=== PATIENT | male | born 1945 | race African-American/Black ===

== ENCOUNTER 2019-01-03 11:07 | Inpatient (IN) | payer OTHER, MEDICARE ==
[~2019-01-03] VITALS: Ht 182.2 cm; Wt 91.8 kg
[2019-01-03] MEDS ORDERED: IPRATROPIUM BROM 0.5 MG/2.5ML INH SOL NEB ONE (11:15)
[2019-01-03] MEDS ORDERED: ALBUTEROL SULF 2.5 MG/0.5ML(0.5%) NEB SOLN NEB ONE (11:15)
[2019-01-03] MEDS ORDERED: SODIUM CHLORIDE 0.9% 1,000 ML IV ONE (11:19)
[2019-01-03 11:40] LABS: Hematocrit 35.7 % (41.0-53.0); Hemoglobin 12.3 g/dL (13.5-17.5); Mean Corpuscular Hemoglobin 29.3 pg (28.0-32.0); Mean Corpuscular Hgb Conc. 34.3 g/dL (32.0-36.0); Mean Corpuscular Volume 85.3 fL (80.0-100.0); Platelet Count (auto) 245 10^3/uL (140-450); Red Blood Cells 4.19 10^6/uL (4.5-5.90); Red Cell Distribution Width 16.7 % (11.8-14.3); White Blood Cell 28.9 10^3/uL (4.4-10.8)
[2019-01-03 11:50] LABS: Basophils % (manual) 0 (0.0-2.0); Blast Cells 0; Eosinophils % (manual) 0 (0-7); Metamyelocytes % 0; Myelocytes % 0; Promyelocytes % 0; Reactive Lymphocytes 0
[2019-01-03 12:02] LABS: INR 1.08 (0.9-1.15)
[2019-01-03 12:06] LABS: Alanine Aminotransferase 15 U/L (16-61); Albumin 2.7 g/dL (3.4-5.0); Anion Gap 11 (5-15); Blood Urea Nitrogen 28 mg/dL (7-18); Calcium 8.7 mg/dL (8.5-10.1); Carbon Dioxide 21 mmol/L (21-32); Chloride 107 mmol/L (98-107); Glucose 121 mg/dL (74-106); Potassium 3.9 mmol/L (3.5-5.1); Sodium 139 mmol/L (136-145)
[2019-01-03 12:11] LABS: Alkaline Phosphatase 127 U/L (45-117); Aspartate Aminotransferase 19 U/L (15-37); BUN/Creatinine Ratio 17.8; Bilirubin, Total 2.6 mg/dL (0.2-1.0); GFR African American 56 mL/min; GFR Non-African American 46 mL/min; Total Protein 7.2 g/dL (6.4-8.2)
[2019-01-03] MEDS ORDERED: AZITHROMYCIN 500MG/ 250ML 250 ML IV ONE (12:30)
[2019-01-03] MEDS ORDERED: cefTRIAXone 1GM/50ML D5W 50 ML IV ONE (12:30)
[2019-01-03 13:10] LABS: Band Neutrophils % (manual) 18; Lymphocytes % (manual) 3 (10.0-50.0); Monocytes % (manual) 5 (0-12)
[2019-01-03] MEDS ORDERED: IOHEXOL 350 MG/ML 100ML IJ ONE (13:16)
[2019-01-03] MEDS ORDERED: NITROGLYCERIN 0.4 MG SL TAB SL PRN (14:15)
[2019-01-03] MEDS ORDERED: VANCOMYCIN PER PHARMACY 0 MG IV SCH (14:15)
[2019-01-03] MEDS ORDERED: ACETAMINOPHEN 500 MG TAB PO PRN (14:15)
[2019-01-03] MEDS ORDERED: HYDROcodone-ACET 5/325MG TAB PO PRN (14:15)
[2019-01-03] MEDS ORDERED: methylPREDNISolone SOD SUCC 125 MG/2 ML VL IV ONE (14:15)
[2019-01-03] MEDS ORDERED: MORPHINE SULF INJ 2 MG/ML SYRINGE 1ML IV PRN ×2 (14:15)
[2019-01-03 14:47] LABS: Lactic Acid w/Reflex 2.5 mmol/L (0.4-2.0)
[2019-01-03] MEDS: SODIUM CHLORIDE 0.9% 1,000 ML IV SCH (15:27)
[2019-01-03 16:35] VITALS: BP_SYST 122; BP_DIAS 71; BP_DIAS 77
--- NOTE | 2019-01-03 16:35 | NUR ---
RECEIVED PT FROM ED VIA [facility] FOR ACUTE RESPIRATORY FAILURE PT IMMEDIATELY PLACED ON BIPAP 15/7 AT 35% BY RT, SPO2 AT 97% PT HAVING MOIST COUGH AND GETS VERY WHEEZY AND S.O.B WITH ACTIVITY. EDUCATED ON POC, PT VERBALIZED UNDERSTANDING OF POC.
--- NOTE | 2019-01-03 17:17 | NUR ---
Respiratory note: UNABLE TO OBTAIN PT ABG AT THIS TIME. FLASH PT REFUSED SECOND ATTEMPT. STATING HE WANTED TO REST AND WILL COMPLY AT A LATER TIME. WILL INFORM NOC RT AND RN OF REFUSAL.
[2019-01-03] MEDS: ALBUTEROL SULF 2.5 MG/0.5ML(0.5%) NEB SOLN NEB SCH ×2 (18:10→22:18)
[2019-01-03] MEDS: ACETYLCYSTEINE 20%(200MG/ML) SOL 4ML NEB SCH ×2 (18:10→22:18)
[2019-01-03] MEDS: IPRATROPIUM BROM 0.5 MG/2.5ML INH SOL NEB SCH ×2 (18:10→22:18)
[2019-01-03] MEDS: BUDESONIDE (INHALATION) 0.5 MG/2 ML NEB NEB SCH (18:11)
[2019-01-03 18:13] VITALS: BP 123/66
[2019-01-03 18:20] LABS: Urine Bacteria NONE SEEN /hpf (None Seen); Urine Blood Negative /uL (Negative); Urine Hyaline Cast FEW /lpf (0 - 2); Urine WBC 1 /hpf (0 - 3)
[2019-01-03] MEDS ORDERED: VANCOMYCIN 1,500 MG in D5W 5% 250 ML IV ONE (18:30)
--- NOTE | 2019-01-03 19:00 | NUR ---
REPORT GIVEN TO TRAY SERVER RN PT REMAINS STABLE, RT STILL UNABLE TO BET PT'S ABG, MADY TURNER AWARE, HE CAME TO ROUND ON PT PRIOR TO GOING HOME, HE STATES PT LOOKS MUCH BETTER THAN WHEN HE WAS IN ED. HIS WORK OF BREATHING IS MUCH BETTER.
--- NOTE | 2019-01-03 19:30 | NUR ---
Opening Shift Note Assumed care of patient, awake and alert, watching TV. Breathing on BiPAP, mild SOB and tachypneic, upper lungs sounded wheezing, lower lungs diminished. Denied pain. IV 18G at left wrist, saline lock, flushed well. 20G at right hand infusing Vancomycin, CDI site. Pt had incontinent, will cleaned and changed all linens. Bed in low position, call light within reach, fall and safety precaution in place, all alarms are audible. Instructed on POC and to call for assist PRN, will continue to monitor for changes Q1hr and PRN.
--- NOTE | 2019-01-03 19:45 | NUR ---
Incontinence/ Patient bathe/linen change Patient given partial bath and perirectal and perineum care with basin bath. Skin integrity assessed for any changes, skin intact, no rash noted. Complete linens changed. Pt able to help turn with fairly tolerated due to tachypneic. Patient repositioned for comfort. Continue care.
[2019-01-03 20:00] VITALS: BP 131/64
--- NOTE | 2019-01-03 20:30 | NUR ---
Condition update Pt sitting on the bed, eating dinner by self. RR35/min, O2 NC3LPM, O2sat 95%. Occasional coughing, no sputum. Continue care.
--- NOTE | 2019-01-03 20:50 | NUR ---
Condition update Pt finished dinner, 20% main dish, peaches. Sitting on bed, resting after dinner. Pt refused mouth care for now. SCD put on both lower legs. Paged RT for resume BiPAP. Continue care.
[2019-01-03] MEDS ORDERED: IBUP200T76 PO (21:01)
[2019-01-03] MEDS ORDERED: PRE5T GT (21:01)
[2019-01-03] MEDS ORDERED: ATOR20TA PO (21:01)
[2019-01-03] MEDS ORDERED: CHOL20007 OR (21:01)
[2019-01-03] MEDS ORDERED: AMLO5TAB15 PO (21:01)
[2019-01-03] MEDS ORDERED: ZOLP12.564 PO (21:01)
[2019-01-03] MEDS ORDERED: TAMS0.4C36 PO (21:01)
[2019-01-03 21:05] VITALS: BP 131/63
[2019-01-03] MEDS ORDERED: TOPIRAMATE 100 MG TAB ONE (21:52)
[2019-01-03] MEDS: FAMOTIDINE (10MG/ML) 2ML VL IV SCH (21:54)
[2019-01-03 22:00] VITALS: BP 127/62
--- NOTE | 2019-01-03 22:03 | NUR ---
Home medication request Pt asked for his night time home medicine. Pt stated that he is on Labetalol 12.5mg PO twice a day, Tamsulosin 0.4mg PO q pm, and Zolpidem 12.5mg po q pm. V/S 127/62, HR76, RR29, POX97%. Paged Hospitalist for medication order. 22.13pm Dr. Calzada called back, ordered Tamsulosin 0.4mg PO q pm and Zolpidem 10mg po prn hs, will administer medication as order.
[2019-01-03] MEDS ORDERED: ZOLPIDEM TARTRATE 5 MG TAB PO PRN (22:15)
[2019-01-03 22:19] VITALS: BP 127/62
[2019-01-03] MEDS ORDERED: POM PO ×2 (23:50)
[2019-01-04] VITALS (13 sets, daily range): BP systolic 120–145; BP diastolic 60–84
--- NOTE | 2019-01-04 00:14 | NUR ---
Condition update Pt sleeping well, v/s and condition stable. Breathing on BiPAP, tachypneic but even and nonlabored. POX 98% on 05/10, 35% BiPAP, will hold night med for now due to sleeping. Continue care.
[2019-01-04] MEDS: TAMSULOSIN HYDROCHLORIDE 0.4 MG CAP PO SCH ×2 (01:55→18:01)
--- NOTE | 2019-01-04 02:00 | NUR ---
Condition update/ wheezing Pt woke up by self, pulled POX probe, fidgeting. SOB with WOB, tachypneic RR 30's /min, MV 30's LPM, O2sat mid 90's with audible wheezing while switched to O2NC 3LPM (talking and sipping water). Re-assessed LOC, Pt oriented to self, , day. Discussed with Pt about night time medicine that Pt requested but was withheld due to sleeping. Pt stated that he wanted Flomax but said no to Ambien, will administer Flomax. Assisted with urinal, Pt urinated dark hoang urine 350ml, hands and perineum care done. RT at bedside to assess SOB and administer med neb treatment. Re-positioned Pt and will continue to monitor.
[2019-01-04] MEDS: IPRATROPIUM BROM 0.5 MG/2.5ML INH SOL NEB SCH ×6 (02:19→22:54)
[2019-01-04] MEDS: ALBUTEROL SULF 2.5 MG/0.5ML(0.5%) NEB SOLN NEB SCH ×6 (02:19→22:54)
[2019-01-04] MEDS: SODIUM CHLORIDE 0.9% 1,000 ML IV SCH (02:48)
--- NOTE | 2019-01-04 05:05 | NUR ---
Condition update/ supplement Pt woke up, switched on and watched a television. Pt asked for orange juice. Provided a cup of orange juice. Changed O2 to O2NC 3LPM while drinking, RR low 30's, O2sat mid 90's, no s/s of distress. Continue care.
[2019-01-04 05:29] LABS: Hematocrit 32.9 % (41.0-53.0); Hemoglobin 11.1 g/dL (13.5-17.5); Mean Corpuscular Hemoglobin 29.1 pg (28.0-32.0); Mean Corpuscular Hgb Conc. 33.7 g/dL (32.0-36.0); Mean Corpuscular Volume 86.4 fL (80.0-100.0); Platelet Count (auto) 227 10^3/uL (140-450); Red Blood Cells 3.81 10^6/uL (4.5-5.90); Red Cell Distribution Width 17.1 % (11.8-14.3); White Blood Cell 26.3 10^3/uL (4.4-10.8)
[2019-01-04 05:32] LABS: Basophils % (manual) 0 (0.0-2.0); Blast Cells 0; Eosinophils % (manual) 0 (0-7); Metamyelocytes % 0; Myelocytes % 0; Promyelocytes % 0; Reactive Lymphocytes 0
[2019-01-04 05:48] LABS: Calcium 8.8 mg/dL (8.5-10.1); Potassium 3.4 mmol/L (3.5-5.1)
[2019-01-04 05:50] LABS: BUN/Creatinine Ratio 10.6
[2019-01-04] MEDS: ACETYLCYSTEINE 20%(200MG/ML) SOL 4ML NEB SCH ×5 (06:34→22:55)
--- NOTE | 2019-01-04 07:30 | NUR ---
RECEIVED PATIENT SITTING UP IN THE BED, A/O TIMES 4, O2 BY BIPAP 15/7 FI02 30%, STATES HE CAN USE THE URINAL, SALINE LOCK TO THE LFA 18G FLUSHED AND PATENT, ANTIBIOTICS INFUSING INTO THE RT HAND 20G BY THE IV PUMP, DENIES PAIN,
[2019-01-04 07:33] LABS: Band Neutrophils % (manual) 13; Lymphocytes % (manual) 2 (10.0-50.0); Monocytes % (manual) 4 (0-12)
--- NOTE | 2019-01-04 07:59 | NUR ---
PT TAKEN OFF BIPAP AND PLACED ON 2LNC, SPO2 >90%. NO RESPIRATORY DISTRESS NOTED.
--- NOTE | 2019-01-04 08:30 | NUR ---
STATES HE DOESN'T WANT THE FOOD BUT WILL TRY AND EAT SOMETHING
[2019-01-04] MEDS: cefTRIAXone 1GM/50ML D5W 50 ML IV SCH (08:57)
--- NOTE | 2019-01-04 09:30 | NUR ---
SITTING UP IN THE BED TALKING ON HIS PHONE
[2019-01-04] MEDS ORDERED: AZITHROMYCIN 500MG/ 250ML 250 ML IV SCH (10:00)
--- NOTE | 2019-01-04 10:00 | NUR ---
PATIENT STATES HE CAN TURN HIMSELF , WON'T LET US TURN HIM
--- NOTE | 2019-01-04 10:00 | NUR ---
EXPLAIN MEDICATIONS TO THE PATIENT REGARDING THE DOSAGE, USAGE, AND SIDE EFFECTS, VERBALIZED THAT HE UNDERSTOOD AND MEDS GIVEN TOLERATED
[2019-01-04] MEDS: FAMOTIDINE (10MG/ML) 2ML VL IV SCH ×2 (10:06→22:00)
--- NOTE | 2019-01-04 10:30 | NUR ---
SPUTUM COLLECTED AND SENT
[2019-01-04] MEDS: BUDESONIDE (INHALATION) 0.5 MG/2 ML NEB NEB SCH ×2 (10:45→19:29)
--- NOTE | 2019-01-04 10:48 | NUR ---
PLACED PT ON BIPAP ON ORDERED SETTINGS 15/7, BUR 12 PER PT REQUEST. NO RESPIRATORY DISTRESS NOTED. RN JOSE AWARE OF BIPAP PLACEMENT WELL.
--- NOTE | 2019-01-04 11:10 | NUR ---
DR DEL CID IN TO SEE THE PATIENT AND WROTE NEW ORDERS
[2019-01-04] MEDS ORDERED: IBUPROFEN 400 MG TAB PO PRN (11:15)
--- NOTE | 2019-01-04 12:00 | NUR ---
FRIEND IN TO VISIT WITH THE PATIENT
--- NOTE | 2019-01-04 12:05 | NUR ---
PT OFF BIPAP FOR LUNCH. NO RESPIRATORY DISTRESS.
[2019-01-04] MEDS: methylPREDNISolone SOD SUCC 40 MG/ML VL IV SCH ×2 (12:20→18:01)
--- NOTE | 2019-01-04 12:20 | NUR ---
SITTING UP IN BE EATING HIS LUNCH , STATES HE IS ONLY GOING TO EAT A LITTLE BECAUSE HE IS GOING HOME, PATIENT APPEARS TO BE FORGETFUL
[2019-01-04] MEDS: VANCOMYCIN 1,500 MG in D5W 5% 250 ML IV SCH (12:22)
[2019-01-04] MEDS ORDERED: POTASSIUM CHL 10 Meq TABLET PO ONE (12:45)
[2019-01-04] MEDS ORDERED: MAGNESIUM SULFATE 1GM/100ML 100 ML IV ONE (12:45)
--- NOTE | 2019-01-04 13:00 | NUR ---
DR CALDERÓN IN TO SEE THE PATIENT
--- NOTE | 2019-01-04 13:30 | NUR ---
FRIEND LEFT AND WENT HOME
--- NOTE | 2019-01-04 14:25 | NUR ---
BREATHING TREATMENT BEING GIVEN, PATIENT GOING FROM O2 AT 2L BY N/C, TO WEARING THE BIPAP EVEN THOUGH HE IS NOT SOB
--- NOTE | 2019-01-04 14:45 | NUR ---
REMOVED SALINE LOCK FROM THE LEFT WRIST AND RT HAND BOTH INTACT BUT INFILTRATED, PLACED 22G TO THE RFA 1/1 ATTEMPTS USING STERILE TECHNIQUE
--- NOTE | 2019-01-04 15:31 | NUR ---
SITTING UP IN THE BED ON HIS PHONE. O2 AT 2L BY N/C, SAT 95%, 20G REMOVED FROM THE RT HAND DUE TO SWELLING, USES THE URINAL, NO COMPLAINTS OF PAIN
--- NOTE | 2019-01-04 15:53 | NUR ---
Assessment Pt is a 73 yr old alert and oriented male. Pt's emergency contact is his friend, Codey, at [phone]. Prior to admit, pt lives alone, is ambulatory, and functions independently with ADLs, cooking and cleaning and states that he functions independently without any DME. Pt admitted with shortness of breath and had a bi-pap tx shortly before SW assessment. Pt is an active smoker and stated that he has no interest in tx. Pt states that he is still employed and able to meet his needs. Pt stated that he does not need any help in the home and that he will feel safe to d/c home upon medical clearance. Pt stated no current needs or concerns at this time. Addendum: 01/04/19 at 1600 by MARCK HERNANDEZ SS Amended: Links added.
--- NOTE | 2019-01-04 16:05 | NUR ---
REFUSED TO HAVE THE TOMMY DOPPLER OF HIS LEGS DONE
--- NOTE | 2019-01-04 17:29 | NUR ---
SITTING UP IN BED EATING AN APPLE
--- NOTE | 2019-01-04 18:26 | NUR ---
SITTING UP IN EBD, LOOKING AT HIS TABLET, NOT READY TO EAT HIS DINNER, WHICH IS AT THE BEDSIDE, O2 AT 3L BY THE N/C, USES THE URINAL, RFA 22G WITH NS AT 10ML/HR TKO, SCD'S TO TOMMY LEGS, ASKING IF HE HAS A SLEEPING PILL FOR TONIGHT AND STATED YES HE HAS AMBIEN, DENIES PAIN AND SOB WILL CONTINUE TO MONITOR AND GIVE REPORT TO THE NEXT SHIFT
--- NOTE | 2019-01-04 19:05 | NUR ---
Respiratory note: PT REQUESTING TO GO ON BIPAP AFTER BREATHING TX. PT DENIES SOB, STATES HE JUST WANTS TO WEAR BIPAP FOR A LITTLE WHILE. BIPAP ALARMIN AFTER 5-10 MIN. ENTERED ROOM, PT OFF BIPAP, ON RA AND EATING VEGETABLES. PT STATES HE IS JUST TAKING A BREAK TO EAT BUT WANTS TO GO BACK ON AFTER 15 MINE. WILL RETURN.
--- NOTE | 2019-01-04 19:30 | NUR ---
Respiratory note: PT PLACED BACK ON BIPAP, DENIES ANY OTHER NEEDS.
--- NOTE | 2019-01-04 20:55 | NUR ---
Respiratory note: ENTERED ROOM TO CHECK PT ON BIPAP. PT OFF BIPAP, ON R/A, SATS 93%. PT STATES HE IS DONE WITH BIPAP FOR NOW. NO DISTRESS NOTED, BIPAP PLACED ON STANDBY. O2 RUNNING AT 2LPM AT THE BEDSIDE. WILL RETURN AT NEXT SCHEDULED TX TIME.
[2019-01-04] MEDS ORDERED: ATORVASTATIN 20 MG TAB PO SCH (22:00)
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
[2019-01-05] VITALS: BP 128/64
--- NOTE | 2019-01-05 00:30 | NUR ---
PT IS AWAKE, ATTEMPTS TO GET OOB POOLING ON LINES AND MONITOR CABLES TO FIND A PAIR OF BLACK PANTS IN THE TRASH CAN. ASSISTED BACK TO BED AND OFFERED THE BAG OF BELONGINGS WHERE HE FINDS WHATEVER HE NEEDS. EXPLAINED TO PT SAFETY CONCERNS AND THE USE OF CALL LIGHT.
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
[2019-01-05] MEDS ORDERED: LORazepam 2MG/ML-1ML VIAL IV ONE (01:30)
[2019-01-05] MEDS ORDERED: HALOPERIDOL LACTATE 5 MG/ML INJ VIAL IM ONE (01:30)
[2019-01-05] MEDS ORDERED: diphenhdrAMINE HCL 50 MG/1 ML VL IV ONE (01:30)
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
--- NOTE | 2019-01-05 03:10 | NUR ---
SPENT TIME WITH PT REMINDING HIM OF THE IMPORTANCE OF REMAINING SAFE . PROMISES TO STAY IN BED IN EXCHANGE FOR COFFEE. ENJOYING HIS COFFEE, MUCH CALMER NOW, BUT NOT FULLY COHERENT. VISUALLY MONITORED CLOSELY, LIGHTS IN THE ROOM ON.
[2019-01-05 04:00] VITALS: BP 147/75
[2019-01-05] MEDS: methylPREDNISolone SOD SUCC 40 MG/ML VL IV SCH ×4 (05:48→17:29)
[2019-01-05] MEDS: VANCOMYCIN 1,500 MG in D5W 5% 250 ML IV SCH (05:48)
[2019-01-05] MEDS: IPRATROPIUM BROM 0.5 MG/2.5ML INH SOL NEB SCH ×4 (06:19→18:19)
[2019-01-05] MEDS: ALBUTEROL SULF 2.5 MG/0.5ML(0.5%) NEB SOLN NEB SCH ×4 (06:19→18:19)
[2019-01-05] MEDS: ACETYLCYSTEINE 20%(200MG/ML) SOL 4ML NEB SCH ×4 (06:19→18:20)
[2019-01-05 08:00] VITALS: BP 125/63
--- NOTE | 2019-01-05 08:00 | NUR ---
Opening Shift Note Assumed care of patient, awake and alert. Patient A&Ox4. Patient on the monitor. Patient on 5L NC saturation at 95%. IV right forearm 22g TKO patent, clean, dry, and intact. No S/S of distress/SOB or pain. Instructed on POC and to call for assist. Bed locked and in the lowest position, side rails up x2, call light with in reach. Will continue to monitor.
--- NOTE | 2019-01-05 08:30 | NUR ---
Patient sitting up in bed eating breakfast independently. Will continue to monitor.
--- NOTE | 2019-01-05 09:30 | NUR ---
Dr. Curry at bedside.
[2019-01-05] MEDS: BUDESONIDE (INHALATION) 0.5 MG/2 ML NEB NEB SCH (09:45)
[2019-01-05] MEDS ORDERED: CHOLECALCIFEROL (VITD3) 1,000 UNIT TAB PO SCH (10:00)
[2019-01-05] MEDS ORDERED: amLODIPine BESYLATE 5 MG TAB PO SCH (10:00)
--- NOTE | 2019-01-05 10:00 | NUR ---
Medication dosages, usages, and side effects explained to patient. Patient verbalized understanding. Will continue to monitor.
[2019-01-05] MEDS: cefTRIAXone 1GM/50ML D5W 50 ML IV SCH (10:42)
[2019-01-05] MEDS: FAMOTIDINE (10MG/ML) 2ML VL IV SCH (10:42)
[2019-01-05 11:35] LABS: Hematocrit 37.7 % (41.0-53.0); Hemoglobin 12.8 g/dL (13.5-17.5); Mean Corpuscular Hemoglobin 29.1 pg (28.0-32.0); Mean Corpuscular Volume 85.4 fL (80.0-100.0); Platelet Count (auto) 311 10^3/uL (140-450); Red Blood Cells 4.41 10^6/uL (4.5-5.90)
[2019-01-05 11:40] LABS: Band Neutrophils % (manual) 0; Basophils % (manual) 0 (0.0-2.0); Blast Cells 0; Eosinophils % (manual) 0 (0-7); Metamyelocytes % 0; Myelocytes % 0; Promyelocytes % 0; Reactive Lymphocytes 0
[2019-01-05 12:00] VITALS: BP 143/81
--- NOTE | 2019-01-05 12:30 | NUR ---
Patient sitting up in bed eating lunch independently. Will continue to monitor.
[2019-01-05 12:59] LABS: Lymphocytes % (manual) 8 (10.0-50.0); Monocytes % (manual) 6 (0-12)
[2019-01-05 14:08] LABS: Albumin 2.4 g/dL (3.4-5.0); Calcium 9.3 mg/dL (8.5-10.1); Potassium 3.7 mmol/L (3.5-5.1)
[2019-01-05 14:11] LABS: BUN/Creatinine Ratio 21.2; Bilirubin, Total 0.6 mg/dL (0.2-1.0); Total Protein 7.8 g/dL (6.4-8.2)
--- NOTE | 2019-01-05 15:00 | NUR ---
Dr. Barbosa at bedside. No new orders at this time.
--- NOTE | 2019-01-05 15:35 | NUR ---
Report given to Lea. Patient going to room 291B on tele box 61.
--- NOTE | 2019-01-05 16:07 | NUR ---
Pt Arrived on Unit Pt arrived via wheelchair accompanied by his friend. Pt is a/ox4 placed on 3L NC. No s/s of distress or SOB noted. Safety measures maintained with call light within reach, bed in lowest position and side rails up. Will continue to monitor for changes q1hr and prn.
--- NOTE | 2019-01-05 16:10 | NUR ---
Patient in room 291B. All belongings taken with the patient. Patient transported by wheel chair by myself and King CUELLAR. Patient now in room and resting. KAREN heredia.
[2019-01-05 16:22] VITALS: BP 139/75
--- NOTE | 2019-01-05 16:30 | NUR ---
Patient states his PMD is Dr. Bobby Winter at [facility].
[2019-01-05] MEDS: TAMSULOSIN HYDROCHLORIDE 0.4 MG CAP PO SCH (17:29)
--- NOTE | 2019-01-05 17:35 | NUR ---
Pt Concerned for Elevated BP Pt's stated that his BP is too high and that he "does not like it being that high". His BP is 142/74 initially; he requested that it be taken manually; to which is was 139/75. Pt states that his BP is too high and wishes to be on his medication Carvedilol 12.5mg. Discussed with pt that we are monitoring his blood pressure and that he has been taking amlodipine for his BP while in the hospital. Pt is still uneasy about his blood pressure and requests that this medication be added. Will endorse to NOC shift to monitor pt's BP.
--- NOTE | 2019-01-05 18:50 | NUR ---
Pt Stated He Wishes to Leave AMA Pt stated "I am don here". Pt stated he no longer wants to be here any more. Discussed the benefits of staying in the hospital given his Pneumonia diagnosis as well as respiratory failure; pt still wishes to leave AMA. All risks explained to pt including and disability; pt still wishes to leave AMA. Informed Piter SHAHID of pt's wishes; he is aware. Paper provided to pt and was signed in front of pt's friend and sitter VAISHNAVI
--- NOTE | 2019-01-05 19:28 | NUR ---
IV D/C'ed IV from pt's R wrist removed fully intact and site is asymptomatic. Pressure applied to site for 3 minutes with gauze and the wrapped in coban. Pt instructed to keep dressing on for 30 minutes; pt verbalized understanding.
--- NOTE | 2019-01-05 19:29 | NUR ---
Tele Box Removed and Sent back to ICU
--- NOTE | 2019-01-05 19:29 | NUR ---
Pt D/C'ed Off Unit Pt left unit AMA with all belongings. Pt was left via wheel chair accompanied by his friend and his belongings.
== END 2019-01-05 19:20 | disposition home or self-care (01) | DRG 871 ==
LOC: EDBD 11:07 → ER 11:07 → DOU IN ICU 11:08 → TELE-WESTW 01-05 15:42
PROVIDERS: ADMIT Nurse Practitioner Acute Care; ATTEND Internal Medicine
PROC: 5A09357 Assistance with Respiratory Ventilation, Less than 24 Consecutive Hours, Continuous Positive Airway Pressure (ICD-10-PCS; principal; 2019-01-03)
PROC: 5A09357 Assistance with Respiratory Ventilation, Less than 24 Consecutive Hours, Continuous Positive Airway Pressure (ICD-10-PCS; 2019-01-04)
PROC: 5A09357 Assistance with Respiratory Ventilation, Less than 24 Consecutive Hours, Continuous Positive Airway Pressure (ICD-10-PCS; 2019-01-05)
DX: A41.9 Sepsis, unspecified organism (principal); J18.9 Pneumonia, unspecified organism; J96.01 Acute respiratory failure with hypoxia; N17.0 Acute kidney failure with tubular necrosis; G92 Toxic encephalopathy; J18.1 Lobar pneumonia, unspecified organism; E44.0 Moderate protein-calorie malnutrition; J44.1 Chronic obstructive pulmonary disease with (acute) exacerbation; J98.11 Atelectasis; J44.0 Chronic obstructive pulmonary disease with (acute) lower respiratory infection; J45.901 Unspecified asthma with (acute) exacerbation; N18.3 Chronic kidney disease, stage 3 (moderate); K42.9 Umbilical hernia without obstruction or gangrene; E88.09 Other disorders of plasma-protein metabolism, not elsewhere classified; E87.6 Hypokalemia; D63.8 Anemia in other chronic diseases classified elsewhere; E66.9 Obesity, unspecified; F17.210 Nicotine dependence, cigarettes, uncomplicated; I12.9 Hypertensive chronic kidney disease with stage 1 through stage 4 chronic kidney disease, or unspecified chronic kidney disease; M06.9 Rheumatoid arthritis, unspecified; E55.9 Vitamin D deficiency, unspecified; M19.90 Unspecified osteoarthritis, unspecified site; Z85.3 Personal history of malignant neoplasm of breast; Z68.27 Body mass index [BMI] 27.0-27.9, adult; Z88.1 Allergy status to other antibiotic agents; Z71.6 Tobacco abuse counseling
CPT/HCPCS: 36415; 36600; 71045; 71275; 80048; 80053; 80202; 81001; 82306; 82805; 83605; 83735; 83880; 84443; 84484; 85007; 85027; 85379; 85610; 85730; 87040; 87070; 87205; 87804; 93005; 94640; 94644; 94660; 94668; 94761; 96361; 96365; 96367; 96375; 99291; G0378; J0696; J3490; J7060

== ENCOUNTER 2021-08-14 12:24 | Inpatient (IN) | payer OTHER, MEDICARE ==
[~2021-08-14] VITALS: Ht 177.8 cm; Wt 74.2 kg
[~2021-08-14 12:24] MED LIST: AMLO-489 PO; ATOR20TA PO; CHOL20007 OR; IBUP200T76 PO; POM PO; PRE5T GT; TAMS0.4C36 PO; ZOLP12.569 PO
[2021-08-14] MEDS ORDERED: SODIUM CHLORIDE 0.9% 500 ML IV ONE (13:00)
[2021-08-14 14:37] LABS: Hemoglobin 9.4 g/dL (13.5-17.5)
[2021-08-14 14:39] LABS: Basophils # (auto) 0.1 10 ^3/uL (0-0.2); Basophils % (auto) 0.9 % (0.0-2.0); Eosinophils # (auto) 0.1 10 ^3/uL (0-0.8); Eosinophils % (auto) 0.6 % (0.0-7.0); Hematocrit 27.1 % (41.0-53.0); Lymphocytes # (auto) 2.7 10 ^3/uL (0.4-5.4); Lymphocytes % (auto) 22.6 % (10.0-50.0); Mean Corpuscular Hemoglobin 31.6 pg (28.0-32.0); Mean Corpuscular Hgb Conc. 34.7 g/dL (32.0-36.0); Mean Corpuscular Volume 91.1 fL (80.0-100.0); Monocytes % (auto) 8.5 % (0.0-12.0); Neutrophils % (auto) 67.4 % (37.0-80.0); Nucleated Red Blood Cells % 0.1 %; Red Blood Cells 2.97 10^6/uL (4.5-5.90); White Blood Cell 11.9 10^3/uL (4.4-10.8)
[2021-08-14 14:47] LABS: INR 1.05 (0.9-1.15); Partial Thromboplastin Time 25.4 sec (23.6-33.0)
[2021-08-14] MEDS ORDERED: PANTOPRAZOLE 40 MG/10 ML VIAL INJ IV ONE (15:00)
[2021-08-14 15:14] LABS: Albumin 2.9 g/dL (3.4-5.0); Calcium 9.3 mg/dL (8.5-10.1)
[2021-08-14 15:20] LABS: Bilirubin, Total 0.5 mg/dL (0.2-1.0); Total Protein 6.9 g/dL (6.4-8.2)
[2021-08-14] MEDS ORDERED: LACTATED RINGER'S 1,000 ML IV ONE (16:00)
[2021-08-14] MEDS ORDERED: MORPHINE SULFATE INJ 2 MG/ml SYRG IV PRN ×2 (16:00→22:30)
[2021-08-14] MEDS ORDERED: NITROGLYCERIN 0.4 MG SL TAB SL PRN (16:00)
[2021-08-14 16:09] LABS: BUN/Creatinine Ratio 11.8
[2021-08-14] MEDS ORDERED: ALPRAZolam 0.5 MG TAB PO PRN (16:30)
[2021-08-14] MEDS ORDERED: ZOLPIDEM TARTRATE 5 MG TAB PO ONE ×2 (16:30)
[2021-08-14] MEDS ORDERED: metroNIDAZOLE 500MG/100ML 100 ML IV ONE (17:00)
[2021-08-14 18:59] LABS: Urine Bacteria NONE SEEN /hpf (None Seen); Urine Blood Negative /uL (Negative); Urine Hyaline Cast MOD /lpf (0 - 2); Urine Specific Gravity 1.017 (1.001-1.035); Urine WBC <1 /hpf (0 - 3)
[2021-08-14] MEDS: PANTOPRAZOLE 40 MG/10 ML VIAL INJ IV SCH (22:19)
[2021-08-14] MEDS ORDERED: hydrALAZINE HCL 20 MG/ML VL IV PRN (22:30)
[2021-08-14] MEDS ORDERED: DOCUSATE SOD 100 MG CAP PO PRN (22:30)
[2021-08-14] MEDS ORDERED: ONDANSETRON HCL 4 MG/2 ML VIAL IV PRN (22:30)
[2021-08-14] MEDS ORDERED: HYDROcodone-ACET 5/325MG TAB PO PRN (22:30)
[2021-08-14] MEDS ORDERED: LORazepam 0.5 MG TAB PO PRN (22:30)
[2021-08-14] MEDS ORDERED: ACETAMINOPHEN 325 MG TAB PO PRN (22:30)
[2021-08-14] MEDS ORDERED: IOHEXOL 350 MG/ML 100ML IJ ONE (22:53)
[2021-08-14] MEDS: SODIUM CHLORIDE 0.9% 1,000 ML IV SCH (23:24)
[2021-08-15 01:24] LABS: Magnesium 1.7 mg/dL (1.6-2.6); Phosphorus 2.3 mg/dL (2.5-4.90)
[2021-08-15 02:58] LABS: INR 1.06 (0.9-1.15); Partial Thromboplastin Time 23.8 sec (23.6-33.0)
[2021-08-15 05:12] LABS: Basophils # (auto) 0.2 10 ^3/uL (0-0.2); Eosinophils # (auto) 0.1 10 ^3/uL (0-0.8); Eosinophils % (auto) 1.2 % (0.0-7.0); Hematocrit 24.1 % (41.0-53.0); Hemoglobin 8.7 g/dL (13.5-17.5); Lymphocytes # (auto) 2.9 10 ^3/uL (0.4-5.4); Lymphocytes % (auto) 23.7 % (10.0-50.0); Mean Corpuscular Hemoglobin 32.3 pg (28.0-32.0); Mean Corpuscular Hgb Conc. 35.9 g/dL (32.0-36.0); Monocytes # (auto) 0.9 10 ^3/uL (0-1.3); Monocytes % (auto) 7.5 % (0.0-12.0); Neutrophils # (auto) 8.1 10 ^3/uL (1.6-8.6); Neutrophils % (auto) 65.6 % (37.0-80.0); Nucleated Red Blood Cells % 0.1 %; Red Blood Cells 2.68 10^6/uL (4.5-5.90); Red Cell Distribution Width 17.1 % (11.8-14.3); White Blood Cell 12.3 10^3/uL (4.4-10.8)
[2021-08-15 05:19] LABS: Potassium 3.3 mmol/L (3.5-5.1)
[2021-08-15 05:21] LABS: % Iron Saturation 18.2 % (20-55)
[2021-08-15 05:28] LABS: INR 1.06 (0.9-1.15)
[2021-08-15 05:30] LABS: Albumin 2.5 g/dL (3.4-5.0); Bilirubin, Total 0.4 mg/dL (0.2-1.0); CRP High Sensitivity 1.47 mg/dL (< 0.3); Calcium 8.3 mg/dL (8.5-10.1); Magnesium 1.9 mg/dL (1.6-2.6); Phosphorus 2.3 mg/dL (2.5-4.90); Total Protein 5.9 g/dL (6.4-8.2); Uric Acid 5.2 mg/dL (3.5-7.2)
[2021-08-15] MEDS ORDERED: CLINDAMYCIN 600MG IV 50 ML IV SCH (06:00)
[2021-08-15 06:36] LABS: Folate (Folic Acid) 7.38 ng/mL (5.38-24)
[2021-08-15] MEDS ORDERED: NEUTRA-PHOS TABLET PO ONE (07:30)
[2021-08-15] MEDS ORDERED: POTASSIUM CHL 20 Meq TABLET PO ONE (07:30)
[2021-08-15] MEDS ORDERED: MAGNESIUM OXIDE 400 MG TAB PO ONE (07:30)
[2021-08-15] MEDS ORDERED: IPRATROPIUM BROM 0.5 MG/2.5ML INH SOL NEB PRN (09:45)
[2021-08-15] MEDS ORDERED: IPRATROPIUM BROM 0.5 MG/2.5ML INH SOL NEB SCH (10:00)
[2021-08-15] MEDS ORDERED: ENOXAPARIN SOD 40 MG/0.4 ML SYRINGE SC SCH (10:00)
[2021-08-15 10:35] VITALS: BP 120/50
[2021-08-15] MEDS: PANTOPRAZOLE 40 MG/10 ML VIAL INJ IV SCH ×2 (11:42→22:00)
[2021-08-15] MEDS: NEUTRA-PHOS TABLET PO SCH ×3 (11:42→17:52)
[2021-08-15] MEDS: cefTRIAXone 1GM/50ML D5W 50 ML IV SCH (11:42)
[2021-08-15] MEDS: MAGNESIUM OXIDE 400 MG TAB PO SCH ×2 (11:43→22:01)
[2021-08-15] MEDS: POTASSIUM CHL 20 Meq TABLET PO SCH ×2 (11:43→22:00)
[2021-08-15] MEDS: prednisoLONE 15 MG/5 ML ORAL UD PO SCH (13:30)
[2021-08-15] MEDS ORDERED: TAMSULOSIN HYDROCHLORIDE 0.4 MG CAP PO SCH (18:00)
[2021-08-15] MEDS: SODIUM CHLORIDE 0.9% 1,000 ML IV SCH (20:00)
[2021-08-15] MEDS ORDERED: TEMAZEPAM 15 MG CAP PO ONE (21:00)
[2021-08-15 22:00] VITALS: BP 143/69
[2021-08-15] MEDS ORDERED: ATORVASTATIN 20 MG TAB PO SCH (22:00)
[2021-08-16 05:00] VITALS: BP 143/56
[2021-08-16 07:07] LABS: Basophils # (auto) 0.1 10 ^3/uL (0-0.2); Eosinophils # (auto) 0.2 10 ^3/uL (0-0.8); Eosinophils % (auto) 1.4 % (0.0-7.0); Hematocrit 26.1 % (41.0-53.0); Hemoglobin 9.1 g/dL (13.5-17.5); Lymphocytes # (auto) 3.7 10 ^3/uL (0.4-5.4); Lymphocytes % (auto) 31.1 % (10.0-50.0); Mean Corpuscular Hemoglobin 31.7 pg (28.0-32.0); Mean Corpuscular Hgb Conc. 34.9 g/dL (32.0-36.0); Monocytes # (auto) 0.9 10 ^3/uL (0-1.3); Neutrophils # (auto) 6.9 10 ^3/uL (1.6-8.6); Neutrophils % (auto) 58.5 % (37.0-80.0); Nucleated Red Blood Cells % 0.2 %; Red Blood Cells 2.87 10^6/uL (4.5-5.90); Red Cell Distribution Width 17.7 % (11.8-14.3); White Blood Cell 11.8 10^3/uL (4.4-10.8)
[2021-08-16] MEDS: SODIUM CHLORIDE 0.9% 1,000 ML IV SCH (07:50)
[2021-08-16] MEDS: NEUTRA-PHOS TABLET PO SCH ×2 (08:00→12:50)
[2021-08-16 09:08] VITALS: BP 154/68
[2021-08-16 12:11] LABS: Anion Gap 4 (5-15); Carbon Dioxide 25 mmol/L (21-32); Chloride 114 mmol/L (98-107); Glucose 86 mg/dL (74-106); Potassium 3.8 mmol/L (3.5-5.1); Sodium 143 mmol/L (136-145)
[2021-08-16 12:12] LABS: Alanine Aminotransferase 13 U/L (16-61); Alkaline Phosphatase < 10 U/L (45-117); Aspartate Aminotransferase 12 U/L (15-37); BUN/Creatinine Ratio 10.8; Bilirubin, Total 0.4 mg/dL (0.2-1.0); Blood Urea Nitrogen 10 mg/dL (7-18); Calcium 8.3 mg/dL (8.5-10.1); GFR African American 101 mL/min; GFR Non-African American 84 mL/min; Phosphorus 2.2 mg/dL (2.5-4.90)
[2021-08-16 12:13] LABS: Albumin 2.4 g/dL (3.4-5.0); Magnesium 2.1 mg/dL (1.6-2.6); Total Protein 5.9 g/dL (6.4-8.2)
[2021-08-16] MEDS: PANTOPRAZOLE 40 MG/10 ML VIAL INJ IV SCH (12:47)
[2021-08-16] MEDS: cefTRIAXone 1GM/50ML D5W 50 ML IV SCH (12:48)
[2021-08-16] MEDS: prednisoLONE 15 MG/5 ML ORAL UD PO SCH (12:48)
[2021-08-16] MEDS: MAGNESIUM OXIDE 400 MG TAB PO SCH (12:49)
[2021-08-16] MEDS: POTASSIUM CHL 20 Meq TABLET PO SCH (12:49)
[2021-08-16 13:00] VITALS: BP 119/59
[2021-08-16] MEDS ORDERED: SUCR1SUS5 PO (14:26)
[2021-08-16] MEDS ORDERED: PANT40TA2 PO (14:26)
[2021-08-16 15:03] VITALS: BP 119/59
== END 2021-08-16 15:56 | disposition home or self-care (01) | DRG 377 ==
LOC: ER 12:24 → TELE 15:51 → TELE-WESTW 08-15 15:22
PROVIDERS: ADMIT Hospitalist; ATTEND Internal Medicine
DX: K92.2 Gastrointestinal hemorrhage, unspecified (principal); E43 Unspecified severe protein-calorie malnutrition; M35.1 Other overlap syndromes; M06.9 Rheumatoid arthritis, unspecified; D64.9 Anemia, unspecified; E83.42 Hypomagnesemia; E87.6 Hypokalemia; F10.10 Alcohol abuse, uncomplicated; Z53.29 Procedure and treatment not carried out because of patient's decision for other reasons; Z20.822 Contact with and (suspected) exposure to COVID-19; F17.210 Nicotine dependence, cigarettes, uncomplicated; I11.0 Hypertensive heart disease with heart failure; I25.10 Atherosclerotic heart disease of native coronary artery without angina pectoris; E78.5 Hyperlipidemia, unspecified; N40.0 Benign prostatic hyperplasia without lower urinary tract symptoms; N32.0 Bladder-neck obstruction; I50.9 Heart failure, unspecified; J44.9 Chronic obstructive pulmonary disease, unspecified; K80.50 Calculus of bile duct without cholangitis or cholecystitis without obstruction; M19.90 Unspecified osteoarthritis, unspecified site; Z88.1 Allergy status to other antibiotic agents; Z88.8 Allergy status to other drugs, medicaments and biological substances; Z79.899 Other long term (current) drug therapy; Z80.3 Family history of malignant neoplasm of breast; Z90.49 Acquired absence of other specified parts of digestive tract
CPT/HCPCS: 36415; 71045; 71275; 74176; 76705; 80053; 80061; 81001; 82550; 82607; 82728; 82746; 83036; 83540; 83550; 83615; 83690; 83735; 83880; 84100; 84154; 84443; 84484; 84550; 85025; 85379; 85610; 85652; 85730; 86141; 86850; 86900; 86901; 87040; 87086; 93005; 93970; C9113; G0378; J0696; J3490; J7510

== ENCOUNTER 2024-02-02 15:26 | Inpatient (IN) | payer MEDICARE ==
[~2024-02-02] VITALS: Ht 182.9 cm; Wt 74.5 kg
[~2024-02-02 15:26] MED LIST changes: -AMLO-489 PO; +AMLO1TAB22 PO; -IBUP200T76 PO; +PANT40TA2 PO; +SUCR1SUS5 PO; -TAMS0.4C36 PO; +TAMS0.4C39 PO
[2024-02-02 15:35] VITALS: PULSE 58; RESP 16; O2SAT 97
--- NOTE | 2024-02-02 15:36 | ED.PDOC ---
History of Present Illness HPI Comments 78Y M with PMHx HTN and cholecystectomy presents to ED via EMS for chief complaint fall injury. Pt states he fell while getting into car and is now experiencing rt hip pain at a level of 10/10. Pt believes he is unable to bear weight on extremity. Per EMS, no crepitus present and no LOC. Chief Complaint: Lower Extremity Time Seen by MD: 15:26 Primary Care Provider: Unknown Reviewed Notes: Medications, Allergies Allergies: Coded Allergies: AMALIA Inhibitors (Verified Allergy, Unknown, 01/05/19) Azithromycin (Verified Allergy, Unknown, 01/05/19) Home Meds Active Scripts Sucralfate (Carafate) 1 Gm/10 Ml Sallie, 1 GM PO QID for 30 Days, #120 ML Prov:LISSY TORRES MD 08/16/21 Pantoprazole Sodium Sesquihydr (Protonix) 40 Mg Tab, 40 MG PO DAILY for 30 Days, #30 TAB 1 Refill Prov:LISSY TORRES MD 08/16/21 Reported Medications Patients Own Medication (PATIENTS OWN MEDICATION) ., 12.5 MG PO BID PTS OWN MED-OBTAIN FROM PT AND SEND TO RX DRUG: FREQ: RX# EXP: DATE DISP: TECH: [facility]: 01/03/19 Patients Own Medication (PATIENTS OWN MEDICATION) ., 500 MG PO ONCE PTS OWN MED-OBTAIN FROM PT AND SEND TO RX DRUG: FREQ: RX# EXP: DATE DISP: TECH: [facility]: 01/03/19 Prednisone (PREDNISONE) 5 Mg Tb, 5 MG GT DAILY for ARTHRITIS, TAB 01/03/19 Cholecalciferol (VITAMIN D3) 2,000 Unit Tab, 2000 UNIT OR DAILY, TAB 01/03/19 Amlodipine Besylate (Amlodipine Besylate) 5 Mg Tab, 10 MG PO DAILY for 30 Days, MG 01/03/19 Atorvastatin Calcium (Lipitor) 20 Mg Tab, 1 TAB PO HS, #90 TAB 1 Refill 01/03/19 Tamsulosin Hcl (Tamsulosin Hcl) 0.4 Mg Cap, 0.4 MG PO QPM for BPH for 30 Days, MG 01/03/19 Zolpidem Tartrate (ZOLPIDEM TARTRATE ER) 12.5 Mg Tab, 1 TAB PO QPM for SLEEP, #30 TAB 1 Refill 01/03/19 Information Source: Patient Mode of Arrival: EMS Severity: Mild Timing: Hours Duration: Since onset Prehospital treatment: None Past Medical History PAST MEDICAL HISTORY: Arthritis, COPD, HTN Surgical History: Cholecystectomy Family History Family History: Reviewed,noncontributory to illness, Family hx of Cancer Social History Smoker: Cigarettes Alcohol: Occasionally Drugs: Denies Drug Use Lives In: Home Constitutional: denies: chills, diaphoresis, fatigue, fever, malaise, sweats, weakness, others EENTM: denies: blurred vision, double vision, ear bleeding, ear discharge, ear drainage, ear pain, ear ringing, eye pain, eye redness, hearing loss, mouth pain, mouth swelling, nasal discharge, nose bleeding, nose congestion, nose pain, photophobia, tearing, throat pain, throat swelling, voice changes, others Respiratory: denies: cough, hemoptysis, orthopnea, SOB at rest, shortness of breath, SOB with excertion, stridor, wheezing, others Cardiovascular: denies: chest pain, dizzy spells, diaphoresis, Dyspnea on exertion, edema, irregular heart beat, left arm pain, lightheadedness, palpitations, PND, syncope, others Gastrointestinal: denies: abdomen distended, abdominal pain, blood streaked bowels, constipated, diarrhea, dysphagia, difficulty swallowing, hematemesis, melena, nausea, poor appetite, poor fluid intake, rectal bleeding, rectal pain, vomiting, others Genitourinary: denies: burning, dysuria, flank pain, frequency, hematuria, incontinence, penile discharge, penile sore, pain, testicle pain, testicle swelling, urgency, others Neurological: denies: dizziness, fainting, headache, left sided numbness, left sided weakness, numbness, paresthesia, pre-existing deficit, right sided numbness, right sided weakness, seizure, speech problems, tingling, tremors, weakness, others Musculoskeletal: reports: joint pain (rt hip); denies: back pain, gout, joint swelling, muscle pain, muscle stiffness, neck pain, others Integumetry: denies: bruises, change in color, change in hair/nails, dryness, laceration, lesions, lumps, rash, wounds, others Allergic/Immunocompromised: denies: Difficulty Healing, Frequent Infections, Hives, Itching, others Hematologic/Lymphatic: denies: anemia, blood clots, easy bleeding, easy bruising, swollen glands, others Endocrine: denies: excessive hunger, excessive sweating, excessive thirst, excessive urination, flushing, intolerance to cold, intolerance to heat, unexplained weight gain, unexplained weight loss, others Psychiatric: denies: anxiety, bipolar disorder, depression, hopeless, panic disorder, schizophrenia, sleepless, suicidal, others All Other Systems: Reviewed and Negative Physical Exam General Appearance: Moderate Distress, Normal HEENT: Normal ENT Inspection, Pharynx Normal, TMs Normal Neck: Full Range of Motion, Non-Tender, Normal, Normal Inspection Respiratory: Chest Non-Tender, Lungs Clear, No Accessory Muscle Use, No Respiratory Distress, Normal Breath Sounds Cardiovascular: No Edema, No JVD, No Murmur, No Gallop, Normal Peripheral Pulses, Regular Rate/Rhythm Breast Exam: Deferred Gastrointestinal: No Organomegaly, Non Tender, No Pulsatile Mass, Normal Bowel Sounds, Soft Genitalia: Deferred Pelvic: Deferred Rectal: Deferred Extremities: Decreased range of motion (Right lower extremity), No calf tenderness, Normal capillary refill, Normal range of motion, Non-tender, No pedal edema Musculoskeletal : Apperance: Normal Neurologic: Alert, media production support manager II-XII nml as Tested, No Motor Deficits, Normal Affect, Normal Mood, No Sensory Deficits Cerebellar Function: NOT DONE Reflexes: NOT DONE Skin: Dry, Normal Color, Warm Peripheral Pulses: 3+ Radial (R), 3+ Radial (L) Lymphatic: No Adenopathy Was a procedure done? Was a procedure done?: No Differential Dx Considerations may include: Fracture Electrolyte imbalance X-Ray, Labs, Meds, VS Vital Signs Date Time Temp Pulse Resp B/P (MAP) Pulse Ox O2 Delivery O2 Flow Rate FiO2 02/02/24 16:33 59 12 110/49 02/02/24 15:40 58 16 110/96 (101) 97 02/02/24 15:35 58 16 97 Room Air* 0 21 02/02/24 15:26 97.8 60 18 109/53 (71) 100 Lab Test 02/02/24 15:30 Range/Units White Blood Count 14.8 H 4.4-10.8 10^3/uL Red Blood Count 3.99 L 4.5-5.90 10^6/uL Hemoglobin 11.2 L 13.5-17.5 g/dL Hematocrit 34.1 L 41.0-53.0 % Mean Corpuscular Volume 85.5 80.0-100.0 fL Mean Corpuscular Hemoglobin 28.2 28.0-32.0 pg Mean Corpuscular Hemoglobin Concent 33.0 32.0-36.0 g/dL Red Cell Distribution Width 16.4 H 11.8-14.3 % Platelet Count 342 140-450 10^3/uL Mean Platelet Volume 8.9 6.9-10.8 fL Neutrophils (%) (Auto) 72.8 37.0-80.0 % Lymphocytes (%) (Auto) 14.0 10.0-50.0 % Monocytes (%) (Auto) 8.2 0.0-12.0 % Eosinophils (%) (Auto) 4.2 0.0-7.0 % Basophils (%) (Auto) 0.8 0.0-2.0 % Neutrophils # (Auto) 10.8 H 1.6-8.6 10 ^3/uL Lymphocytes # (Auto) 2.1 0.4-5.4 10 ^3/uL Monocytes # (Auto) 1.2 0-1.3 10 ^3/uL Eosinophils # (Auto) 0.6 0-0.8 10 ^3/uL Basophils # (Auto) 0.1 0-0.2 10 ^3/uL Nucleated Red Blood Cells 0.0 % Sodium Level 140 136-145 mmol/L Potassium Level 5.6 *H 3.5-5.1 mmol/L Chloride Level 111 H 98-107 mmol/L Carbon Dioxide Level 22 20-31 mmol/L Anion Gap 7 5-15 Blood Urea Nitrogen 20 9-23 mg/dL Creatinine 1.67 H 0.700-1.30 mg/dL Glomerular Filtration Rate Calc 41 >90 mL/min BUN/Creatinine Ratio 12.0 10.0-20.0 Serum Glucose 80 74-106 mg/dL Calcium Level 9.4 8.7-10.4 mg/dL Troponin I High Sensitivity 6 </=54 ng/L Current Medications Medications (Trade) Dose Ordered Sig/Jordon Route Start Time Stop Time Status Last Admin Morphine Sulfate 2 mg ONCE ONCE IV 02/02/24 16:30 02/02/24 16:31 DC 02/02/24 16:33 Ondansetron HCl (Zofran) 4 mg ONCE ONCE IV 02/02/24 16:30 02/02/24 16:31 DC 02/02/24 16:32 [place] [id number] Ph: [phone] DIAGNOSTIC IMAGING Diagnostic Imaging Report : [id number] Signed PATIENT: TEE COOPER JR ACCT: [id number] UNIT: [id number] : 1945 LOC: ER ROOM / BED: / AGE / SEX: 78 / M ADM STATUS: REG ER SERVICE 154 ORDERING PHYSICIAN: ALEX DORANTES MD PROCEDURE(s): CXRP - CHEST PORTABLE REASON: sob ORDER NUMBER(s): [id number], ACCESSION NUMBER(s): [id number] EXAM: XR Chest, 1 View CLINICAL INDICATION: sob TECHNIQUE: Frontal view of the chest. COMPARISON: CHEST XRAY 1 VIEW on DOS: 08/14/21, CXR1 on DOS: 08/14/21 FINDINGS: LUNGS AND PLEURAL SPACES: Unremarkable. No consolidation. No pneumothorax. HEART: Unremarkable. No cardiomegaly. MEDIASTINUM: Unremarkable. Normal mediastinal contour. BONES/JOINTS: Unremarkable. No acute fracture. OTHER FINDINGS: . . . IMPRESSION: No acute cardiopulmonary process. HS:Y ATED BY: EMIR DOLL MD DICTATED DATE/TIME: 02/02/241617 SIGNED BY: EMIR DOLL MD SIGNED DATE/TIME: 02/02/241617 CC: [place] [id number] Ph: [phone] DIAGNOSTIC IMAGING Diagnostic Imaging Report : [id number] Signed PATIENT: TEE COOPER JR ACCT: [id number] UNIT: [id number] : 1945 LOC: ER ROOM / BED: / AGE / SEX: 78 / M ADM STATUS: REG ER SERVICE 154 ORDERING PHYSICIAN: ALEX DORANTES MD PROCEDURE(s): PL2CT - PELVIS WO CONTRAST REASON: fall ORDER NUMBER(s): [id number], ACCESSION NUMBER(s): [id number] History: fall Comparison Study: None available at time of dictation. Technique: Multidetector spiral CT of the pelvis was performed from iliac crests to pubic symphysis. 100 cc of intravenous contrast was administered during this examination. Portal venous imaging was obtained. Axial, coronal and sagittal multiplanar reformats were performed by the technologist on a separate workstation. Radiation Dose : CT Dose: CTDI volume is 15.64 mGy. Dose-length product is 486.58 mGy*cm Findings: Visualized bowel: Small bowel and colon are normal in caliber and distribution. The appendix is not visualized; however, no secondary findings of acute appendicitis identified. Ascites: Absent Lymphadenopathy: No pelvic or mesenteric lymphadenopathy. Pelvis Wall and Mesentery: Multiple midline fat containing ventral hernias are noted. Moderate right inguinal hernia containing a loop of noninflamed bowel. Vasculature: The visualized abdominal aorta is normal in size and caliber. Abdominal and pelvic vessels demonstrate normal enhancement. Pelvic Organs: Unremarkable Musculoskeletal: Displaced acute traumatic fracture of the right femoral neck. Bladder: Unremarkable IMPRESSION: 1. Displaced acute traumatic fracture of the right femoral neck. END IMPRESSION: ATED BY: EVELYN VASQUEZ MD DICTATED DATE/TIME: 02/02/241616 SIGNED BY: EVELYN VASQUEZ MD SIGNED DATE/TIME: 02/02/241616 CC: Patient alert. Status post fall. Vitals stable. Answering questions. Unable to move his right lower extremity. Can not bear weight. Possible fracture. Reviewed his history. Continue cardiac monitoring. Chest x-ray reviewed does show pneumonitis. CT scan of the pelvis does show fracture. Was given steroid. Was given Levaquin. Orthopedic consultation. Explained to the patient. Time of 1ST Reevaluation: 15:56 Reevaluation 1ST: Unchanged Patient Education/Counseling: Diagnosis, Treatment Family Education/Counseling: No Family Present Departure 1 Departure Time of Disposition: 15:56 Impression: Primary Impression: Hip fracture Qualified Codes: S72.001A - Fracture of unspecified part of neck of right femur, initial encounter for closed fracture Additional Impressions: Femur fracture Qualified Codes: S72.91XA - Unspecified fracture of right femur, initial encounter for closed fracture Hyperkalemia Pneumonitis Disposition: 09 ADMITTED INPATIENT Admit to: Med Surg Condition: Guarded Critical Care Note Critical Care Time?: Yes (45 min-critical care time only) Stability Stability form required: No Heart Score Heart Score: Heart Score Response (Comments) Value History Slightly Suspicious 0 EKG Normal 0 Age >65 2 Risk Factors 1 or 2 risk factors 1 Troponin Normal limit 0 Total 3 I personally scribed for ALEX DORANTES MD ([email or web address]) on 02/02/24 at 15:36. Electronically submitted by Anni Ellis ([email or web address]). I personally scribed for ALEX DORANTES MD ([email or web address]) on 02/02/24 at 16:24. Electronically submitted by Anni Ellis ([email or web address]). ALEX DORANTES MD Feb 02, 2024 15:36
[2024-02-02 16:14] LABS: Basophils # (auto) 0.1 10 ^3/uL (0-0.2); Basophils % (auto) 0.8 % (0.0-2.0); Eosinophils # (auto) 0.6 10 ^3/uL (0-0.8); Eosinophils % (auto) 4.2 % (0.0-7.0); Hematocrit 34.1 % (41.0-53.0); Hemoglobin 11.2 g/dL (13.5-17.5); Lymphocytes # (auto) 2.1 10 ^3/uL (0.4-5.4); Mean Corpuscular Hemoglobin 28.2 pg (28.0-32.0); Mean Corpuscular Volume 85.5 fL (80.0-100.0); Monocytes # (auto) 1.2 10 ^3/uL (0-1.3); Monocytes % (auto) 8.2 % (0.0-12.0); Neutrophils # (auto) 10.8 10 ^3/uL (1.6-8.6); Neutrophils % (auto) 72.8 % (37.0-80.0); Platelet Count (auto) 342 10^3/uL (140-450); Red Blood Cells 3.99 10^6/uL (4.5-5.90); Red Cell Distribution Width 16.4 % (11.8-14.3); White Blood Cell 14.8 10^3/uL (4.4-10.8)
--- NOTE | 2024-02-02 16:19 | DVH ---
History: fall Comparison Study: None available at time of dictation. Technique: Multidetector spiral CT of the pelvis was performed from iliac crests to pubic symphysis. 100 cc of intravenous contrast was administered during this examination. Portal venous imaging was obtained. Axial, coronal and sagittal multiplanar reformats were performed by the technologist on a separate workstation. Radiation Dose : CT Dose: CTDI volume is 15.64 mGy. Dose-length product is 486.58 mGy*cm Findings: Visualized bowel: Small bowel and colon are normal in caliber and distribution. The appendix is not visualized; however, no secondary findings of acute appendicitis identified. Ascites: Absent Lymphadenopathy: No pelvic or mesenteric lymphadenopathy. Pelvis Wall and Mesentery: Multiple midline fat containing ventral hernias are noted. Moderate right inguinal hernia containing a loop of noninflamed bowel. Vasculature: The visualized abdominal aorta is normal in size and caliber. Abdominal and pelvic vess els demonstrate normal enhancement. Pelvic Organs: Unremarkable Musculoskeletal: Displaced acute traumatic fracture of the right femoral neck. Bladder: Unremarkable IMPRESSION: 1. Displaced acute traumatic fracture of the right femoral neck. END IMPRESSION:
--- NOTE | 2024-02-02 16:21 | DVH ---
EXAM: XR Chest, 1 View CLINICAL INDICATION: sob TECHNIQUE: Frontal view of the chest. COMPARISON: CHEST XRAY 1 VIEW on DOS: 08/14/21, CXR1 on DOS: 08/14/21 FINDINGS: LUNGS AND PLEURAL SPACES: Unremarkable. No consolidation. No pneumothorax. HEART: Unremarkable. No cardiomegaly. MEDIASTINUM: Unremarkable. Normal mediastinal contour. BONES/JOINTS: Unremarkable. No acute fracture. OTHER FINDINGS: . . . IMPRESSION: No acute cardiopulmonary process. HS:Y
[2024-02-02 16:25] LABS: Chloride 111 mmol/L (98-107); Sodium 140 mmol/L (136-145)
[2024-02-02 16:26] LABS: Anion Gap 7 (5-15); Calcium 9.4 mg/dL (8.7-10.4); Carbon Dioxide 22 mmol/L (20-31)
[2024-02-02 16:31] LABS: Blood Urea Nitrogen 20 mg/dL (9-23); Glucose 80 mg/dL (74-106)
[2024-02-02] MEDS: ONDANSETRON HCL 4 MG/2 ML VIAL IV ONE (16:32)
[2024-02-02] MEDS: MORPHINE SULFATE INJ 2 MG/ml SYRG IV ONE (16:33)
[2024-02-02 16:36] LABS: Potassium 5.6 mmol/L (3.5-5.1)
[2024-02-02] MEDS: CALCIUM GLUC 1,000mg/50ml-NS 50 ML IV ONE (16:52)
[2024-02-02] MEDS: ALBUTEROL SULF 2.5 MG/0.5ML(0.5%) NEB SOLN NEB ONE (17:01)
[2024-02-02] MEDS: DEXTROSE (50%) 50ML SYRG IV ONE ×2 (17:01→21:03)
[2024-02-02] MEDS: InsuLIN REG 1unit/0.01ml Soln (100units/ml) IV ONE (17:02)
[2024-02-02] MEDS: SODIUM BICARB 8.4% 50Meq/50ml SYR INJ IV ONE (17:02)
[2024-02-02] MEDS: SODIUM ZIRCONIUM CYCL 10 GM PAK PO ONE (17:12)
[2024-02-02] MEDS: FUROSEMIDE 20 MG/2 ML VIAL IV ONE (17:12)
[2024-02-02] MEDS: levoFLOXacin 500MG 100 ML IV ONE (17:16)
[2024-02-02] MEDS: methylPREDNISolone SOD SUCC 125 MG/2 ML VL IV ONE (17:18)
[2024-02-02] MEDS: HYDROmorphone HCL 2 MG/ML VL/or syr IV ONE (18:15)
[2024-02-02 19:25] VITALS: PULSE 58; RESP 17; O2SAT 97
--- NOTE | 2024-02-02 19:55 | DVH ---
CLINICAL INDICATION: hip fracture TECHNIQUE: 1 radiographic views of the right hip were obtained. Comparison: None FINDINGS/IMPRESSION: Questionable mildly displaced right femoral neck fracture The visualized joint space is well maintained. The alignment is anatomical. There is no radiopaque foreign body.
[2024-02-02 20:00] LABS: Chloride 113 mmol/L (98-107); Potassium 3.8 mmol/L (3.5-5.1); Sodium 143 mmol/L (136-145)
[2024-02-02 20:01] LABS: Anion Gap 5 (5-15); Calcium 9.4 mg/dL (8.7-10.4); Carbon Dioxide 25 mmol/L (20-31)
[2024-02-02 20:04] LABS: INR 1.09 (0.9-1.15); Prothrombin Time 11.5 sec (9.3-11.8)
[2024-02-02 20:06] LABS: BUN/Creatinine Ratio 13.6 (10.0-20.0); Blood Urea Nitrogen 22 mg/dL (9-23)
[2024-02-02 20:52] LABS: Glucose 32 mg/dL (74-106)
[2024-02-02] MEDS ORDERED: ENOXAPARIN SOD 40 MG/0.4 ML SYRINGE SC SCH (22:00)
[2024-02-02] MEDS ORDERED: NITROGLYCERIN 0.4 MG SL TAB SL PRN (22:00)
[2024-02-02] MEDS ORDERED: MORPHINE SULFATE INJ 2 MG/ml SYRG IV PRN (22:00)
[2024-02-02] MEDS ORDERED: ACETAMINOPHEN 325 MG TAB PO PRN (22:00)
[2024-02-02] MEDS: SODIUM CHLOR 0.9% PF (SALINE LOCK) 10ML VIAL/SYR IV SCH (22:06)
[2024-02-02] MEDS: ENOXAPARIN SOD 40 MG/0.4 ML SYRINGE SC SCH (22:43)
[2024-02-02] MEDS: MORPHINE SULFATE INJ 2 MG/ml SYRG IV PRN (22:55)
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
[2024-02-02 23:40] LABS: Basophils # (auto) 0.2 10 ^3/uL (0-0.2); Basophils % (auto) 1.2 % (0.0-2.0); Eosinophils # (auto) 0.4 10 ^3/uL (0-0.8); Eosinophils % (auto) 3.1 % (0.0-7.0); Hematocrit 33.7 % (41.0-53.0); Hemoglobin 11.2 g/dL (13.5-17.5); Lymphocytes # (auto) 1.5 10 ^3/uL (0.4-5.4); Lymphocytes % (auto) 11.3 % (10.0-50.0); Mean Corpuscular Hemoglobin 28.3 pg (28.0-32.0); Mean Corpuscular Hgb Conc. 33.1 g/dL (32.0-36.0); Mean Corpuscular Volume 85.6 fL (80.0-100.0); Monocytes # (auto) 1.3 10 ^3/uL (0-1.3); Monocytes % (auto) 9.4 % (0.0-12.0); Neutrophils # (auto) 10.1 10 ^3/uL (1.6-8.6); Nucleated Red Blood Cells % 0.1 %; Platelet Count (auto) 337 10^3/uL (140-450); Red Blood Cells 3.94 10^6/uL (4.5-5.90); White Blood Cell 13.5 10^3/uL (4.4-10.8)
[2024-02-02 23:54] LABS: INR 1.11 (0.9-1.15); Partial Thromboplastin Time 31.6 SEC (24.5-34.5); Prothrombin Time 11.7 sec (9.3-11.8)
[2024-02-02 23:55] LABS: Albumin 3.5 g/dL (3.2-4.8); Alkaline Phosphatase 87 U/L (46-116); Anion Gap 9 (5-15); Aspartate Aminotransferase 29 U/L (13-40); BUN/Creatinine Ratio 13.1 (10.0-20.0); Bilirubin, Total 0.5 mg/dL (0.2-1.0); Blood Urea Nitrogen 23 mg/dL (9-23); Calcium 9.7 mg/dL (8.7-10.4); Carbon Dioxide 22 mmol/L (20-31); Chloride 110 mmol/L (98-107); Glucose 101 mg/dL (74-106); Potassium 4.4 mmol/L (3.5-5.1); Sodium 141 mmol/L (136-145)
[2024-02-03 00:21] LABS: Alanine Aminotransferase 17 U/L (7-40)
[2024-02-03 03:04] LABS: Urine Bacteria None Seen /hpf (None Seen)
[2024-02-03 03:15] LABS: Urine Blood Negative /uL (Negative); Urine Clarity Clear (Clear); Urine Color Light-Yellow (Yellow); Urine Hyaline Cast FEW /lpf (0 - 2); Urine Protein, UAD Negative (Negative); Urine Specific Gravity 1.011 (1.001-1.035); Urine Urobilinogen Normal (Negative); Urine WBC 1 /hpf (0 - 3); Urine pH 5.5 (5.0-9.0)
[2024-02-03 03:25] LABS: Amphetamine Screen, Urine Neg (NEGATIVE); Barbiturate Scree,Urine Neg (NEGATIVE); Benzodiazephine Screen, Urine Neg (NEGATIVE); Cannabinoid Screen, Urine Neg (NEGATIVE); Cocaine Screen, Urine Neg (NEGATIVE); Opiate Scree,Urine Neg (NEGATIVE); Phencyclidine Screen, Urine Neg (NEGATIVE)
[2024-02-03 04:08] LABS: Basophils # (auto) 0.1 10 ^3/uL (0-0.2); Basophils % (auto) 0.7 % (0.0-2.0); Eosinophils # (auto) 0.5 10 ^3/uL (0-0.8); Eosinophils % (auto) 4.3 % (0.0-7.0); Hematocrit 33.2 % (41.0-53.0); Hemoglobin 11.3 g/dL (13.5-17.5); Lymphocytes # (auto) 1.6 10 ^3/uL (0.4-5.4); Lymphocytes % (auto) 13.5 % (10.0-50.0); Mean Corpuscular Hemoglobin 28.9 pg (28.0-32.0); Mean Corpuscular Hgb Conc. 33.9 g/dL (32.0-36.0); Mean Corpuscular Volume 85.2 fL (80.0-100.0); Monocytes # (auto) 1.4 10 ^3/uL (0-1.3); Monocytes % (auto) 11.4 % (0.0-12.0); Neutrophils # (auto) 8.4 10 ^3/uL (1.6-8.6); Neutrophils % (auto) 70.1 % (37.0-80.0); Platelet Count (auto) 311 10^3/uL (140-450); Red Blood Cells 3.89 10^6/uL (4.5-5.90); White Blood Cell 11.9 10^3/uL (4.4-10.8)
[2024-02-03 04:25] LABS: Alanine Aminotransferase 17 U/L (7-40); Albumin 3.3 g/dL (3.2-4.8); Alkaline Phosphatase 85 U/L (46-116); Anion Gap 7 (5-15); Aspartate Aminotransferase 32 U/L (13-40); Bilirubin, Total 0.5 mg/dL (0.2-1.0); Blood Urea Nitrogen 25 mg/dL (9-23); Calcium 9.4 mg/dL (8.7-10.4); Carbon Dioxide 24 mmol/L (20-31); Chloride 110 mmol/L (98-107); Glucose 92 mg/dL (74-106); Potassium 4.7 mmol/L (3.5-5.1); Sodium 141 mmol/L (136-145)
[2024-02-03 08:00] VITALS: PULSE 65; RESP 24; O2SAT 97
[2024-02-03] MEDS: ERGOCALCIFEROL 50,000 UNIT(1.25MG) CAP PO SCH (08:45)
[2024-02-03 09:26] LABS: Free T3 2.12 pg/mL (2.3-4.2); Free T4 (Free Thyroxine) 1.16 ng/dL (0.89-1.76)
--- NOTE | 2024-02-03 09:57 | DVHHP2 ---
History Allergies: Coded Allergies: AMALIA Inhibitors (Verified Allergy, Unknown, 01/05/19) Azithromycin (Verified Allergy, Unknown, 01/05/19) Chief Complaint: ROGHJT groin pain Present Illness(Onset/Duration Right groin pain, mechanical fall, no history of hitting head or LOC minimal ambulator prior to fall, a few min of household ambulation with FWW per day non contributory Past Surgical History non contributory Medications see internal med H/P BP meds, RA meds Physical Exam Skin intact EENT NCAT Chest and Lungs diffuse decreased breath sounds Heart RRR neg mrg Abdomen NBS NDNT Extremities diffuse atrophy of bilateral LE contractures of B hand MCPs consistent with RA Pain in right groin with PROM right LE Vital Signs Vital Signs Date Time Temp Pulse Resp B/P (MAP) Pulse Ox O2 Delivery O2 Flow Rate FiO2 02/03/24 08:01 64 18 108/54 (72) 96 02/03/24 08:00 Room Air* 0 21 02/02/24 19:25 97.9 97.9 Impressions/Description 78M, minimal ambuilator, RA, mechanical fall 02/02/24 with RIGHT femoral neck fracture, displaced Plan 1) pre op internal med, cardiology clearance 2) NPO after midnight 3) consent for surgery tomorrow, RIGHT hip hemiarthroplasty JOSHUA ETIENNE MD Feb 03, 2024 09:57
[2024-02-03] MEDS: ONDANSETRON HCL 4 MG/2 ML VIAL IV PRN (10:50)
[2024-02-03] MEDS: HYDROmorphone HCL 2 MG/ML VL/or syr IV PRN (10:55)
[2024-02-03] MEDS: DOCUSATE CALCIUM 240 MG CAP PO ONE (11:09)
--- NOTE | 2024-02-03 11:10 | DVH ---
CLINICAL INDICATION: mechanical fall TECHNIQUE: XY R ANKLE 2 VIEW XRAY Comparison: None FINDINGS: There is a bony bridge between the distal tibia and fibular metaphysis. No acute fracture line. Vascular calcification in the soft tissues IMPRESSION: 1. No acute bony pathology
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
--- NOTE | 2024-02-03 14:24 | ECG ---
[facility] Test Date: 2024-02-03 Test Time: 12:52:27 Pat Name: TEE COOPER Department: ER Room: [facility] Gender: M Billing Adjudicator: YOLIS : 1945 Requested By: LAINA CABRAL Order Number: [id number] Reading MD: Dean Garcia Measurements Intervals [place] Rate: 70 P: -41 OR: 206 QRS: -14 QRSD: 160 T: 41 QT: 392 QTc: 423 Interpretive Statements Sinus rhythm Consider left atrial enlargement Nonspecific intraventricular conduction delay Inferior infarct, old Electronically Signed On 02-12-2024 12:56:13 PST by Dean Garcia Please click the below link to view image of tracing.
--- NOTE | 2024-02-03 14:24 | ECG ---
[facility] Test Date: 2024-02-03 Test Time: 12:48:06 Pat Name: TEE COOPER Department: ER Room: [facility] Gender: M Refrigeration Person: YOLIS : 1945 Requested By: ALEX DORANTES Order Number: [id number] Reading MD: Dean Garcia Measurements Intervals [place] Rate: 70 P: -35 PA: 242 QRS: -20 QRSD: 97 T: 48 QT: 423 QTc: 457 Interpretive Statements Sinus rhythm Prolonged PA interval Borderline left axis deviation Abnormal R-wave progression, early transition Borderline T wave abnormalities Artifact in lead(s) I,aVR,aVL,aVF,V1,V2,V4,V5,V6 and baseline wander in lead(s) V5 Electronically Signed On 02-12-2024 12:56:05 PST by Dean Garcia Please click the below link to view image of tracing.
--- NOTE | 2024-02-03 15:10 | DVHSR ---
APPROVED REPORT EXAM: Two-dimensional and M-mode echocardiogram with Doppler and color Doppler. Blood Pressure: 109/54 mmHg INDICATION CAD RISK FACTORS Height: 71, Weight: 175 DIMENSIONS LVDd4.1 (3.8-5.7cm)LA (2D) (1.9-4.0cm)Aortic Root4.0 (2.0-3.7cm) LVDs2.9 (2.5-4.0cm)LA (MM) (1.9-4.0cm)Aortic Cusp Exc2.0 (1.5-2.0cm) EF (%) 55.0 (55-70%)Rt. Atrium (1.9-4.0cm)Asc. Aorta cm Mitral Valve MitralMitral Stenosis E wave0.55m/sMV Mean GR.mmHg A wave0.63m/sMV Peak GR.mmHg E/A ratio0.92D MVAcm2 DECEL [id number] 1/2 Timems Aortic Valve Aortic ValveAortic Stenosis V10.84m/Lelia Mean GR.2mmHg V21.16m/Lelia Peak GR.5mmHg LVOT Diameter2.5 (1.8-2.4cm)Doppler AVA3.55cm2 Pulmonic Valve V20.75m/s Other Information Technically limited study due to body habitus and patient was laying flat on his back. Conclusion Normal left ventricular size and dimension. Normal left ventricular systolic function estimated ejec tion fraction 55%. There is a grade 1 diastolic dysfunction. Normal right ventricular size and dimension. Normal right ventricular systolic function. Normal biatrial size and dimension. Normal aortic valve structure and function. Normal mitral valve structure and function. Normal tricuspid valve structure and function. The pulmonary valve is grossly normal. No pericardial effusion.
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
[2024-02-03 17:36] VITALS: BP 114/55; PULSE 71; RESP 20; TEMP 97.7; O2SAT 95
[2024-02-03 17:42] VITALS: BP 114/55; PULSE 74; PULSE 75; RESP 20; TEMP 97.3; O2SAT 95
[2024-02-03 18:19] VITALS: BP 114/55; PULSE 74; PULSE 75; RESP 20; TEMP 97.3; O2SAT 95
[2024-02-03 20:00] VITALS: PULSE 80; RESP 17; O2SAT 91
[2024-02-03 20:52] VITALS: BP 112/42; PULSE 80; RESP 17; TEMP 98.1; O2SAT 91
[2024-02-03] MEDS ORDERED: ENOXAPARIN SOD 40 MG/0.4 ML SYRINGE SC SCH (22:00)
[2024-02-03] MEDS: LACTATED RINGER'S 1,000 ML IV SCH (23:06)
[2024-02-03] MEDS: LIDOCAINE 5% TOPICAL PATCH TOP ONE (23:22)
[2024-02-04] VITALS (8 sets, daily range): BP systolic 110–137; BP diastolic 50–82; PULSE 20–83; RESP 16–20; TEMP 98–98.4; O2SAT 93–98
[2024-02-04] MEDS ORDERED: PROPOFOL 10 MG/ML 20 ML IV ONE ×2 (06:52→08:26)
[2024-02-04] MEDS ORDERED: LIDOCAINE 1% INJ PF 5ML AMP ONE (06:52)
[2024-02-04] MEDS ORDERED: DexAMETHasone SOD PHOS 10MG/1ML VIAL INJ ONE (06:52)
[2024-02-04] MEDS ORDERED: KETOROLAC TROMETH 30 MG/ML 1ML VIAL ONE (06:52)
[2024-02-04] MEDS ORDERED: GLYCOPYRROLATE 0.2 MG/ML 1ML VIAL ONE (06:52)
[2024-02-04] MEDS ORDERED: KETAMINE 50mg/ML 1ml syringe ONE (06:52)
[2024-02-04] MEDS ORDERED: ONDANSETRON HCL 4 MG/2 ML VIAL ONE (06:52)
[2024-02-04 07:05] LABS: Basophils # (auto) 0.1 10 ^3/uL (0-0.2); Basophils % (auto) 0.4 % (0.0-2.0); Eosinophils # (auto) 0.3 10 ^3/uL (0-0.8); Eosinophils % (auto) 2.1 % (0.0-7.0); Hematocrit 36.2 % (41.0-53.0); Lymphocytes # (auto) 1.6 10 ^3/uL (0.4-5.4); Lymphocytes % (auto) 12.1 % (10.0-50.0); Mean Corpuscular Hemoglobin 28.2 pg (28.0-32.0); Mean Corpuscular Hgb Conc. 33.1 g/dL (32.0-36.0); Mean Corpuscular Volume 85.1 fL (80.0-100.0); Monocytes # (auto) 1.5 10 ^3/uL (0-1.3); Monocytes % (auto) 11.2 % (0.0-12.0); Neutrophils # (auto) 9.8 10 ^3/uL (1.6-8.6); Neutrophils % (auto) 74.2 % (37.0-80.0); Nucleated Red Blood Cells % 0.1 %; Platelet Count (auto) 322 10^3/uL (140-450); Red Blood Cells 4.26 10^6/uL (4.5-5.90); White Blood Cell 13.3 10^3/uL (4.4-10.8)
[2024-02-04] MEDS: ceFAZolin 2 GM/D5W100ml 100 ML IV ONE (07:10)
[2024-02-04] MEDS: ACETAMINOPHEN IV 1000 MG/100ML (10MG/ML) IV ONE (07:10)
[2024-02-04] MEDS: GABAPENTIN 300 MG CAP PO ONE (07:10)
[2024-02-04] MEDS: CELECOXIB 100 MG CAP ONE (07:10)
[2024-02-04 07:21] LABS: INR 1.14 (0.9-1.15)
[2024-02-04 07:30] LABS: Alanine Aminotransferase 23 U/L (7-40); Alkaline Phosphatase 88 U/L (46-116); Anion Gap 13 (5-15); BUN/Creatinine Ratio 15.3 (10.0-20.0); Blood Urea Nitrogen 29 mg/dL (9-23); Calcium 9.2 mg/dL (8.7-10.4); Carbon Dioxide 19 mmol/L (20-31); Chloride 110 mmol/L (98-107); Potassium 4.4 mmol/L (3.5-5.1); Sodium 142 mmol/L (136-145)
[2024-02-04 07:31] LABS: Albumin 3.2 g/dL (3.2-4.8); Aspartate Aminotransferase 70 U/L (13-40); Bilirubin, Total 0.8 mg/dL (0.2-1.0)
[2024-02-04 07:41] LABS: Glucose 82 mg/dL (74-106)
[2024-02-04] MEDS ORDERED: PHENYLEPHRINE HCL 10 MG/ML VL ONE (07:42)
[2024-02-04] MEDS ORDERED: SODIUM CHLORIDE LOCK 10 ML ONE (07:42)
[2024-02-04] MEDS ORDERED: ePHEDrine SULFATE 50 MG/ML AMP ONE (07:56)
[2024-02-04] MEDS: VANCOMYCIN HCL 1000 MG VL IR ONE (08:38)
--- NOTE | 2024-02-04 08:59 | DVHOP2 ---
Operative Report - 2 Report Details Date: 02/04/24 Preop Diagnosis: Right femoral neck fracture, displaced Postop Diagnosis: same Surgeon: Joshua Etienne MD Hourly Associate: none Anesthesiologist: Dr Andrade Anesthesia: Regional Drains: none Implant: cemented lavell hip Consent: The patient was informed of the risks and benefits of the procedure. These include but are not limited to complications of anesthesia, postoperative infection, incomplete relief of symptoms, recurrence of symptoms, damage to blood vessels, nerves and tendons, deep venous thrombosis, pulmonary embolism and possible need for repeat surgery in the future. Complications: none Estimated Blood Loss: 100cc Fluids: 1 L crystalloid Findings: displaced femoral neck fracture with no arthritis of acetabulum Indications for Surgery: displaced femoral neck fracture with requisite bedrest without replacement and co-morbidities associated with bedrest Name of Procedure Performed Right hip hemiarthroplasty Procedure Details Procedure Details: Patient brought into the operating room given Ancef 1 g TXA 1 g IV piggyback preoperatively received a spinal anesthetic by anesthesiologist Dr. Andrade without complication placed on to pegboard table left lateral decubitus axillary roll had an anatomic position padding beneath and between both legs well padded pegs anterior and posterior seatbelt across the waist sterile prep and drape hip right hip and lower extremity time-out performed comprehension right side correct side hemiarthroplasty correct procedure after review of the operative again said history and physical my initials on right buttock all present opera ting room agreeing right side correct side hemiarthroplasty correct procedure standard Terry lying in back incision made centered over tip of greater trochanter sharp dissection through skin down the deep fascia deep fascia divided blunt retraction of gluteus manasa posteriorly tips of fascia mikal anteriorly internal rotation of the leg exposing external rotators using lap sponge to push sciatic nerve and fat pad posteriorly Bovie cautery used to divide external rotators and capsule off of the proximal femur tagging of capsule to allow exposure of hip joint Lilly elevator placed with an hip joint flexion adduction internal rotation to reduce to dislocate hip with the fractured head fractured head and neck removed sized to be size 52 irrigation to remove any bone debris and then 52 she seemed to be appropriate size then canal prepared by lateralizing reaming after box osteotome then broaching up to size 12 then 3rd generation or then trialing with a standard neck showing no vertical positioning excellent extension normal stability with flexion adduction internal rotation up to 90 true component then cemented into place with 3rd generation cement techniques distal cement restrictor pulsatile lavage and irrigation and VAC and suction of canal vacuum mixing of cement and pressurization of cement the standard neck and 52 had applied hemiarch bipolar irrigation of acetabulum again them remove any debris reduction of hip and excellent stability seen again with extension external rotation no vertical pistoning flexion 90 adduction and internal rotation to 90 with known with no instability posterior capsule then repaired with simple interrupted 0 Vicryl suture vancomycin powder placed into into deep capsule layer then deep fascia closed with some interrupted 0 Vicryl s ubcutaneous 2-0 Vicryl skin isaiah fluffs ABD paper tape no drains specimens or complications. Specimen: none Condition Stable Disposition Still a Patient JOSHUA ETIENNE MD Feb 04, 2024 08:59
[2024-02-04] MEDS: ceFAZolin 1GM/50ML 50 ML IV SCH (09:00)
[2024-02-04] MEDS ORDERED: NALOXONE HCL 0.4 MG/ML VIAL IV PRN (09:15)
[2024-02-04] MEDS ORDERED: HYDROmorphone HCL 2 MG/ML VL/or syr IV PRN (09:15)
[2024-02-04] MEDS ORDERED: ePHEDrine SULFATE 50 MG/ML AMP IV PRN (09:15)
[2024-02-04] MEDS ORDERED: oxyCODONE HCL 5MG TAB PO PRN (09:15)
[2024-02-04] MEDS ORDERED: hydrALAZINE HCL 20 MG/ML VL IV PRN (09:15)
[2024-02-04] MEDS ORDERED: fentaNYL CITRATE 100 MCG/2 ML VL IV PRN (09:15)
[2024-02-04] MEDS ORDERED: ONDANSETRON HCL 4 MG/2 ML VIAL IV PRN (09:15)
[2024-02-04] MEDS ORDERED: FLUMAZENIL 0.1 MG/ML INJ 10ML MDV IV PRN (09:15)
--- NOTE | 2024-02-04 09:51 | DVH ---
CLINICAL INDICATION: post op , right lavell hip arthroplasty TECHNIQUE: XY PELVIS AP Comparison: None FINDINGS/IMPRESSION: There is no evidence of acute fracture or dislocation. Right total hip arthroplasty. Reyez catheter overyling the bladder. The alignment is anatomical. There is no radiopaque foreign body.
[2024-02-04] MEDS: LACTATED RINGER'S 1,000 ML IV SCH (10:48)
[2024-02-04] MEDS: CLINDAMYCIN 600MG IV 50 ML IV SCH (10:49)
[2024-02-04] MEDS: DOCUSATE CALCIUM 240 MG CAP PO SCH (10:49)
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
[2024-02-04] MEDS: LIDOCAINE 5% TOPICAL PATCH TOP SCH (22:00)
[2024-02-05] VITALS (8 sets, daily range): BP systolic 128–131; BP diastolic 57–67; PULSE 71–81; RESP 17–20; TEMP 97.9–100; O2SAT 92–100
[2024-02-05] MEDS: VANCOMYCIN HCL 1000 MG VL ONE (03:54)
[2024-02-05] MEDS: TRANEXAMIC ACID 20 ML ONE (03:54)
[2024-02-05] MEDS: ROPIVACAINE 0.5% (5MG/ML) 20ML AMPULE IJ ONE (03:54)
[2024-02-05] MEDS: DexAMETHasone SOD PHOS 4 MG/1ML SDV INJ ONE (03:55)
[2024-02-05] MEDS: EPINEPHrine HCL 1 MG/1 ML AMP ONE (03:55)
[2024-02-05] MEDS: BUPIVACAINE 0.25% INJ 50ML VIAL ONE (03:55)
[2024-02-05] MEDS: BUPIVACAINE HCL 50 ML ONE (03:56)
[2024-02-05] MEDS: ACETAMINOPHEN IV 100 ML IV ONE (04:24)
[2024-02-05] MEDS: GABAPENTIN 300 MG CAP ONE (04:24)
[2024-02-05] MEDS: CELECOXIB 100 MG CAP PO ONE (04:25)
--- NOTE | 2024-02-05 08:29 | DVHPN2 ---
Date of Progress Note Date of Progress Note Date of Progress Note: 02/05/24 Date of Admission Date of Admission Date of Admission: Date of Admission: Feb 02, 2024 at 21:54 Overnight Events Overnight events Overnight Events rosemarie pain on POs Family History Family History Family History: Hypertension G8 MOTHER Malignant neoplasm of breast G8 MOTHER (UNKNOWN) Allergies: Coded Allergies: AMALIA Inhibitors (Verified Allergy, Unknown, 01/05/19) Azithromycin (Verified Allergy, Unknown, 01/05/19) Home Meds Active Scripts Sucralfate (Carafate) 1 Gm/10 Ml Sallie, 1 GM PO QID for 30 Days, #120 ML Prov:LISSY TORRES MD 08/16/21 Pantoprazole Sodium Sesquihydr (Protonix) 40 Mg Tab, 40 MG PO DAILY for 30 Days, #30 TAB 1 Refill Prov:LISSY TORRES MD 08/16/21 Reported Medications Patients Own Medication (PATIENTS OWN MEDICATION) ., 12.5 MG PO BID PTS OWN MED-OBTAIN FROM PT AND SEND TO RX DRUG: FREQ: RX# EXP: DATE DISP: TECH: [facility]: 01/03/19 Patients Own Medication (PATIENTS OWN MEDICATION) ., 500 MG PO ONCE PTS OWN MED-OBTAIN FROM PT AND SEND TO RX DRUG: FREQ: RX# EXP: DATE DISP: TECH: [facility]: 01/03/19 Prednisone (PREDNISONE) 5 Mg Tb, 5 MG GT DAILY for ARTHRITIS, TAB 01/03/19 Cholecalciferol (VITAMIN D3) 2,000 Unit Tab, 2000 UNIT OR DAILY, TAB 01/03/19 Amlodipine Besylate (Amlodipine Besylate) 5 Mg Tab, 10 MG PO DAILY for 30 Days, MG 01/03/19 Atorvastatin Calcium (Lipitor) 20 Mg Tab, 1 TAB PO HS, #90 TAB 1 Refill 01/03/19 Tamsulosin Hcl (Tamsulosin Hcl) 0.4 Mg Cap, 0.4 MG PO QPM for BPH for 30 Days, MG 01/03/19 Zolpidem Tartrate (ZOLPIDEM TARTRATE ER) 12.5 Mg Tab, 1 TAB PO QPM for SLEEP, #30 TAB 1 Refill 01/03/19 Current Medications Current Medications Medications (Trade) Dose Ordered Sig/Jordon Route PRN Reason Start Time Stop Time Status Last Admin Docusate Calcium (Surfak Capsule) 240 mg DAILY PO 02/04/24 10:00 02/04/24 10:49 Lidocaine (Lidoderm 5% Topical Patch) 1 patch DAILY@2200 TOP 02/04/24 22:00 Lactated Ringer's 1,000 ml @ 100 mls/hr Q10H IV 02/04/24 09:00 02/04/24 10:48 Cefazolin Sodium 50 ml @ 50 mls/hr Q6H IV 02/04/24 09:00 02/04/24 21:59 DC 02/04/24 22:55 Clindamycin Phosphate 50 ml @ 50 mls/hr Q6HR IV 02/04/24 12:00 02/05/24 00:59 DC 02/05/24 04:24 Ondansetron HCl (Zofran) 4 mg ONCE PRN IV NAUSEA / VOMITING 02/04/24 09:15 02/04/24 09:16 DC Naloxone HCl (Narcan) 0.4 mg Q10M PRN IV NARCOTIC REVERSAL 02/04/24 09:15 02/04/24 09:36 DC Flumazenil (Romazicon Injection) 0.2 mg ONCE PRN IV BENZODIAZEPINE REVERSAL 02/04/24 09:15 02/04/24 09:16 DC Hydralazine HCl (Apresoline Injection) 5 mg Q10M PRN IV SBP>160 02/04/24 09:15 02/04/24 10:06 DC Ephedrine Sulfate (ePHEDrine SULFATE) 10 mg Q10M PRN IV SBP LESS THAN 90 02/04/24 09:15 02/04/24 09:56 DC Fentanyl Citrate 25 mcg Q1HP PRN IV BREAKTHROUGH PAIN (7-10) 02/04/24 09:15 02/04/24 09:16 DC Hydromorphone HCl (Dilaudid Injection) 0.5 mg Q10M PRN IV SEVERE PAIN (7-10 PAIN SCALE) 02/04/24 09:15 02/04/24 09:56 DC Oxycodone HCl 10 mg ONCE PRN PO MODERATE PAIN (4-6 PAIN SCALE) 02/04/24 09:15 02/04/24 12:26 DC Physical Examination General Examination: Last Vital sign Vital Signs Date Time Temp Pulse Resp B/P (MAP) Pulse Ox O2 Delivery O2 Flow Rate FiO2 02/05/24 05:00 98.2 77 18 130/66 (87) 100 98.2 02/04/24 20:10 Nasal Cannula* 2 28 General: General: No apparent distress, appears comfortable. Cooperative. HEENT: alert oriented x4 Extremities: Right LE, no LLD, NVI, incision not draining Skin: intact Neurological Examination: Neurological Examination: Mental Status: Cranial Nerves: Motor Examination: Reflexes: Sensory: Coordination: Gait: NVI Right LE Labs: Labs: Laboratory Tests Test 02/02/24 15:30 02/02/24 16:56 02/02/24 19:29 02/02/24 21:37 Range/Units White Blood Count 14.8 H 4.4-10.8 10^3/uL Red Blood Count 3.99 L 4.5-5.90 10^6/uL Hemoglobin 11.2 L 13.5-17.5 g/dL Hematocrit 34.1 L 41.0-53.0 % Mean Corpuscular Volume 85.5 80.0-100.0 fL Mean Corpuscular Hemoglobin 28.2 28.0-32.0 pg Mean Corpuscular Hemoglobin Concent 33.0 32.0-36.0 g/dL Red Cell Distribution Width 16.4 H 11.8-14.3 % Platelet Count 342 140-450 10^3/uL Mean Platelet Volume 8.9 6.9-10.8 fL Neutrophils (%) (Auto) 72.8 37.0-80.0 % Lymphocytes (%) (Auto) 14.0 10.0-50.0 % Monocytes (%) (Auto) 8.2 0.0-12.0 % Eosinophils (%) (Auto) 4.2 0.0-7.0 % Basophils (%) (Auto) 0.8 0.0-2.0 % Neutrophils # (Auto) 10.8 H 1.6-8.6 10 ^3/uL Lymphocytes # (Auto) 2.1 0.4-5.4 10 ^3/uL Monocytes # (Auto) 1.2 0-1.3 10 ^3/uL Eosinophils # (Auto) 0.6 0-0.8 10 ^3/uL Basophils # (Auto) 0.1 0-0.2 10 ^3/uL Nucleated Red Blood Cells 0.0 % Sodium Level 140 143 136-145 mmol/L Potassium Level 5.6 *H 3.8 3.5-5.1 mmol/L Chloride Level 111 H 113 H 98-107 mmol/L Carbon Dioxide Level 22 25 20-31 mmol/L Anion Gap 7 5 5-15 Blood Urea Nitrogen 20 22 9-23 mg/dL Creatinine 1.67 H 1.62 H 0.700-1.30 mg/dL Glomerular Filtration Rate Calc 41 43 >90 mL/min BUN/Creatinine Ratio 12.0 13.6 10.0-20.0 Serum Glucose 80 32 *L 74-106 mg/dL Calcium Level 9.4 9.4 8.7-10.4 mg/dL Troponin I High Sensitivity 6 </=54 ng/L POC Glucose 81 111 H 70-106 mg/dl Prothrombin Time 11.5 9.3-11.8 sec Prothrombin Time INR 1.09 0.9-1.15 Test 02/02/24 22:23 02/02/24 23:23 02/03/24 03:00 02/03/24 03:45 Range/Units POC Glucose 101 70-106 mg/dl White Blood Count 13.5 H 11.9 H 4.4-10.8 10^3/uL Red Blood Count 3.94 L 3.89 L 4.5-5.90 10^6/uL Hemoglobin 11.2 L 11.3 L 13.5-17.5 g/dL Hematocrit 33.7 L 33.2 L 41.0-53.0 % Mean Corpuscular Volume 85.6 85.2 80.0-100.0 fL Mean Corpuscular Hemoglobin 28.3 28.9 28.0-32.0 pg Mean Corpuscular Hemoglobin Concent 33.1 33.9 32.0-36.0 g/dL Red Cell Distribution Width 16.0 H 16.0 H 11.8-14.3 % Platelet Count 337 311 140-450 10^3/uL Mean Platelet Volume 8.6 8.6 6.9-10.8 fL Neutrophils (%) (Auto) 75.0 70.1 37.0-80.0 % Lymphocytes (%) (Auto) 11.3 13.5 10.0-50.0 % Monocytes (%) (Auto) 9.4 11.4 0.0-12.0 % Eosinophils (%) (Auto) 3.1 4.3 0.0-7.0 % Basophils (%) (Auto) 1.2 0.7 0.0-2.0 % Neutrophils # (Auto) 10.1 H 8.4 1.6-8.6 10 ^3/uL Lymphocytes # (Auto) 1.5 1.6 0.4-5.4 10 ^3/uL Monocytes # (Auto) 1.3 1.4 H 0-1.3 10 ^3/uL Eosinophils # (Auto) 0.4 0.5 0-0.8 10 ^3/uL Basophils # (Auto) 0.2 0.1 0-0.2 10 ^3/uL Nucleated Red Blood Cells 0.1 0.0 % Prothrombin Time 11.7 9.3-11.8 sec Prothrombin Time INR 1.11 0.9-1.15 Activated Partial Thromboplast Time 31.6 24.5-34.5 SEC Sodium Level 141 141 136-145 mmol/L Potassium Level 4.4 4.7 3.5-5.1 mmol/L Chloride Level 110 H 110 H 98-107 mmol/L Carbon Dioxide Level 22 24 20-31 mmol/L Anion Gap 9 7 5-15 Blood Urea Nitrogen 23 25 H 9-23 mg/dL Creatinine 1.76 H 1.92 H 0.700-1.30 mg/dL Glomerular Filtration Rate Calc 39 35 >90 mL/min BUN/Creatinine Ratio 13.1 13.0 10.0-20.0 Serum Glucose 101 92 74-106 mg/dL Hemoglobin A1c 5.4 <5.7 % A1C Lactic Acid Level 1.2 0.4-2.0 mmol/L Calcium Level 9.7 9.4 8.7-10.4 mg/dL Total Bilirubin 0.5 0.5 0.2-1.0 mg/dL Aspartate Amino Transferase (AST) 29 32 13-40 U/L Alanine Aminotransferase (ALT) 17 17 7-40 U/L Alkaline Phosphatase 87 85 46-116 U/L B-Type Natriuretic Peptide 38.64 0-100 pg/mL Total Protein 6.0 6.0 5.7-8.2 g/dL Albumin 3.5 3.3 3.2-4.8 g/dL Vitamin B12 Level 287 211-911 pg/mL Vitamin D 25-Hydroxy 23.5 L 30.0-100 ng/mL Thyroid Stimulating Hormone (TSH) 5.11 H 0.55-4.78 uIU/mL Plasma/Serum Blood Alcohol < 3.0 <10 mg/dL Urine Color Light-yellow Yellow Urine Clarity Clear Clear Urine pH 5.5 5.0-9.0 Urine Specific [place] 1.011 1.001-1.035 Urine Protein Negative Negative Urine Ketones Negative Negative Urine Blood Negative Negative /uL Urine Nitrite Negative Negative Urine Bilirubin Negative Negative Urine Urobilinogen Normal Negative mg/dL Urine Leukocyte Esterase Negative Negative /uL Urine RBC 1 0 - 3 /hpf Urine WBC 1 0 - 3 /hpf Urine Squamous Epithelial Cells None seen <5 /hpf Urine Bacteria None seen None Seen /hpf Urine Hyaline Casts Few 0 - 2 /lpf Urine Glucose Normal Normal mg/dL Urine Opiates Screen Neg NEGATIVE Urine Fentanyl Screen Pos NEGATIVE Urine Barbiturates Screen Neg NEGATIVE Urine Phencyclidine Screen Neg NEGATIVE Urine Amphetamines Screen Neg NEGATIVE Urine Benzodiazepines Screen Neg NEGATIVE Urine Cocaine Screen Neg NEGATIVE Urine Cannabinoids Screen Neg NEGATIVE Free Thyroxine (T4) Calculated 1.16 0.89-1.76 ng/dL Free Triiodothyronine (T3) pg/mL 2.12 L 2.3-4.2 pg/mL Test 02/03/24 11:13 02/04/24 06:45 Range/Units POC Glucose 68 L 70-106 mg/dl White Blood Count 13.3 H 4.4-10.8 10^3/uL Red Blood Count 4.26 L 4.5-5.90 10^6/uL Hemoglobin 12.0 L 13.5-17.5 g/dL Hematocrit 36.2 L 41.0-53.0 % Mean Corpuscular Volume 85.1 80.0-100.0 fL Mean Corpuscular Hemoglobin 28.2 28.0-32.0 pg Mean Corpuscular Hemoglobin Concent 33.1 32.0-36.0 g/dL Red Cell Distribution Width 16.0 H 11.8-14.3 % Platelet Count 322 140-450 10^3/uL Mean Platelet Volume 8.6 6.9-10.8 fL Neutrophils (%) (Auto) 74.2 37.0-80.0 % Lymphocytes (%) (Auto) 12.1 10.0-50.0 % Monocytes (%) (Auto) 11.2 0.0-12.0 % Eosinophils (%) (Auto) 2.1 0.0-7.0 % Basophils (%) (Auto) 0.4 0.0-2.0 % Neutrophils # (Auto) 9.8 H 1.6-8.6 10 ^3/uL Lymphocytes # (Auto) 1.6 0.4-5.4 10 ^3/uL Monocytes # (Auto) 1.5 H 0-1.3 10 ^3/uL Eosinophils # (Auto) 0.3 0-0.8 10 ^3/uL Basophils # (Auto) 0.1 0-0.2 10 ^3/uL Nucleated Red Blood Cells 0.1 % Prothrombin Time 12.0 H 9.3-11.8 sec Prothrombin Time INR 1.14 0.9-1.15 Sodium Level 142 136-145 mmol/L Potassium Level 4.4 3.5-5.1 mmol/L Chloride Level 110 H 98-107 mmol/L Carbon Dioxide Level 19 L 20-31 mmol/L Anion Gap 13 5-15 Blood Urea Nitrogen 29 H 9-23 mg/dL Creatinine 1.89 H 0.700-1.30 mg/dL Glomerular Filtration Rate Calc 35 >90 mL/min BUN/Creatinine Ratio 15.3 10.0-20.0 Serum Glucose 82 74-106 mg/dL Calcium Level 9.2 8.7-10.4 mg/dL Total Bilirubin 0.8 0.2-1.0 mg/dL Aspartate Amino Transferase (AST) 70 H 13-40 U/L Alanine Aminotransferase (ALT) 23 7-40 U/L Alkaline Phosphatase 88 46-116 U/L Total Protein 6.0 5.7-8.2 g/dL Albumin 3.2 3.2-4.8 g/dL Imaging Imagin02/03/24 AP Pelvis, right lavell hip , well aligned, no fracture or loosening Assessment/Plan Assessment/Plan Assessment and Plan:Rafa Jacobsen is a 78 year old male POD 1 s/p Right hip hemiarthroplasty for femoral neck fracture 1) attempt to wean from esqueda with I/O cath 2) PT, WBAT with full assist 3) HCT today 4) keep dressing clean/dry Plan discussed with: Patient JOSHUA ETIENNE MD Feb 05, 2024 08:29
[2024-02-05] MEDS: HYDROmorphone HCL 2 MG/ML VL/or syr IV ONE (09:40)
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
[2024-02-06] VITALS (8 sets, daily range): BP systolic 114–136; BP diastolic 59–66; PULSE 69–77; RESP 14–20; TEMP 98.2–98.8; O2SAT 91–100
[2024-02-06] MEDS: IPRATROPIUM BROM 0.5 MG/2.5ML INH SOL NEB PRN (07:52)
[2024-02-06] MEDS: ALBUTEROL SULF 2.5 MG/0.5ML(0.5%) NEB SOLN NEB PRN (07:52)
[2024-02-06 12:59] LABS: Basophils # (auto) 0.1 10 ^3/uL (0-0.2); Basophils % (auto) 0.9 % (0.0-2.0); Eosinophils # (auto) 0.2 10 ^3/uL (0-0.8); Eosinophils % (auto) 1.3 % (0.0-7.0); Hematocrit 33.9 % (41.0-53.0); Hemoglobin 11.6 g/dL (13.5-17.5); Lymphocytes # (auto) 2.8 10 ^3/uL (0.4-5.4); Lymphocytes % (auto) 19.2 % (10.0-50.0); Mean Corpuscular Hemoglobin 28.9 pg (28.0-32.0); Mean Corpuscular Hgb Conc. 34.3 g/dL (32.0-36.0); Mean Corpuscular Volume 84.2 fL (80.0-100.0); Monocytes # (auto) 1.8 10 ^3/uL (0-1.3); Monocytes % (auto) 12.4 % (0.0-12.0); Neutrophils # (auto) 9.6 10 ^3/uL (1.6-8.6); Neutrophils % (auto) 66.2 % (37.0-80.0); Nucleated Red Blood Cells % 0.2 %; Platelet Count (auto) 319 10^3/uL (140-450); Red Blood Cells 4.02 10^6/uL (4.5-5.90); White Blood Cell 14.5 10^3/uL (4.4-10.8)
[2024-02-06] MEDS: HYDROcodone-ACET 5/325MG TAB PO PRN (13:09)
[2024-02-06 13:11] LABS: Chloride 112 mmol/L (98-107); Potassium 3.9 mmol/L (3.5-5.1); Sodium 144 mmol/L (136-145)
[2024-02-06 13:12] LABS: Anion Gap 8 (5-15); Carbon Dioxide 24 mmol/L (20-31)
[2024-02-06 13:13] LABS: Calcium 9.2 mg/dL (8.7-10.4)
[2024-02-06 13:17] LABS: BUN/Creatinine Ratio 16.5 (10.0-20.0); Blood Urea Nitrogen 15 mg/dL (9-23); Glucose 102 mg/dL (74-106)
--- NOTE | 2024-02-06 14:06 | DVHPN2 ---
Date of Progress Note Date of Progress Note Date of Progress Note: 02/06/24 Date of Admission Date of Admission Date of Admission: Date of Admission: Feb 02, 2024 at 21:54 Overnight Events Overnight events Overnight Events rosemarie pain on PO meds, esqueda in place Family History Family History Family History: Hypertension G8 MOTHER Malignant neoplasm of breast G8 MOTHER (UNKNOWN) Allergies: Coded Allergies: AMALIA Inhibitors (Verified Allergy, Unknown, 01/05/19) Azithromycin (Verified Allergy, Unknown, 01/05/19) Home Meds Active Scripts Sucralfate (Carafate) 1 Gm/10 Ml Sallie, 1 GM PO QID for 30 Days, #120 ML Prov:LISSY TORRES MD 08/16/21 Pantoprazole Sodium Sesquihydr (Protonix) 40 Mg Tab, 40 MG PO DAILY for 30 Days, #30 TAB 1 Refill Prov:LISSY TORRES MD 08/16/21 Reported Medications Patients Own Medication (PATIENTS OWN MEDICATION) ., 12.5 MG PO BID PTS OWN MED-OBTAIN FROM PT AND SEND TO RX DRUG: FREQ: RX# EXP: DATE DISP: TECH: RP: 01/03/19 Patients Own Medication (PATIENTS OWN MEDICATION) ., 500 MG PO ONCE PTS OWN MED-OBTAIN FROM PT AND SEND TO RX DRUG: FREQ: RX# EXP: DATE DISP: TECH: [facility]: 01/03/19 Prednisone (PREDNISONE) 5 Mg Tb, 5 MG GT DAILY for ARTHRITIS, TAB 01/03/19 Cholecalciferol (VITAMIN D3) 2,000 Unit Tab, 2000 UNIT OR DAILY, TAB 01/03/19 Amlodipine Besylate (Amlodipine Besylate) 5 Mg Tab, 10 MG PO DAILY for 30 Days, MG 01/03/19 Atorvastatin Calcium (Lipitor) 20 Mg Tab, 1 TAB PO HS, #90 TAB 1 Refill 01/03/19 Tamsulosin Hcl (Tamsulosin Hcl) 0.4 Mg Cap, 0.4 MG PO QPM for BPH for 30 Days, MG 01/03/19 Zolpidem Tartrate (ZOLPIDEM TARTRATE ER) 12.5 Mg Tab, 1 TAB PO QPM for SLEEP, #30 TAB 1 Refill 01/03/19 Current Medications Current Medications Medications (Trade) Dose Ordered Sig/Jordon Route PRN Reason Start Time Stop Time Status Last Admin Albuterol (Ventolin Medneb) 2.5 mg Q6HPRN PRN NEB SHORTNESS OF BREATH 02/05/24 19:15 02/06/24 07:52 Ipratropium [place] (Atrovent Medneb) 0.5 mg Q6HPRN PRN NEB SHORTNESS OF BREATH 02/05/24 19:15 02/06/24 07:52 Acetaminophen/ Hydrocodone Bitart ([place] 5/325MG Tab) 1 tab Q6HPRN PRN PO MODERATE PAIN (4-6 PAIN SCALE) 02/06/24 10:00 02/06/24 13:09 Physical Examination General Examination: Last Vital sign Vital Signs Date Time Temp Pulse Resp B/P (MAP) Pulse Ox O2 Delivery O2 Flow Rate FiO2 02/06/24 12:00 98.6 74 14 131/59 (83) 93 98.6 02/06/24 07:52 Nasal Cannula* 2 28 General: General: No apparent distress, appears comfortable. Cooperative. Extremities: Right hip, incision clean, non-draining Skin: intact Neurological Examination: Neurological Examination: Mental Status: Cranial Nerves: Motor Examination: Reflexes: Sensory: Coordination: Gait: NVI Labs: Labs: Laboratory Tests Test 02/02/24 15:30 02/02/24 16:56 02/02/24 19:29 02/02/24 21:37 Range/Units White Blood Count 14.8 H 4.4-10.8 10^3/uL Red Blood Count 3.99 L 4.5-5.90 10^6/uL Hemoglobin 11.2 L 13.5-17.5 g/dL Hematocrit 34.1 L 41.0-53.0 % Mean Corpuscular Volume 85.5 80.0-100.0 fL Mean Corpuscular Hemoglobin 28.2 28.0-32.0 pg Mean Corpuscular Hemoglobin Concent 33.0 32.0-36.0 g/dL Red Cell Distribution Width 16.4 H 11.8-14.3 % Platelet Count 342 140-450 10^3/uL Mean Platelet Volume 8.9 6.9-10.8 fL Neutrophils (%) (Auto) 72.8 37.0-80.0 % Lymphocytes (%) (Auto) 14.0 10.0-50.0 % Monocytes (%) (Auto) 8.2 0.0-12.0 % Eosinophils (%) (Auto) 4.2 0.0-7.0 % Basophils (%) (Auto) 0.8 0.0-2.0 % Neutrophils # (Auto) 10.8 H 1.6-8.6 10 ^3/uL Lymphocytes # (Auto) 2.1 0.4-5.4 10 ^3/uL Monocytes # (Auto) 1.2 0-1.3 10 ^3/uL Eosinophils # (Auto) 0.6 0-0.8 10 ^3/uL Basophils # (Auto) 0.1 0-0.2 10 ^3/uL Nucleated Red Blood Cells 0.0 % Sodium Level 140 143 136-145 mmol/L Potassium Level 5.6 *H 3.8 3.5-5.1 mmol/L Chloride Level 111 H 113 H 98-107 mmol/L Carbon Dioxide Level 22 25 20-31 mmol/L Anion Gap 7 5 5-15 Blood Urea Nitrogen 20 22 9-23 mg/dL Creatinine 1.67 H 1.62 H 0.700-1.30 mg/dL Glomerular Filtration Rate Calc 41 43 >90 mL/min BUN/Creatinine Ratio 12.0 13.6 10.0-20.0 Serum Glucose 80 32 *L 74-106 mg/dL Calcium Level 9.4 9.4 8.7-10.4 mg/dL Troponin I High Sensitivity 6 </=54 ng/L POC Glucose 81 111 H 70-106 mg/dl Prothrombin Time 11.5 9.3-11.8 sec Prothrombin Time INR 1.09 0.9-1.15 Test 02/02/24 22:23 02/02/24 23:23 02/03/24 03:00 02/03/24 03:45 Range/Units POC Glucose 101 70-106 mg/dl White Blood Count 13.5 H 11.9 H 4.4-10.8 10^3/uL Red Blood Count 3.94 L 3.89 L 4.5-5.90 10^6/uL Hemoglobin 11.2 L 11.3 L 13.5-17.5 g/dL Hematocrit 33.7 L 33.2 L 41.0-53.0 % Mean Corpuscular Volume 85.6 85.2 80.0-100.0 fL Mean Corpuscular Hemoglobin 28.3 28.9 28.0-32.0 pg Mean Corpuscular Hemoglobin Concent 33.1 33.9 32.0-36.0 g/dL Red Cell Distribution Width 16.0 H 16.0 H 11.8-14.3 % Platelet Count 337 311 140-450 10^3/uL Mean Platelet Volume 8.6 8.6 6.9-10.8 fL Neutrophils (%) (Auto) 75.0 70.1 37.0-80.0 % Lymphocytes (%) (Auto) 11.3 13.5 10.0-50.0 % Monocytes (%) (Auto) 9.4 11.4 0.0-12.0 % Eosinophils (%) (Auto) 3.1 4.3 0.0-7.0 % Basophils (%) (Auto) 1.2 0.7 0.0-2.0 % Neutrophils # (Auto) 10.1 H 8.4 1.6-8.6 10 ^3/uL Lymphocytes # (Auto) 1.5 1.6 0.4-5.4 10 ^3/uL Monocytes # (Auto) 1.3 1.4 H 0-1.3 10 ^3/uL Eosinophils # (Auto) 0.4 0.5 0-0.8 10 ^3/uL Basophils # (Auto) 0.2 0.1 0-0.2 10 ^3/uL Nucleated Red Blood Cells 0.1 0.0 % Prothrombin Time 11.7 9.3-11.8 sec Prothrombin Time INR 1.11 0.9-1.15 Activated Partial Thromboplast Time 31.6 24.5-34.5 SEC Sodium Level 141 141 136-145 mmol/L Potassium Level 4.4 4.7 3.5-5.1 mmol/L Chloride Level 110 H 110 H 98-107 mmol/L Carbon Dioxide Level 22 24 20-31 mmol/L Anion Gap 9 7 5-15 Blood Urea Nitrogen 23 25 H 9-23 mg/dL Creatinine 1.76 H 1.92 H 0.700-1.30 mg/dL Glomerular Filtration Rate Calc 39 35 >90 mL/min BUN/Creatinine Ratio 13.1 13.0 10.0-20.0 Serum Glucose 101 92 74-106 mg/dL Hemoglobin A1c 5.4 <5.7 % A1C Lactic Acid Level 1.2 0.4-2.0 mmol/L Calcium Level 9.7 9.4 8.7-10.4 mg/dL Total Bilirubin 0.5 0.5 0.2-1.0 mg/dL Aspartate Amino Transferase (AST) 29 32 13-40 U/L Alanine Aminotransferase (ALT) 17 17 7-40 U/L Alkaline Phosphatase 87 85 46-116 U/L B-Type Natriuretic Peptide 38.64 0-100 pg/mL Total Protein 6.0 6.0 5.7-8.2 g/dL Albumin 3.5 3.3 3.2-4.8 g/dL Vitamin B12 Level 287 211-911 pg/mL Vitamin D 25-Hydroxy 23.5 L 30.0-100 ng/mL Thyroid Stimulating Hormone (TSH) 5.11 H 0.55-4.78 uIU/mL Plasma/Serum Blood Alcohol < 3.0 <10 mg/dL Urine Color Light-yellow Yellow Urine Clarity Clear Clear Urine pH 5.5 5.0-9.0 Urine Specific Cylinder 1.011 1.001-1.035 Urine Protein Negative Negative Urine Ketones Negative Negative Urine Blood Negative Negative /uL Urine Nitrite Negative Negative Urine Bilirubin Negative Negative Urine Urobilinogen Normal Negative mg/dL Urine Leukocyte Esterase Negative Negative /uL Urine RBC 1 0 - 3 /hpf Urine WBC 1 0 - 3 /hpf Urine Squamous Epithelial Cells None seen <5 /hpf Urine Bacteria None seen None Seen /hpf Urine Hyaline Casts Few 0 - 2 /lpf Urine Glucose Normal Normal mg/dL Urine Opiates Screen Neg NEGATIVE Urine Fentanyl Screen Pos NEGATIVE Urine Barbiturates Screen Neg NEGATIVE Urine Phencyclidine Screen Neg NEGATIVE Urine Amphetamines Screen Neg NEGATIVE Urine Benzodiazepines Screen Neg NEGATIVE Urine Cocaine Screen Neg NEGATIVE Urine Cannabinoids Screen Neg NEGATIVE Free Thyroxine (T4) Calculated 1.16 0.89-1.76 ng/dL Free Triiodothyronine (T3) pg/mL 2.12 L 2.3-4.2 pg/mL Test 02/03/24 11:13 02/04/24 06:45 02/06/24 12:48 Range/Units POC Glucose 68 L 70-106 mg/dl White Blood Count 13.3 H 14.5 H 4.4-10.8 10^3/uL Red Blood Count 4.26 L 4.02 L 4.5-5.90 10^6/uL Hemoglobin 12.0 L 11.6 L 13.5-17.5 g/dL Hematocrit 36.2 L 33.9 L 41.0-53.0 % Mean Corpuscular Volume 85.1 84.2 80.0-100.0 fL Mean Corpuscular Hemoglobin 28.2 28.9 28.0-32.0 pg Mean Corpuscular Hemoglobin Concent 33.1 34.3 32.0-36.0 g/dL Red Cell Distribution Width 16.0 H 16.0 H 11.8-14.3 % Platelet Count 322 319 140-450 10^3/uL Mean Platelet Volume 8.6 8.5 6.9-10.8 fL Neutrophils (%) (Auto) 74.2 66.2 37.0-80.0 % Lymphocytes (%) (Auto) 12.1 19.2 10.0-50.0 % Monocytes (%) (Auto) 11.2 12.4 H 0.0-12.0 % Eosinophils (%) (Auto) 2.1 1.3 0.0-7.0 % Basophils (%) (Auto) 0.4 0.9 0.0-2.0 % Neutrophils # (Auto) 9.8 H 9.6 H 1.6-8.6 10 ^3/uL Lymphocytes # (Auto) 1.6 2.8 0.4-5.4 10 ^3/uL Monocytes # (Auto) 1.5 H 1.8 H 0-1.3 10 ^3/uL Eosinophils # (Auto) 0.3 0.2 0-0.8 10 ^3/uL Basophils # (Auto) 0.1 0.1 0-0.2 10 ^3/uL Nucleated Red Blood Cells 0.1 0.2 % Prothrombin Time 12.0 H 9.3-11.8 sec Prothrombin Time INR 1.14 0.9-1.15 Sodium Level 142 144 136-145 mmol/L Potassium Level 4.4 3.9 3.5-5.1 mmol/L Chloride Level 110 H 112 H 98-107 mmol/L Carbon Dioxide Level 19 L 24 20-31 mmol/L Anion Gap 13 8 5-15 Blood Urea Nitrogen 29 H 15 9-23 mg/dL Creatinine 1.89 H 0.91 0.700-1.30 mg/dL Glomerular Filtration Rate Calc 35 85 >90 mL/min BUN/Creatinine Ratio 15.3 16.5 10.0-20.0 Serum Glucose 82 102 74-106 mg/dL Calcium Level 9.2 9.2 8.7-10.4 mg/dL Total Bilirubin 0.8 0.2-1.0 mg/dL Aspartate Amino Transferase (AST) 70 H 13-40 U/L Alanine Aminotransferase (ALT) 23 7-40 U/L Alkaline Phosphatase 88 46-116 U/L Total Protein 6.0 5.7-8.2 g/dL Albumin 3.2 3.2-4.8 g/dL Assessment/Plan Assessment/Plan Assessment and Plan:Rafa Jacobsen is a 78 year old male , POD 2 s/p right hip hemiarthroplasty for femoral neck fracture 1) recommend weaning from esqueda 2) celar for dc from ortho view after wean from esqueda 3) follow up ortho clinic 2 wks with XR right hip 2 V Plan discussed with: Patient JOSHUA ETIENNE MD Feb 06, 2024 14:06
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
[2024-02-07] VITALS (8 sets, daily range): BP systolic 116–142; BP diastolic 62–71; PULSE 74–86; RESP 18–19; TEMP 98–98.9; O2SAT 93–98
[2024-02-07 07:29] LABS: Basophils # (auto) 0.1 10 ^3/uL (0-0.2); Basophils % (auto) 0.5 % (0.0-2.0); Eosinophils # (auto) 0.7 10 ^3/uL (0-0.8); Eosinophils % (auto) 4.8 % (0.0-7.0); Hematocrit 33.7 % (41.0-53.0); Hemoglobin 11.2 g/dL (13.5-17.5); Lymphocytes # (auto) 2.7 10 ^3/uL (0.4-5.4); Lymphocytes % (auto) 18.4 % (10.0-50.0); Mean Corpuscular Hemoglobin 28.6 pg (28.0-32.0); Mean Corpuscular Hgb Conc. 33.4 g/dL (32.0-36.0); Mean Corpuscular Volume 85.6 fL (80.0-100.0); Monocytes # (auto) 1.8 10 ^3/uL (0-1.3); Neutrophils # (auto) 9.5 10 ^3/uL (1.6-8.6); Neutrophils % (auto) 64.3 % (37.0-80.0); Nucleated Red Blood Cells % 0.1 %; Platelet Count (auto) 338 10^3/uL (140-450); Red Blood Cells 3.93 10^6/uL (4.5-5.90); Red Cell Distribution Width 15.8 % (11.8-14.3); White Blood Cell 14.8 10^3/uL (4.4-10.8)
[2024-02-07 07:38] LABS: Anion Gap 9 (5-15); Carbon Dioxide 23 mmol/L (20-31); Chloride 111 mmol/L (98-107); Potassium 4.1 mmol/L (3.5-5.1); Sodium 143 mmol/L (136-145)
[2024-02-07 07:40] LABS: Calcium 9.2 mg/dL (8.7-10.4)
[2024-02-07 07:44] LABS: BUN/Creatinine Ratio 16.9 (10.0-20.0); Blood Urea Nitrogen 15 mg/dL (9-23); Glucose 95 mg/dL (74-106)
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
[2024-02-07] MEDS: ENOXAPARIN SOD 40 MG/0.4 ML SYRINGE SC SCH (22:00)
[2024-02-08] VITALS (9 sets, daily range): BP systolic 115–140; BP diastolic 61–74; PULSE 77–86; RESP 18–20; TEMP 97.8–99.6; O2SAT 93–98
[2024-02-08 05:11] LABS: Basophils # (auto) 0.1 10 ^3/uL (0-0.2); Basophils % (auto) 0.7 % (0.0-2.0); Eosinophils # (auto) 0.7 10 ^3/uL (0-0.8); Eosinophils % (auto) 4.9 % (0.0-7.0); Hematocrit 33.8 % (41.0-53.0); Hemoglobin 11.5 g/dL (13.5-17.5); Lymphocytes # (auto) 2.5 10 ^3/uL (0.4-5.4); Lymphocytes % (auto) 17.7 % (10.0-50.0); Mean Corpuscular Hemoglobin 28.5 pg (28.0-32.0); Mean Corpuscular Hgb Conc. 33.9 g/dL (32.0-36.0); Mean Corpuscular Volume 84.1 fL (80.0-100.0); Monocytes # (auto) 1.3 10 ^3/uL (0-1.3); Monocytes % (auto) 9.1 % (0.0-12.0); Neutrophils # (auto) 9.4 10 ^3/uL (1.6-8.6); Neutrophils % (auto) 67.6 % (37.0-80.0); Nucleated Red Blood Cells % 0.1 %; Platelet Count (auto) 371 10^3/uL (140-450); Red Blood Cells 4.02 10^6/uL (4.5-5.90); Red Cell Distribution Width 15.9 % (11.8-14.3); White Blood Cell 13.9 10^3/uL (4.4-10.8)
[2024-02-08 05:13] LABS: Chloride 108 mmol/L (98-107); Potassium 4.2 mmol/L (3.5-5.1); Sodium 141 mmol/L (136-145)
[2024-02-08 05:14] LABS: Anion Gap 8 (5-15); Calcium 9.1 mg/dL (8.7-10.4); Carbon Dioxide 25 mmol/L (20-31)
[2024-02-08 05:19] LABS: BUN/Creatinine Ratio 22.2 (10.0-20.0); Blood Urea Nitrogen 24 mg/dL (9-23); Glucose 101 mg/dL (74-106)
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
[2024-02-08] MEDS: DOXYCYCLINE 100 MG TAB/CAP PO SCH (17:38)
== END 2024-02-08 20:25 | DRG 521 ==
LOC: EDBD 15:26 → ER 15:26 → OVERFLOW 21:54 → WEST WING 02-03 16:48
PROVIDERS: ADMIT Internal Medicine; ATTEND Internal Medicine
PROC: 0SRR0J9 Replacement of Right Hip Joint, Femoral Surface with Synthetic Substitute, Cemented, Open Approach (ICD-10-PCS; principal; 2024-02-04 07:28)
DX: S72.001A Fracture of unspecified part of neck of right femur, initial encounter for closed fracture (principal); N17.0 Acute kidney failure with tubular necrosis; M06.9 Rheumatoid arthritis, unspecified; E78.5 Hyperlipidemia, unspecified; E87.5 Hyperkalemia; J44.9 Chronic obstructive pulmonary disease, unspecified; J98.4 Other disorders of lung; I10 Essential (primary) hypertension; F17.210 Nicotine dependence, cigarettes, uncomplicated; Z88.1 Allergy status to other antibiotic agents; Z90.49 Acquired absence of other specified parts of digestive tract; Z82.3 Family history of stroke; Z80.3 Family history of malignant neoplasm of breast; Z82.49 Family history of ischemic heart disease and other diseases of the circulatory system; W18.39XA Other fall on same level, initial encounter; Y93.89 Activity, other specified; Y92.89 Other specified places as the place of occurrence of the external cause; Y99.8 Other external cause status
CPT/HCPCS: 36415; 71045; 72170; 72192; 73501; 73600; 80048; 80053; 80307; 80320; 81001; 82306; 82607; 82962; 83036; 83605; 83880; 84439; 84443; 84481; 84484; 85025; 85610; 85730; 86850; 86900; 86901; 93005; 93306; 94640; 97110; 97116; 97163; 97530; 99291; A4565; G0378; J0131; J0171; J1100; J1815; J1885; J1956; J2405; J2704; J3490

== ENCOUNTER 2024-02-29 21:14 | Inpatient (IN) | payer MEDICARE ==
[~2024-02-29] VITALS: Ht 177.8 cm; Wt 75.4 kg
[2024-02-29 21:58] LABS: Basophils # (auto) 0.2 10 ^3/uL (0-0.2); Eosinophils # (auto) 0.7 10 ^3/uL (0-0.8); Hemoglobin 10.5 g/dL (13.5-17.5)
[2024-02-29 22:00] LABS: Basophils % (auto) 0.7 % (0.0-2.0); Eosinophils % (auto) 3.4 % (0.0-7.0); Hematocrit 32.3 % (41.0-53.0); Lymphocytes # (auto) 2.5 10 ^3/uL (0.4-5.4); Mean Corpuscular Hemoglobin 27.2 pg (28.0-32.0); Mean Corpuscular Hgb Conc. 32.5 g/dL (32.0-36.0); Mean Corpuscular Volume 83.6 fL (80.0-100.0); Monocytes % (auto) 9.9 % (0.0-12.0); Neutrophils # (auto) 15.1 10 ^3/uL (1.6-8.6); Platelet Count (auto) 552 10^3/uL (140-450); Red Blood Cells 3.86 10^6/uL (4.5-5.90); Red Cell Distribution Width 15.6 % (11.8-14.3); White Blood Cell 20.5 10^3/uL (4.4-10.8)
[2024-02-29 22:24] LABS: Alanine Aminotransferase 34 U/L (7-40); Anion Gap 13 (5-15); BUN/Creatinine Ratio 23.6 (10.0-20.0); Calcium 9.5 mg/dL (8.7-10.4); Carbon Dioxide 20 mmol/L (20-31); Glucose 88 mg/dL (74-106); Magnesium 2.2 mg/dL (1.6-2.6); Potassium 4.8 mmol/L (3.5-5.1); Sodium 144 mmol/L (136-145)
[2024-02-29 22:25] LABS: Bilirubin, Total 0.6 mg/dL (0.2-1.0); Phosphorus 4.4 mg/dL (2.4-5.1); Total Protein 6.2 g/dL (5.7-8.2)
[2024-02-29 22:26] LABS: Alkaline Phosphatase 125 U/L (46-116); Aspartate Aminotransferase 111 U/L (13-40); Blood Urea Nitrogen 43 mg/dL (9-23); Chloride 111 mmol/L (98-107)
--- NOTE | 2024-02-29 23:36 | DVH ---
XY CHEST PORTABLE, HISTORY: sob COMPARISON: XY CHEST PORTABLE on DOS: 02/02/24, CHEST XRAY 1 VIEW on DOS: 08/14/21, CXR1 on DOS: XY CHEST PORTABLE on DOS: 02/02/24, CHEST XRAY 1 VIEW on DOS: 08/14/21, CXR1 on DOS: 08/14/21 TECHNICAL DATA: 1 view of the chest was obtained. FINDINGS: Lines and tubes: None Cardiomediastinal silhouette: normal Pulmonary vasculature: normal Lung expansion: low Lung airspace: normal Lung interstitium: normal Pleura: normal Pneumothorax: no Bones: Unremarkable Other: no IMPRESSION: No acute intrathoracic abnormality. Hypoexpanded lungs with bronchovascular crowding.
[2024-03-01] VITALS (13 sets, daily range): BP systolic 100–119; BP diastolic 52–75; PULSE 80–109; RESP 18–42; O2SAT 92–100
--- NOTE | 2024-03-01 00:14 | ED.PDOC ---
History of Present Illness HPI Comments 78M from [place] [facility] acute care presents via ems for 2 days of worsening altered mental status and difficulty breathing. Patient is unable to provide any history. Chief Complaint: Shortness of Breath Time Seen by MD: 21:15 Primary Care Provider: UNKNOWN Reviewed Notes: Nurses Notes, Pet Sitting Notes Allergies: Coded Allergies: AMALIA Inhibitors (Verified Allergy, Unknown, 01/05/19) Azithromycin (Verified Allergy, Unknown, 01/05/19) Home Meds Active Scripts Sucralfate (Carafate) 1 Gm/10 Ml Sallie, 1 GM PO QID for 30 Days, #120 ML Prov:LISSY TORRES MD 08/16/21 Pantoprazole Sodium Sesquihydr (Protonix) 40 Mg Tab, 40 MG PO DAILY for 30 Days, #30 TAB 1 Refill Prov:LISSY TORRES MD 08/16/21 Reported Medications Patients Own Medication (PATIENTS OWN MEDICATION) ., 12.5 MG PO BID PTS OWN MED-OBTAIN FROM PT AND SEND TO RX DRUG: FREQ: RX# EXP: DATE DISP: TECH: RP: 01/03/19 Patients Own Medication (PATIENTS OWN MEDICATION) ., 500 MG PO ONCE PTS OWN MED-OBTAIN FROM PT AND SEND TO RX DRUG: FREQ: RX# EXP: DATE DISP: TECH: RP: 01/03/19 Prednisone (PREDNISONE) 5 Mg Tb, 5 MG GT DAILY for ARTHRITIS, TAB 01/03/19 Cholecalciferol (VITAMIN D3) 2,000 Unit Tab, 2000 UNIT OR DAILY, TAB 01/03/19 Amlodipine Besylate (Amlodipine Besylate) 5 Mg Tab, 10 MG PO DAILY for 30 Days, MG 01/03/19 Atorvastatin Calcium (Lipitor) 20 Mg Tab, 1 TAB PO HS, #90 TAB 1 Refill 01/03/19 Tamsulosin Hcl (Tamsulosin Hcl) 0.4 Mg Cap, 0.4 MG PO QPM for BPH for 30 Days, MG 01/03/19 Zolpidem Tartrate (ZOLPIDEM TARTRATE ER) 12.5 Mg Tab, 1 TAB PO QPM for SLEEP, #30 TAB 1 Refill 01/03/19 Information Source: Emergency Med Personnel Mode of Arrival: EMS Past Medical History PAST MEDICAL HISTORY: Arthritis, COPD, HTN Surgical History: Cholecystectomy Family History Family History: Reviewed,noncontributory to illness, Family hx of Cancer Social History Smoker: Cigarettes Alcohol: Occasionally Drugs: Denies Drug Use Lives In: Home All Other Systems: Deferred Physical Exam General Appearance: Moderate Distress HEENT: Normal ENT Inspection, Pharynx Normal Neck: Full Range of Motion, Non-Tender, Normal, Normal Inspection Respiratory: Other (tachypnea, crackles) Cardiovascular: Tachycardia Breast Exam: Deferred Gastrointestinal: Non Tender Genitalia: Deferred Pelvic: Deferred Rectal: Deferred Extremities: Normal inspection, Non-tender, No pedal edema Neurologic: Disoriented Cerebellar Function: Unable to Test Reflexes: NOT DONE Skin: Dry, Normal Color, Warm Lymphatic: No Adenopathy Was a procedure done? Was a procedure done?: No Differential Dx Considerations may include: sepsis, uti, pneumonia, viral illness, electrolyte abnormality X-Ray, Labs, Meds, VS Vital Signs Date Time Temp Pulse Resp B/P (MAP) Pulse Ox O2 Delivery O2 Flow Rate FiO2 02/29/24 21:20 101.0 51 17 134/86 (102) 92 02/29/24 21:20 92 Nasal Cannula* 6 44 02/29/24 21:14 89 Lab Test 02/29/24 22:58 02/29/24 21:48 Range/Units Troponin I High Sensitivity 18 17 </=54 ng/L White Blood Count 20.5 H 4.4-10.8 10^3/uL Red Blood Count 3.86 L 4.5-5.90 10^6/uL Hemoglobin 10.5 L 13.5-17.5 g/dL Hematocrit 32.3 L 41.0-53.0 % Mean Corpuscular Volume 83.6 80.0-100.0 fL Mean Corpuscular Hemoglobin 27.2 L 28.0-32.0 pg Mean Corpuscular Hemoglobin Concent 32.5 32.0-36.0 g/dL Red Cell Distribution Width 15.6 H 11.8-14.3 % Platelet Count 552 H 140-450 10^3/uL Mean Platelet Volume 9.0 6.9-10.8 fL Neutrophils (%) (Auto) 74.0 37.0-80.0 % Lymphocytes (%) (Auto) 12.0 10.0-50.0 % Monocytes (%) (Auto) 9.9 0.0-12.0 % Eosinophils (%) (Auto) 3.4 0.0-7.0 % Basophils (%) (Auto) 0.7 0.0-2.0 % Neutrophils # (Auto) 15.1 H 1.6-8.6 10 ^3/uL Lymphocytes # (Auto) 2.5 0.4-5.4 10 ^3/uL Monocytes # (Auto) 2.0 H 0-1.3 10 ^3/uL Eosinophils # (Auto) 0.7 0-0.8 10 ^3/uL Basophils # (Auto) 0.2 0-0.2 10 ^3/uL Nucleated Red Blood Cells 0.0 % Sodium Level 144 136-145 mmol/L Potassium Level 4.8 3.5-5.1 mmol/L Chloride Level 111 H 98-107 mmol/L Carbon Dioxide Level 20 20-31 mmol/L Anion Gap 13 5-15 Blood Urea Nitrogen 43 H 9-23 mg/dL Creatinine 1.82 H 0.700-1.30 mg/dL Glomerular Filtration Rate Calc 37 >90 mL/min BUN/Creatinine Ratio 23.6 H 10.0-20.0 Serum Glucose 88 74-106 mg/dL Calcium Level 9.5 8.7-10.4 mg/dL Phosphorus Level 4.4 2.4-5.1 mg/dL Magnesium Level 2.2 1.6-2.6 mg/dL Total Bilirubin 0.6 0.2-1.0 mg/dL Aspartate Amino Transferase (AST) 111 H 13-40 U/L Alanine Aminotransferase (ALT) 34 7-40 U/L Alkaline Phosphatase 125 H 46-116 U/L B-Type Natriuretic Peptide 28.05 0-100 pg/mL Total Protein 6.2 5.7-8.2 g/dL Albumin 3.0 L 3.2-4.8 g/dL Time of 1ST Reevaluation: 00:20 Reevaluation 1ST: Improved Patient Education/Counseling: Diagnosis, Treatment Family Education/Counseling: No Family Present Departure 1 Departure Time of Disposition: 00:21 (Patient likely septic. Hubbard elevated white count, febrile, elevated heart rate. We will empirically cover patient with antibiotics,, Tylenol. For further workup.) Impression: Primary Impression: Sepsis Qualified Codes: A41.9 - Sepsis, unspecified organism; R65.21 - Severe sepsis with septic shock; G93.41 - Metabolic encephalopathy Additional Impression: Generalized weakness Disposition: 09 ADMITTED INPATIENT Admit to: Med Surg Condition: Guarded Critical Care Note Critical Care Time?: Yes Critical care comment: Sepsis Authorized and Performed by: Rocio Orantes MD Total critical care time: Approximately 44 minutes Due to a high probability of clinically significant, life threatening deterioration, the patient required my highest level of preparedness to intervene emergently and I personally spent this critical care time directly and personally managing the patient. This critical care time included obtaining a history; examining the patient; pulse oximetry; ordering and review of studies; arranging urgent treatment with development of a management plan; evaluation of patient's response to treatment; frequent reassessment; and, discussions with other providers. This critical care time was performed to assess and manage the high probability of imminent, life-threatening deterioration that could result in multi-organ failure. It was exclusive of separately billable procedures and treating other patients and teaching time. Please see my other sections and the rest of the note for further information on patient assessment and treatment. Stability Stability form required: No ROCIO ORANTES MD Mar 01, 2024 00:14
[2024-03-01] MEDS: ACETAMINOPHEN IV 1000 MG/100ML (10MG/ML) IV STA (00:26)
[2024-03-01] MEDS: SODIUM CHLORIDE 0.9% 1,000 ML IV ONE (00:26)
[2024-03-01] MEDS: VANCOMYCIN 1GM/250ML KIT 200 ML IV ONE (00:27)
[2024-03-01] MEDS: CEFEPIME 2GM/50ML NS 50 ML IV ONE (00:51)
[2024-03-01] MEDS ORDERED: NITROGLYCERIN 0.4 MG SL TAB SL PRN ×2 (01:45→02:00)
[2024-03-01] MEDS ORDERED: MORPHINE SULFATE INJ 2 MG/ml SYRG IV PRN ×2 (01:45→02:00)
[2024-03-01] MEDS ORDERED: LACTATED RINGER'S 1,000 ML IV ONE (02:00)
[2024-03-01] MEDS ORDERED: VANCOMYCIN PER PHARMACY 0 MG IV SCH ×3 (02:00→05:30)
[2024-03-01] MEDS: NOREPINEPHRINE 8 MG/250ML KIT 250 ML IV SCH ×2 (02:30→02:36)
--- NOTE | 2024-03-01 02:43 | DVH ---
Examination: HWOCT CLINICAL INDICATION: altered mental status COMPARISON: None. CONTRAST USED: None. TECHNIQUE: The examination was performed obtaining 5 mm slices without contrast. CT scan was done ac cording to ALARA (As Low as Reasonably Achievable). Multiplanar reconstructions were obtained. FINDINGS:SUPRATENTORIAL BRAIN: Cerebral Hemispheres: There is no midline shift or mass effect, intra or extra-axial fluid collections or hemorrhage. Prominent sulcal - gyral pattern and cisternal spaces in both cerebral hemispheres suggestive of cere bral atrophy, likely age-related. Periventricular White Matter/Basal Ganglia: Diffuse hypodensities noted in periventricular deep white matter of bilateral cerebral hemispheres, s uggestive of chronic periventricular ischemic changes. No abnormal areas of altered attenuation within the basal ganglia. POSTERIOR FOSSA: The brainstem is unremarkable. Prominent cerebellar folia, suggestive of cerebellar atrophy, likely age-related. VENTRICULAR SYSTEM: The ventricular system is normal in size. There is no evidence of hydrocephalus or transependymal flow of cerebrospinal fluid. SKULL BASE AND PARASELLAR REGION: The skull base is normal with no parasellar masses or abnormalities identified. CALVARIUM AND SCALP REGION: No abnormality is seen. PARANASAL SINUSES: No significant inflammatory changes are identified in the visualized paranasal sinuses. IMPRESSION: 1. No evidence of acute large vessel territorial ischemic infarction or intraparenchymal hematoma in current study. 2. Chronic periventricular ischemic changes. 3. 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 4. Chronic and / or ancillary findings as described above. 5. Advised further evaluation with MRI brain without contrast if clinically indicated. Electronically Signed 03/01/2024 02:43 Caroline Rojo
--- NOTE | 2024-03-01 02:52 | DVHHPRES ---
History of Present Illness Resident Creating Document: DOC CONDE RESIDENT History of Present Illness Tee Cooper Jr, an 78-year-old black male with a past medical history of continued smoking with a 60 pack-year history, COPD, hypertension, dyslipidemia, rheumatoid arthritis (previously treated with methotrexate, now on ibuprofen), cholecystectomy and recent displaced acute traumatic fracture of the right femoral neck treated in recent hospitalization came from [facility] With 2 days of respiratory symptoms cough, that progressed to altered mental status , also has bilateral lower heel pressure ulcer. Limited history at this time, but patient denies any active pain but continues to have rapid breathing. Patient is admitted in hospital initially in telemetry floor but patient's blood pressure dropped needing Levophed support demanding ICU level of care overnight. Cardiovascular: HTN, hyperipidemia Pulmonary: COPD Heme/Onc: Anemia NOS Rheumatologic: Rheumatoid arthritis Past Surgical History: Cholecystectomy, Total hip replacement Family History: CAD, CVA, Hyperlipidemia, Hypertension Family History Family history reveals his father had a CVA Smoke: <1 pack per day (5 cigerettes per day with 60 pack year smoking history. 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 But this time came from [facility]) Domestic Violence: Neg Review of Systems Review of Systems Limited Constitutional: Yes: Weakness, Malaise Eyes: No: Pain, Vision change, Conjunctivae inflammation, Eyelid inflammation, Other, Redness ENT: No: Ear pain, Ear discharge, Nose pain, Nose discharge, Nose congestion, Mouth pain, Mouth swelling, Throat pain, Throat swelling, Other Respiratory: Cough, Shortness of breath, Sputum Cardiovascular: No: Chest Pain, Palpitations, Orthopnea, Paroxysmal Noc. Dyspnea, Edema, Lt Headedness, Other Gastrointestinal: No: Nausea, Vomiting, Abdominal Pain, Diarrhea, Constipation, Melena, Hematochezia, Other Genitourinary: No Dysuria, No Frequency, No Incontinence, No Hematuria, No Retention, No Other Musculoskeletal: No: other, neck pain, shoulder pain, arm pain, back pain, hand pain, leg pain, foot pain Skin: Lesions Neurological: Weakness, Incoordination, Confusion Allergies: Coded Allergies: AMALIA Inhibitors (Verified Allergy, Unknown, 01/05/19) Azithromycin (Verified Allergy, Unknown, 01/05/19) Medications Current Medications Medications Dose Ordered Sig/Jordon Route Start Time Stop Time Status Last Admin Dose Admin Morphine Sulfate 2 mg Q30M PRN IV 03/01/24 02:00 Nitroglycerin 0.4 mg Q5MINP PRN SL 03/01/24 02:00 Vancomycin HCl 0 ml @ 0 mls/hr UD IV 03/01/24 02:00 UNV Piperacillin Sod/ Tazobactam Sod 100 ml @ 100 mls/hr Q8HR IV 03/01/24 14:00 Exam Vital Signs Vital Signs Date Time Temp Pulse Resp B/P (MAP) Pulse Ox O2 Delivery O2 Flow Rate FiO2 03/01/24 00:20 101.0 80 32 141/101 (114) 99 101.0 03/01/24 00:20 Nasal Cannula* 6 44 Exam Bilateral heel of the foot has pressure ulcers General Appearance: Alert, mild distress HEENT: Atraumatic, PERRLA, EOMI, Mucous membr. moist/pink Respiratory: Other (Bilateral basal rales) Cardiovascular: Regular rate, Normal S1, Normal S2, No murmurs, Gallops, Other (Noted sinus tachycardia) Abdominal: Normal bowel sounds, Soft, No tenderness, No hepatospenomegaly, No masses Extremities: No edema Neuro: Other (Patient is confused can not follow commands at this point deferred neurological S.) Psych/Mental Status: Other (Yet to be determined.) Labs/Xrays Labs Test 03/01/24 00:59 02/29/24 21:48 Range/Units Lactic Acid Level 1.9 0.4-2.0 mmol/L Troponin I High Sensitivity 16 </=54 ng/L White Blood Count 20.5 H 4.4-10.8 10^3/uL Red Blood Count 3.86 L 4.5-5.90 10^6/uL Hemoglobin 10.5 L 13.5-17.5 g/dL Hematocrit 32.3 L 41.0-53.0 % Mean Corpuscular Volume 83.6 80.0-100.0 fL Mean Corpuscular Hemoglobin 27.2 L 28.0-32.0 pg Mean Corpuscular Hemoglobin Concent 32.5 32.0-36.0 g/dL Red Cell Distribution Width 15.6 H 11.8-14.3 % Platelet Count 552 H 140-450 10^3/uL Mean Platelet Volume 9.0 6.9-10.8 fL Neutrophils (%) (Auto) 74.0 37.0-80.0 % Lymphocytes (%) (Auto) 12.0 10.0-50.0 % Monocytes (%) (Auto) 9.9 0.0-12.0 % Eosinophils (%) (Auto) 3.4 0.0-7.0 % Basophils (%) (Auto) 0.7 0.0-2.0 % Neutrophils # (Auto) 15.1 H 1.6-8.6 10 ^3/uL Lymphocytes # (Auto) 2.5 0.4-5.4 10 ^3/uL Monocytes # (Auto) 2.0 H 0-1.3 10 ^3/uL Eosinophils # (Auto) 0.7 0-0.8 10 ^3/uL Basophils # (Auto) 0.2 0-0.2 10 ^3/uL Nucleated Red Blood Cells 0.0 % Sodium Level 144 136-145 mmol/L Potassium Level 4.8 3.5-5.1 mmol/L Chloride Level 111 H 98-107 mmol/L Carbon Dioxide Level 20 20-31 mmol/L Anion Gap 13 5-15 Blood Urea Nitrogen 43 H 9-23 mg/dL Creatinine 1.82 H 0.700-1.30 mg/dL Glomerular Filtration Rate Calc 37 >90 mL/min BUN/Creatinine Ratio 23.6 H 10.0-20.0 Serum Glucose 88 74-106 mg/dL Calcium Level 9.5 8.7-10.4 mg/dL Phosphorus Level 4.4 2.4-5.1 mg/dL Magnesium Level 2.2 1.6-2.6 mg/dL Total Bilirubin 0.6 0.2-1.0 mg/dL Aspartate Amino Transferase (AST) 111 H 13-40 U/L Alanine Aminotransferase (ALT) 34 7-40 U/L Alkaline Phosphatase 125 H 46-116 U/L B-Type Natriuretic Peptide 28.05 0-100 pg/mL Total Protein 6.2 5.7-8.2 g/dL Albumin 3.0 L 3.2-4.8 g/dL [address] [address] Ph: [phone] DIAGNOSTIC IMAGING Diagnostic Imaging Report : [id number] Signed PATIENT: TEE COOPER JR ACCT: [id number] UNIT: [id number] : 1945 LOC: ER ROOM / BED: / AGE / SEX: 78 / M ADM STATUS: REG ER SERVICE 9 ORDERING PHYSICIAN: DOC CONDE RESIDENT PROCEDURE(s): HWOCT - HEAD WITHOUT CONTRAST REASON: altered mental status ORDER NUMBER(s): [id number], ACCESSION NUMBER(s): [id number] Examination: HWOCT CLINICAL INDICATION: altered mental status COMPARISON: None. CONTRAST USED: None. TECHNIQUE: The examination was performed obtaining 5 mm slices without contrast. CT scan was done according to ALARA (As Low as Reasonably Achievable). Multiplanar reconstructions were obtained. FINDINGS:SUPRATENTORIAL BRAIN: Cerebral Hemispheres: There is no midline shift or mass effect, intra or extra-axial fluid collections or hemorrhage. Prominent sulcal - gyral pattern and cisternal spaces in both cerebral hemispheres suggestive of cerebral atrophy, likely age-related. Periventricular White Matter/Basal Ganglia: Diffuse hypodensities noted in periventricular deep white matter of bilateral cerebral hemispheres, suggestive of chronic periventricular ischemic changes. No abnormal areas of altered attenuation within the basal ganglia. POSTERIOR FOSSA: The brainstem is unremarkable. Prominent cerebellar folia, suggestive of cerebellar atrophy, likely age- related. VENTRICULAR SYSTEM: The ventricular system is normal in size. There is no evidence of hydrocephalus or transependymal flow of cerebrospinal fluid. SKULL BASE AND PARASELLAR REGION: The skull base is normal with no parasellar masses or abnormalities identified. CALVARIUM AND SCALP REGION: No abnormality is seen. PARANASAL SINUSES: No significant inflammatory changes are identified in the visualized paranasal sinuses. IMPRESSION: 1. No evidence of acute large vessel territorial ischemic infarction or intraparenchymal hematoma in current study. 2. Chronic periventricular ischemic changes. 3. 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 4. Chronic and / or ancillary findings as described above. 5. Advised further evaluation with MRI brain without contrast if clinically indicated. Electronically Signed 03/01/2024 02:43 Caroline Rojo ATED BY: MARITA PRICE MD DICTATED DATE/TIME: 03/01/24242 SIGNED BY: MARITA PRICE MD SIGNED DATE/TIME: 03/01/24242 CC: [place] [address] Ph: [phone] DIAGNOSTIC IMAGING Diagnostic Imaging Report : [id number] Signed PATIENT: TEE COOPER JR ACCT: [id number] UNIT: [id number] : 1945 LOC: ER ROOM / BED: / AGE / SEX: 78 / M ADM STATUS: REG ER SERVICE 19 ORDERING PHYSICIAN: ROCIO ORANTES MD PROCEDURE(s): CXRP - CHEST PORTABLE REASON: sob ORDER NUMBER(s): [id number], ACCESSION NUMBER(s): [id number] XY CHEST PORTABLE, HISTORY: sob COMPARISON: XY CHEST PORTABLE on DOS: 02/02/24, CHEST XRAY 1 VIEW on DOS: 08/14/21, CXR1 on DOS: 08/14/21 XY CHEST PORTABLE on DOS: 02/02/24, CHEST XRAY 1 VIEW on DOS: 08/14/21, CXR1 on DOS: 08/14/21 TECHNICAL DATA: 1 view of the chest was obtained. FINDINGS: Lines and tubes: None Cardiomediastinal silhouette: normal Pulmonary vasculature: normal Lung expansion: low Lung airspace: normal Lung interstitium: normal Pleura: normal Pneumothorax: no Bones: Unremarkable Other: no IMPRESSION: No acute intrathoracic abnormality. Hypoexpanded lungs with bronchovascular crowding. ATED BY: YEMI HUBBARD MD DICTATED DATE/TIME: 02/29/242333 SIGNED BY: YEMI HUBBARD MD SIGNED DATE/TIME: 02/29/242333 CC: Assessment/Plan Assessment/Plan Assessment: 78-year-old gentleman with recent hospitalization of right hip fracture status post orthopedic surgery came from SNF with respiratory symptoms for past 2 days, sepsis with unknown origin, along with altered mental status needing further evaluation and treatment at ICU level. Plan: # sepsis secondary due to unknown source under evaluation: Patient has SIRS response with elevated WBC recent hospitalization and further source of infection is under investigation: Blood culture, sputum culture, urine culture, and further workup in progress. Appropriate hydration and broad coverage with IV vancomycin and Zosyn to continue. # possible acquired thromboembolic event: Recent hip surgery, immobilization. Elevated D-dimer, tachycardia tachypnea highly concerning, given patient's poor renal function V/Q scan ordered. Blood gas unremarkable, if respiratory fatigue develops needs artificial positive pressure breathing/intubation. check DVT bilateral U/S. Continue Therapeutic dose Lovenox and keep an eye on CBC and platelets. # Bilateral heel ulcer: dry base, avoid compression with air bed mattress, Podiatry and Wound Care to continue. Poor nutrition diet consulted, when possible increase multivitamin, multimodal and high-protein with adequate nutrition. # GERA due to VMN: Likely multifactorial, including acute infection. Avoid nephrotoxic medications, hydration, I&O close check, on Reyez's. # altered mental status likely due to metabolic/toxic encephalopathy: CT head negative, fall precautions, delirium precautions, correct electrolytes. Likely related to infection, continue treatment for possible infection. Checking UDS, TSH, B12, to rule out other causes. # likely underlying COPD: Given the extensive history of asked him smoking possible underlying COPD, as needed albuterol. # possible respiratory infection: CXR unremarkable, blood glass unremarkable, patient is tachypneic, recent history of possible bronchitis, recent history of hospitalization and living in a facility. Possible aspiration pneumonia. Continue empiric bacterial coverage. Checking sputum culture, blood culture, COVID, influenza and RSV. Treatment specific as discovered. # active smoker: 60 pack-year smoking history with continued history of smoking, nicotine patch. When patient is more alert oriented, 11 minutes bedside smoking cessation counseling to be done. # Recent mechanical fall needing the recent past hospitalization. # Displaced acute traumatic fracture right femoral neck: s/p Completed Right hi p hemiarthroplasty by orthopedics. # Hypertension: on home Amlodipine, and carvedilol BP on the lower side needing IV Levophed hold antihypertensive # Dyslipidemia: continue home atorvastatin. # History of rheumatoid arthritis: (previously treated with methotrexate, now on ibuprofen), examination reveals no acute arthropathy. monitor and pain management as needed. # recent bronchitis: Suspected during past hospitalization. cxr unremarkable, leukocytosis, fluctuating total WBC count with predominant neutrophilia, could be vitals was bacterial, MRSA check continue status post doxycycline 100mg x BID 7 days completed course. # Normocytic, normochromic anemia: Again noted during lab work in this hospitalization, baseline around 11 grams/dL, no active bleeding noted. Continue daily CBC check transfusion threshold 7. # Generalized deconditioning: patient was discharged to fdc facility, further details to obtain from the facility during the daytime. Physical therapy consulted. # possible signs of dementia: CT head shows gross atrophy, as per patient's friend recent loss of personal ADLs concerning. Needs further follow up. PUD prophylaxis: protonix 40mg daily DVT prophylaxis: Levonox therapeutic dose to continue. Barriers to discharge: Medical diagnosis and managements in progress. Patient lives with self at [place], [place]. Presently from care fecility needing rehab/ supportive device/person for ADL. PT and SW consulted. Case discussed with Dr. Kevin. Code Status: Full Code (Presumable, as he was same in past hospitalization, further discussion needed with friend/POA). Discussion needed total 21 minutes bedside. Plan discussed with: Patient, Other (Primary team, RN) My Orders Orders - DOC CONDE RESIDENT Procedure Category Date Status Time Admit ADMIT 03/01/24 Transmitted 01:34 Oxygen By Nasal RT 03/01/24 Transmitted Cannula 01:34 Stat Ekg For Chest [facility] 03/01/24 In Process Pain 01:34 Notify Md Of Changes [facility] 03/01/24 In Process From Base 01:34 Reading Interventionist For [facility] 03/01/24 In Process 24 Hours 01:34 Emergency Dysrhythmia [facility] 03/01/24 In Process Protocol 01:34 Rhythm Strips Once [facility] 03/01/24 In Process Every Shift 01:34 Morphine Sulfate PHA 03/01/24 In Process Injection 02:00 Nitroglycerin PHA 03/01/24 In Process Sublingual (Ntrostat 02:[address] 03/01/24 Resulted 01:50 Urine Bacterial ABDULAZIZ 03/01/24 Logged Culture 01:50 Drug Screen LAB 03/01/24 Logged 01:50 Blood Alcohol LAB 03/01/24 Logged 01:50 Thyroid Stimulating LAB 03/01/24 Logged Hormone 01:50 Vancomycin Per PHA 03/01/24 Pending Pharmacy 02:00 Piperacillin-Tazo PHA 03/01/24 In Process 4.5gm (Zosyn 4.5gm/100 03:00 Piperacillin-Tazob PHA 03/01/24 In Process 3.375gm (Zosyn 3.375g 14:00 Vancomycin 500mg/100ml PHA 03/01/24 In Process 02:30 Norepinephrine 8 PHA 03/01/24 In Process Mg/250ml Kit 02:30 D-Dimer LAB 03/01/24 Logged 02:20 Bilat Lower Dvt US 03/01/24 Logged 02:20 Transfer Orders XFER 03/01/24 Transmitted 02:20 * Wound Consult CONS 03/01/24 Transmitted Drug Screen LAB 03/01/24 Logged 02:25 Blood Alcohol LAB 03/01/24 Logged 02:25 Ammonia LAB 03/01/24 Logged 02:25 Covid19 Antigen Vi LAB 03/01/24 Logged Rapid Influenza A&B LAB 03/01/24 Logged 02:31 Respiratory Syncytial LAB 03/01/24 Logged Virus Ag 02:31 Respiratory Culture ABDULAZIZ 03/01/24 Logged W/ Gs 02:33 Npo (Nothing By DIET 03/01/24 Transmitted Mouth) Diet Breakfast Strict Aspiration KARYNA 03/01/24 In Process Precautions 02:34 Abg W/ Co-Ox RT 03/01/24 Logged 02:35 Lactated Ringer's PHA 03/01/24 Logged 03:00 Communication Order ORDERS 03/01/24 Verified 02:50 Date of Service: Mar 01, 2024 Billing Provider: JEN KEVIN MD Common Visit Codes: [id number] INP/OBS CARE (HIGH) Secondary Visit Codes: 64196-[id number] CARE PLAN 30 MINUTES DOC CONDE RESIDENT Mar 01, 2024 02:52 JEN KEVIN MD Mar 01, 2024 12:10
[2024-03-01 03:12] LABS: Base Excess -6.6 mmol/L (-2.0-3.0)
[2024-03-01] MEDS: PIPERACILLIN-TAZO 4.5GM 100 ML IV ONE (03:16)
[2024-03-01] MEDS: LACTATED RINGER'S 1,000 ML IV ONE (03:29)
[2024-03-01 03:55] LABS: Amphetamine Screen, Urine Neg (NEGATIVE); Barbiturate Scree,Urine Neg (NEGATIVE); Benzodiazephine Screen, Urine Neg (NEGATIVE); Cannabinoid Screen, Urine Neg (NEGATIVE); Cocaine Screen, Urine Neg (NEGATIVE); Opiate Scree,Urine Neg (NEGATIVE); Phencyclidine Screen, Urine Neg (NEGATIVE)
[2024-03-01 04:10] LABS: Urine Bacteria FEW /hpf (None Seen); Urine Blood 1+ /uL (Negative); Urine Clarity Clear (Clear); Urine Color Yellow (Yellow); Urine Hyaline Cast MOD /lpf (0 - 2); Urine Protein, UAD TRACE (Negative); Urine Specific Gravity 1.021 (1.001-1.035); Urine Sperm PRESENT /hpf (None Seen); Urine Squamous Epithelial Cell None Seen /hpf (<5); Urine Urobilinogen Normal (Negative); Urine WBC 4 /hpf (0 - 3)
[2024-03-01] MEDS: VANCOMYCIN 500mg/100mL PREMIX or KIT IV ONE ×2 (04:51→08:49)
[2024-03-01] MEDS: VANCOMYCIN 1GM/250ML KIT 250 ML IV ONE (05:16)
[2024-03-01] MEDS: ENOXAPARIN SOD 80 MG/0.8ML SYRINGE SC SCH (06:34)
[2024-03-01] MEDS: PANTOPRAZOLE 40 MG/10 ML VIAL INJ IV SCH (06:34)
[2024-03-01] MEDS ORDERED: NOREPINEPHRINE 8 MG/250ML KIT 250 ML IV SCH (06:45)
--- NOTE | 2024-03-01 07:04 | ECG ---
[facility] Test Date: 2024-02-29 Test Time: 21:05:53 Pat Name: TEE COOPER Department: ER Room: [address] [place] [address] Gender: M [employer]il [employer] Technician: : 1945 Requested By: ROCIO ORANTES Order Number: [id number] Reading MD: Dean Garcia Measurements Intervals [place] Rate: 89 P: 46 NC: 211 QRS: 52 QRSD: 98 T: 57 QT: 394 QTc: 480 Interpretive Statements Sinus rhythm Ventricular bigeminy Borderline prolonged QT interval Artifact in lead(s) I,II,III,aVR,aVL,aVF,V4 Electronically Signed On 03-05-2024 12:34:10 PST by Dean Garcia Please click the below link to view image of tracing.
[2024-03-01] MEDS: IPRATROPIUM BROM 0.5 MG/2.5ML INH SOL NEB SCH (09:53)
[2024-03-01] MEDS: ALBUTEROL SULF 2.5 MG/0.5ML(0.5%) NEB SOLN NEB SCH (09:53)
[2024-03-01] MEDS: ALBUTEROL SULF 2.5 MG/0.5ML(0.5%) NEB SOLN NEB ONE (09:56)
[2024-03-01] MEDS: IPRATROPIUM BROM 0.5 MG/2.5ML INH SOL NEB ONE (09:56)
[2024-03-01] MEDS ORDERED: ENOXAPARIN SOD 100 MG/1 ML SYRINGE SC SCH (10:00)
[2024-03-01 10:25] LABS: Basophils # (auto) 0.1 10 ^3/uL (0-0.2); Basophils % (auto) 0.4 % (0.0-2.0); Eosinophils # (auto) 0.4 10 ^3/uL (0-0.8); Eosinophils % (auto) 2.6 % (0.0-7.0); Hematocrit 28.5 % (41.0-53.0); Hemoglobin 9.2 g/dL (13.5-17.5); Lymphocytes # (auto) 2.5 10 ^3/uL (0.4-5.4); Lymphocytes % (auto) 14.1 % (10.0-50.0); Mean Corpuscular Hemoglobin 27.7 pg (28.0-32.0); Mean Corpuscular Hgb Conc. 32.4 g/dL (32.0-36.0); Mean Corpuscular Volume 85.4 fL (80.0-100.0); Monocytes # (auto) 1.6 10 ^3/uL (0-1.3); Monocytes % (auto) 8.9 % (0.0-12.0); Platelet Count (auto) 500 10^3/uL (140-450); Red Blood Cells 3.34 10^6/uL (4.5-5.90); Red Cell Distribution Width 15.7 % (11.8-14.3); White Blood Cell 17.5 10^3/uL (4.4-10.8)
--- NOTE | 2024-03-01 10:33 | DVH ---
Bilateral lower extremity venous duplex Clinical History: possible dvt Comparison: BI LOWER DVT on DOS: 08/15/21, BLDVT on DOS: 08/15/21 Technique: Duplex Doppler evaluation of the deep venous systems of both lower extremities from the common femora l veins to the popliteal veins including color Doppler and spectral/pulsed waveform analysis was perf ormed. Findings: RIGHT SIDE: The common femoral vein demonstrates appropriate compressibility and waveform variability. There is compressibility/patency of the great saphenous vein at the proximal thigh. The femoral vein demonstrates appropriate compressibility and waveform variability. The deep femoral vein demonstrates appropriate compressibility and waveform variability. The popliteal vein demonstrates appropriate compressibility and waveform variability. There is normal compressibility at the tibioperoneal trunk. LEFT SIDE: The common femoral vein demonstrates appropriate compressibility and waveform variability. There is compressibility/patency of the great saphenous vein at the proximal thigh. The femoral vein demonstrates appropriate compressibility and waveform variability. The deep femoral vein demonstrates appropriate compressibility and waveform variability. The popliteal vein demonstrates appropriate compressibility and waveform variability. Rouleaux flow i s present. There is normal compressibility at the tibioperoneal trunk. Impression: 1. No right or left femoropopliteal venous thrombosis. HS:Y
[2024-03-01] MEDS: FUROSEMIDE 40 MG/4 ML VIAL IV ONE (10:43)
[2024-03-01] MEDS: AMPICILLIN & SULBACTAM SODIUM 3 GM in SODIUM CHL 0.9% 100 ML IV SCH (11:24)
[2024-03-01] MEDS: SODIUM CHLORIDE 0.9% 1,000 ML IV SCH (12:24)
--- NOTE | 2024-03-01 12:27 | DVHPN2 ---
Subjective Patient was altered mental status Reviewed: Care Plan, H&P, Labs, Medications, Previous Orders Changes from previous H/P or p: No Changes General: Per HPI Eyes: No Pain, No Vision change, No Conjunctivae inflammation, No Eyelid inflammation, No Other, No Redness ENT: No Ear pain, No Ear discharge, No Nose pain, No Nose discharge, No Nose congestion, No Mouth pain, No Mouth swelling, No Throat pain, No Throat swelling, No Other Cardiovascular: No Chest Pain, No Palpitations, No Orthopnea, No Paroxysmal Noc. Dyspnea, No Edema, No Lt Headedness, No Other Respiratory: Cough, Shortness of breath, Sputum Gastrointestinal: No Nausea, No Vomiting, No Abdominal Pain, No Diarrhea, No Constipation, No Melena, No Hematochezia, No Other Genitourinary: No Dysuria, No Frequency, No Incontinence, No Hematuria, No Retention, No Other Musculoskeletal: No other, No neck pain, No shoulder pain, No arm pain, No back pain, No hand pain, No leg pain, No foot pain Skin: Lesions Objective Vitals Vital Signs Date Time Temp Pulse Resp B/P (MAP) Pulse Ox O2 Delivery O2 Flow Rate FiO2 03/01/24 12:00 107 32 101/56 (71) 96 03/01/24 10:43 2.0 28 03/01/24 09:53 Nasal Cannula* 03/01/24 01:30 98.4 98.4 Intake/Output Intake and Output 03/01/24 07:00 Intake Total 1222.5 ml Balance 1222.5 ml Intake IV Total 1222.5 ml General Appearance: Alert, moderate distress, Other (Disoriented) HEENT: Atraumatic, PERRLA Lungs: Clear to auscultation, Normal air movement Cardiovascular: Normal S1, Normal S2 Abdomen: Normal bowel sounds Musculoskeletal: Normal sensory function, Normal motor function Extremities: No clubbing, No cyanosis, Normal pulses, Other (Tissue injury to heal) Neuro: Cranial nerves 3-12 NL Psych/Mental Status: Mental status NL, Mood NL Medications Current Medications Medications Dose Ordered Sig/Jordon Route Start Time Stop Time Status Last Admin Dose Admin Morphine Sulfate 2 mg Q30M PRN IV 03/01/24 02:00 Nitroglycerin 0.4 mg Q5MINP PRN SL 03/01/24 02:00 Pantoprazole Sodium 40 mg DAILY IV 03/01/24 06:00 03/01/24 06:34 40 MG Vancomycin HCl 0 ml @ 0 mls/hr UD IV 03/01/24 05:30 Enoxaparin Sodium 70 mg Q24H SC 03/01/24 06:15 03/01/24 06:34 70 MG Norepinephrine Bitartrate 250 ml @ 3.75 mls/hr Q24H IV 03/01/24 06:45 03/01/24 02:30 3.75 MLS/HR Albuterol 2.5 mg Q4HR NEB 03/01/24 10:00 03/01/24 09:53 2.5 MG Ipratropium [place] 0.5 mg Q4HR NEB 03/01/24 10:00 03/01/24 09:53 0.5 MG Vancomycin HCl 0 ml @ 0 mls/hr UD IV 03/01/24 02:15 UNV Ampicillin Sodium/ Sulbactam Sodium 3 gm/Sodium Chloride 100 ml @ 100 mls/hr Q6H IV 03/01/24 10:15 03/01/24 11:24 100 MLS/HR Sodium Chloride 1,000 ml @ 75 mls/hr [id number] IV 03/01/24 10:15 Hydrocortisone Sodium Succinate 50 mg Q12HR IV 03/01/24 22:00 Laboratory Results Laboratory Tests 03/01/24 03:30 Chemistry Test 02/29/24 21:48 03/01/24 11:23 Albumin 3.0 g/dL (3.2-4.8) L Pending Calcium Level 9.5 mg/dL (8.7-10.4) Pending Magnesium Level 2.2 mg/dL (1.6-2.6) Phosphorus Level 4.4 mg/dL (2.4-5.1) Total Protein 6.2 g/dL (5.7-8.2) Pending Coagulation Test 03/01/24 03:30 D-Dimer, Quantitative 5.17 mg/L FEU (0.0-0.49) H Cardiac Markers Test 02/29/24 21:48 B-Type Natriuretic Peptide 28.05 pg/mL (0-100) LFT Test 02/29/24 21:48 03/01/24 11:23 Alanine Aminotransferase (ALT) 34 U/L (7-40) Pending Alkaline Phosphatase 125 U/L (46-116) H Pending Aspartate Amino Transferase (AST) 111 U/L (13-40) H Pending Total Bilirubin 0.6 mg/dL (0.2-1.0) Pending HgA1c, TSH Test 03/01/24 03:30 Thyroid Stimulating Hormone (TSH) 3.64 uIU/mL (0.55-4.78) Urinalysis Test 03/01/24 03:00 Urine Color Yellow (Yellow) Urine Clarity Clear (Clear) Urine pH 5.0 (5.0-9.0) Urine Specific [place] 1.021 (1.001-1.035) Urine Protein Trace (Negative) H Urine Ketones Negative (Negative) Urine Blood 1+ /uL (Negative) H Urine Nitrite Negative (Negative) Urine Bilirubin Negative (Negative) Urine Urobilinogen Normal mg/dL (Negative) Urine Leukocyte Esterase Negative /uL (Negative) Urine RBC 15 /hpf (0 - 3) Urine WBC 4 /hpf (0 - 3) Urine Squamous Epithelial Cells None seen /hpf (<5) Urine Bacteria Few /hpf (None Seen) H Urine Hyaline Casts Mod /lpf (0 - 2) Urine Sperm Present /hpf (None Seen) Urine Glucose Normal mg/dL (Normal) Blood Gas Results Test 03/01/24 03:08 Arterial Blood pH 7.412 (7.350-7.450) FiO2 % 21.0 Labs and/or images reviewed: Labs reviewed by me, Image(s) reviewed by me Assessment/Plan Assessment/Plan Patient: -metabolic encephalopathy secondary to sepsis -sepsis with shock -acute hypoxic respiratory failure, rule out community-acquired pneumonia, Gram-positive/Gram-negative etiology -deep tissue injury to sacrum and bilateral heels -history of COPD -primary hypertension -dyslipidemia -recent history of right hip fracture with right hip arthroplasty -acute kidney injury, vasomotor nephropathy Plan: -continue antibiotic therapy with Unasyn and vancomycin -maki cultures -wound care consultation March -bronchodilators -norepinephrine drip to keep map greater than 65 mmHg -gentle IV hydration -Nephrology consultation -PUD, DVT prophylaxis -repeat labs in a.m. -patient having central line placed by ER resident. Repeat postprocedure chest x-ray Total time spent with patient discussing and formulating plan of care: 35 minutes. This medical document was created using an electronic medical record system with [employer] dictation system. Although this document has been carefully reviewed, there may still be some phonetic and typographical errors. These areas are purely typographical due to imperfections of the software programs, and do not reflect any compromise in the patient's medical care. Plan discussed with: Patient, Other (RN) My Orders Orders - WAYNE TURNER NP Procedure Category Date Status Time Ampicillin & PHA 03/01/24 In Process Sulbactam Sodium 10:15 Sodium Chloride 0.9% PHA 03/01/24 In Process 10:15 Comprehensive LAB 03/01/24 Logged Metabolic Panel 10:08 Basic Metabolic Panel LAB 03/02/24 Verified 04:00 Hydrocortisone PHA 03/01/24 In Process Succinate Inj 22:00 Date of Service: Mar 01, 2024 Billing Provider: WAYNE TURNER NP Common Visit Codes: [id number] CARE 30-74 MIN WAYNE TURNER NP Mar 01, 2024 12:27
--- NOTE | 2024-03-01 12:44 | DVHNC2 ---
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) Indication: Hypotension Room prepared for procedure: Yes Janitorial Tech performed hand hygien: Yes Maximal sterile barrier precau: Mask/Eye shield, Sterile gown, Cap, Sterlie gloves, Large sterlie drape Skin Preparation: Chlorhexidine gluconate Skin preparation completely dr: Yes Insertion site: Left, Internal jugular Central line catheter type: [id number]-[id number]-[id number] dialysis Number of lumens: 3 Post Assessment: Chest X-Ray, Proper placement Date of Service: Mar 01, 2024 Billing Provider: MACKENZIE GARCIA MD Common Visit Codes: PROCEDURE ONLY Procedure Codes: [id number] NON-TUNNEL CV CATH SARAH FERGUSON RESIDENT Mar 01, 2024 12:44
--- NOTE | 2024-03-01 12:49 | DVH ---
AP portable chest HISTORY: central line insertion Comparison: 02/29/2024 Comparison: XY CHEST PORTABLE on DOS: 02/29/24, XY CHEST PORTABLE on DOS: 02/02/24, CHEST XRAY 1 VIEW on DOS: 08/14/21 FINDINGS: Central line tip in the low superior vena cava. Atelectasis right lung base. IMPRESSION: 1. Compared to previous exam left IJ catheter is been placed with its tip in the low superior vena ca va
[2024-03-01 13:35] LABS: Potassium 4.2 mmol/L (3.5-5.1)
[2024-03-01 13:37] LABS: Anion Gap 12 (5-15); Carbon Dioxide 20 mmol/L (20-31)
[2024-03-01 13:38] LABS: Calcium 9.3 mg/dL (8.7-10.4)
[2024-03-01 13:42] LABS: BUN/Creatinine Ratio 22.6 (10.0-20.0); Chloride 114 mmol/L (98-107); Sodium 146 mmol/L (136-145)
[2024-03-01 13:43] LABS: Blood Urea Nitrogen 48 mg/dL (9-23); Glucose 114 mg/dL (74-106)
[2024-03-01 13:44] LABS: Alanine Aminotransferase 28 U/L (7-40)
[2024-03-01 13:45] LABS: Bilirubin, Total 0.7 mg/dL (0.2-1.0); Total Protein 6.6 g/dL (5.7-8.2)
[2024-03-01 13:48] LABS: Alkaline Phosphatase 119 U/L (46-116); Aspartate Aminotransferase 106 U/L (13-40)
[2024-03-01] MEDS ORDERED: PIPERACILLIN-TAZOB 3.375GM 100 ML IV SCH (14:00)
[2024-03-01] MEDS: NOREPINEPHRINE BITARTRATE 16 MG in SODIUM CHL 0.9% 234 ML IV SCH (14:53)
[2024-03-01] MEDS: SODIUM BICARB 50mEq/50ml Vial 50 ML in SOD CHL 0.45% 1,000 ML IV ONE (15:13)
[2024-03-01 15:48] LABS: Erythrocyte Sedimentation Rate 96 mm/hr (0-20)
[2024-03-01 16:18] LABS: Base Excess -8.1 mmol/L (-2.0-3.0)
[2024-03-01 18:35] LABS: Erythrocyte Sedimentation Rate 110 mm/hr (0-20)
[2024-03-01] MEDS: HYDROCORTISONE SOD SUCC 100 MG/2ML INJ VIAL IV SCH (21:19)
[2024-03-01 21:55] LABS: Base Excess -6.5 mmol/L (-2.0-3.0)
[2024-03-01] MEDS: LORazepam 2MG/ML-1ML VIAL ONE (22:14)
[2024-03-01] MEDS: LORazepam 2MG/ML-1ML VIAL IV ONE (22:14)
[2024-03-01] MEDS: ACETYLCYSTEINE 10 %(100MG/ML) SOL 4ML NEB SCH (22:20)
[2024-03-02] VITALS (34 sets, daily range): BP systolic 98–152; BP diastolic 52–91; PULSE 87–101; RESP 15–28; TEMP 98.8–99; O2SAT 97–100
[2024-03-02] MEDS: ETOMIDATE (2MG/ML) 20ML VIAL IV ONE ×2 (01:20→01:30)
[2024-03-02] MEDS: SUCCINYLCHOLINE CHLORIDE 20 MG/ML 10ML VIAL IV ONE ×2 (01:20→01:30)
[2024-03-02] MEDS: MIDAZOLAM DRIP 50 mg/50mL 50 ML IV SCH (01:30)
[2024-03-02 03:15] LABS: Base Excess -8.1 mmol/L (-2.0-3.0)
--- NOTE | 2024-03-02 03:58 | DVH ---
Examination: CXR1 CLINICAL INDICATION: intubation COMPARISON: None. Technique: Frontal radiograph of the chest was obtained. Findings: Tip of the endotracheal tube is located 7 cm away from the trino. Left central venous catheter is noted in place. Tip of the nasogastric tube is noted in the stomach. Lungs are clear and well expanded with no pulmonary infiltrate or pleural effusion. There is no pneu mothorax. The cardiomediastinal silhouette is within normal limits. No acute osseous abnormality is seen. Impression: 1. Tip of the endotracheal tube is located 7 cm away from the trino. 2. Left central venous catheter is noted in place. 3. Tip of the nasogastric tube is noted in the stomach. Electronically Signed 03/02/2024 03:58 Caroline Rojo
--- NOTE | 2024-03-02 04:40 | DVHNC2 ---
Intubation Indication: Respiratory Insufficiency, Altered Mental Status, Airway Protection Prep: Preoxygenation Pretreated with: Sedation Medicated with: Succinylcholine Intubation Approach: Orotracheal Intubation size: cm (8.0) Informed consent obtained: No Risks/benefits/alt described: No UTO Consent EMERGENT INTUBATION Date of Service: Mar 02, 2024 Billing Provider: LISSY PETTIT Common Visit Codes: PROCEDURE ONLY Procedure Codes: [id number] LISSY PETTIT Mar 02, 2024 04:40
[2024-03-02 05:44] LABS: Basophils # (auto) 0.1 10 ^3/uL (0-0.2); Basophils % (auto) 0.3 % (0.0-2.0); Eosinophils # (auto) 0 10 ^3/uL (0-0.8); Platelet Count (auto) 545 10^3/uL (140-450)
[2024-03-02 05:47] LABS: Hematocrit 27.1 % (41.0-53.0); Hemoglobin 8.9 g/dL (13.5-17.5); Lymphocytes # (auto) 1.5 10 ^3/uL (0.4-5.4); Lymphocytes % (auto) 6.1 % (10.0-50.0); Mean Corpuscular Hemoglobin 27.5 pg (28.0-32.0); Mean Corpuscular Hgb Conc. 33.1 g/dL (32.0-36.0); Monocytes # (auto) 0.8 10 ^3/uL (0-1.3); Monocytes % (auto) 3.3 % (0.0-12.0); Neutrophils # (auto) 21.8 10 ^3/uL (1.6-8.6); Neutrophils % (auto) 90.3 % (37.0-80.0); Red Blood Cells 3.26 10^6/uL (4.5-5.90); Red Cell Distribution Width 15.9 % (11.8-14.3); White Blood Cell 24.2 10^3/uL (4.4-10.8)
[2024-03-02 05:59] LABS: Potassium 3.9 mmol/L (3.5-5.1)
[2024-03-02 06:00] LABS: Anion Gap 16 (5-15); Calcium 8.8 mg/dL (8.7-10.4)
[2024-03-02 06:05] LABS: BUN/Creatinine Ratio 25.8 (10.0-20.0)
[2024-03-02 06:17] LABS: Blood Urea Nitrogen 46 mg/dL (9-23); Carbon Dioxide 19 mmol/L (20-31); Chloride 115 mmol/L (98-107); Glucose 147 mg/dL (74-106); Sodium 150 mmol/L (136-145)
[2024-03-02 09:13] LABS: Base Excess -8.4 mmol/L (-2.0-3.0)
[2024-03-02] MEDS: SODIUM BICARB 50mEq/50ml Vial 50 ML in D5W 5% 1,000 ML IV SCH (10:08)
--- NOTE | 2024-03-02 11:08 | DVH ---
RENAL ULTRASOUND CLINICAL HISTORY: amanda TECHNIQUE: Multiple ultrasound images of the kidneys and bladder were obtained. COMPARISON: None FINDINGS: The right kidney measures 10.3 cm in length. The left kidney measures 10.8 cm. There are multiple sim ple appearing bilateral renal cysts, the largest in the left upper pole measuring 6.3 cm. There is a 7 mm calculus in the right midpole and a 4 mm calculus in the left midpole. There is no sonographic e vidence of hydronephrosis. The prostate gland is enlarged with calculated volume of 130 cc. There are calcifications seen within the prostate gland. There is a Reyez catheter in the bladder which is collapsed. IMPRESSION: 1. Bilateral nonobstructive subcentimeter renal calculi, the largest measuring 7 mm in the midpole of the right kidney. 2. Marked prostatomegaly. 3. Bilateral simple appearing renal cysts measuring up to 6.3 cm. HS:Y
[2024-03-02] MEDS: VANCOMYCIN 1GM/250ML KIT 250 ML IV ONE (11:26)
[2024-03-02 12:03] LABS: Protein, Urine 80.8 mg/dL (1-14)
[2024-03-02 12:06] LABS: Creatinine, Urine 109.75 mg/dL (30.0-125.0); Urine Protein/Creatinine Ratio 0.74
--- NOTE | 2024-03-02 16:59 | DVHCONRES ---
Date Seen: Mar 02, 2024 Resident Creating Document: CHANTELLE BILLY RESIDENT Referring Physician Senait SHAHID Reason for Consultation GERA History of Present Illness Patient is 78-year-old male with past medical history of hypertension, hyperlipidemia, Chronic obstructive pulmonary disease, anemia, rheumatoid arthritis presented to hospital which a complaint of cough, altered mental status and bilateral heel pressure ulcers. Patient was admitted to ICU for low blood pressure requiring vasopressors. Overnight patient was intubated for rapid breathing. All medical information obtained from EMR and nursing stopped. Nephrology consultation was done for acute kidney injury. On further evaluation at the time, patient is intubated on mechanical ventilation. Laboratory findings showed elevated creatinine at 1.78, GFR 38, BUN creatinine ratio 25.8, elevated sodium level 150. 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 Past Medical History As per HPI Past Surgical History As per HPI Family History: Hypertension G8 MOTHER Malignant neoplasm of breast G8 MOTHER (UNKNOWN) Allergies: Coded Allergies: AMALIA Inhibitors (Verified Allergy, Unknown, 01/05/19) Azithromycin (Verified Allergy, Unknown, 01/05/19) Home Meds Active Scripts Sucralfate (Carafate) 1 Gm/10 Ml Sallie, 1 GM PO QID for 30 Days, #120 ML Prov:LISSY TORRES MD 08/16/21 Pantoprazole Sodium Sesquihydr (Protonix) 40 Mg Tab, 40 MG PO DAILY for 30 Days, #30 TAB 1 Refill Prov:LISSY TORRES MD 08/16/21 Reported Medications Patients Own Medication (PATIENTS OWN MEDICATION) ., 12.5 MG PO BID PTS OWN MED-OBTAIN FROM PT AND SEND TO RX DRUG: FREQ: RX# EXP: DATE DISP: TECH: [facility]: 01/03/19 Patients Own Medication (PATIENTS OWN MEDICATION) ., 500 MG PO ONCE PTS OWN MED-OBTAIN FROM PT AND SEND TO RX DRUG: FREQ: RX# EXP: DATE DISP: TECH: [facility]: 01/03/19 Prednisone (PREDNISONE) 5 Mg Tb, 5 MG GT DAILY for ARTHRITIS, TAB 01/03/19 Cholecalciferol (VITAMIN D3) 2,000 Unit Tab, 2000 UNIT OR DAILY, TAB 01/03/19 Amlodipine Besylate (Amlodipine Besylate) 5 Mg Tab, 10 MG PO DAILY for 30 Days, MG 10/13/19 Atorvastatin Calcium (Lipitor) 20 Mg Tab, 1 TAB PO HS, #90 TAB 1 Refill 01/03/19 Tamsulosin Hcl (Tamsulosin Hcl) 0.4 Mg Cap, 0.4 MG PO QPM for BPH for 30 Days, MG 01/03/19 Zolpidem Tartrate (ZOLPIDEM TARTRATE ER) 12.5 Mg Tab, 1 TAB PO QPM for SLEEP, #30 TAB 1 Refill 01/03/19 Current Medications Current Medications Medications (Trade) Dose Ordered Sig/Jordon Route PRN Reason Start Time Stop Time Status Last Admin Hydrocortisone Sodium Succinate (Solu-CORTEF INJECTION) 50 mg Q12HR IV 03/01/24 22:00 03/02/24 08:24 Acetylcysteine (Mucomyst Inahalation 10%) 100 mg Q8HR NEB 03/01/24 22:00 03/02/24 22:01 03/02/24 15:25 Midazolam HCl 50 ml @ 1 mls/hr Q24H IV 03/02/24 01:30 03/02/24 15:12 Sodium Bicarbonate 50 ml/ Dextrose 1,050 ml @ 100 mls/hr [id number] IV 03/02/24 09:00 03/02/24 10:08 Enteral Nutritional Formula (Jevity 1.2 [place]/ Fiber) 1,000 ml 30ML/HR GT 03/02/24 15:45 UNV Purified Water 200 ml Q6HR GT 03/02/24 18:00 UNV Sodium Chloride 1,000 ml @ 100 mls/hr Q10H IV 03/02/24 16:00 UNV Review of Systems ROS can not be obtained given patient is intubated and on sedation. Vital Signs Vital Signs Date Time Temp Pulse Resp B/P (MAP) Pulse Ox O2 Delivery O2 Flow Rate FiO2 03/02/24 16:43 98 23 111/64 (80) 100 30 03/02/24 14:15 98.4 98.4 03/02/24 07:29 Mechanical Ventilator+ 03/01/24 14:13 3 Physical Exam General Appearance: Sedated and on mechanical ventilation. Head Exam: Normal inspection Neck Exam: Normal inspection. Non-tender. Normal alignment Pulmonary/Respiratory: Chest non-tender. Clear bilateral breath sounds Cardiovascular/Chest: Regular rate and rhythm. No murmurs. No JVD. Peripheral Pulses: 2+ Radial (R). 2+ Radial (L). 2+ Pedal (R). 2+ Pedal (L) Abdominal Exam: Normal bowel sounds. Soft. Nontender. No hepatospenomegaly. No masses Ankle Exam: Negative ankle edema Lower extremities: Negative lower extremity edema Neuro/Mental Status: Sedated and on mechanical ventilation. Labs/Diagnostic Data Labs Test 03/02/24 11:20 03/02/24 08:14 03/02/24 05:14 03/02/24 03:07 Range/Units Urine Creatinine 109.75 30.0-125.0 mg/dL Urine Protein/Creatinine Ratio 0.74 Urine Sodium 10 L 40-220 mmol/L Urine Total Protein 80.8 H 1-14 mg/dL Blood Gas Specimen Type Arterial Blood Gas Sample Site Right radial Blood Gas Patient Temperature 37.0 Arterial Blood Date Drawn [id number] Arterial Blood pH 7.382 7.350-7.450 Arterial Blood Partial Pressure CO2 26.5 L 35.0-48.0 mmHg Arterial Blood Partial Pressure O2 104.7 83.0-108.0 mmHg Arterial Blood HCO3 15.4 L 21.0-28.0 mmol/L Arterial Blood Oxygen Saturation 97.2 94.0-98.0 % Arterial Blood Base Excess -8.4 L -2.0-3.0 mmol/L Arterial Blood Oxyhemoglobin 96.4 94.0-98.0 % Arterial Blood Carboxyhemoglobin 0.3 L 0.5-1.5 % Arterial Blood Methemoglobin 0.5 0.0-1.5 % Yao Test Modified Blood Gas Total Hemoglobin 9.90 L 13.5-17.5 g/dL Blood Gas Set Respiration Rate 14.0 Blood Gas Modality Vent - ac FiO2 % 30.0 Blood Gas Tidal Volume 550.0 Blood Gas PEEP or CPAP 5.0 White Blood Count 24.2 #H 4.4-10.8 10^3/uL Red Blood Count 3.26 L 4.5-5.90 10^6/uL Hemoglobin 8.9 L 13.5-17.5 g/dL Hematocrit 27.1 L 41.0-53.0 % Mean Corpuscular Volume 83.0 80.0-100.0 fL Mean Corpuscular Hemoglobin 27.5 L 28.0-32.0 pg Mean Corpuscular Hemoglobin Concent 33.1 32.0-36.0 g/dL Red Cell Distribution Width 15.9 H 11.8-14.3 % Platelet Count 545 H 140-450 10^3/uL Mean Platelet Volume 9.3 6.9-10.8 fL Neutrophils (%) (Auto) 90.3 H 37.0-80.0 % Lymphocytes (%) (Auto) 6.1 L 10.0-50.0 % Monocytes (%) (Auto) 3.3 0.0-12.0 % Eosinophils (%) (Auto) 0.0 0.0-7.0 % Basophils (%) (Auto) 0.3 0.0-2.0 % Neutrophils # (Auto) 21.8 H 1.6-8.6 10 ^3/uL Lymphocytes # (Auto) 1.5 0.4-5.4 10 ^3/uL Monocytes # (Auto) 0.8 0-1.3 10 ^3/uL Eosinophils # (Auto) 0 0-0.8 10 ^3/uL Basophils # (Auto) 0.1 0-0.2 10 ^3/uL Nucleated Red Blood Cells 0.0 % Sodium Level 150 H 136-145 mmol/L Potassium Level 3.9 3.5-5.1 mmol/L Chloride Level 115 H 98-107 mmol/L Carbon Dioxide Level 19 L 20-31 mmol/L Anion Gap 16 H 5-15 Blood Urea Nitrogen 46 H 9-23 mg/dL Creatinine 1.78 H 0.700-1.30 mg/dL Glomerular Filtration Rate Calc 38 >90 mL/min BUN/Creatinine Ratio 25.8 H 10.0-20.0 Serum Glucose 147 H 74-106 mg/dL Calcium Level 8.8 8.7-10.4 mg/dL Random Vancomycin Level 11.3 H 5-10 ug/mL Blood Gas Spontaneous Rate 30 Blood Gas Spontaneous Tidal Volume 572 Bl Gas Inspiratory/Expiratory Ratio 1:1.8 Specimen Drawn By Aruna john rt Test 03/01/24 21:49 03/01/24 21:48 03/01/24 16:10 03/01/24 13:15 Range/Units Blood Gas EPAP 5 Blood Gas IPAP 12 POC Glucose 109 H 70-106 mg/dl Erythrocyte Sedimentation Rate 110 H 0-20 mm/hr Total Bilirubin 0.7 0.2-1.0 mg/dL Aspartate Amino Transferase (AST) 106 H 13-40 U/L Alanine Aminotransferase (ALT) 28 7-40 U/L Alkaline Phosphatase 119 H 46-116 U/L Total Protein 6.6 5.7-8.2 g/dL Albumin 3.0 L 3.2-4.8 g/dL Test 03/01/24 13:14 03/01/24 03:30 03/01/24 03:00 03/01/24 00:59 Range/Units C-Reactive Protein High Sensitivity > 20.00 H <1.0 mg/dL D-Dimer, Quantitative 5.17 H 0.0-0.49 mg/L FEU Ammonia 29 11-32 umol/L Vitamin B12 Level 396 211-911 pg/mL Thyroid Stimulating Hormone (TSH) 3.64 0.55-4.78 uIU/mL Plasma/Serum Blood Alcohol < 3.0 <10 mg/dL Urine Color Yellow Yellow Urine Clarity Clear Clear Urine pH 5.0 5.0-9.0 Urine Specific [place] 1.021 1.001-1.035 Urine Protein Trace H Negative Urine Ketones Negative Negative Urine Blood 1+ H Negative /uL Urine Nitrite Negative Negative Urine Bilirubin Negative Negative Urine Urobilinogen Normal Negative mg/dL Urine Leukocyte Esterase Negative Negative /uL Urine RBC 15 0 - 3 /hpf Urine WBC 4 0 - 3 /hpf Urine Squamous Epithelial Cells None seen <5 /hpf Urine Bacteria Few H None Seen /hpf Urine Hyaline Casts Mod 0 - 2 /lpf Urine Sperm Present None Seen /hpf Urine Glucose Normal Normal mg/dL Urine Opiates Screen Neg NEGATIVE Urine Fentanyl Screen Neg NEGATIVE Urine Barbiturates Screen Neg NEGATIVE Urine Phencyclidine Screen Neg NEGATIVE Urine Amphetamines Screen Neg NEGATIVE Urine Benzodiazepines Screen Neg NEGATIVE Urine Cocaine Screen Neg NEGATIVE Urine Cannabinoids Screen Neg NEGATIVE Lactic Acid Level 1.9 0.4-2.0 mmol/L Troponin I High Sensitivity 16 </=54 ng/L Test 02/29/24 21:48 Range/Units Phosphorus Level 4.4 2.4-5.1 mg/dL Magnesium Level 2.2 1.6-2.6 mg/dL B-Type Natriuretic Peptide 28.05 0-100 pg/mL Microbiology Date/Time Source Procedure Growth Status 03/01/24 05:55 Stool Clostridium difficile Toxin Assay - Final Complete 03/01/24 03:00 Voided Urine Urine Culture - Preliminary Resulted 03/01/24 00:59 Blood Blood Culture - Preliminary NO GROWTH AFTER 24 HOURS OF INCUBATION. Resulted Assessment GERA likely hemodynamically mediated in setting of septic shock Septic shock likely related early signs of pneumonia, Metabolic encephalopathy Bilateral nonobstructive renal calculi Bilateral simple renal cyst Prostatomegaly Chronic obstructive pulmonary disease Bilateral heel ulcer Dyslipidemia Primary hypertension Plan/recommendation -continue half NS at 100 mL/hour for hypernatremia and septic shock -continue monitor I&O, kidney function, serum electrolytes, ABG. -kidney ultrasound showed bilateral nonobstructing renal calculi and bilateral simple cyst -antibiotic as per primary care team -repeat BNP in a.m.. -we will closely follow-up. Addendum Patient seen and examined, plan discussed with resident. Agree with above, we will follow closely Plan discussed with: Other (RN) CHANTELLE BILLY RESIDENT Mar 02, 2024 16:59 VAUGHN MESSINA MD Mar 02, 2024 21:50
[2024-03-02] MEDS: FREE WATER GT SCH (18:37)
--- NOTE | 2024-03-02 19:18 | DVHINCON2 ---
Date of service: Mar 02, 2024 Referring Physician Ned Sapp NP Reason for Consultation Acute hypoxic respiratory failure requiring mechanical ventilator, respiratory distress and pulmonary edema. History of Present Illness An 78-year-old man with a past medical history of COPD, hypertension, dyslipidemia, rheumatoid arthritis (previously treated with methotrexate, now on ibuprofen), anemia, current smoker, recent hospitalization for displaced acute traumatic fracture of the right femoral neck who presented to ED on 03/01/24 from [facility] with 2 days of respiratory symptoms w/ cough that progressed to altered mental status, also w/ bilateral lower heel pressure ulcers. Patient denied any active pain but continued to have rapid breathing. Patient was admitted initially to telemetry floor but his blood pressure dropped, needing Levophed support and demanding ICU level of care overnight. Pulmonary consultation is requested for evaluation and management of acute hypoxic respiratory failure requiring mechanical ventilator, respiratory distress and pulmonary edema. Review of Systems: 14-point review of systems negative unless otherwise noted above. Past Medical History: COPD, hypertension, dyslipidemia, rheumatoid arthritis (previously treated with methotrexate, now on ibuprofen), and anemia. Past Surgical History: Cholecystectomy, right total hip replacement. Medications: Reviewed. Allergies: AMALIA Inhibitors Azithromycin Family History: CAD, CVA, Hyperlipidemia, Hypertension, breast cancer. Social History: Smoker. <1 pack per day (5 cigarettes per day with 60 pack year smoking history.) Occasional alcohol use ( half a glass of wine daily) No illicit drug use. Family History: Hypertension G8 MOTHER Malignant neoplasm of breast G8 MOTHER (UNKNOWN) Allergies: Coded Allergies: AMALIA Inhibitors (Verified Allergy, Unknown, 01/05/19) Azithromycin (Verified Allergy, Unknown, 01/05/19) Home Meds Active Scripts Sucralfate (Carafate) 1 Gm/10 Ml Sallie, 1 GM PO QID for 30 Days, #120 ML Prov:LISSY TORRES MD 08/16/21 Pantoprazole Sodium Sesquihydr (Protonix) 40 Mg Tab, 40 MG PO DAILY for 30 Days, #30 TAB 1 Refill Prov:LISSY TORRES MD 08/16/21 Reported Medications Patients Own Medication (PATIENTS OWN MEDICATION) ., 12.5 MG PO BID PTS OWN MED-OBTAIN FROM PT AND SEND TO RX DRUG: FREQ: RX# EXP: DATE DISP: TECH: [facility]: 01/03/19 Patients Own Medication (PATIENTS OWN MEDICATION) ., 500 MG PO ONCE PTS OWN MED-OBTAIN FROM PT AND SEND TO RX DRUG: FREQ: RX# EXP: DATE DISP: TECH: [facility]: 01/03/19 Prednisone (PREDNISONE) 5 Mg Tb, 5 MG GT DAILY for ARTHRITIS, TAB 01/03/19 Cholecalciferol (VITAMIN D3) 2,000 Unit Tab, 2000 UNIT OR DAILY, TAB 01/03/19 Amlodipine Besylate (Amlodipine Besylate) 5 Mg Tab, 10 MG PO DAILY for 30 Days, MG 01/03/19 Atorvastatin Calcium (Lipitor) 20 Mg Tab, 1 TAB PO HS, #90 TAB 1 Refill 01/03/19 Tamsulosin Hcl (Tamsulosin Hcl) 0.4 Mg Cap, 0.4 MG PO QPM for BPH for 30 Days, MG 01/03/19 Zolpidem Tartrate (ZOLPIDEM TARTRATE ER) 12.5 Mg Tab, 1 TAB PO QPM for SLEEP, #30 TAB 1 Refill 01/03/19 Current Medications Current Medications Medications (Trade) Dose Ordered Sig/Jordon Route PRN Reason Start Time Stop Time Status Last Admin Hydrocortisone Sodium Succinate (Solu-CORTEF INJECTION) 50 mg Q12HR IV 03/01/24 22:00 03/02/24 08:24 Acetylcysteine (Mucomyst Inahalation 10%) 100 mg Q8HR NEB 03/01/24 22:00 03/02/24 22:01 03/02/24 15:25 Midazolam HCl 50 ml @ 1 mls/hr Q24H IV 03/02/24 01:30 03/02/24 15:12 Sodium Bicarbonate 50 ml/ Dextrose 1,050 ml @ 100 mls/hr [id number] IV 03/02/24 09:00 03/02/24 10:08 Enteral Nutritional Formula (Jevity 1.2 [place]/ Fiber) 1,000 ml 30ML/HR GT 03/02/24 15:45 Purified Water 200 ml Q6HR GT 03/02/24 18:00 03/02/24 18:37 Sodium Chloride 1,000 ml @ 100 mls/hr Q10H IV 03/02/24 16:00 Vital Signs Vital Signs Date Time Temp Pulse Resp B/P (MAP) Pulse Ox O2 Delivery O2 Flow Rate FiO2 03/02/24 19:00 98.8 94 29 114/63 (80) 100 98.8 03/02/24 16:43 30 03/02/24 07:29 Mechanical Ventilator+ 03/01/24 14:13 3 Physical Exam Gen.: Patient lying in bed in medical ICU. Sedated, intubated on mechanical ventilator. Head: Normocephalic, atraumatic. Eyes: PERRLA. Ears: Normal external anatomy. Throat: Endotracheal tube and orogastric tube in place. Neck: Supple, trachea midline. Chest: Transmitted breath sounds bilaterally. Decreased air entry bilaterally. No wheezing. Bibasilar crackles. Cardiovascular: Positive S1, positive S2. Regular rate and rhythm. Abdomen: Positive bowel sounds in all 4 quadrants. Soft, nontender, nondistended. : Reyez in place. Normal external genitalia. Rectal: Deferred. Skin: Warm, dry. Intact. Extremities: 2+ radial pulses bilaterally. No lower extremity edema. Neuro: Sedated. Labs/Diagnostic Data Labs Test 03/02/24 17:26 03/02/24 11:20 03/02/24 08:14 03/02/24 05:14 Range/Units POC Glucose 252 H 70-106 mg/dl Urine Creatinine 109.75 30.0-125.0 mg/dL Urine Protein/Creatinine Ratio 0.74 Urine Sodium 10 L 40-220 mmol/L Urine Total Protein 80.8 H 1-14 mg/dL Blood Gas Specimen Type Arterial Blood Gas Sample Site Right radial Blood Gas Patient Temperature 37.0 Arterial Blood Date Drawn [id number] Arterial Blood pH 7.382 7.350-7.450 Arterial Blood Partial Pressure CO2 26.5 L 35.0-48.0 mmHg Arterial Blood Partial Pressure O2 104.7 83.0-108.0 mmHg Arterial Blood HCO3 15.4 L 21.0-28.0 mmol/L Arterial Blood Oxygen Saturation 97.2 94.0-98.0 % Arterial Blood Base Excess -8.4 L -2.0-3.0 mmol/L Arterial Blood Oxyhemoglobin 96.4 94.0-98.0 % Arterial Blood Carboxyhemoglobin 0.3 L 0.5-1.5 % Arterial Blood Methemoglobin 0.5 0.0-1.5 % Yao Test Modified Blood Gas Total Hemoglobin 9.90 L 13.5-17.5 g/dL Blood Gas Set Respiration Rate 14.0 Blood Gas Modality Vent - ac FiO2 % 30.0 Blood Gas Tidal Volume 550.0 Blood Gas PEEP or CPAP 5.0 White Blood Count 24.2 #H 4.4-10.8 10^3/uL Red Blood Count 3.26 L 4.5-5.90 10^6/uL Hemoglobin 8.9 L 13.5-17.5 g/dL Hematocrit 27.1 L 41.0-53.0 % Mean Corpuscular Volume 83.0 80.0-100.0 fL Mean Corpuscular Hemoglobin 27.5 L 28.0-32.0 pg Mean Corpuscular Hemoglobin Concent 33.1 32.0-36.0 g/dL Red Cell Distribution Width 15.9 H 11.8-14.3 % Platelet Count 545 H 140-450 10^3/uL Mean Platelet Volume 9.3 6.9-10.8 fL Neutrophils (%) (Auto) 90.3 H 37.0-80.0 % Lymphocytes (%) (Auto) 6.1 L 10.0-50.0 % Monocytes (%) (Auto) 3.3 0.0-12.0 % Eosinophils (%) (Auto) 0.0 0.0-7.0 % Basophils (%) (Auto) 0.3 0.0-2.0 % Neutrophils # (Auto) 21.8 H 1.6-8.6 10 ^3/uL Lymphocytes # (Auto) 1.5 0.4-5.4 10 ^3/uL Monocytes # (Auto) 0.8 0-1.3 10 ^3/uL Eosinophils # (Auto) 0 0-0.8 10 ^3/uL Basophils # (Auto) 0.1 0-0.2 10 ^3/uL Nucleated Red Blood Cells 0.0 % Sodium Level 150 H 136-145 mmol/L Potassium Level 3.9 3.5-5.1 mmol/L Chloride Level 115 H 98-107 mmol/L Carbon Dioxide Level 19 L 20-31 mmol/L Anion Gap 16 H 5-15 Blood Urea Nitrogen 46 H 9-23 mg/dL Creatinine 1.78 H 0.700-1.30 mg/dL Glomerular Filtration Rate Calc 38 >90 mL/min BUN/Creatinine Ratio 25.8 H 10.0-20.0 Serum Glucose 147 H 74-106 mg/dL Calcium Level 8.8 8.7-10.4 mg/dL Random Vancomycin Level 11.3 H 5-10 ug/mL Test 03/02/24 03:07 03/01/24 21:49 03/01/24 16:10 03/01/24 13:15 Range/Units Blood Gas Spontaneous Rate 30 Blood Gas Spontaneous Tidal Volume 572 Bl Gas Inspiratory/Expiratory Ratio 1:1.8 Specimen Drawn By Aruna john rt Blood Gas EPAP 5 Blood Gas IPAP 12 Erythrocyte Sedimentation Rate 110 H 0-20 mm/hr Total Bilirubin 0.7 0.2-1.0 mg/dL Aspartate Amino Transferase (AST) 106 H 13-40 U/L Alanine Aminotransferase (ALT) 28 7-40 U/L Alkaline Phosphatase 119 H 46-116 U/L Total Protein 6.6 5.7-8.2 g/dL Albumin 3.0 L 3.2-4.8 g/dL Test 03/01/24 13:14 03/01/24 03:30 03/01/24 03:00 03/01/24 00:59 Range/Units C-Reactive Protein High Sensitivity > 20.00 H <1.0 mg/dL D-Dimer, Quantitative 5.17 H 0.0-0.49 mg/L FEU Ammonia 29 11-32 umol/L Vitamin B12 Level 396 211-911 pg/mL Thyroid Stimulating Hormone (TSH) 3.64 0.55-4.78 uIU/mL Plasma/Serum Blood Alcohol < 3.0 <10 mg/dL Urine Color Yellow Yellow Urine Clarity Clear Clear Urine pH 5.0 5.0-9.0 Urine Specific [place] 1.021 1.001-1.035 Urine Protein Trace H Negative Urine Ketones Negative Negative Urine Blood 1+ H Negative /uL Urine Nitrite Negative Negative Urine Bilirubin Negative Negative Urine Urobilinogen Normal Negative mg/dL Urine Leukocyte Esterase Negative Negative /uL Urine RBC 15 0 - 3 /hpf Urine WBC 4 0 - 3 /hpf Urine Squamous Epithelial Cells None seen <5 /hpf Urine Bacteria Few H None Seen /hpf Urine Hyaline Casts Mod 0 - 2 /lpf Urine Sperm Present None Seen /hpf Urine Glucose Normal Normal mg/dL Urine Opiates Screen Neg NEGATIVE Urine Fentanyl Screen Neg NEGATIVE Urine Barbiturates Screen Neg NEGATIVE Urine Phencyclidine Screen Neg NEGATIVE Urine Amphetamines Screen Neg NEGATIVE Urine Benzodiazepines Screen Neg NEGATIVE Urine Cocaine Screen Neg NEGATIVE Urine Cannabinoids Screen Neg NEGATIVE Lactic Acid Level 1.9 0.4-2.0 mmol/L Troponin I High Sensitivity 16 </=54 ng/L Test 02/29/24 21:48 Range/Units Phosphorus Level 4.4 2.4-5.1 mg/dL Magnesium Level 2.2 1.6-2.6 mg/dL B-Type Natriuretic Peptide 28.05 0-100 pg/mL Microbiology Date/Time Source Procedure Growth Status 03/01/24 05:55 Stool Clostridium difficile Toxin Assay - Final Complete 03/01/24 03:00 Voided Urine Urine Culture - Preliminary Resulted 03/01/24 00:59 Blood Blood Culture - Preliminary NO GROWTH AFTER 24 HOURS OF INCUBATION. Resulted Assessment Impression: Acute hypoxic respiratory failure On mechanical ventilator Respiratory distress. CHF exacerbation/Pulmonary edema Nicotine dependence Acute metabolic encephalopathy Septic shock Deep tissue injury to sacrum and bilateral heels COPD, stable Recent history of right hip fracture with right hip arthroplasty Acute kidney injury, vasomotor nephropathy Plan: s/p intubation on mechanical ventilator. CXR image and report reviewed. Devices in place. Lungs are clear and well expanded with no pulmonary infiltrate or pleural effusion. No pneumothorax. ABG reviewed, compensated. On AC mode; RR 14, VT 550, PEEP 5, FiO2 30% Titrate FIO2 to keep O2 saturation above 90%. VAP bundle. Daily ABG and CXR while intubated Sedate for ventilator synchrony - on Versed Continue bronchodilators/Mucomyst. Continue antibiotics. F/u cultures. IV fluids at 100 ml/hr. On pressors for hemodynamic support Levophed 10 mcg/min Titrate to keep mean arterial pressure greater than 65 mmHg. Monitor renal function Monitor electrolytes. Supplement as necessary. Monitor ins and outs. Maintain euvolemia. GI prophylaxis - Protonix. DVT prophylaxis. Prognosis: Poor given patient's multiple co-morbidities. Condition: Critical Rest of plan per hospitalist and other consultants. A total of 36 minutes of critical care time was spent reviewing the patient record, examining the patient, making a diagnostic and therapeutic plan, discussing this plan with the medical personnel, following up on diagnostic studies and following the patient for clinical stability excluding any and all procedures. At least 50% of this time was spent in direct, [id number] contact. Thank you Ned Sapp NP, for allowing me to participate in this patient's care. Further recommendations will depend on the patient's clinical course. Please do not hesitate to contact me if you have any questions or concerns. This medical document was created using an electronic medical record system with [employer] dictation system. Although these documentations are being carefully reviewed, there may still be some phonetic and typographical changes. The errors are purely typographical, due to imperfection on the software program, and do not reflect any compromise in the patient's medical care. Plan discussed with: Other (KAREN De León MD) YARI BILL MD Mar 02, 2024 19:18
[2024-03-02] MEDS: SOD CHL 0.45% 1,000 ML IV SCH (21:00)
[2024-03-03] VITALS (74 sets, daily range): BP systolic 106–129; BP diastolic 59–74; PULSE 74–102; RESP 12–24; TEMP 96.8–98.8; O2SAT 98–100
[2024-03-03] MEDS: fentaNYL Drip 2500mCg/250mlNS 250 ML IV SCH (01:17)
[2024-03-03 05:12] LABS: Hemoglobin 8.3 g/dL (13.5-17.5)
[2024-03-03 05:13] LABS: Hematocrit 25.6 % (41.0-53.0); Mean Corpuscular Hemoglobin 26.8 pg (28.0-32.0); Mean Corpuscular Hgb Conc. 32.6 g/dL (32.0-36.0); Mean Corpuscular Volume 82.4 fL (80.0-100.0); Platelet Count (auto) 498 10^3/uL (140-450); Red Blood Cells 3.11 10^6/uL (4.5-5.90)
[2024-03-03 05:26] LABS: BUN/Creatinine Ratio 38.8 (10.0-20.0)
[2024-03-03 05:33] LABS: Anion Gap 11 (5-15); Blood Urea Nitrogen 50 mg/dL (9-23); Calcium 8.7 mg/dL (8.7-10.4); Carbon Dioxide 24 mmol/L (20-31); Chloride 113 mmol/L (98-107); Glucose 176 mg/dL (74-106); Potassium 3.3 mmol/L (3.5-5.1); Sodium 148 mmol/L (136-145)
[2024-03-03 05:39] LABS: Basophils % (manual) 0 (0.0-2.0); Blast Cells 0; Eosinophils % (manual) 0 (0-7); Metamyelocytes % 0; Myelocytes % 0; Promyelocytes % 0; Reactive Lymphocytes 0
--- NOTE | 2024-03-03 05:57 | DVH ---
CHEST RADIOGRAPH Indication: pna Technique: Single frontal view of the chest was obtained COMPARISON: XY CHEST XRAY 1 VIEW on DOS: 03/02/24, XY CHEST PORTABLE on DOS: 03/01/24, XY CHEST PORTAB LE on DOS: 02/29/24 FINDINGS: Lines and Tubes: Endotracheal tube and left central venous catheter and enteric catheter in satisfact ory position. Lungs: Clear Pleura: No effusion. No pneumothorax. Cardiomediastinal contours: Unremarkable Bones: Unremarkable IMPRESSION: Lines and tubes in satisfactory position. No significant interval change.
[2024-03-03 07:27] LABS: Band Neutrophils % (manual) 5; Lymphocytes % (manual) 2 (10.0-50.0); Monocytes % (manual) 7 (0-12); Platelet Estimate Adequate
[2024-03-03] MEDS: MEROPENEM 1GM IVPB 50 ML IV ONE (08:44)
[2024-03-03 10:09] LABS: Magnesium 2.2 mg/dL (1.6-2.6)
[2024-03-03 10:11] LABS: Phosphorus 3.1 mg/dL (2.4-5.1)
--- NOTE | 2024-03-03 10:37 | DVHPN2 ---
Subjective Patient was altered mental status Reviewed: Care Plan, H&P, Labs, Medications, Previous Orders Changes from previous H/P or p: No Changes General: Per HPI Eyes: No Pain, No Vision change, No Conjunctivae inflammation, No Eyelid inflammation, No Other, No Redness ENT: No Ear pain, No Ear discharge, No Nose pain, No Nose discharge, No Nose congestion, No Mouth pain, No Mouth swelling, No Throat pain, No Throat swelling, No Other Cardiovascular: No Chest Pain, No Palpitations, No Orthopnea, No Paroxysmal Noc. Dyspnea, No Edema, No Lt Headedness, No Other Respiratory: Cough, Shortness of breath, Sputum Gastrointestinal: No Nausea, No Vomiting, No Abdominal Pain, No Diarrhea, No Constipation, No Melena, No Hematochezia, No Other Genitourinary: No Dysuria, No Frequency, No Incontinence, No Hematuria, No Retention, No Other Musculoskeletal: No other, No neck pain, No shoulder pain, No arm pain, No back pain, No hand pain, No leg pain, No foot pain Skin: Lesions Objective Vitals Vital Signs Date Time Temp Pulse Resp B/P (MAP) Pulse Ox O2 Delivery O2 Flow Rate FiO2 03/03/24 09:50 96 17 113/63 (80) 100 30 03/03/24 08:30 97.9 97.9 03/03/24 07:45 Mechanical Ventilator+ 03/01/24 14:13 3 Intake/Output Intake and Output 03/03/24 07:00 Intake Total 3828.000 ml Output Total 1525 ml Balance 2303.000 ml Intake Oral 400 ml IV Total 3046.000 ml Tube Feeding 382 ml Output Urine Total 1525 ml # Bowel Movements 3 General Appearance: Alert, moderate distress, Other (Disoriented) HEENT: Atraumatic, PERRLA Lungs: Clear to auscultation, Normal air movement Cardiovascular: Normal S1, Normal S2 Abdomen: Normal bowel sounds Musculoskeletal: Normal sensory function, Normal motor function Extremities: No clubbing, No cyanosis, Normal pulses, Other (Tissue injury to heal) Neuro: Cranial nerves 3-12 NL Psych/Mental Status: Mental status NL, Mood NL Medications Current Medications Medications Dose Ordered Sig/Jordon Route Start Time Stop Time Status Last Admin Dose Admin Morphine Sulfate 2 mg Q30M PRN IV 03/01/24 02:00 Nitroglycerin 0.4 mg Q5MINP PRN SL 03/01/24 02:00 Pantoprazole Sodium 40 mg DAILY IV 03/01/24 06:00 03/03/24 10:14 40 MG Vancomycin HCl 0 ml @ 0 mls/hr UD IV 03/01/24 05:30 Albuterol 2.5 mg Q4HR NEB 03/01/24 10:00 03/03/24 09:50 2.5 MG Ipratropium [place] 0.5 mg Q4HR NEB 03/01/24 10:00 03/03/24 09:50 0.5 MG Vancomycin HCl 0 ml @ 0 mls/hr UD IV 03/01/24 02:15 UNV Hydrocortisone Sodium Succinate 50 mg Q12HR IV 03/01/24 22:00 03/03/24 10:22 50 MG Norepinephrine Bitartrate 16 mg/ Sodium Chloride 250 ml @ 1.875 mls/ hr Q24H IV 03/01/24 13:30 03/02/24 09:31 9.375 MLS/HR Midazolam HCl 50 ml @ 1 mls/hr Q24H IV 03/02/24 01:30 03/03/24 09:33 8 MLS/HR Enteral Nutritional Formula 1,000 ml 30ML/HR GT 03/02/24 15:45 Purified Water 200 ml Q6HR GT 03/02/24 18:00 03/03/24 06:00 200 ML Sodium Chloride 1,000 ml @ 100 mls/hr Q10H IV 03/02/24 16:00 03/02/24 21:00 100 MLS/HR Fentanyl Citrate 250 ml @ 2.5 mls/hr Q24H IV 03/03/24 01:15 03/03/24 01:17 2.5 MLS/HR Meropenem 50 ml @ 17 mls/hr Q8HR IV 03/03/24 14:00 Potassium Chloride 100 ml @ 50 mls/hr Q2H IV 03/03/24 09:45 03/03/24 13:44 UNV Laboratory Results Laboratory Tests 03/03/24 04:22 Chemistry Test 03/03/24 04:22 Calcium Level 8.7 mg/dL (8.7-10.4) Magnesium Level 2.2 mg/dL (1.6-2.6) Phosphorus Level 3.1 mg/dL (2.4-5.1) Urinalysis Test 03/01/24 03:00 03/02/24 11:20 Urine Color Yellow (Yellow) Urine Clarity Clear (Clear) Urine pH 5.0 (5.0-9.0) Urine Specific [place] 1.021 (1.001-1.035) Urine Protein Trace (Negative) H Urine Ketones Negative (Negative) Urine Blood 1+ /uL (Negative) H Urine Nitrite Negative (Negative) Urine Bilirubin Negative (Negative) Urine Urobilinogen Normal mg/dL (Negative) Urine Leukocyte Esterase Negative /uL (Negative) Urine RBC 15 /hpf (0 - 3) Urine WBC 4 /hpf (0 - 3) Urine Squamous Epithelial Cells None seen /hpf (<5) Urine Bacteria Few /hpf (None Seen) H Urine Hyaline Casts Mod /lpf (0 - 2) Urine Sperm Present /hpf (None Seen) Urine Glucose Normal mg/dL (Normal) Urine Creatinine 109.75 mg/dL (30.0-125.0) Urine Protein/Creatinine Ratio 0.74 Urine Sodium 10 mmol/L (40-220) L Urine Total Protein 80.8 mg/dL (1-14) H Blood Gas Results Test 03/03/24 06:46 Arterial Blood pH 7.386 (7.350-7.450) FiO2 % 30.0 Microbiology Microbiology Date/Time Source Procedure Growth Status 03/01/24 05:55 Stool Clostridium difficile Toxin Assay - Final Complete 03/01/24 03:00 Voided Urine Urine Culture - Preliminary Resulted 03/01/24 00:59 Blood Blood Culture - Preliminary NO GROWTH AFTER 48 HOURS OF INCUBATION. Resulted Labs and/or images reviewed: Labs reviewed by me, Image(s) reviewed by me Assessment/Plan Assessment/Plan Patient: -metabolic encephalopathy secondary to sepsis -sepsis with shock -acute hypoxic respiratory failure, rule out community-acquired pneumonia, Gram-positive/Gram-negative etiology -deep tissue injury to sacrum and bilateral heels -history of COPD -primary hypertension -dyslipidemia -recent history of right hip fracture with right hip arthroplasty -acute kidney injury, vasomotor nephropathy Plan: Events: Patient with persistent leukocytosis. Continues to be in shock with norepinephrine drip at 8 micrograms/minute. Discussion made with Dr. Weir regarding plan of care. At this time all cultures are negative. ESR remains to be elevated. Unable to do MRI after discussion with the tech given no validity of test. We will order CT scan of chest abdomen and pelvis with IV contrast to identify source of infection. -change antibiotic therapy for broader coverage: Meropenem, vancomycin -maki cultures -wound care consultation March -bronchodilators -norepinephrine drip to keep map greater than 65 mmHg -gentle IV hydration -Nephrology consultation -PUD, DVT prophylaxis -repeat labs in a.m. -long discussion made with the patient's [id number]: Reji Alegre, regarding plan of care. All questions answered. Critical care time spent with patient discussing and formulating plan of care: 40 minutes. This does not include time spent performing procedures. Total time spent with patient and family regarding advance care plannin minutes. This medical document was created using an electronic medical record system with [employer] dictation system. Although this document has been carefully reviewed, there may still be some phonetic and typographical errors. These areas are purely typographical due to imperfections of the software programs, and do not reflect any compromise in the patient's medical care. Plan discussed with: Patient, Other (RN, [id number]) My Orders Orders - WAYNE TURNER NP Procedure Category Date Status Time Consult For Nutrition NOURISH 03/02/24 Transmitted 14:57 Nutritional PHA 03/02/24 In Process Supplements (Jevity 15:45 Free Water PHA 03/02/24 In Process 18:00 Meropenem 1gm Ivpb PHA 03/03/24 In Process (Merrem 1gm/ Ns) 14:00 Meropenem 1gm Ivpb PHA 03/03/24 In Process (Merrem 1gm/ Ns) 08:15 Mri R Hip Wo Contrast MRI 03/03/24 Logged 09:52 Ct Chest/Ab/Pl W Con- CT 03/03/24 Transmitted Iv Only 10:27 Date of Service: Mar 03, 2024 Billing Provider: WAYNE TURNER NP Common Visit Codes: [id number] CARE 30-74 MIN, [id number] CARE-EACH +30MIN WAYNE TURNER NP Mar 03, 2024 10:37
[2024-03-03] MEDS: POTASSIUM CHL 20MEQ/100ML 100 ML IV SCH (10:41)
[2024-03-03] MEDS: IOHEXOL 300 MG/ML 100ML BOTTLE IJ ONE (12:03)
--- NOTE | 2024-03-03 12:49 | DVHPN2 ---
Progress Note Date Seen: Mar 03, 2024 Resident Creating Document: CHANTELLE BILLY RESIDENT Medical Necessity Reason Pt with a Central, PICC or Fol: Yes The following are medically ne: Esqueda Catheter Reason for esqueda catheter: Strict I&O Subjective Review of Systems Patient is 78-year-old male with past medical history of hypertension, hyperlipidemia, Chronic obstructive pulmonary disease, anemia, rheumatoid arthritis presented to hospital which a complaint of cough, altered mental status and bilateral heel pressure ulcers. Patient was admitted to ICU for low blood pressure requiring vasopressors. Overnight patient was intubated for rapid breathing. All medical information obtained from EMR and nursing stopped. Nephrology consultation was done for acute kidney injury. On further evaluation at the time, patient is intubated on mechanical ventilation. Laboratory findings showed elevated creatinine at 1.78, GFR 38, BUN creatinine ratio 25.8, elevated sodium level 150. 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 Patient seen and examined at bedside. Intubated, requiring vasopressors, intubated on mechanical ventilator. No other new overnight events. Objective vital signs Vital Sign Date Time Temp Pulse Resp B/P (MAP) Pulse Ox O2 Delivery O2 Flow Rate FiO2 03/03/24 11:57 84 17 112/69 (83) 100 30 03/03/24 08:30 97.9 97.9 03/03/24 07:45 Mechanical Ventilator+ 03/01/24 14:13 3 Total Intake and Output 03/02/24 03/02/24 03/03/24 15:00 23:00 07:00 Intake Total 904.375 ml 1091.000 ml 1832.625 ml Output Total 450 ml 400 ml 675 ml Balance 454.375 ml 691.000 ml 1157.625 ml medications Current Medications Medications Dose Ordered Sig/Jordon Route Start Time Stop Time Status Last Admin Dose Admin Morphine Sulfate 2 mg Q30M PRN IV 03/01/24 02:00 Nitroglycerin 0.4 mg Q5MINP PRN SL 03/01/24 02:00 Pantoprazole Sodium 40 mg DAILY IV 03/01/24 06:00 03/03/24 10:14 40 MG Vancomycin HCl 0 ml @ 0 mls/hr UD IV 03/01/24 05:30 Albuterol 2.5 mg Q4HR NEB 03/01/24 10:00 03/03/24 09:50 2.5 MG Ipratropium [place] 0.5 mg Q4HR NEB 03/01/24 10:00 03/03/24 09:50 0.5 MG Vancomycin HCl 0 ml @ 0 mls/hr UD IV 03/01/24 02:15 UNV Hydrocortisone Sodium Succinate 50 mg Q12HR IV 03/01/24 22:00 03/03/24 10:22 50 MG Norepinephrine Bitartrate 16 mg/ Sodium Chloride 250 ml @ 1.875 mls/ hr Q24H IV 03/01/24 13:30 03/02/24 09:31 9.375 MLS/HR Midazolam HCl 50 ml @ 1 mls/hr Q24H IV 03/02/24 01:30 03/03/24 09:33 8 MLS/HR Enteral Nutritional Formula 1,000 ml 30ML/HR GT 03/02/24 15:45 Purified Water 200 ml Q6HR GT 03/02/24 18:00 03/03/24 06:00 200 ML Sodium Chloride 1,000 ml @ 100 mls/hr Q10H IV 03/02/24 16:00 03/03/24 10:54 100 MLS/HR Fentanyl Citrate 250 ml @ 2.5 mls/hr Q24H IV 03/03/24 01:15 03/03/24 01:17 2.5 MLS/HR Meropenem 50 ml @ 17 mls/hr Q8HR IV 03/03/24 14:00 Potassium Chloride 100 ml @ 50 mls/hr Q2H IV 03/03/24 09:45 03/03/24 13:44 03/03/24 10:41 50 MLS/HR Examination General Appearance: Sedated and on mechanical ventilation. Head Exam: Normal inspection Neck Exam: Normal inspection. Non-tender. Normal alignment Pulmonary/Respiratory: Chest non-tender. Clear bilateral breath sounds Cardiovascular/Chest: Regular rate and rhythm. No murmurs. No JVD. Peripheral Pulses: 2+ Radial (R). 2+ Radial (L). 2+ Pedal (R). 2+ Pedal (L) Abdominal Exam: Normal bowel sounds. Soft. Nontender. No hepatospenomegaly. No masses Ankle Exam: Negative ankle edema Lower extremities: Negative lower extremity edema Neuro/Mental Status: Sedated and on mechanical ventilation. laboratory and microbiology Laboratory Tests 03/03/24 04:22 Test 03/03/24 04:22 Range/Units Serum Glucose 176 H 74-106 mg/dL Microbiology Date/Time Source Procedure Growth Status 03/03/24 07:11 Sputum Gram Stain - Final Resulted 03/03/24 07:11 Sputum Respiratory Culture - Preliminary Resulted 03/01/24 05:55 Stool Clostridium difficile Toxin Assay - Final Complete 03/01/24 03:00 Voided Urine Urine Culture - Final Complete 03/01/24 00:59 Blood Blood Culture - Preliminary NO GROWTH AFTER 48 HOURS OF INCUBATION. Resulted Problem List/Assessment/Plan Problem List/Assessment/Plan GERA likely hemodynamically mediated in setting of septic shock Septic shock likely related early signs of pneumonia, Metabolic encephalopathy Bilateral nonobstructive renal calculi Bilateral simple renal cyst Prostatomegaly Chronic obstructive pulmonary disease Bilateral heel ulcer Dyslipidemia Primary hypertension Proteinuria Plan/recommendation -Continue half NS at 100 mL/hour for hypernatremia and septic shock -Urine electrolytes: Urine protein/creatinine ratio: 0.74, urine total protein 18.8 mg/dL, urine sodium 10. FENA:0.1 % likely prerenal -Continue monitor I&O, kidney function, serum electrolytes, ABG. -Kidney ultrasound showed bilateral nonobstructing renal calculi and bilateral simple cyst -Antibiotic as per primary care team -Repeat BNP in a.m.. -We will closely follow-up. Addendum Patient seen and examined, plan discussed with resident. Agree with above, we will follow closely Plan discussed with: Other (RN) My Orders My Orders Orders - CHANTELLE BILLY RESIDENT Procedure Category Date Status Time Sod Chl 0.45% (Sodium PHA 03/02/24 In Process Chloride 0.45% Via 16:00 Communication Order ORDERS 03/02/24 Transmitted 15:50 Dietary Evaluation Review Comments: No supplement for wounds d/t GERA and kidney function, Encourage and Monitor PO intake, and lab values, FU in 3-5 days Expected Outcomes/Goals: Improved lab values CHANTELLE BILLY Mar 03, 2024 12:49 VAUGHN MESSINA MD Mar 03, 2024 16:42
[2024-03-03] MEDS: MEROPENEM 1GM IVPB 50 ML IV SCH (14:06)
[2024-03-03] MEDS: VANCOMYCIN 1.5GM/300ML 300 ML IV ONE (15:29)
[2024-03-03 21:58] LABS: Potassium 3.7 mmol/L (3.5-5.1)
[2024-03-03 22:05] LABS: Magnesium 2.1 mg/dL (1.6-2.6)
--- NOTE | 2024-03-03 23:14 | DVHPN2 ---
Progress Note - Dictate Date Seen: Mar 03, 2024 Medical Necessity Reason Pt with a Central, PICC or Fol: Yes The following are medically ne: Esqueda Catheter Reason for esqueda catheter: Strict I&O Subjective Patient seen and examined at bedside. Sedated, intubated on mechanical ventilator. Overnight events reviewed. vital signs Vital Sign Date Time Temp Pulse Resp B/P (MAP) Pulse Ox O2 Delivery O2 Flow Rate FiO2 03/03/24 21:44 79 14 123/68 (86) 100 30 03/03/24 18:30 97.7 207.9 03/03/24 18:00 Mechanical Ventilator+ 03/01/24 14:13 3 Total Intake and Output 03/02/24 03/02/24 03/03/24 15:00 23:00 07:00 Intake Total 904.375 ml 1091.000 ml 1832.625 ml Output Total 450 ml 400 ml 675 ml Balance 454.375 ml 691.000 ml 1157.625 ml medications Current Medications Medications Dose Ordered Sig/Jordon Route Start Time Stop Time Status Last Admin Dose Admin Morphine Sulfate 2 mg Q30M PRN IV 03/01/24 02:00 Nitroglycerin 0.4 mg Q5MINP PRN SL 03/01/24 02:00 Pantoprazole Sodium 40 mg DAILY IV 03/01/24 06:00 03/03/24 10:14 40 MG Vancomycin HCl 0 ml @ 0 mls/hr UD IV 03/01/24 05:30 Albuterol 2.5 mg Q4HR NEB 03/01/24 10:00 03/03/24 21:44 2.5 MG Ipratropium [place] 0.5 mg Q4HR NEB 03/01/24 10:00 03/03/24 21:44 0.5 MG Vancomycin HCl 0 ml @ 0 mls/hr UD IV 03/01/24 02:15 UNV Hydrocortisone Sodium Succinate 50 mg Q12HR IV 03/01/24 22:00 03/03/24 22:48 50 MG Norepinephrine Bitartrate 16 mg/ Sodium Chloride 250 ml @ 1.875 mls/ hr Q24H IV 03/01/24 13:30 03/03/24 14:19 7.5 MLS/HR Midazolam HCl 50 ml @ 1 mls/hr Q24H IV 03/02/24 01:30 03/03/24 22:48 8 MLS/HR Enteral Nutritional Formula 1,000 ml 30ML/HR GT 03/02/24 15:45 Purified Water 200 ml Q6HR GT 03/02/24 18:00 03/03/24 18:28 200 ML Sodium Chloride 1,000 ml @ 100 mls/hr Q10H IV 03/02/24 16:00 03/03/24 22:49 100 MLS/HR Fentanyl Citrate 250 ml @ 2.5 mls/hr Q24H IV 03/03/24 01:15 03/03/24 01:17 2.5 MLS/HR Meropenem 50 ml @ 17 mls/hr Q8HR IV 03/03/24 14:00 03/03/24 22:49 17 MLS/HR objective Gen.: Patient lying in bed in medical ICU. Sedated, intubated on mechanical ventilator. Head: Normocephalic, atraumatic. Eyes: PERRLA. Ears: Normal external anatomy. Throat: Endotracheal tube and orogastric tube in place. Neck: Supple, trachea midline. Chest: Transmitted breath sounds bilaterally. Decreased air entry bilaterally. No wheezing. Bibasilar crackles. Cardiovascular: Positive S1, positive S2. Regular rate and rhythm. Abdomen: Positive bowel sounds in all 4 quadrants. Soft, nontender, nondistended. : Esqueda in place. Normal external genitalia. Rectal: Deferred. Skin: Warm, dry. Intact. Extremities: 2+ radial pulses bilaterally. No lower extremity edema. Neuro: Sedated. laboratory and microbiology Laboratory Tests 03/03/24 21:20 03/03/24 04:22 Test 03/03/24 04:22 Range/Units Serum Glucose 176 H 74-106 mg/dL Assessment/Plan Impression: Acute hypoxic respiratory failure On mechanical ventilator Respiratory distress. CHF exacerbation/Pulmonary edema Nicotine dependence Acute metabolic encephalopathy Septic shock Deep tissue injury to sacrum and bilateral heels COPD, stable Recent history of right hip fracture with right hip arthroplasty Acute kidney injury, vasomotor nephropathy Events: Remains on vent support On AC mode; RR 14, VT 550, PEEP 5, FiO2 30% ABG reviewed, compensated. CXR image and report reviewed. Devices in place. No acute opacities. Sedated on Versed, Fentanyl On pressors for hemodynamic support Levophed 8 mcg/min Titrate to keep mean arterial pressure greater than 65 mmHg. Improving pressor requirements. Obtain CT w/ IV contrast of right hip. Blood cultures show no growth for 48 hours. WBC elevated at 34 K. IV fluid hydration at 100 ml/hr. Continue antibiotics - started meropenem. Continue bronchodilators for COPD. Stress dose steroids Monitor hemoglobin - 8.3 g/dL. GI prophylaxis Wound care. Labs and imaging reviewed. Rest of plan as noted below. Plan: s/p intubation on mechanical ventilator. On AC mode; RR 14, VT 550, PEEP 5, FiO2 30% Titrate FIO2 to keep O2 saturation above 90%. VAP bundle. Daily ABG and CXR while intubated Sedate for ventilator synchrony Continue bronchodilators/Mucomyst. Continue antibiotics. F/u cultures. IV fluids at 100 ml/hr. On pressors for hemodynamic support Titrate to keep mean arterial pressure greater than 65 mmHg. Monitor renal function Monitor electrolytes. Supplement as necessary. Monitor ins and outs. Maintain euvolemia. GI prophylaxis - Protonix. DVT prophylaxis. Prognosis: Poor given patient's multiple co-morbidities. Condition: Critical Rest of plan per hospitalist and other consultants. A total of 35 minutes of critical care time was spent reviewing the patient record, examining the patient, making a diagnostic and therapeutic plan, discussing this plan with the medical personnel, following up on diagnostic studies and following the patient for clinical stability excluding any and all procedures. At least 50% of this time was spent in direct, [id number] contact. Thank you Ned Sapp NP, for allowing me to participate in this patient's care. Further recommendations will depend on the patient's clinical course. Please do not hesitate to contact me if you have any questions or concerns. This medical document was created using an electronic medical record system with [employer] dictation system. Although these documentations are being carefully reviewed, there may still be some phonetic and typographical changes. The errors are purely typographical, due to imperfection on the software program, and do not reflect any compromise in the patient's medical care. Dietary Evaluation Review Comments: No supplement for wounds d/t GERA and kidney function, Encourage and Monitor PO intake, and lab values, FU in 3-5 days Expected Outcomes/Goals: Improved lab values Plan discussed with: Other (KAREN Donahue) Critical Care Time(min): 35 YARI BILL MD Mar 03, 2024 23:14
[2024-03-04] VITALS (110 sets, daily range): BP systolic 92–127; BP diastolic 50–73; PULSE 64–104; RESP 9–20; TEMP 96.4–98.6; O2SAT 80–100
[2024-03-04 04:25] LABS: Hemoglobin 7.6 g/dL (13.5-17.5); Mean Corpuscular Hemoglobin 26.6 pg (28.0-32.0); Mean Corpuscular Hgb Conc. 31.7 g/dL (32.0-36.0); Mean Corpuscular Volume 83.8 fL (80.0-100.0); Platelet Count (auto) 394 10^3/uL (140-450); Red Blood Cells 2.87 10^6/uL (4.5-5.90); Red Cell Distribution Width 15.8 % (11.8-14.3)
[2024-03-04 04:26] LABS: Anion Gap 11 (5-15); Carbon Dioxide 22 mmol/L (20-31)
[2024-03-04 04:31] LABS: BUN/Creatinine Ratio 35.8 (10.0-20.0)
[2024-03-04 04:41] LABS: Blood Urea Nitrogen 34 mg/dL (9-23); Calcium 8.5 mg/dL (8.7-10.4); Chloride 113 mmol/L (98-107); Glucose 139 mg/dL (74-106); Sodium 146 mmol/L (136-145)
[2024-03-04 04:52] LABS: White Blood Cell 32.6 10^3/uL (4.4-10.8)
[2024-03-04 04:54] LABS: Basophils % (manual) 0 (0.0-2.0); Blast Cells 0; Eosinophils % (manual) 0 (0-7); Metamyelocytes % 0; Myelocytes % 0; Promyelocytes % 0; Reactive Lymphocytes 0
--- NOTE | 2024-03-04 05:17 | DVH ---
CHEST RADIOGRAPH Indication: pna Technique: Single frontal view of the chest was obtained COMPARISON: XY CHEST PORTABLE on DOS: 03/03/24, XY CHEST XRAY 1 VIEW on DOS: 03/02/24, XY CHEST REINALDO BLE on DOS: 03/01/24 FINDINGS: Lines and Tubes: Endotracheal tube, enteric catheter and left central venous catheter in satisfactory position. Lungs: Mild congestion. Pleura: No effusion. No pneumothorax. Cardiomediastinal contours: Unremarkable Bones: Unremarkable IMPRESSION: Lines and tubes in satisfactory position. No significant interval change.
--- NOTE | 2024-03-04 07:19 | DVHPN2 ---
Subjective Patient was altered mental status Reviewed: Care Plan, H&P, Labs, Medications, Previous Orders Changes from previous H/P or p: No Changes General: Per HPI Eyes: No Pain, No Vision change, No Conjunctivae inflammation, No Eyelid inflammation, No Other, No Redness ENT: No Ear pain, No Ear discharge, No Nose pain, No Nose discharge, No Nose congestion, No Mouth pain, No Mouth swelling, No Throat pain, No Throat swelling, No Other Cardiovascular: No Chest Pain, No Palpitations, No Orthopnea, No Paroxysmal Noc. Dyspnea, No Edema, No Lt Headedness, No Other Respiratory: Cough, Shortness of breath, Sputum Gastrointestinal: No Nausea, No Vomiting, No Abdominal Pain, No Diarrhea, No Constipation, No Melena, No Hematochezia, No Other Genitourinary: No Dysuria, No Frequency, No Incontinence, No Hematuria, No Retention, No Other Musculoskeletal: No other, No neck pain, No shoulder pain, No arm pain, No back pain, No hand pain, No leg pain, No foot pain Skin: Lesions Objective Vitals Vital Signs Date Time Temp Pulse Resp B/P (MAP) Pulse Ox O2 Delivery O2 Flow Rate FiO2 03/04/24 07:00 98.2 80 14 116/64 (81) 99 208.8 03/04/24 06:41 30 03/04/24 02:00 Mechanical Ventilator+ Intake/Output Intake and Output 03/04/24 07:00 Intake Total 3421.125 ml Output Total 400 ml Balance 3021.125 ml Intake Oral 460 ml IV Total 2761.125 ml Tube Feeding 200 ml Output Urine Total 400 ml # Bowel Movements 1 General Appearance: moderate distress, Other (Intubated and sedated) HEENT: Atraumatic, PERRLA Lungs: Clear to auscultation, Normal air movement Cardiovascular: Normal S1, Normal S2, Other (Run of nonsustained VT) Abdomen: Normal bowel sounds Musculoskeletal: Normal sensory function, Normal motor function Extremities: No clubbing, No cyanosis, Normal pulses, Other (Tissue injury to heal) Neuro: Cranial nerves 3-12 NL Psych/Mental Status: Mental status NL, Mood NL Medications Current Medications Medications Dose Ordered Sig/Jordon Route Start Time Stop Time Status Last Admin Dose Admin Morphine Sulfate 2 mg Q30M PRN IV 03/01/24 02:00 Nitroglycerin 0.4 mg Q5MINP PRN SL 03/01/24 02:00 Pantoprazole Sodium 40 mg DAILY IV 03/01/24 06:00 03/03/24 10:14 40 MG Vancomycin HCl 0 ml @ 0 mls/hr UD IV 03/01/24 05:30 Albuterol 2.5 mg Q4HR NEB 03/01/24 10:00 03/04/24 06:34 2.5 MG Ipratropium [place] 0.5 mg Q4HR NEB 03/01/24 10:00 03/04/24 06:34 0.5 MG Vancomycin HCl 0 ml @ 0 mls/hr UD IV 03/01/24 02:15 UNV Hydrocortisone Sodium Succinate 50 mg Q12HR IV 03/01/24 22:00 03/03/24 22:48 50 MG Norepinephrine Bitartrate 16 mg/ Sodium Chloride 250 ml @ 1.875 mls/ hr Q24H IV 03/01/24 13:30 03/03/24 14:19 7.5 MLS/HR Midazolam HCl 50 ml @ 1 mls/hr Q24H IV 03/02/24 01:30 03/04/24 05:49 8 MLS/HR Enteral Nutritional Formula 1,000 ml 30ML/HR GT 03/02/24 15:45 Purified Water 200 ml Q6HR GT 03/02/24 18:00 03/04/24 05:50 200 ML Sodium Chloride 1,000 ml @ 100 mls/hr Q10H IV 03/02/24 16:00 03/03/24 22:49 100 MLS/HR Fentanyl Citrate 250 ml @ 2.5 mls/hr Q24H IV 03/03/24 01:15 03/03/24 01:17 2.5 MLS/HR Meropenem 50 ml @ 17 mls/hr Q8HR IV 03/03/24 14:00 03/04/24 05:51 17 MLS/HR Laboratory Results Laboratory Tests 03/04/24 03:22 Chemistry Test 03/03/24 21:20 03/04/24 03:22 Magnesium Level 2.1 mg/dL (1.6-2.6) Calcium Level 8.5 mg/dL (8.7-10.4) L Urinalysis Test 03/01/24 03:00 03/02/24 11:20 Urine Color Yellow (Yellow) Urine Clarity Clear (Clear) Urine pH 5.0 (5.0-9.0) Urine Specific [place] 1.021 (1.001-1.035) Urine Protein Trace (Negative) H Urine Ketones Negative (Negative) Urine Blood 1+ /uL (Negative) H Urine Nitrite Negative (Negative) Urine Bilirubin Negative (Negative) Urine Urobilinogen Normal mg/dL (Negative) Urine Leukocyte Esterase Negative /uL (Negative) Urine RBC 15 /hpf (0 - 3) Urine WBC 4 /hpf (0 - 3) Urine Squamous Epithelial Cells None seen /hpf (<5) Urine Bacteria Few /hpf (None Seen) H Urine Hyaline Casts Mod /lpf (0 - 2) Urine Sperm Present /hpf (None Seen) Urine Glucose Normal mg/dL (Normal) Urine Creatinine 109.75 mg/dL (30.0-125.0) Urine Protein/Creatinine Ratio 0.74 Urine Sodium 10 mmol/L (40-220) L Urine Total Protein 80.8 mg/dL (1-14) H Microbiology Microbiology Date/Time Source Procedure Growth Status 03/03/24 07:11 Sputum Gram Stain - Final Resulted 03/03/24 07:11 Sputum Respiratory Culture - Preliminary Resulted 03/01/24 05:55 Stool Clostridium difficile Toxin Assay - Final Complete 03/01/24 03:00 Voided Urine Urine Culture - Final Complete 03/01/24 00:59 Blood Blood Culture - Preliminary NO GROWTH AFTER 72 HOURS OF INCUBATION. Resulted Labs and/or images reviewed: Labs reviewed by me, Image(s) reviewed by me Assessment/Plan Assessment/Plan Patient: -metabolic encephalopathy secondary to sepsis -sepsis with shock -acute hypoxic respiratory failure, rule out community-acquired pneumonia, Gram-positive/Gram-negative etiology -deep tissue injury to sacrum and bilateral heels -history of COPD -primary hypertension -dyslipidemia -recent history of right hip fracture with right hip arthroplasty -acute kidney injury, vasomotor nephropathy -hypernatremia Plan: Events: CT of chest abdomen and pelvis results continue to be pending at this time. Patient had nonsustained run of VT this a.m.. Cultures thus far are negative. Wound culture. Continues to be on vasopressor therapy. Sodium levels improving. Renal function improving. -continue meropenem and vancomycin. Add micafungin -maki cultures -wound care consultation -bronchodilators -norepinephrine drip to keep map greater than 65 mmHg -gentle IV hydration , increase tube feeding -Nephrology consultation -PUD, DVT prophylaxis -repeat labs in a.m. Critical care time spent with patient discussing and formulating plan of care: 40 minutes. This does not include time spent performing procedures. This medical document was created using an electronic medical record system with [employer] dictation system. Although this document has been carefully reviewed, there may still be some phonetic and typographical errors. These areas are purely typographical due to imperfections of the software programs, and do not reflect any compromise in the patient's medical care. Plan discussed with: Patient, Other (RN) My Orders Orders - WAYNE TURNER NP Procedure Category Date Status Time Meropenem 1gm Ivpb PHA 03/03/24 In Process (Merrem 1gm/ Ns) 14:00 Ct Chest/Ab/Pl W Con- CT 03/03/24 Taken Iv Only 10:27 Mrsa Screen ABDULAZIZ 03/03/24 In Process 18:10 Mrsa Screen ABDULAZIZ 03/03/24 Logged 18:31 Manual Differential LAB 03/04/24 In Process 03:22 * Cardiology Consult CONS 03/04/24 Verified 07:09 Magnesium LAB 03/04/24 Verified 07:09 Date of Service: Mar 04, 2024 Billing Provider: WAYNE TURNER NP Common Visit Codes: 75905-[id number] CARE 30-74 MIN WAYNE TURNER NP Mar 04, 2024 07:19
--- NOTE | 2024-03-04 07:42 | DVH ---
CT CHEST, ABDOMEN AND PELVIS CLINICAL HISTORY: sepsis TECHNIQUE: Multiple contiguous axial images of the chest, abdomen and pelvis with intravenous contras t. The images were reformatted degenerate coronal and sagittal reconstructions. 100 cc of Omnipaque 300 contrast was injected intravenously. All CT scans at this medical facility are performed using dose modulation techniques as appropriate t o a performed exam including the following:Automated exposure control was utilized; adjustment of the MA and/or KV according to patient size; and use of iterative reconstruction technique. Radiation Dose Information: CT Dose: CTDI volume is 10.75 mGy. Dose-length product is 790.44 mGy*cm FINDINGS: [Findings] There are small patchy opacities along the posterior right and left lung base which may represent ate lectasis versus developing airspace disease. There is no pleural effusion or pneumothorax. There is no suspicious appearing pulmonary nodule or mass. An endotracheal tube is in place. The central airw ays are clear. There is no evidence of a mediastinal mass or lymphadenopathy. There is no hilar or axillary lympha denopathy. The heart size within normal limits. There is no pericardial effusion. The gallbladder is surgically absent . A biliary stent is in place in the common bile duct . There i s intrahepatic and extrahepatic biliary ductal dilatation. There is no obvious choledocholithiasis. There are multiple bilateral renal cysts , the largest in the left midpole measuring 5.3 cm. There is no evidence of nephrolithiasis or hydronephrosis. The liver, pancreas, adrenal glands, and spleen appear within normal limits. There is no evidence of abdominal lymphadenopathy. There is no significant free fluid or free air. The stomach grossly appears unremarkable.The small and large bowel loops demonstrate normal caliber. Air intermixed with stool is seen within the colon. There is large amount of stool in the rectum. There are calcified atherosclerotic changes in the abdominal aorta. The IVC appears within normal li mits. There is large amount of streak artifact from right hip arthroplasty which limits evaluation of the p jeff. There is dislocation of the head of the arthroplasty from the right hip socket. A poorly fille d bladder demonstrates marked circumferential wall thickening likely related to chronic outlet obstru ction. There is a esqueda catheter within the bladder. There is moderate prostatomegaly. There is no gr oss evidence of a pelvic mass or fluid collection. There is no acute osseous abnormality. IMPRESSION: 1.Small patchy opacities along the posterior right and left lung base may represent atelectasis vers us developing airspace disease. 2.Moderate prostatomegaly with likely changes of chronic bladder outlet obstruction. 3.A biliary stent is in place in the common bile duct. There is intrahepatic and extrahepatic biliar y ductal dilatation. There is no obvious choledocholithiasis. The gallbladder is surgically absent. 4.Large amount of stool in the rectum. 5.Right hip arthroplasty the head of the arthroplasty dislocated from the right hip socket. HS:Y
[2024-03-04 08:04] LABS: Band Neutrophils % (manual) 4; Lymphocytes % (manual) 4 (10.0-50.0); Monocytes % (manual) 5 (0-12)
[2024-03-04 08:05] LABS: Platelet Estimate Adequate
[2024-03-04 08:10] LABS: Base Excess -4.8 mmol/L (-2.0-3.0)
[2024-03-04] MEDS: MICAFUNGIN SODIUM 100 MG in SODIUM CHL 0.9% 100 ML IV SCH (10:19)
[2024-03-04] MEDS: VANCOMYCIN 1GM/250mL NS or D5W KIT IV SCH (10:20)
[2024-03-04] MEDS: Jevity 1.2 Cal/Fiber 1 Liter GT SCH (10:49)
[2024-03-04] MEDS: LACTULOSE 20Gm/30ML SOLN PO ONE (14:24)
--- NOTE | 2024-03-04 16:19 | DVHINCON2 ---
Date Seen: Mar 04, 2024 Referring Physician ZEHRA Sapp Reason for Consultation Nonsustained ventricular tachycardia History of Present Illness This is an 78-year-old male patient who presents to the emergency room with chief complaint of altered mental status and shortness of breath. The patient came from the facility [facility]. Upon emergency room arrival the patient was noted to have increased work of breathing and was intubated in the emergency room for airway protection. At the time of assessment, the patient is mechanically ventilated and chemically sedated. There is no family or next of kin at bedside. Past medical history obtained from records and bedside RN. Cardiology has been consulted at this time for nonsustained ventricular tachycardia. Initial twelve lead electrocardiogram reveals normal sinus rhythm with bigeminy PVCs. Cardiac strips reviewed and patient noted to have a nine beat run of nonsustained V-tach. QTc interval also noted to be prolonged. Significant past medical history includes hypertension, dyslipidemia, rheumatoid arthritis, COPD, Tobacco use, and obesity. Past Medical History Past medical history reviewed. No other significant than mentioned above. Past Surgical History Cholecystectomy Right hip hemiarthroplasty on February 04, 2024 Family History: Hypertension G8 MOTHER Malignant neoplasm of breast G8 MOTHER (UNKNOWN) Family History Family history reviewed. Social History History of tobacco use, unable to verify how many pack-year at this time Allergies: Coded Allergies: AMALIA Inhibitors (Verified Allergy, Unknown, 01/05/19) Azithromycin (Verified Allergy, Unknown, 01/05/19) Home Meds Active Scripts Sucralfate (Carafate) 1 Gm/10 Ml Sallie, 1 GM PO QID for 30 Days, #120 ML Prov:LISSY TORRES MD 08/16/21 Pantoprazole Sodium Sesquihydr (Protonix) 40 Mg Tab, 40 MG PO DAILY for 30 Days, #30 TAB 1 Refill Prov:LISSY TORRES MD 08/16/21 Reported Medications Patients Own Medication (PATIENTS OWN MEDICATION) ., 12.5 MG PO BID PTS OWN MED-OBTAIN FROM PT AND SEND TO RX DRUG: FREQ: RX# EXP: DATE DISP: TECH: [facility]: 01/03/19 Patients Own Medication (PATIENTS OWN MEDICATION) ., 500 MG PO ONCE PTS OWN MED-OBTAIN FROM PT AND SEND TO RX DRUG: FREQ: RX# EXP: DATE DISP: TECH: [facility]: 01/03/19 Prednisone (PREDNISONE) 5 Mg Tb, 5 MG GT DAILY for ARTHRITIS, TAB 01/03/19 Cholecalciferol (VITAMIN D3) 2,000 Unit Tab, 2000 UNIT OR DAILY, TAB 01/03/19 Amlodipine Besylate (Amlodipine Besylate) 5 Mg Tab, 10 MG PO DAILY for 30 Days, MG 01/03/19 Atorvastatin Calcium (Lipitor) 20 Mg Tab, 1 TAB PO HS, #90 TAB 1 Refill 01/03/19 Tamsulosin Hcl (Tamsulosin Hcl) 0.4 Mg Cap, 0.4 MG PO QPM for BPH for 30 Days, MG 01/03/19 Zolpidem Tartrate (ZOLPIDEM TARTRATE ER) 12.5 Mg Tab, 1 TAB PO QPM for SLEEP, #30 TAB 1 Refill 01/03/19 Home Meds Home medications reviewed. Current Medications Current Medications Medications (Trade) Dose Ordered Sig/Jordon Route PRN Reason Start Time Stop Time Status Last Admin Micafungin Sodium 100 mg/Sodium Chloride 100 ml @ 100 mls/hr DAILY IV 03/04/24 10:00 03/04/24 10:19 Vancomycin HCl 250 ml @ 250 mls/hr Q18H IV 03/04/24 10:00 03/04/24 10:20 Docusate Sodium (Colace Liquid) 100 mg BID GT 03/04/24 22:00 Review of Systems Constitutional: No symptom reported Ears, Nose, & Throat: No symptom reported Eyes: No symptom reported Neurological: Altered level of mentation Pulmonary/Respiratory: Shortness of breath Cardiovascular: No symptom reported Gastrointestinal: No symptom reported Genitourinary: No symptom reported Musculoskeletal: No symptom reported Skin: No symptom reported Psychiatric: No symptom reported Endocrine: No symptom reported Hematologic/Lymphatic: No symptom reported Vital Signs Vital Signs Date Time Temp Pulse Resp B/P (MAP) Pulse Ox O2 Delivery O2 Flow Rate FiO2 03/04/24 14:25 74 14 100 03/04/24 14:07 110/65 (80) 30 03/04/24 14:00 Mechanical Ventilator+ 03/04/24 13:30 97.0 206.6 Physical Exam General Appearance: Calm, relaxed Pulmonary/Respiratory: Clear, bilateral breaths sounds. Mechanically ventilated Cardiovascular/Chest: Regular rate and rhythm. Peripheral Pulses: 2+ Radial (R). 2+ Radial (L). Abdominal Exam: Normal bowel sounds. Ankle Exam: Negative ankle edema Lower extremities: Negative lower extremity edema Neuro/Mental Status: Chemically sedated Thoughts/Psych: Deferred Appearance: No acute distress. Skin Exam: Wounds to bilateral heel and sacrum Labs/Diagnostic Data Labs Test 03/04/24 08:03 03/04/24 03:27 03/04/24 03:22 03/03/24 04:22 Range/Units Blood Gas Specimen Type Arterial Blood Gas Sample Site Left brachial Blood Gas Patient Temperature 37.0 Arterial Blood Date Drawn [id number] Arterial Blood pH 7.417 7.350-7.450 Arterial Blood Partial Pressure CO2 30.3 L 35.0-48.0 mmHg Arterial Blood Partial Pressure O2 109.3 H 83.0-108.0 mmHg Arterial Blood HCO3 19.1 L 21.0-28.0 mmol/L Arterial Blood Oxygen Saturation 98.0 94.0-98.0 % Arterial Blood Base Excess -4.8 L -2.0-3.0 mmol/L Arterial Blood Oxyhemoglobin 97.1 94.0-98.0 % Arterial Blood Carboxyhemoglobin 0.7 0.5-1.5 % Arterial Blood Methemoglobin 0.2 0.0-1.5 % Yao Test N/a Blood Gas Total Hemoglobin 8.10 L 13.5-17.5 g/dL Blood Gas Set Respiration Rate 14.0 Blood Gas Modality Vent - ac Blood Gas Spontaneous Rate 14 FiO2 % 30.0 Blood Gas Tidal Volume 550.0 Blood Gas PEEP or CPAP 5.0 Magnesium Level 2.1 1.6-2.6 mg/dL White Blood Count 32.6 *H 4.4-10.8 10^3/uL Red Blood Count 2.87 L 4.5-5.90 10^6/uL Hemoglobin 7.6 L 13.5-17.5 g/dL Hematocrit 24.0 L 41.0-53.0 % Mean Corpuscular Volume 83.8 80.0-100.0 fL Mean Corpuscular Hemoglobin 26.6 L 28.0-32.0 pg Mean Corpuscular Hemoglobin Concent 31.7 L 32.0-36.0 g/dL Red Cell Distribution Width 15.8 H 11.8-14.3 % Platelet Count 394 140-450 10^3/uL Mean Platelet Volume 8.7 6.9-10.8 fL Neutrophils (%) (Auto) 37.0-80.0 % Lymphocytes (%) (Auto) 10.0-50.0 % Monocytes (%) (Auto) 0.0-12.0 % Basophils (%) (Auto) 0.0-2.0 % Neutrophils # (Auto) 1.6-8.6 10 ^3/uL Lymphocytes # (Auto) 0.4-5.4 10 ^3/uL Monocytes # (Auto) 0-1.3 10 ^3/uL Differential Total Cells Counted 100.0 100 Neutrophils % (Manual) 87 H 37.0-80.0 Band Neutrophils % (Manual) 4 Lymphocytes % (Manual) 4 L 10.0-50.0 Monocytes % (Manual) 5 0-12 Eosinophils % (Manual) 0 0-7 Basophils % (Manual) 0 0.0-2.0 Metamyelocytes % (manual) 0 Myelocytes % (Manual) 0 Promyelocytes % (Manual) 0 Blast Cells % (Manual) 0 Reactive Lymphocytes 0 Platelet Estimate Adequate Sodium Level 146 H 136-145 mmol/L Potassium Level 4.0 3.5-5.1 mmol/L Chloride Level 113 H 98-107 mmol/L Carbon Dioxide Level 22 20-31 mmol/L Anion Gap 11 5-15 Blood Urea Nitrogen 34 #H 9-23 mg/dL Creatinine 0.95 0.700-1.30 mg/dL Glomerular Filtration Rate Calc 81 >90 mL/min BUN/Creatinine Ratio 35.8 H 10.0-20.0 Serum Glucose 139 H 74-106 mg/dL Calcium Level 8.5 L 8.7-10.4 mg/dL Random Vancomycin Level 18.5 H 5-10 ug/mL Phosphorus Level 3.1 2.4-5.1 mg/dL Test 03/02/24 17:26 03/02/24 11:20 03/02/24 05:14 03/02/24 03:07 Range/Units POC Glucose 252 H 70-106 mg/dl Urine Creatinine 109.75 30.0-125.0 mg/dL Urine Protein/Creatinine Ratio 0.74 Urine Sodium 10 L 40-220 mmol/L Urine Total Protein 80.8 H 1-14 mg/dL Eosinophils (%) (Auto) 0.0 0.0-7.0 % Eosinophils # (Auto) 0 0-0.8 10 ^3/uL Basophils # (Auto) 0.1 0-0.2 10 ^3/uL Nucleated Red Blood Cells 0.0 % Blood Gas Spontaneous Tidal Volume 572 Bl Gas Inspiratory/Expiratory Ratio 1:1.8 Specimen Drawn By Aruna john rt Test 03/01/24 21:49 03/01/24 16:10 03/01/24 13:15 03/01/24 13:14 Range/Units Blood Gas EPAP 5 Blood Gas IPAP 12 Erythrocyte Sedimentation Rate 110 H 0-20 mm/hr Total Bilirubin 0.7 0.2-1.0 mg/dL Aspartate Amino Transferase (AST) 106 H 13-40 U/L Alanine Aminotransferase (ALT) 28 7-40 U/L Alkaline Phosphatase 119 H 46-116 U/L Total Protein 6.6 5.7-8.2 g/dL Albumin 3.0 L 3.2-4.8 g/dL C-Reactive Protein High Sensitivity > 20.00 H <1.0 mg/dL Test 03/01/24 03:30 03/01/24 03:00 03/01/24 00:59 02/29/24 21:48 Range/Units D-Dimer, Quantitative 5.17 H 0.0-0.49 mg/L FEU Ammonia 29 11-32 umol/L Vitamin B12 Level 396 211-911 pg/mL Thyroid Stimulating Hormone (TSH) 3.64 0.55-4.78 uIU/mL Plasma/Serum Blood Alcohol < 3.0 <10 mg/dL Urine Color Yellow Yellow Urine Clarity Clear Clear Urine pH 5.0 5.0-9.0 Urine Specific [place] 1.021 1.001-1.035 Urine Protein Trace H Negative Urine Ketones Negative Negative Urine Blood 1+ H Negative /uL Urine Nitrite Negative Negative Urine Bilirubin Negative Negative Urine Urobilinogen Normal Negative mg/dL Urine Leukocyte Esterase Negative Negative /uL Urine RBC 15 0 - 3 /hpf Urine WBC 4 0 - 3 /hpf Urine Squamous Epithelial Cells None seen <5 /hpf Urine Bacteria Few H None Seen /hpf Urine Hyaline Casts Mod 0 - 2 /lpf Urine Sperm Present None Seen /hpf Urine Glucose Normal Normal mg/dL Urine Opiates Screen Neg NEGATIVE Urine Fentanyl Screen Neg NEGATIVE Urine Barbiturates Screen Neg NEGATIVE Urine Phencyclidine Screen Neg NEGATIVE Urine Amphetamines Screen Neg NEGATIVE Urine Benzodiazepines Screen Neg NEGATIVE Urine Cocaine Screen Neg NEGATIVE Urine Cannabinoids Screen Neg NEGATIVE Lactic Acid Level 1.9 0.4-2.0 mmol/L Troponin I High Sensitivity 16 </=54 ng/L B-Type Natriuretic Peptide 28.05 0-100 pg/mL Microbiology Date/Time Source Procedure Growth Status 03/03/24 18:10 Nose MRSA Screen - Final Complete 03/03/24 07:11 Sputum Gram Stain - Final Resulted 03/03/24 07:11 Sputum Respiratory Culture - Preliminary Resulted 03/01/24 05:55 Stool Clostridium difficile Toxin Assay - Final Complete 03/01/24 03:00 Voided Urine Urine Culture - Final Complete 03/01/24 00:59 Blood Blood Culture - Preliminary NO GROWTH AFTER 72 HOURS OF INCUBATION. Resulted Assessment Nonsustained ventricular tachycardia Sepsis Hypertension Dyslipidemia Acute kidney injury COPD Plan/Recommendation We will continue with the following plan/recommendations (Dr. Villalobos): Patient seen and examined at bedside with . Echocardiogram from 02/03/2024 reveals an EF of 55%. At this time we will order a repeat echocardiogram to re-evaluate. We will recommend to avoid QT prolonging medications as this puts the patient at risk for going into torsades de pointes. We will also recommend to closely monitor and replete electrolytes as needed in keeping potassium greater than four and magnesium greater than two. Consider antiarrhythmic agent amiodarone if patient continues to have episodes of ventricular tachycardia. At this time we will continue with conservative medical management. Thank you for allowing us to care for this patient. Please call with any questions or concerns. Critical care time spent: 41 minutes This medical document was created using an electronic medical record system with voice recognition software and computerized dictation system. Although this document has been carefully reviewed, there might still be some phonetic and typographical errors. Occasional wrong-word or ``sound-alike substitutions may have occurred due to the inherent limitations of voice recognition software. These areas are purely typographical due to imperfections of the software programs and do not reflect any compromise in the patient's medical care. Please read the chart carefully and recognize, using context, where these substitutions have occurred. Plan discussed with: Other (Bedside RN) Date of Service: Mar 04, 2024 Billing Provider: JULIETA VILLALOBOS MD Cardiology Common Codes: 98549-YOVGIAF INP/OBS CARE (High) Cardiology Consultation Codes: [id number] CONSULT <45MIN SHARLENE GALINDO SENIOR BIOSTATISTICIAN Mar 04, 2024 16:19
--- NOTE | 2024-03-04 16:31 | DVHPN2 ---
Progress Note Date Seen: Mar 04, 2024 Medical Necessity Reason Pt with a Central, PICC or Fol: Yes The following are medically ne: Esqueda Catheter Reason for esqueda catheter: Strict I&O Subjective Patient reports: Other (Patient seen and examined in ICU remains intubated) Review of Systems: Deferred Objective vital signs Vital Sign Date Time Temp Pulse Resp B/P (MAP) Pulse Ox O2 Delivery O2 Flow Rate FiO2 03/04/24 16:11 66 14 98/54 (69) 100 30 03/04/24 16:00 Mechanical Ventilator+ 03/04/24 13:30 97.0 206.6 Total Intake and Output 03/03/24 03/03/24 03/04/24 15:00 23:00 07:00 Intake Total 600 ml 1911.0 ml 1520.125 ml Output Total 400 ml 750 ml Balance 600 ml 1511.0 ml 770.125 ml medications Current Medications Medications Dose Ordered Sig/Jordon Route Start Time Stop Time Status Last Admin Dose Admin Morphine Sulfate 2 mg Q30M PRN IV 03/01/24 02:00 Nitroglycerin 0.4 mg Q5MINP PRN SL 03/01/24 02:00 Pantoprazole Sodium 40 mg DAILY IV 03/01/24 06:00 03/04/24 10:19 40 MG Vancomycin HCl 0 ml @ 0 mls/hr UD IV 03/01/24 05:30 Albuterol 2.5 mg Q4HR NEB 03/01/24 10:00 03/04/24 14:07 2.5 MG Ipratropium [place] 0.5 mg Q4HR NEB 03/01/24 10:00 03/04/24 14:07 0.5 MG Vancomycin HCl 0 ml @ 0 mls/hr UD IV 03/01/24 02:15 UNV Hydrocortisone Sodium Succinate 50 mg Q12HR IV 03/01/24 22:00 03/04/24 10:19 50 MG Norepinephrine Bitartrate 16 mg/ Sodium Chloride 250 ml @ 1.875 mls/ hr Q24H IV 03/01/24 13:30 03/04/24 14:31 1.875 MLS/HR Midazolam HCl 50 ml @ 1 mls/hr Q24H IV 03/02/24 01:30 03/04/24 11:37 42 MLS/HR Enteral Nutritional Formula 1,000 ml 30ML/HR GT 03/02/24 15:45 03/04/24 10:49 1,000 ML Purified Water 200 ml Q6HR GT 03/02/24 18:00 03/04/24 11:36 200 ML Sodium Chloride 1,000 ml @ 100 mls/hr Q10H IV 03/02/24 16:00 03/04/24 07:51 100 MLS/HR Fentanyl Citrate 250 ml @ 2.5 mls/hr Q24H IV 03/03/24 01:15 03/04/24 07:50 7.5 MLS/HR Meropenem 50 ml @ 17 mls/hr Q8HR IV 03/03/24 14:00 03/04/24 14:24 17 MLS/HR Micafungin Sodium 100 mg/Sodium Chloride 100 ml @ 100 mls/hr DAILY IV 03/04/24 10:00 03/04/24 10:19 100 MLS/HR Vancomycin HCl 250 ml @ 250 mls/hr Q18H IV 03/04/24 10:00 03/04/24 10:20 250 MLS/HR Docusate Sodium 100 mg BID GT 03/04/24 22:00 Examination: GENERAL:Abnormal, LUNGS:Abnormal, MSK:Abnormal, SKIN:Abnormal, NEURO:Abnormal laboratory and microbiology Laboratory Tests 03/04/24 03:22 Test 03/04/24 03:22 Range/Units Serum Glucose 139 H 74-106 mg/dL Microbiology Date/Time Source Procedure Growth Status 03/03/24 18:10 Nose MRSA Screen - Final Complete 03/03/24 07:11 Sputum Gram Stain - Final Resulted 03/03/24 07:11 Sputum Respiratory Culture - Preliminary Resulted 03/01/24 05:55 Stool Clostridium difficile Toxin Assay - Final Complete 03/01/24 03:00 Voided Urine Urine Culture - Final Complete 03/01/24 00:59 Blood Blood Culture - Preliminary NO GROWTH AFTER 72 HOURS OF INCUBATION. Resulted Problem List/Assessment/Plan Problem List/Assessment/Plan GERA likely ischemic ATN in setting of septic shock Septic shock likely related early signs of pneumonia, Metabolic encephalopathy Bilateral nonobstructive renal calculi Bilateral simple renal cyst Prostatomegaly Chronic obstructive pulmonary disease Bilateral heel ulcer Dyslipidemia Primary hypertension Proteinuria Plan/recommendation hold half NS Renal function improved We will sign off the case please reconsult if needed Continue free water via G-tube for sodium correction Plan discussed with: Other Dietary Evaluation Review Comments: No supplement for wounds d/t GERA and kidney function, Encourage and Monitor PO intake, and lab values, FU in 3-5 days Expected Outcomes/Goals: Improved lab values VAUGHN MESSINA MD Mar 04, 2024 16:31
--- NOTE | 2024-03-04 17:22 | DVHSR ---
APPROVED REPORT EXAM: Two-dimensional and M-mode echocardiogram with Doppler and color Doppler. Blood Pressure: 127/68 mmHg INDICATION V Tach, Prolonged QT RISK FACTORS Height: 5' 10", Weight: 158 DIMENSIONS LVDd4.8 (3.8-5.7cm)LA (2D)4.5 (1.9-4.0cm)Aortic Root3.7 (2.0-3.7cm) LVDs3.6 (2.5-4.0cm)LA (MM) (1.9-4.0cm)Aortic Cusp Exc2.1 (1.5-2.0cm) EF (%) 50.0 (55-70%)Rt. Atrium4.4 (1.9-4.0cm)Asc. Aorta cm IVSd1.2 (0.7-1.1cm)RV (D) (1.8-2.4cm) PWd1.2 (0.7-1.1cm) Mitral Valve MitralMitral Stenosis E wave0.60m/sMV Mean GR.mmHg A wave0.70m/sMV Peak GR.mmHg E/A ratio0.92D MVAcm2 Aortic Valve Aortic ValveAortic Stenosis V10.80m/Lelia Mean GR.3mmHg V21.10m/Lelia Peak GR.5mmHg LVOT Diameter2.7 (1.8-2.4cm)Doppler AVA4.16cm2 Pulmonic Valve V20.80m/s Tricuspid Valve TR Velocity2.70m/s [id number] Conclusion Mildly reduced left ventricular systolic function estimated ejection fraction 45%. There is mild inf erior posterolateral wall hypokinesia. There is a grade 1 diastolic dysfunction. Normal-sized right ventricle moderately reduced right ventricular systolic function. The aortic valve appears mildly thickened and sclerotic. There is mild mitral valve regurgitation. There is mild tricuspid valve regurgitation. The pulmonary valve is grossly normal. No pericardial effusion.
--- NOTE | 2024-03-04 18:57 | DVHPN2 ---
Date of Progress Note Date of Progress Note Date of Progress Note: 03/04/24 Date of Admission Date of Admission Date of Admission: Date of Admission: Mar 01, 2024 at 01:34 Overnight Events Overnight events Overnight Events Pt intubated for shortness of breath, COPD, sepsis Past Surgical History Past Surgical History Past Surgical History 02/04/24 right hip hemiarthroplasty for right femoral neck fracture Family History Family History Family History: Hypertension G8 MOTHER Malignant neoplasm of breast G8 MOTHER (UNKNOWN) Allergies: Coded Allergies: AMALIA Inhibitors (Verified Allergy, Unknown, 01/05/19) Azithromycin (Verified Allergy, Unknown, 01/05/19) Home Meds Active Scripts Sucralfate (Carafate) 1 Gm/10 Ml Sallie, 1 GM PO QID for 30 Days, #120 ML Prov:LISSY TORRES MD 08/16/21 Pantoprazole Sodium Sesquihydr (Protonix) 40 Mg Tab, 40 MG PO DAILY for 30 Days, #30 TAB 1 Refill Prov:LISSY TORRES MD 08/16/21 Reported Medications Patients Own Medication (PATIENTS OWN MEDICATION) ., 12.5 MG PO BID PTS OWN MED-OBTAIN FROM PT AND SEND TO RX DRUG: FREQ: RX# EXP: DATE DISP: TECH: RP: 01/03/19 Patients Own Medication (PATIENTS OWN MEDICATION) ., 500 MG PO ONCE PTS OWN MED-OBTAIN FROM PT AND SEND TO RX DRUG: FREQ: RX# EXP: DATE DISP: TECH: RP: 01/03/19 Prednisone (PREDNISONE) 5 Mg Tb, 5 MG GT DAILY for ARTHRITIS, TAB 01/03/19 Cholecalciferol (VITAMIN D3) 2,000 Unit Tab, 2000 UNIT OR DAILY, TAB 01/03/19 Amlodipine Besylate (Amlodipine Besylate) 5 Mg Tab, 10 MG PO DAILY for 30 Days, MG 01/03/19 Atorvastatin Calcium (Lipitor) 20 Mg Tab, 1 TAB PO HS, #90 TAB 1 Refill 01/03/19 Tamsulosin Hcl (Tamsulosin Hcl) 0.4 Mg Cap, 0.4 MG PO QPM for BPH for 30 Days, MG 01/03/19 Zolpidem Tartrate (ZOLPIDEM TARTRATE ER) 12.5 Mg Tab, 1 TAB PO QPM for SLEEP, #30 TAB 1 Refill 01/03/19 Current Medications Current Medications Medications (Trade) Dose Ordered Sig/Jordon Route PRN Reason Start Time Stop Time Status Last Admin Micafungin Sodium 100 mg/Sodium Chloride 100 ml @ 100 mls/hr DAILY IV 03/04/24 10:00 03/04/24 10:19 Vancomycin HCl 250 ml @ 250 mls/hr Q18H IV 03/04/24 10:00 03/04/24 10:20 Docusate Sodium (Colace Liquid) 100 mg BID GT 03/04/24 22:00 Physical Examination General Examination: Last Vital sign Vital Signs Date Time Temp Pulse Resp B/P (MAP) Pulse Ox O2 Delivery O2 Flow Rate FiO2 03/04/24 18:10 94/51 03/04/24 17:45 97.0 69 14 100 206.6 03/04/24 16:11 30 03/04/24 16:00 Mechanical Ventilator+ General: General: No apparent distress, appears comfortable. Cooperative. Extremities: Pt intubated, RIght LE, short ER Neurological Examination: Neurological Examination: Mental Status: Cranial Nerves: Motor Examination: Reflexes: Sensory: Coordination: Gait: Labs: Labs: Laboratory Tests Test 02/29/24 21:48 02/29/24 22:58 03/01/24 00:59 03/01/24 03:00 Range/Units White Blood Count 20.5 H 4.4-10.8 10^3/uL Red Blood Count 3.86 L 4.5-5.90 10^6/uL Hemoglobin 10.5 L 13.5-17.5 g/dL Hematocrit 32.3 L 41.0-53.0 % Mean Corpuscular Volume 83.6 80.0-100.0 fL Mean Corpuscular Hemoglobin 27.2 L 28.0-32.0 pg Mean Corpuscular Hemoglobin Concent 32.5 32.0-36.0 g/dL Red Cell Distribution Width 15.6 H 11.8-14.3 % Platelet Count 552 H 140-450 10^3/uL Mean Platelet Volume 9.0 6.9-10.8 fL Neutrophils (%) (Auto) 74.0 37.0-80.0 % Lymphocytes (%) (Auto) 12.0 10.0-50.0 % Monocytes (%) (Auto) 9.9 0.0-12.0 % Eosinophils (%) (Auto) 3.4 0.0-7.0 % Basophils (%) (Auto) 0.7 0.0-2.0 % Neutrophils # (Auto) 15.1 H 1.6-8.6 10 ^3/uL Lymphocytes # (Auto) 2.5 0.4-5.4 10 ^3/uL Monocytes # (Auto) 2.0 H 0-1.3 10 ^3/uL Eosinophils # (Auto) 0.7 0-0.8 10 ^3/uL Basophils # (Auto) 0.2 0-0.2 10 ^3/uL Nucleated Red Blood Cells 0.0 % Sodium Level 144 136-145 mmol/L Potassium Level 4.8 3.5-5.1 mmol/L Chloride Level 111 H 98-107 mmol/L Carbon Dioxide Level 20 20-31 mmol/L Anion Gap 13 5-15 Blood Urea Nitrogen 43 H 9-23 mg/dL Creatinine 1.82 H 0.700-1.30 mg/dL Glomerular Filtration Rate Calc 37 >90 mL/min BUN/Creatinine Ratio 23.6 H 10.0-20.0 Serum Glucose 88 74-106 mg/dL Calcium Level 9.5 8.7-10.4 mg/dL Phosphorus Level 4.4 2.4-5.1 mg/dL Magnesium Level 2.2 1.6-2.6 mg/dL Total Bilirubin 0.6 0.2-1.0 mg/dL Aspartate Amino Transferase (AST) 111 H 13-40 U/L Alanine Aminotransferase (ALT) 34 7-40 U/L Alkaline Phosphatase 125 H 46-116 U/L Troponin I High Sensitivity 17 18 16 </=54 ng/L B-Type Natriuretic Peptide 28.05 0-100 pg/mL Total Protein 6.2 5.7-8.2 g/dL Albumin 3.0 L 3.2-4.8 g/dL Lactic Acid Level 1.9 0.4-2.0 mmol/L Urine Color Yellow Yellow Urine Clarity Clear Clear Urine pH 5.0 5.0-9.0 Urine Specific [place] 1.021 1.001-1.035 Urine Protein Trace H Negative Urine Ketones Negative Negative Urine Blood 1+ H Negative /uL Urine Nitrite Negative Negative Urine Bilirubin Negative Negative Urine Urobilinogen Normal Negative mg/dL Urine Leukocyte Esterase Negative Negative /uL Urine RBC 15 0 - 3 /hpf Urine WBC 4 0 - 3 /hpf Urine Squamous Epithelial Cells None seen <5 /hpf Urine Bacteria Few H None Seen /hpf Urine Hyaline Casts Mod 0 - 2 /lpf Urine Sperm Present None Seen /hpf Urine Glucose Normal Normal mg/dL Urine Opiates Screen Neg NEGATIVE Urine Fentanyl Screen Neg NEGATIVE Urine Barbiturates Screen Neg NEGATIVE Urine Phencyclidine Screen Neg NEGATIVE Urine Amphetamines Screen Neg NEGATIVE Urine Benzodiazepines Screen Neg NEGATIVE Urine Cocaine Screen Neg NEGATIVE Urine Cannabinoids Screen Neg NEGATIVE Test 03/01/24 03:08 03/01/24 03:30 03/01/24 13:14 03/01/24 13:15 Range/Units Blood Gas Specimen Type Arterial Blood Gas Sample Site Right radial Blood Gas Patient Temperature 37.0 Arterial Blood Date Drawn [id number] Arterial Blood pH 7.412 7.350-7.450 Arterial Blood Partial Pressure CO2 27.1 L 35.0-48.0 mmHg Arterial Blood Partial Pressure O2 84.2 83.0-108.0 mmHg Arterial Blood HCO3 16.9 L 21.0-28.0 mmol/L Arterial Blood Oxygen Saturation 95.9 94.0-98.0 % Arterial Blood Base Excess -6.6 L -2.0-3.0 mmol/L Arterial Blood Oxyhemoglobin 95.2 94.0-98.0 % Arterial Blood Carboxyhemoglobin 0.3 L 0.5-1.5 % Arterial Blood Methemoglobin 0.4 0.0-1.5 % Yao Test Yes Blood Gas Total Hemoglobin 10.20 L 13.5-17.5 g/dL Blood Gas Modality Room air FiO2 % 21.0 White Blood Count 17.5 H 4.4-10.8 10^3/uL Red Blood Count 3.34 L 4.5-5.90 10^6/uL Hemoglobin 9.2 L 13.5-17.5 g/dL Hematocrit 28.5 #L 41.0-53.0 % Mean Corpuscular Volume 85.4 80.0-100.0 fL Mean Corpuscular Hemoglobin 27.7 L 28.0-32.0 pg Mean Corpuscular Hemoglobin Concent 32.4 32.0-36.0 g/dL Red Cell Distribution Width 15.7 H 11.8-14.3 % Platelet Count 500 H 140-450 10^3/uL Mean Platelet Volume 9.7 6.9-10.8 fL Neutrophils (%) (Auto) 74.0 37.0-80.0 % Lymphocytes (%) (Auto) 14.1 10.0-50.0 % Monocytes (%) (Auto) 8.9 0.0-12.0 % Eosinophils (%) (Auto) 2.6 0.0-7.0 % Basophils (%) (Auto) 0.4 0.0-2.0 % Neutrophils # (Auto) 13.0 H 1.6-8.6 10 ^3/uL Lymphocytes # (Auto) 2.5 0.4-5.4 10 ^3/uL Monocytes # (Auto) 1.6 H 0-1.3 10 ^3/uL Eosinophils # (Auto) 0.4 0-0.8 10 ^3/uL Basophils # (Auto) 0.1 0-0.2 10 ^3/uL Nucleated Red Blood Cells 0.0 % Erythrocyte Sedimentation Rate 96 H 0-20 mm/hr D-Dimer, Quantitative 5.17 H 0.0-0.49 mg/L FEU Ammonia 29 11-32 umol/L Vitamin B12 Level 396 211-911 pg/mL Thyroid Stimulating Hormone (TSH) 3.64 0.55-4.78 uIU/mL Plasma/Serum Blood Alcohol < 3.0 <10 mg/dL C-Reactive Protein High Sensitivity > 20.00 H <1.0 mg/dL Sodium Level 146 H 136-145 mmol/L Potassium Level 4.2 3.5-5.1 mmol/L Chloride Level 114 H 98-107 mmol/L Carbon Dioxide Level 20 20-31 mmol/L Anion Gap 12 5-15 Blood Urea Nitrogen 48 H 9-23 mg/dL Creatinine 2.12 H 0.700-1.30 mg/dL Glomerular Filtration Rate Calc 31 >90 mL/min BUN/Creatinine Ratio 22.6 H 10.0-20.0 Serum Glucose 114 H 74-106 mg/dL Calcium Level 9.3 8.7-10.4 mg/dL Total Bilirubin 0.7 0.2-1.0 mg/dL Aspartate Amino Transferase (AST) 106 H 13-40 U/L Alanine Aminotransferase (ALT) 28 7-40 U/L Alkaline Phosphatase 119 H 46-116 U/L Total Protein 6.6 5.7-8.2 g/dL Albumin 3.0 L 3.2-4.8 g/dL Test 03/01/24 16:10 03/01/24 16:12 03/01/24 21:48 03/01/24 21:49 Range/Units Erythrocyte Sedimentation Rate 110 H 0-20 mm/hr Blood Gas Specimen Type Arterial Arterial Blood Gas Sample Site Right radial Right radial Blood Gas Patient Temperature 37.0 37.0 Arterial Blood Date Drawn [id number] Arterial Blood pH 7.450 7.469 H 7.350-7.450 Arterial Blood Partial Pressure CO2 21.0 L 21.9 L 35.0-48.0 mmHg Arterial Blood Partial Pressure O2 87.7 86.9 83.0-108.0 mmHg Arterial Blood HCO3 14.3 L 15.5 L 21.0-28.0 mmol/L Arterial Blood Oxygen Saturation 95.6 96.0 94.0-98.0 % Arterial Blood Base Excess -8.1 L -6.5 L -2.0-3.0 mmol/L Arterial Blood Oxyhemoglobin 95.0 94.8 94.0-98.0 % Arterial Blood Carboxyhemoglobin 0.0 L 0.3 L 0.5-1.5 % Arterial Blood Methemoglobin 0.6 0.9 0.0-1.5 % Yao Test Yes Modified Blood Gas Total Hemoglobin 10.00 L 11.00 L 13.5-17.5 g/dL Blood Gas Set Respiration Rate 12.0 12.0 Blood Gas Modality Mask - bipap Mask - bipap Blood Gas Spontaneous Rate 43 56 FiO2 % 35.0 35.0 Blood Gas Spontaneous Tidal Volume 496 Blood Gas EPAP 5 5 Blood Gas IPAP 12 12 POC Glucose 109 H 70-106 mg/dl Blood Gas Tidal Volume 445.0 Test 03/02/24 03:07 03/02/24 05:14 03/02/24 08:14 03/02/24 11:20 Range/Units Blood Gas Specimen Type Arterial Arterial Blood Gas Sample Site Right radial Right radial Blood Gas Patient Temperature 37.0 37.0 Arterial Blood Date Drawn [id number] Arterial Blood pH 7.416 7.382 7.350-7.450 Arterial Blood Partial Pressure CO2 24.0 L 26.5 L 35.0-48.0 mmHg Arterial Blood Partial Pressure O2 93.8 104.7 83.0-108.0 mmHg Arterial Blood HCO3 15.1 L 15.4 L 21.0-28.0 mmol/L Arterial Blood Oxygen Saturation 96.6 97.2 94.0-98.0 % Arterial Blood Base Excess -8.1 L -8.4 L -2.0-3.0 mmol/L Arterial Blood Oxyhemoglobin 96.2 96.4 94.0-98.0 % Arterial Blood Carboxyhemoglobin 0.0 L 0.3 L 0.5-1.5 % Arterial Blood Methemoglobin 0.4 0.5 0.0-1.5 % Yao Test Modified Modified Blood Gas Total Hemoglobin 9.80 L 9.90 L 13.5-17.5 g/dL Blood Gas Set Respiration Rate 14.0 14.0 Blood Gas Modality Vent - ac Vent - ac Blood Gas Spontaneous Rate 30 FiO2 % 30.0 30.0 Blood Gas Tidal Volume 550.0 550.0 Blood Gas Spontaneous Tidal Volume 572 Blood Gas PEEP or CPAP 5.0 5.0 Bl Gas Inspiratory/Expiratory Ratio 1:1.8 Specimen Drawn By Aruna john rt White Blood Count 24.2 #H 4.4-10.8 10^3/uL Red Blood Count 3.26 L 4.5-5.90 10^6/uL Hemoglobin 8.9 L 13.5-17.5 g/dL Hematocrit 27.1 L 41.0-53.0 % Mean Corpuscular Volume 83.0 80.0-100.0 fL Mean Corpuscular Hemoglobin 27.5 L 28.0-32.0 pg Mean Corpuscular Hemoglobin Concent 33.1 32.0-36.0 g/dL Red Cell Distribution Width 15.9 H 11.8-14.3 % Platelet Count 545 H 140-450 10^3/uL Mean Platelet Volume 9.3 6.9-10.8 fL Neutrophils (%) (Auto) 90.3 H 37.0-80.0 % Lymphocytes (%) (Auto) 6.1 L 10.0-50.0 % Monocytes (%) (Auto) 3.3 0.0-12.0 % Eosinophils (%) (Auto) 0.0 0.0-7.0 % Basophils (%) (Auto) 0.3 0.0-2.0 % Neutrophils # (Auto) 21.8 H 1.6-8.6 10 ^3/uL Lymphocytes # (Auto) 1.5 0.4-5.4 10 ^3/uL Monocytes # (Auto) 0.8 0-1.3 10 ^3/uL Eosinophils # (Auto) 0 0-0.8 10 ^3/uL Basophils # (Auto) 0.1 0-0.2 10 ^3/uL Nucleated Red Blood Cells 0.0 % Sodium Level 150 H 136-145 mmol/L Potassium Level 3.9 3.5-5.1 mmol/L Chloride Level 115 H 98-107 mmol/L Carbon Dioxide Level 19 L 20-31 mmol/L Anion Gap 16 H 5-15 Blood Urea Nitrogen 46 H 9-23 mg/dL Creatinine 1.78 H 0.700-1.30 mg/dL Glomerular Filtration Rate Calc 38 >90 mL/min BUN/Creatinine Ratio 25.8 H 10.0-20.0 Serum Glucose 147 H 74-106 mg/dL Calcium Level 8.8 8.7-10.4 mg/dL Random Vancomycin Level 11.3 H 5-10 ug/mL Urine Creatinine 109.75 30.0-125.0 mg/dL Urine Protein/Creatinine Ratio 0.74 Urine Sodium 10 L 40-220 mmol/L Urine Total Protein 80.8 H 1-14 mg/dL Test 03/02/24 17:26 03/03/24 04:22 03/03/24 06:46 03/03/24 21:20 Range/Units POC Glucose 252 H 70-106 mg/dl White Blood Count 34.0 #*H 4.4-10.8 10^3/uL Red Blood Count 3.11 L 4.5-5.90 10^6/uL Hemoglobin 8.3 L 13.5-17.5 g/dL Hematocrit 25.6 L 41.0-53.0 % Mean Corpuscular Volume 82.4 80.0-100.0 fL Mean Corpuscular Hemoglobin 26.8 L 28.0-32.0 pg Mean Corpuscular Hemoglobin Concent 32.6 32.0-36.0 g/dL Red Cell Distribution Width 16.0 H 11.8-14.3 % Platelet Count 498 H 140-450 10^3/uL Mean Platelet Volume 9.2 6.9-10.8 fL Neutrophils (%) (Auto) 37.0-80.0 % Lymphocytes (%) (Auto) 10.0-50.0 % Monocytes (%) (Auto) 0.0-12.0 % Basophils (%) (Auto) 0.0-2.0 % Neutrophils # (Auto) 1.6-8.6 10 ^3/uL Lymphocytes # (Auto) 0.4-5.4 10 ^3/uL Monocytes # (Auto) 0-1.3 10 ^3/uL Differential Total Cells Counted 100.0 100 Neutrophils % (Manual) 86 H 37.0-80.0 Band Neutrophils % (Manual) 5 Lymphocytes % (Manual) 2 L 10.0-50.0 Monocytes % (Manual) 7 0-12 Eosinophils % (Manual) 0 0-7 Basophils % (Manual) 0 0.0-2.0 Metamyelocytes % (manual) 0 Myelocytes % (Manual) 0 Promyelocytes % (Manual) 0 Blast Cells % (Manual) 0 Reactive Lymphocytes 0 Platelet Estimate Adequate Sodium Level 148 H 136-145 mmol/L Potassium Level 3.3 L 3.7 3.5-5.1 mmol/L Chloride Level 113 H 98-107 mmol/L Carbon Dioxide Level 24 20-31 mmol/L Anion Gap 11 5-15 Blood Urea Nitrogen 50 H 9-23 mg/dL Creatinine 1.29 0.700-1.30 mg/dL Glomerular Filtration Rate Calc 56 >90 mL/min BUN/Creatinine Ratio 38.8 H 10.0-20.0 Serum Glucose 176 H 74-106 mg/dL Calcium Level 8.7 8.7-10.4 mg/dL Phosphorus Level 3.1 2.4-5.1 mg/dL Magnesium Level 2.2 2.1 1.6-2.6 mg/dL Random Vancomycin Level 12.8 H 5-10 ug/mL Blood Gas Specimen Type Arterial Blood Gas Sample Site Right radial Blood Gas Patient Temperature 37.0 Arterial Blood Date Drawn [id number] Arterial Blood pH 7.386 7.350-7.450 Arterial Blood Partial Pressure CO2 34.9 L 35.0-48.0 mmHg Arterial Blood Partial Pressure O2 101.1 83.0-108.0 mmHg Arterial Blood HCO3 20.5 L 21.0-28.0 mmol/L Arterial Blood Oxygen Saturation 97.0 94.0-98.0 % Arterial Blood Base Excess -4.0 L -2.0-3.0 mmol/L Arterial Blood Oxyhemoglobin 96.3 94.0-98.0 % Arterial Blood Carboxyhemoglobin 0.3 L 0.5-1.5 % Arterial Blood Methemoglobin 0.4 0.0-1.5 % Yao Test Modified Blood Gas Total Hemoglobin 9.40 L 13.5-17.5 g/dL Blood Gas Set Respiration Rate 14.0 Blood Gas Modality Vent - ac FiO2 % 30.0 Blood Gas Tidal Volume 550.0 Blood Gas PEEP or CPAP 5.0 Test 03/04/24 03:22 03/04/24 03:27 03/04/24 08:03 Range/Units White Blood Count 32.6 *H 4.4-10.8 10^3/uL Red Blood Count 2.87 L 4.5-5.90 10^6/uL Hemoglobin 7.6 L 13.5-17.5 g/dL Hematocrit 24.0 L 41.0-53.0 % Mean Corpuscular Volume 83.8 80.0-100.0 fL Mean Corpuscular Hemoglobin 26.6 L 28.0-32.0 pg Mean Corpuscular Hemoglobin Concent 31.7 L 32.0-36.0 g/dL Red Cell Distribution Width 15.8 H 11.8-14.3 % Platelet Count 394 140-450 10^3/uL Mean Platelet Volume 8.7 6.9-10.8 fL Neutrophils (%) (Auto) 37.0-80.0 % Lymphocytes (%) (Auto) 10.0-50.0 % Monocytes (%) (Auto) 0.0-12.0 % Basophils (%) (Auto) 0.0-2.0 % Neutrophils # (Auto) 1.6-8.6 10 ^3/uL Lymphocytes # (Auto) 0.4-5.4 10 ^3/uL Monocytes # (Auto) 0-1.3 10 ^3/uL Differential Total Cells Counted 100.0 100 Neutrophils % (Manual) 87 H 37.0-80.0 Band Neutrophils % (Manual) 4 Lymphocytes % (Manual) 4 L 10.0-50.0 Monocytes % (Manual) 5 0-12 Eosinophils % (Manual) 0 0-7 Basophils % (Manual) 0 0.0-2.0 Metamyelocytes % (manual) 0 Myelocytes % (Manual) 0 Promyelocytes % (Manual) 0 Blast Cells % (Manual) 0 Reactive Lymphocytes 0 Platelet Estimate Adequate Sodium Level 146 H 136-145 mmol/L Potassium Level 4.0 3.5-5.1 mmol/L Chloride Level 113 H 98-107 mmol/L Carbon Dioxide Level 22 20-31 mmol/L Anion Gap 11 5-15 Blood Urea Nitrogen 34 #H 9-23 mg/dL Creatinine 0.95 0.700-1.30 mg/dL Glomerular Filtration Rate Calc 81 >90 mL/min BUN/Creatinine Ratio 35.8 H 10.0-20.0 Serum Glucose 139 H 74-106 mg/dL Calcium Level 8.5 L 8.7-10.4 mg/dL Random Vancomycin Level 18.5 H 5-10 ug/mL Magnesium Level 2.1 1.6-2.6 mg/dL Blood Gas Specimen Type Arterial Blood Gas Sample Site Left brachial Blood Gas Patient Temperature 37.0 Arterial Blood Date Drawn [id number] Arterial Blood pH 7.417 7.350-7.450 Arterial Blood Partial Pressure CO2 30.3 L 35.0-48.0 mmHg Arterial Blood Partial Pressure O2 109.3 H 83.0-108.0 mmHg Arterial Blood HCO3 19.1 L 21.0-28.0 mmol/L Arterial Blood Oxygen Saturation 98.0 94.0-98.0 % Arterial Blood Base Excess -4.8 L -2.0-3.0 mmol/L Arterial Blood Oxyhemoglobin 97.1 94.0-98.0 % Arterial Blood Carboxyhemoglobin 0.7 0.5-1.5 % Arterial Blood Methemoglobin 0.2 0.0-1.5 % Yao Test N/a Blood Gas Total Hemoglobin 8.10 L 13.5-17.5 g/dL Blood Gas Set Respiration Rate 14.0 Blood Gas Modality Vent - ac Blood Gas Spontaneous Rate 14 FiO2 % 30.0 Blood Gas Tidal Volume 550.0 Blood Gas PEEP or CPAP 5.0 Imaging Imaging: CT pelvis c/w dislocatoin of right hip hemiarthroplasty Assessment/Plan Assessment/Plan Assessment and Plan:Rafa Jacobsen is a 78 year old male admitted on 02/29/24 for sepsis, intubated on 03/01/24, I peformed a right lavell hip arthroplasty on 02/04/24 for a femoral neck fracture sustained from a mechanical fall 1) I will follow 2) when extubated will see what internal med thinks about surgical stability for closed vs open reduction of lavell hip dislocation Plan discussed with: Patient JOSHUA ETIENNE MD Mar 04, 2024 18:57
[2024-03-04] MEDS: DOCUSATE ORAL LIQUID 100 MG/10 ML UD GT SCH (22:00)
--- NOTE | 2024-03-04 23:05 | DVHPN2 ---
Progress Note - Dictate Date Seen: Mar 04, 2024 Medical Necessity Reason Pt with a Central, PICC or Fol: Yes The following are medically ne: Esqueda Catheter Reason for esqueda catheter: Strict I&O Subjective Patient seen and examined at bedside. Sedated, intubated on mechanical ventilator. Overnight events reviewed. vital signs Vital Sign Date Time Temp Pulse Resp B/P (MAP) Pulse Ox O2 Delivery O2 Flow Rate FiO2 03/04/24 22:08 68 19 106/51 (69) 97 30 03/04/24 19:15 96.4 205.5 03/04/24 18:00 Mechanical Ventilator+ Total Intake and Output 03/03/24 03/03/24 03/04/24 15:00 23:00 07:00 Intake Total 600 ml 1911.0 ml 1641.250 ml Output Total 400 ml 750 ml Balance 600 ml 1511.0 ml 891.250 ml medications Current Medications Medications Dose Ordered Sig/Jordno Route Start Time Stop Time Status Last Admin Dose Admin Morphine Sulfate 2 mg Q30M PRN IV 03/01/24 02:00 Nitroglycerin 0.4 mg Q5MINP PRN SL 03/01/24 02:00 Pantoprazole Sodium 40 mg DAILY IV 03/01/24 06:00 03/04/24 10:19 40 MG Vancomycin HCl 0 ml @ 0 mls/hr UD IV 03/01/24 05:30 Albuterol 2.5 mg Q4HR NEB 03/01/24 10:00 03/04/24 22:33 2.5 MG Ipratropium [place] 0.5 mg Q4HR NEB 03/01/24 10:00 03/04/24 22:33 0.5 MG Vancomycin HCl 0 ml @ 0 mls/hr UD IV 03/01/24 02:15 UNV Hydrocortisone Sodium Succinate 50 mg Q12HR IV 03/01/24 22:00 03/04/24 21:14 50 MG Norepinephrine Bitartrate 16 mg/ Sodium Chloride 250 ml @ 1.875 mls/ hr Q24H IV 03/01/24 13:30 03/04/24 14:31 1.875 MLS/HR Midazolam HCl 50 ml @ 1 mls/hr Q24H IV 03/02/24 01:30 03/04/24 18:10 8 MLS/HR Enteral Nutritional Formula 1,000 ml 30ML/HR GT 03/02/24 15:45 03/04/24 10:49 1,000 ML Purified Water 200 ml Q6HR GT 03/02/24 18:00 03/04/24 17:24 200 ML Fentanyl Citrate 250 ml @ 2.5 mls/hr Q24H IV 03/03/24 01:15 03/04/24 07:50 7.5 MLS/HR Meropenem 50 ml @ 17 mls/hr Q8HR IV 03/03/24 14:00 03/04/24 21:13 17 MLS/HR Micafungin Sodium 100 mg/Sodium Chloride 100 ml @ 100 mls/hr DAILY IV 03/04/24 10:00 03/04/24 10:19 100 MLS/HR Vancomycin HCl 250 ml @ 250 mls/hr Q18H IV 03/04/24 10:00 03/04/24 10:20 250 MLS/HR Docusate Sodium 100 mg BID GT 03/04/24 22:00 objective Gen.: Patient lying in bed in medical ICU. Sedated, intubated on mechanical ventilator. Head: Normocephalic, atraumatic. Eyes: PERRLA. Ears: Normal external anatomy. Throat: Endotracheal tube and orogastric tube in place. Neck: Supple, trachea midline. Chest: Transmitted breath sounds bilaterally. Decreased air entry bilaterally. No wheezing. Bibasilar crackles. Cardiovascular: Positive S1, positive S2. Regular rate and rhythm. Abdomen: Positive bowel sounds in all 4 quadrants. Soft, nontender, nondistended. : Esqueda in place. Normal external genitalia. Rectal: Deferred. Skin: Warm, dry. Intact. Extremities: 2+ radial pulses bilaterally. No lower extremity edema. Neuro: Sedated. laboratory and microbiology Laboratory Tests 03/04/24 03:22 Test 03/04/24 03:22 Range/Units Serum Glucose 139 H 74-106 mg/dL Assessment/Plan Impression: Acute hypoxic respiratory failure On mechanical ventilator Respiratory distress. CHF exacerbation/Pulmonary edema Nicotine dependence Acute metabolic encephalopathy Septic shock Deep tissue injury to sacrum and bilateral heels COPD, stable Recent history of right hip fracture with right hip arthroplasty Acute kidney injury, vasomotor nephropathy Events: Remains on vent support On AC mode; RR 14, VT 550, PEEP 5, FiO2 30% ABG reviewed, compensated. CXR image and report reviewed. Devices in place. No acute opacities. Mild pulmonary congestion. Sedated on Versed, Fentanyl On pressors for hemodynamic support Levophed 6 mcg/min Titrate to keep mean arterial pressure greater than [address]. Improving pressor requirements. CT abdomen and pelvis demonstrates atelectasis, patchy opacities in right and left lung base. Patient had V-tach episode, 2 runs. Follow up Cardiology recs. Blood cultures show no growth for 72 hours. WBC elevated at 32.6 K. IV fluid hydration at 100 ml/hr. Tube feeds for nutritional support Continue antibiotics Continue bronchodilators for COPD. Stress dose steroids Monitor hemoglobin - 7.6 g/dL. Transfuse if less than 7.0 g/dL. GI prophylaxis Wound care. Labs and imaging reviewed. Rest of plan as noted below. Plan: s/p intubation on mechanical ventilator. On AC mode; RR 14, VT 550, PEEP 5, FiO2 30% Titrate FIO2 to keep O2 saturation above 90%. VAP bundle. Daily ABG and CXR while intubated Sedate for ventilator synchrony Continue bronchodilators/Mucomyst. Continue antibiotics. F/u cultures. IV fluids at 100 ml/hr. On pressors for hemodynamic support Titrate to keep mean arterial pressure greater than 65 mmHg. Monitor renal function Monitor electrolytes. Supplement as necessary. Monitor ins and outs. Maintain euvolemia. GI prophylaxis - Protonix. DVT prophylaxis. Prognosis: Poor given patient's multiple co-morbidities. Condition: Critical Rest of plan per hospitalist and other consultants. A total of 35 minutes of critical care time was spent reviewing the patient record, examining the patient, making a diagnostic and therapeutic plan, discussing this plan with the medical personnel, following up on diagnostic studies and following the patient for clinical stability excluding any and all procedures. At least 50% of this time was spent in direct, [id number] contact. Thank you Ned Sapp NP, for allowing me to participate in this patient's care. Further recommendations will depend on the patient's clinical course. Please do not hesitate to contact me if you have any questions or concerns. This medical document was created using an electronic medical record system with [employer] system. Although these documentations are being carefully reviewed, there may still be some phonetic and typographical changes. The errors are purely typographical, due to imperfection on the software program, and do not reflect any compromise in the patient's medical care. Dietary Evaluation Review Comments: No supplement for wounds d/t GERA and kidney function, Encourage and Monitor PO intake, and lab values, FU in 3-5 days Expected Outcomes/Goals: Improved lab values Plan discussed with: Other (KAREN Isaac) Critical Care Time(min): 35 YARI BILL MD Mar 04, 2024 23:05
[2024-03-05] VITALS (109 sets, daily range): BP systolic 88–125; BP diastolic 43–70; PULSE 65–104; RESP 12–27; TEMP 96.7–97.8; O2SAT 97–100
[2024-03-05 04:11] LABS: Basophils # (auto) 0 10 ^3/uL (0-0.2); Basophils % (auto) 0.2 % (0.0-2.0); Eosinophils # (auto) 0 10 ^3/uL (0-0.8); Hematocrit 22.7 % (41.0-53.0); Hemoglobin 7.2 g/dL (13.5-17.5); Lymphocytes # (auto) 1.1 10 ^3/uL (0.4-5.4); Lymphocytes % (auto) 4.7 % (10.0-50.0); Mean Corpuscular Hemoglobin 26.8 pg (28.0-32.0); Mean Corpuscular Hgb Conc. 31.9 g/dL (32.0-36.0); Mean Corpuscular Volume 83.8 fL (80.0-100.0); Monocytes # (auto) 1.5 10 ^3/uL (0-1.3); Monocytes % (auto) 6.5 % (0.0-12.0); Neutrophils # (auto) 20.4 10 ^3/uL (1.6-8.6); Neutrophils % (auto) 88.6 % (37.0-80.0); Platelet Count (auto) 363 10^3/uL (140-450); Red Blood Cells 2.71 10^6/uL (4.5-5.90); Red Cell Distribution Width 15.6 % (11.8-14.3)
[2024-03-05 04:15] LABS: Anion Gap 10 (5-15); Carbon Dioxide 24 mmol/L (20-31)
[2024-03-05 04:20] LABS: Magnesium 2.3 mg/dL (1.6-2.6)
[2024-03-05 04:24] LABS: Blood Urea Nitrogen 32 mg/dL (9-23); Calcium 8.5 mg/dL (8.7-10.4); Chloride 114 mmol/L (98-107); Glucose 145 mg/dL (74-106); Sodium 148 mmol/L (136-145)
--- NOTE | 2024-03-05 05:38 | DVH ---
CHEST RADIOGRAPH Indication: pna Technique: Single frontal view of the chest was obtained COMPARISON: XY CHEST PORTABLE on DOS: 03/04/24, XY CHEST PORTABLE on DOS: 03/03/24, XY CHEST XRAY 1 V IEW on DOS: 03/02/24, XY CHEST PORTABLE on DOS: 03/04/24 FINDINGS: Lines and Tubes: Endotracheal tube, enteric catheter and left central venous catheter in satisfactory position. Lungs: Mild congestion. Pleura: No effusion. No pneumothorax. Cardiomediastinal contours: Unremarkable Bones: Unremarkable IMPRESSION: Lines and tubes in satisfactory position. No significant interval change.
--- NOTE | 2024-03-05 15:58 | DVHPN2 ---
Progress Note - Dictate Date Seen: Mar 05, 2024 Medical Necessity Reason Pt with a Central, PICC or Fol: Yes The following are medically ne: Esqueda Catheter Reason for esqueda catheter: Strict I&O Subjective Patient seen and examined at bedside. Sedated, intubated on mechanical ventilator. Overnight events reviewed. vital signs Vital Sign Date Time Temp Pulse Resp B/P (MAP) Pulse Ox O2 Delivery O2 Flow Rate FiO2 03/05/24 15:39 89 14 109/62 (78) 98 30 03/05/24 06:00 Mechanical Ventilator+ 03/05/24 05:15 97.8 97.8 Total Intake and Output 03/04/24 03/04/24 03/05/24 15:00 23:00 07:00 Intake Total 1321.935 ml 1067.000 ml 204.125 ml Output Total 450 ml 500 ml Balance 1321.935 ml 617.000 ml -295.875 ml medications Current Medications Medications Dose Ordered Sig/Jordon Route Start Time Stop Time Status Last Admin Dose Admin Morphine Sulfate 2 mg Q30M PRN IV 03/01/24 02:00 Nitroglycerin 0.4 mg Q5MINP PRN SL 03/01/24 02:00 Pantoprazole Sodium 40 mg DAILY IV 03/01/24 06:00 03/05/24 10:05 40 MG Vancomycin HCl 0 ml @ 0 mls/hr UD IV 03/01/24 05:30 Albuterol 2.5 mg Q4HR NEB 03/01/24 10:00 03/05/24 13:56 2.5 MG Ipratropium [place] 0.5 mg Q4HR NEB 03/01/24 10:00 03/05/24 13:56 0.5 MG Vancomycin HCl 0 ml @ 0 mls/hr UD IV 03/01/24 02:15 UNV Hydrocortisone Sodium Succinate 50 mg Q12HR IV 03/01/24 22:00 03/05/24 10:05 50 MG Norepinephrine Bitartrate 16 mg/ Sodium Chloride 250 ml @ 1.875 mls/ hr Q24H IV 03/01/24 13:30 03/04/24 14:31 1.875 MLS/HR Midazolam HCl 50 ml @ 1 mls/hr Q24H IV 03/02/24 01:30 03/05/24 05:53 8 MLS/HR Enteral Nutritional Formula 1,000 ml 30ML/HR GT 03/02/24 15:45 03/04/24 10:49 1,000 ML Purified Water 200 ml Q6HR GT 03/02/24 18:00 03/05/24 12:00 200 ML Fentanyl Citrate 250 ml @ 2.5 mls/hr Q24H IV 03/03/24 01:15 03/04/24 07:50 7.5 MLS/HR Meropenem 50 ml @ 17 mls/hr Q8HR IV 03/03/24 14:00 03/05/24 13:59 17 MLS/HR Micafungin Sodium 100 mg/Sodium Chloride 100 ml @ 100 mls/hr DAILY IV 03/04/24 10:00 03/05/24 10:05 100 MLS/HR Vancomycin HCl 250 ml @ 250 mls/hr Q18H IV 03/04/24 10:00 03/05/24 04:21 250 MLS/HR Docusate Sodium 100 mg BID GT 03/04/24 22:00 objective Gen.: Patient lying in bed in medical ICU. Sedated, intubated on mechanical ventilator. Head: Normocephalic, atraumatic. Eyes: PERRLA. Ears: Normal external anatomy. Throat: Endotracheal tube and orogastric tube in place. Neck: Supple, trachea midline. Chest: Transmitted breath sounds bilaterally. Decreased air entry bilaterally. No wheezing. Bibasilar crackles. Cardiovascular: Positive S1, positive S2. Regular rate and rhythm. Abdomen: Positive bowel sounds in all 4 quadrants. Soft, nontender, nondistended. : Esqueda in place. Normal external genitalia. Rectal: Deferred. Skin: Warm, dry. Intact. Extremities: 2+ radial pulses bilaterally. No lower extremity edema. Neuro: Sedated. laboratory and microbiology Laboratory Tests 03/05/24 03:00 Test 03/05/24 03:00 Range/Units Serum Glucose 145 H 74-106 mg/dL Assessment/Plan Impression: Acute hypoxic respiratory failure On mechanical ventilator Respiratory distress. CHF exacerbation/Pulmonary edema Nicotine dependence Acute metabolic encephalopathy Septic shock Deep tissue injury to sacrum and bilateral heels COPD, stable Recent history of right hip fracture with right hip arthroplasty Acute kidney injury, vasomotor nephropathy Events: Remains on vent support On AC mode; RR 14, VT 550, PEEP 5, FiO2 30% ABG reviewed, compensated. CXR image and report reviewed. Devices in place. No acute opacities. Mild pulmonary congestion. No significant interval change. Sedated on Versed, Fentanyl On pressors for hemodynamic support Levophed 2 mcg/min Titrate to keep mean arterial pressure greater than 65 mmHg. Improving pressor requirements. V-tach episode, 2 runs on 03/04 Cardiology recs appreciated. WBC trending down, 23.0 K. Tube feeds for nutritional support Continue antibiotics - meropenem Continue bronchodilators for COPD. Stress dose steroids Monitor hemoglobin - 7.2 g/dL. Transfuse if less than 7.0 g/dL. GI prophylaxis Wound care. CPAP with PS 8, PEEP of 5 once awake, alert and following commands. Labs and imaging reviewed. Rest of plan as noted below. Plan: s/p intubation on mechanical ventilator. On AC mode; RR 14, VT 550, PEEP 5, FiO2 30% Titrate FIO2 to keep O2 saturation above 90%. VAP bundle. Daily ABG and CXR while intubated Sedate for ventilator synchrony Continue bronchodilators/Mucomyst. Continue antibiotics. F/u cultures. IV fluids at 100 ml/hr. On pressors for hemodynamic support Titrate to keep mean arterial pressure greater than 65 mmHg. Monitor renal function Monitor electrolytes. Supplement as necessary. Monitor ins and outs. Maintain euvolemia. GI prophylaxis - Protonix. DVT prophylaxis. Prognosis: Poor given patient's multiple co-morbidities. Condition: Critical Rest of plan per hospitalist and other consultants. A total of 35 minutes of critical care time was spent reviewing the patient record, examining the patient, making a diagnostic and therapeutic plan, discussing this plan with the medical personnel, following up on diagnostic studies and following the patient for clinical stability excluding any and all procedures. At least 50% of this time was spent in direct, [id number] contact. Thank you Ned Sapp NP, for allowing me to participate in this patient's care. Further recommendations will depend on the patient's clinical course. Please do not hesitate to contact me if you have any questions or concerns. This medical document was created using an electronic medical record system with [employer] system. Although these documentations are being carefully reviewed, there may still be some phonetic and typographical changes. The errors are purely typographical, due to imperfection on the software program, and do not reflect any compromise in the patient's medical care. Dietary Evaluation Review Comments: No supplement for wounds d/t GERA and kidney function, Encourage and Monitor PO intake, and lab values, FU in 3-5 days Expected Outcomes/Goals: Improved lab values Plan discussed with: Other (RN Agnieszka/RT Rosa) Critical Care Time(min): 35 YARI BILL MD Mar 05, 2024 15:58
--- NOTE | 2024-03-05 16:30 | DVHPN2 ---
Assessment/Plan Assessment/Plan ICU progress note Subjective 78-year-old male admitted with altered mental status, intubated, sedated, hip fracture status post hemiarthroplasty. Patient was seen by me today during rounds Over breathing vent, off sedation 8 hours, no mental status, no response to pain Objective Physical exam Intubated and mechanically ventilated PERRLA No response to pain S1 S2 RRR Mechanical breath sounds Abdomen soft nontender No LE edema Assessment and plan Metabolic encephalopathy secondary to sepsis Septic shock Acute on chronic hypoxic respiratory failure Pneumonia Gram-negative versus Gram-positive Decubitus ulcer COPD exacerbation Hypertension Hyperlipidemia Right hip fracture status post arthroplasty GERA be MN Hypernatremia Continue with vanc and Merrem and micafungin Fall culture Wound care Ipratropium and albuterol nebulizer Maintain map above 75, Levophed if needed Continue with tube feeding Gentle hydration Daily SAT SBT decub ulcer precaution VAP bundle Lines TLC esqueda ETT Maintain potassium of 4, phosphate of 3 and magnesium of 2 Diet TF GI prophylaxis protonix DVT prophylaxis lovenox Condition critical Prognosis poor 60 minutes critical care time spent on this patient including evaluation, chart review, formulating plan and communication with team, excluding any procedures or point of care imaging Plan discussed with: Other Date of Service: Mar 05, 2024 Billing Provider: FINESSE STALLWORTH MD Common Visit Codes: [id number] CARE 30-74 MIN FINESSE STALLWORTH MD Mar 05, 2024 16:30
[2024-03-06] VITALS (108 sets, daily range): BP systolic 94–133; BP diastolic 53–79; PULSE 67–113; RESP 14–36; TEMP 98–98.8; O2SAT 97–100
[2024-03-06 04:11] LABS: Hemoglobin 7.6 g/dL (13.5-17.5); Red Cell Distribution Width 15.9 % (11.8-14.3); White Blood Cell 23.5 10^3/uL (4.4-10.8)
[2024-03-06 04:14] LABS: Hematocrit 23.2 % (41.0-53.0); Mean Corpuscular Hemoglobin 27.1 pg (28.0-32.0); Mean Corpuscular Hgb Conc. 32.7 g/dL (32.0-36.0); Mean Corpuscular Volume 83.1 fL (80.0-100.0); Platelet Count (auto) 384 10^3/uL (140-450); Red Blood Cells 2.79 10^6/uL (4.5-5.90)
[2024-03-06 04:15] LABS: Band Neutrophils % (manual) 0; Basophils % (manual) 0 (0.0-2.0); Blast Cells 0; Eosinophils % (manual) 0 (0-7); Metamyelocytes % 0; Myelocytes % 0; Promyelocytes % 0; Reactive Lymphocytes 0
[2024-03-06 04:20] LABS: Potassium 4.2 mmol/L (3.5-5.1)
[2024-03-06 04:21] LABS: Anion Gap 8 (5-15); Calcium 8.8 mg/dL (8.7-10.4); Carbon Dioxide 24 mmol/L (20-31)
[2024-03-06 04:26] LABS: Blood Urea Nitrogen 27 mg/dL (9-23); Chloride 114 mmol/L (98-107); Glucose 128 mg/dL (74-106); Sodium 146 mmol/L (136-145)
[2024-03-06 04:58] LABS: Lymphocytes % (manual) 7 (10.0-50.0); Monocytes % (manual) 9 (0-12); Platelet Estimate Adequate
--- NOTE | 2024-03-06 05:31 | DVH ---
CHEST RADIOGRAPH Indication: pna Technique: Single frontal view of the chest was obtained Comparison: XY CHEST PORTABLE on DOS: 03/05/24, XY CHEST PORTABLE on DOS: 03/04/24, XY CHEST PORTABLE on DOS: 03/03/24 IMPRESSION: The enteric tube tip is within the expected location of the gastric fundus, however side hole is at t he gastroesophageal junction and advancement of approximately 7 cm is recommended for ideal positioni ng. The heart is prominent in size. Support lines and tubes appear unchanged. Patchy increased airspace opacity in the left lung base appear similar. No sizable effusion or pneumothorax.
[2024-03-06 07:17] LABS: Base Excess -0.9 mmol/L (-2.0-3.0)
--- NOTE | 2024-03-06 10:34 | DVHPN2 ---
Assessment/Plan Assessment/Plan ICU progress note Subjective 78-year-old male admitted with altered mental status, intubated, sedated, hip fracture status post hemiarthroplasty. Patient was seen by me today during rounds following commands, pain management, lots of secretion, add mucormist, CPAP attempt if secretion improves Objective Physical exam Intubated and mechanically ventilated PERRLA follows command S1 S2 RRR Mechanical breath sounds Abdomen soft nontender No LE edema Assessment and plan Metabolic encephalopathy secondary to sepsis Septic shock Acute on chronic hypoxic respiratory failure Pneumonia Gram-negative versus Gram-positive Decubitus ulcer COPD exacerbation Hypertension Hyperlipidemia Right hip fracture status post arthroplasty GERA be MN Hypernatremia Continue with vanc and Merrem and micafungin follow culture Wound care Ipratropium and albuterol nebulizer Maintain map above 75, Levophed if needed Continue with tube feeding Gentle hydration Daily SAT SBT decub ulcer precaution VAP bundle pain management Lines TLC esqueda ETT Maintain potassium of 4, phosphate of 3 and magnesium of 2 Diet TF GI prophylaxis protonix DVT prophylaxis lovenox Condition critical Prognosis poor 77 minutes critical care time spent on this patient including evaluation, chart review, formulating plan and communication with team, excluding any procedures or point of care imaging Plan discussed with: Patient My Orders Orders - FINESSE STALLWORTH MD Procedure Category Date Status Time Morphine Sulfate PHA 03/06/24 In Process Injection 09:45 Acetaminophen Iv PHA 03/06/24 In Process (Ofirmev) 14:00 Acetylcysteine PHA 03/06/24 In Process Inhalation 20% 14:00 Date of Service: Mar 06, 2024 Billing Provider: FINESSE STALLWORTH MD Common Visit Codes: [id number] CARE 30-74 MIN, [id number] CARE-EACH +30MIN FINESSE STALLWORTH MD Mar 06, 2024 10:34
--- NOTE | 2024-03-06 10:46 | DVHPN2 ---
Consult Progress Note Subjective Other Systems: intubated Objective vital signs Vital Sign Date Time Temp Pulse Resp B/P (MAP) Pulse Ox O2 Delivery O2 Flow Rate FiO2 03/06/24 09:31 100 29 128/73 (91) 100 30 03/06/24 06:00 Mechanical Ventilator+ 03/06/24 04:15 98.3 98.3 Total Intake and Output 03/05/24 03/05/24 03/06/24 15:00 23:00 07:00 Intake Total 147.000 ml 717 ml 47 ml Output Total 650 ml 650 ml Balance 147.000 ml 67 ml -603 ml medications Current Medications Medications Dose Ordered Sig/Jordon Route Start Time Stop Time Status Last Admin Dose Admin Morphine Sulfate 2 mg Q30M PRN IV 03/01/24 02:00 Nitroglycerin 0.4 mg Q5MINP PRN SL 03/01/24 02:00 Pantoprazole Sodium 40 mg DAILY IV 03/01/24 06:00 03/05/24 10:05 40 MG Vancomycin HCl 0 ml @ 0 mls/hr UD IV 03/01/24 05:30 Albuterol 2.5 mg Q4HR NEB 03/01/24 10:00 03/06/24 09:31 2.5 MG Ipratropium [place] 0.5 mg Q4HR NEB 03/01/24 10:00 03/06/24 09:31 0.5 MG Vancomycin HCl 0 ml @ 0 mls/hr UD IV 03/01/24 02:15 UNV Hydrocortisone Sodium Succinate 50 mg Q12HR IV 03/01/24 22:00 03/05/24 21:30 50 MG Norepinephrine Bitartrate 16 mg/ Sodium Chloride 250 ml @ 1.875 mls/ hr Q24H IV 03/01/24 13:30 03/04/24 14:31 1.875 MLS/HR Midazolam HCl 50 ml @ 1 mls/hr Q24H IV 03/02/24 01:30 03/05/24 05:53 8 MLS/HR Enteral Nutritional Formula 1,000 ml 30ML/HR GT 03/02/24 15:45 03/04/24 10:49 1,000 ML Purified Water 200 ml Q6HR GT 03/02/24 18:00 03/05/24 06:00 200 ML Fentanyl Citrate 250 ml @ 2.5 mls/hr Q24H IV 03/03/24 01:15 03/04/24 07:50 7.5 MLS/HR Meropenem 50 ml @ 17 mls/hr Q8HR IV 03/03/24 14:00 03/06/24 06:00 17 MLS/HR Micafungin Sodium 100 mg/Sodium Chloride 100 ml @ 100 mls/hr DAILY IV 03/04/24 10:00 03/05/24 10:05 100 MLS/HR Vancomycin HCl 250 ml @ 250 mls/hr Q18H IV 03/04/24 10:00 03/05/24 22:00 250 MLS/HR Docusate Sodium 100 mg BID GT 03/04/24 22:00 03/05/24 21:30 100 MG Dexmedetomidine HCl 400 mcg/ Dextrose 100 ml @ 3.785 mls/ hr Q24H IV 03/05/24 20:00 Morphine Sulfate 4 mg Q6HPRN PRN IV 03/06/24 09:45 Acetaminophen 1,000 mg Q8HR IV 03/06/24 14:00 Acetylcysteine 200 mg Q4HR NEB 03/06/24 14:00 Examination: CVS:Abnormal (irregular rate. ) laboratory and microbiology Laboratory Tests 03/06/24 03:00 Test 03/06/24 03:00 Range/Units Serum Glucose 128 H 74-106 mg/dL Problem List/Assessment/Plan Problem List/Assessment/Plan Assessment Nonsustained ventricular tachycardia Sepsis Hypertension Dyslipidemia Acute kidney injury COPD Plan/Recommendation We will continue with the following plan/recommendations (Dr. Villalobos): Echocardiogram from 02/03/2024 reveals an EF of 55%. Repeat echo notes mildly reduced LVEF of 45%. Inferior posterolateral wall hypokinesia. Monitoring of the reduced RV systolic function. Negative troponins this admission. Avoid QT prolonging medications. Monitoring replace electrolytes, keeping potassium greater than four and magnesium greater than two. Continue telemetry monitoring. No overnight episodes of arrhythmias noted on review. May start metoprolol low-dose if BP allows. At this time we will continue with conservative medical management. Thank you for allowing us to care for this patient. Please call with any questions or concerns. Critical care time spent: 40 minutes This medical document was created using an electronic medical record system with voice recognition software and computerized dictation system. Although this document has been carefully reviewed, there might still be some phonetic and typographical errors. Occasional wrong-word or ``sound-alike substitutions may have occurred due to the inherent limitations of voice recognition software. These areas are purely typographical due to imperfections of the software programs and do not reflect any compromise in the patient's medical care. Please read the chart carefully and recognize, using context, where these substitutions have occurred. Plan discussed with: Other (Bedside RN) Dietary Evaluation Review Comments: No supplement for wounds d/t GERA and kidney function, Encourage and Monitor PO intake, and lab values, FU in 3-5 days Expected Outcomes/Goals: Improved lab values Date of Service: Mar 06, 2024 Billing Provider: JULIETA VILLALOBOS MD Common Visit Codes: [id number] INP/OBS CARE(HIGH), [id number] CARE 30-74 MIN ELI CARO [facility] Mar 06, 2024 10:46
[2024-03-06] MEDS: MORPHINE SULFATE 4 MG/ML SYR/VIAL IV PRN (11:44)
[2024-03-06] MEDS: ACETAMINOPHEN IV 1000 MG/100ML (10MG/ML) IV SCH (13:52)
[2024-03-06] MEDS: ACETYLCYSTEINE 20%(200MG/ML) SOL 4ML NEB SCH (14:03)
[2024-03-07] VITALS (110 sets, daily range): BP systolic 103–129; BP diastolic 54–78; PULSE 70–110; RESP 11–29; TEMP 96.3–98.3; O2SAT 75–100
--- NOTE | 2024-03-07 00:19 | DVHPN ---
DATE: 03/06/2024 PULMONARY FOLLOWUP PRIMARY PHYSICIAN: Dr. Tolbert. I am covering for Dr. Weir. SUBJECTIVE: The patient's past medical history, medications were noted. Course in the hospital was reviewed. The patient is still having significant secretions per bedside RN, which are cueva in color. He is not running any fevers. The patient is hemodynamically stable. The patient is currently on no sedation, but p.r.n. morphine has been added this morning. PHYSICAL EXAMINATION: VITAL SIGNS: Stable. Heart rate was 96, respiratory rate was 23, blood pressure 116/70, saturations are 99-100% on 30% FiO2. HEENT: Unremarkable. The patient appears to have good patient ventilator synchrony. NECK: Supple. No JVD. CHEST: Reveals diminished air entry on both bases. There is also prolonged exhalation. There are a few rales noted on the left side. ABDOMEN: Soft, nontender. Bowel sounds are normal. EXTREMITIES: No edema or clubbing was noted. NEUROLOGIC: Neurologically sedated and nonresponsive. LABORATORY DATA: Other lab work was reviewed. Hematocrit 23. It is relatively stable over the last few days. Platelet count is 384, 84% neutrophils. Blood gases this morning revealed pH 7.51, pCO2 28, pO2 92, bicarbonate was 22, saturations of 96%. The patient is on assist control, tidal volume 550, rate of 14, PEEP of 5 and 30% FiO2. Other lab work, sodium 146, chloride is 114, glucose 128. Others were noted. Cultures: One of the sputum cultures have grown yeast, not Monserrat albicans. Others have all been unremarkable. Chest x-ray done has shown endotracheal tube in place. There is a patchy increased opacity in the left lung. The patient's CT done on 03/03 was reviewed. There is patchy opacity on the right side, also a biliary stent in place in the abdominal CT and right hip arthroplasty. ASSESSMENT AND PLAN: The patient's assessment and plan includes septic shock, acute respiratory failure, pneumonia. Also, has a history of chronic obstructive pulmonary disease, underlying in the setting of hypertension, dyslipidemia, right hip arthroplasty. Plan at this time is to continue current. We will decrease the tidal volume to 500. The patient is slightly alkalotic. Continue med nebs. The patient is also on acetylcysteine because of increased secretion. The patient has been placed on micafungin. The patient also remains on meropenem. Protonix for gastrointestinal prophylaxis. Rest of the medical management per response and course in hospital. Plan discussed with bedside RN. Critical time 33 minutes. MD MONA Bedoya/WILFRED/CHERISE TID: [id number] RECEIPT: [id number]
[2024-03-07 03:29] LABS: Hemoglobin 7.8 g/dL (13.5-17.5)
[2024-03-07 03:31] LABS: Hematocrit 23.9 % (41.0-53.0); Mean Corpuscular Hemoglobin 27.6 pg (28.0-32.0); Mean Corpuscular Hgb Conc. 32.6 g/dL (32.0-36.0); Mean Corpuscular Volume 84.7 fL (80.0-100.0); Platelet Count (auto) 400 10^3/uL (140-450); Red Blood Cells 2.82 10^6/uL (4.5-5.90); Red Cell Distribution Width 15.9 % (11.8-14.3); White Blood Cell 29.6 10^3/uL (4.4-10.8)
[2024-03-07 03:34] LABS: Band Neutrophils % (manual) 0; Basophils % (manual) 0 (0.0-2.0); Blast Cells 0; Eosinophils % (manual) 0 (0-7); Metamyelocytes % 0; Myelocytes % 0; Potassium 4.2 mmol/L (3.5-5.1); Promyelocytes % 0; Reactive Lymphocytes 0
[2024-03-07 03:35] LABS: Anion Gap 8 (5-15); Carbon Dioxide 26 mmol/L (20-31)
[2024-03-07 03:40] LABS: BUN/Creatinine Ratio 36.4 (10.0-20.0)
[2024-03-07 03:43] LABS: Alanine Aminotransferase 22 U/L (7-40); Alkaline Phosphatase 96 U/L (46-116); Anion Gap 7 (5-15); Aspartate Aminotransferase 32 U/L (13-40); BUN/Creatinine Ratio 34.3 (10.0-20.0); Blood Urea Nitrogen 24 mg/dL (9-23); Calcium 8.7 mg/dL (8.7-10.4); Calcium 8.8 mg/dL (8.7-10.4); Carbon Dioxide 26 mmol/L (20-31); Chloride 114 mmol/L (98-107); Glucose 135 mg/dL (74-106); Magnesium 2.2 mg/dL (1.6-2.6); Potassium 4.2 mmol/L (3.5-5.1); Sodium 148 mmol/L (136-145)
[2024-03-07 03:44] LABS: Albumin 2.7 g/dL (3.2-4.8); Bilirubin, Total 0.5 mg/dL (0.2-1.0); Blood Urea Nitrogen 24 mg/dL (9-23); Chloride 114 mmol/L (98-107); Glucose 135 mg/dL (74-106); Phosphorus 2.4 mg/dL (2.4-5.1); Sodium 147 mmol/L (136-145); Total Protein 5.9 g/dL (5.7-8.2)
[2024-03-07 04:23] LABS: Lymphocytes % (manual) 5 (10.0-50.0); Monocytes % (manual) 9 (0-12); Platelet Estimate Adequate
--- NOTE | 2024-03-07 06:11 | DVH ---
CHEST RADIOGRAPH Indication: pna Technique: Single frontal view of the chest was obtained Comparison: XY CHEST PORTABLE on DOS: 03/06/24, XY CHEST PORTABLE on DOS: 03/05/24, XY CHEST PORTABLE on DOS: 03/04/24 IMPRESSION: The heart is prominent size. There is likely a small left pleural effusion. Moderate pulmonary vascu lar congestion, increased. Support lines and tubes appear unchanged.
--- NOTE | 2024-03-07 08:55 | DVHPN2 ---
Assessment/Plan Assessment/Plan ICU progress note Subjective 78-year-old male admitted with altered mental status, intubated, sedated, hip fracture status post hemiarthroplasty. Patient was seen by me today during rounds fentanyl overnight, response more blunted then yesterday, will adjust pain management and decrease sedation to precedex and PRN versed. pulling high tidal volume on spont. c/w daily SAT SBT Objective Physical exam Intubated and mechanically ventilated PERRLA follows command S1 S2 RRR Mechanical breath sounds Abdomen soft nontender No LE edema POCUS done cardiac: dilated chambers, no pericardial effusion, IVC plethoric lungs: positive sliding, some b lines Assessment and plan Metabolic encephalopathy secondary to sepsis Septic shock Acute on chronic hypoxic respiratory failure Pneumonia Gram-negative versus Gram-positive Decubitus ulcer COPD exacerbation Hypertension Hyperlipidemia Right hip fracture status post arthroplasty GERA be [place] Hypernatremia Continue with vanc and Merrem and micafungin follow culture Wound care Ipratropium and albuterol nebulizer Maintain map above 75, Levophed if needed Continue with tube feeding lasix for net -500 to 1L Daily SAT SBT decub ulcer precaution VAP bundle pain management Lines TLC esqueda ETT Maintain potassium of 4, phosphate of 3 and magnesium of 2 Diet TF GI prophylaxis protonix DVT prophylaxis lovenox Condition critical Prognosis poor 65 minutes critical care time spent on this patient including evaluation, chart review, formulating plan and communication with team, excluding any procedures or point of care imaging Plan discussed with: Patient My Orders Orders - FINESSE STALLWORTH MD Procedure Category Date Status Time Morphine Sulfate PHA 03/06/24 In Process Injection 09:45 Acetaminophen Iv PHA 03/06/24 In Process (Ofirmev) 14:00 Acetylcysteine PHA 03/06/24 In Process Inhalation 20% 14:00 Abg W/ Co-Ox RT 03/07/24 Logged 06:00 Morphine Extended PHA 03/07/24 Transmitted Release Tab (Oramorph 14:00 Ketorolac Injection PHA 03/07/24 Transmitted (Toradol Injection) 12:00 Date of Service: Mar 07, 2024 Billing Provider: FINESSE STALLWORTH MD Common Visit Codes: [id number] CARE 30-74 MIN FINESSE STALLWORTH MD Mar 07, 2024 08:55
[2024-03-07] MEDS ORDERED: HYDROmorphone HCL 2 MG/ML VL/or syr IV PRN (09:00)
[2024-03-07 09:08] LABS: Base Excess 0.4 mmol/L (-2.0-3.0)
[2024-03-07] MEDS ORDERED: SODIUM PHOSPHATES 20 MEQ in SODIUM CHL 0.9% 100 ML IV ONE (09:15)
[2024-03-07] MEDS: FREE WATER GT SCH (09:46)
[2024-03-07] MEDS: FUROSEMIDE 40 MG/4 ML VIAL IV SCH (10:43)
[2024-03-07] MEDS: KETOROLAC TROMETH 30 MG/ML 1ML VIAL IV SCH (12:26)
[2024-03-07] MEDS: fentaNYL Drip 2500mCg/250mlNS 250 ML IV SCH (12:40)
--- NOTE | 2024-03-07 12:41 | DVHPN2 ---
Consult Progress Note Subjective Other Systems: Intubated and sedated Objective vital signs Vital Sign Date Time Temp Pulse Resp B/P (MAP) Pulse Ox O2 Delivery O2 Flow Rate FiO2 03/07/24 12:30 111/64 03/07/24 11:31 84 20 99 30 03/07/24 05:54 Mechanical Ventilator+ 03/07/24 04:00 96.3 96.3 Total Intake and Output 03/06/24 03/06/24 03/07/24 15:00 23:00 07:00 Intake Total 100 ml 1188.7020 ml 695.0 ml Output Total 800 ml 400 ml Balance 100 ml 388.7020 ml 295.0 ml medications Current Medications Medications Dose Ordered Sig/Jordon Route Start Time Stop Time Status Last Admin Dose Admin Pantoprazole Sodium 40 mg DAILY IV 03/01/24 06:00 03/07/24 10:43 40 MG Vancomycin HCl 0 ml @ 0 mls/hr UD IV 03/01/24 05:30 Albuterol 2.5 mg Q4HR NEB 03/01/24 10:00 03/07/24 10:05 2.5 MG Ipratropium [place] 0.5 mg Q4HR NEB 03/01/24 10:00 03/07/24 10:05 0.5 MG Vancomycin HCl 0 ml @ 0 mls/hr UD IV 03/01/24 02:15 UNV Enteral Nutritional Formula 1,000 ml 30ML/HR GT 03/02/24 15:45 03/06/24 13:49 1,000 ML Meropenem 50 ml @ 17 mls/hr Q8HR IV 03/03/24 14:00 03/07/24 05:13 17 MLS/HR Micafungin Sodium 100 mg/Sodium Chloride 100 ml @ 100 mls/hr DAILY IV 03/04/24 10:00 03/06/24 11:00 100 MLS/HR Vancomycin HCl 250 ml @ 250 mls/hr Q18H IV 03/04/24 10:00 03/07/24 10:43 250 MLS/HR Dexmedetomidine HCl 400 mcg/ Dextrose 100 ml @ 3.785 mls/ hr Q24H IV 03/05/24 20:00 03/06/24 15:29 3.785 MLS/HR Acetaminophen 1,000 mg Q8HR IV 03/06/24 14:00 03/07/24 05:13 1,000 MG Acetylcysteine 200 mg Q4HR NEB 03/06/24 14:00 03/07/24 10:05 200 MG Furosemide 40 mg DAILY IV 03/07/24 10:00 03/07/24 10:43 40 MG Ketorolac Tromethamine 15 mg Q6HR IV 03/07/24 12:00 03/10/24 11:59 03/07/24 12:26 15 MG Hydromorphone HCl 2 mg Q4HPRN PRN IV 03/07/24 09:00 Purified Water 200 ml Q4HR GT 03/07/24 10:00 03/07/24 10:50 200 ML Fentanyl Citrate 250 ml @ 2.5 mls/hr Q24H IV 03/07/24 11:45 Examination: LUNGS:Abnormal (Rales/rhonchi. Intubated. FiO2 30%.), CVS:Normal (Telemetry reviewed, consistent with sinus rhythm at 85 beats per minute.), NEURO:Abnormal (Sedated) laboratory and microbiology Laboratory Tests 03/07/24 03:08 Test 03/07/24 03:08 Range/Units Serum Glucose 135 H 74-106 mg/dL Problem List/Assessment/Plan Problem List/Assessment/Plan Assessment Nonsustained ventricular tachycardia Sepsis Hypertension Dyslipidemia Acute kidney injury COPD Plan/Recommendation We will continue with the following plan/recommendations (Dr. Villalobos): Echocardiogram from 02/03/2024 reveals an EF of 55%. Repeat echo notes mildly reduced LVEF of 45%. Inferior posterolateral wall hypokinesia. Monitoring of the reduced RV systolic function. Negative troponins this admission. Avoid QT prolonging medications. Monitor and replace electrolytes, keeping potassium greater than four and magnesium greater than two. Continue telemetry monitoring. No overnight episodes of arrhythmias noted on review. May start metoprolol low-dose if BP allows. CXR this morning showing small left pleural effusion with increased moderate pulmonary vascular congestion, diuresis with Lasix. At this time we will continue with conservative medical management. Thank you for allowing us to care for this patient. Please call with any questions or concerns. Critical care time spent: 40 minutes This medical document was created using an electronic medical record system with voice recognition software and computerized dictation system. Although this document has been carefully reviewed, there might still be some phonetic and typographical errors. Occasional wrong-word or ``sound-alike substitutions may have occurred due to the inherent limitations of voice recognition software. These areas are purely typographical due to imperfections of the software programs and do not reflect any compromise in the patient's medical care. Please read the chart carefully and recognize, using context, where these substitutions have occurred. Plan discussed with: Other (Bedside RN) Dietary Evaluation Review Comments: No supplement for wounds d/t GERA and kidney function, Encourage and Monitor PO intake, and lab values, FU in 3-5 days Expected Outcomes/Goals: Improved lab values Date of Service: Mar 07, 2024 Billing Provider: JULIETA VILLALOBOS MD Common Visit Codes: [id number] INP/OBS CARE(HIGH), [id number] CARE 30-74 MIN ELI CARO [facility] Mar 07, 2024 12:41
[2024-03-07] MEDS: FUROSEMIDE 20 MG/2 ML VIAL ONE (12:44)
[2024-03-07] MEDS ORDERED: MORPHINE SULF 15mg ER tab PO SCH (14:00)
--- NOTE | 2024-03-07 20:13 | DVHPN ---
DATE: 03/07/2024 PULMONARY FOLLOWUP PRIMARY PHYSICIAN: Dr. Tolbert The patient is currently stable, secretions have decreased. The patient apparently is having pain in the right hip where he had a history of arthroplasty per bedside RN, the patient appears to get agitated on movement with wincing as well as increased respiratory rate and tachycardia. The patient appears to be currently stable. The patient has received Lasix with some improvement in urine output. The patient is not requiring any hemodynamic support. PHYSICAL EXAMINATION: VITAL SIGNS: Reveals T max of 98.3, heart rate 90, respiratory rate 20, blood pressure 120/60, saturations 99-100% on 30% FIO2. NECK: Supple. No JVD. CHEST: Reveals bibasilar rales. Diminished air entry on the right base. No wheezing. ABDOMEN: Soft and nontender. Bowel sounds normal. EXTREMITIES: No edema or clubbing. COR: S1, S2. No murmurs. LAB WORK: Chest x-ray shows a small left pleural effusion, pulmonary venous congestion, slightly increased from yesterday. WBC 29, hemoglobin 7.8, hematocrit 24, platelet count 400, 86% neutrophils. Blood gases, pH 7.49, pCO2 31, pO2 102, saturations were 97% on assist control, tidal volume 500, rate of 14, peep of 5, 30% FIO2. Serum chemistries, sodium 147, chloride 114, BUN 24, others were noted. Cultures reviewed, no new changes. IMPRESSION: Acute respiratory failure, possible fluid overload. Also, has increased secretions, sepsis, pneumonia. Underlying chronic obstructive pulmonary disease, hypertension, right hip arthroplasty. At this time, I would continue fentanyl. The patient appears to be possible to wean in the morning. I will recommend discontinuing sedation and putting on a CPAP with a pressure support of 8, peep of 5 and 30% FIO2. Wait for one hour if the patient tolerates, then get a weaning parameter and blood gas and depending on the weaning parameters proceed accordingly. Continue Protonix for GI prophylaxis. Continue med nebs. The patient is on meropenem and micafungin. The patient remains on acetylcysteine. The patient was given Lasix. Follow BUN, creatinine, electrolytes as the patient is slightly hyponatremic. Ventilator settings are adequate. Prognosis is guarded. Plan discussed with bedside RN. Critical time 34 minutes. Nic Caldwell MD /BASILIO TID: [id number] RECEIPT: [id number]
[2024-03-08] VITALS (108 sets, daily range): BP systolic 87–130; BP diastolic 32–80; PULSE 83–134; RESP 10–37; TEMP 97.8–99; O2SAT 97–100
[2024-03-08 03:53] LABS: Hematocrit 23.9 % (41.0-53.0); Hemoglobin 7.7 g/dL (13.5-17.5); Mean Corpuscular Hemoglobin 26.7 pg (28.0-32.0); Mean Corpuscular Volume 83.4 fL (80.0-100.0); Platelet Count (auto) 385 10^3/uL (140-450); Red Blood Cells 2.87 10^6/uL (4.5-5.90); Red Cell Distribution Width 15.8 % (11.8-14.3); White Blood Cell 27.2 10^3/uL (4.4-10.8)
[2024-03-08 03:58] LABS: Basophils % (manual) 0 (0.0-2.0); Blast Cells 0; Metamyelocytes % 0; Myelocytes % 0; Promyelocytes % 0; Reactive Lymphocytes 0
[2024-03-08 04:35] LABS: Band Neutrophils % (manual) 1; Eosinophils % (manual) 2 (0-7); Lymphocytes % (manual) 9 (10.0-50.0); Monocytes % (manual) 4 (0-12)
[2024-03-08 04:36] LABS: Platelet Estimate Adequate
[2024-03-08 06:07] LABS: Alanine Aminotransferase 18 U/L (7-40); Alkaline Phosphatase 93 U/L (46-116); Anion Gap 6 (5-15); Aspartate Aminotransferase 29 U/L (13-40); Bilirubin, Total 0.4 mg/dL (0.2-1.0); Carbon Dioxide 27 mmol/L (20-31); Glucose 90 mg/dL (74-106); Potassium 3.6 mmol/L (3.5-5.1); Sodium 145 mmol/L (136-145)
[2024-03-08 06:22] LABS: Albumin 2.5 g/dL (3.2-4.8); Blood Urea Nitrogen 23 mg/dL (9-23); Calcium 8.4 mg/dL (8.7-10.4); Chloride 112 mmol/L (98-107); Total Protein 5.5 g/dL (5.7-8.2)
[2024-03-08 07:20] LABS: Base Excess 0.4 mmol/L (-2.0-3.0)
--- NOTE | 2024-03-08 08:51 | DVHPN2 ---
Consult Progress Note Date Seen: Mar 08, 2024 Subjective Other Systems: No overnight cardiac events reported Objective vital signs Vital Sign Date Time Temp Pulse Resp B/P (MAP) Pulse Ox O2 Delivery O2 Flow Rate FiO2 03/08/24 06:45 93 13 96/58 (71) 98 03/08/24 06:00 30 03/08/24 06:00 Mechanical Ventilator+ 03/08/24 04:00 97.8 97.8 Total Intake and Output 03/07/24 03/07/24 03/08/24 15:00 23:00 07:00 Intake Total 710.0 ml 947.75 ml 1059.5 ml Output Total 1350 ml 550 ml Balance 710.0 ml -402.25 ml 509.5 ml medications Current Medications Medications Dose Ordered Sig/Jordon Route Start Time Stop Time Status Last Admin Dose Admin Pantoprazole Sodium 40 mg DAILY IV 03/01/24 06:00 03/07/24 10:43 40 MG Vancomycin HCl 0 ml @ 0 mls/hr UD IV 03/01/24 05:30 Albuterol 2.5 mg Q4HR NEB 03/01/24 10:00 03/08/24 05:52 2.5 MG Ipratropium [place] 0.5 mg Q4HR NEB 03/01/24 10:00 03/08/24 05:52 0.5 MG Vancomycin HCl 0 ml @ 0 mls/hr UD IV 03/01/24 02:15 UNV Enteral Nutritional Formula 1,000 ml 30ML/HR GT 03/02/24 15:45 03/06/24 13:49 1,000 ML Meropenem 50 ml @ 17 mls/hr Q8HR IV 03/03/24 14:00 03/08/24 05:39 17 MLS/HR Micafungin Sodium 100 mg/Sodium Chloride 100 ml @ 100 mls/hr DAILY IV 03/04/24 10:00 03/07/24 12:41 100 MLS/HR Vancomycin HCl 250 ml @ 250 mls/hr Q18H IV 03/04/24 10:00 03/08/24 04:05 250 MLS/HR Dexmedetomidine HCl 400 mcg/ Dextrose 100 ml @ 3.785 mls/ hr Q24H IV 03/05/24 20:00 03/06/24 15:29 3.785 MLS/HR Acetaminophen 1,000 mg Q8HR IV 03/06/24 14:00 03/08/24 05:38 1,000 MG Acetylcysteine 200 mg Q4HR NEB 03/06/24 14:00 03/08/24 05:52 200 MG Furosemide 40 mg DAILY IV 03/07/24 10:00 03/07/24 10:43 40 MG Ketorolac Tromethamine 15 mg Q6HR IV 03/07/24 12:00 03/10/24 11:59 03/08/24 05:39 15 MG Hydromorphone HCl 2 mg Q4HPRN PRN IV 03/07/24 09:00 Purified Water 200 ml Q4HR GT 03/07/24 10:00 03/08/24 06:29 200 ML Fentanyl Citrate 250 ml @ 2.5 mls/hr Q24H IV 03/07/24 11:45 03/07/24 12:40 10 MLS/HR Examination: GENERAL:Abnormal, LUNGS:Abnormal (Mechanically ventilated 30% FiO2, PEEP 5.0), CVS:Abnormal (A-fib 100s bpm, new onset), NEURO:Normal (Off sedation, able to follow simple commands) laboratory and microbiology Laboratory Tests 03/08/24 03:13 Test 03/08/24 03:13 Range/Units Serum Glucose 90 74-106 mg/dL Problem List/Assessment/Plan Problem List/Assessment/Plan Sepsis Atrial fibrillation with rapid ventricular rate, Stage III, newly diagnosed 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 Villalobos) Echocardiogram from 02/03/2024 reveals an EF of 55%. Repeat echo notes mildly reduced LVEF of 45%. Inferior posterolateral wall hypokinesia. Initiate antiarrhythmic, amiodarone drip per pharmacy protocol. Monitor QTc closely. [id number] Score 4, HAS-BLED Score 2. Hold AC therapy given downtrending H&H. Obtain T&S and FOBT. Continue SCDs. Monitor and replace electrolytes, keeping K>4 and Mg>2. Continue telemetry monitoring. Initiate metoprolol low-dose when BP permits. Continue preload reduction. At this time we will continue with conservative medical management. Thank you for allowing us to care for this patient. Please call with any questions or concerns. Critical care time spent: 40 minutes Critical care time: 35 min. This medical document was created using an electronic medical record system with voice recognition software and computerized dictation system. Although this document has been carefully reviewed, there might still be some phonetic and typographical errors. Occasional wrong-word or ``sound-alike substitutions may have occurred due to the inherent limitations of voice recognition software. These areas are purely typographical due to imperfections of the software programs and do not reflect any compromise in the patient's medical care. Please read the chart carefully and recognize, using context, where these substitutions have occurred. Plan discussed with: Patient, Other Dietary Evaluation Review Comments: No supplement for wounds d/t GERA and kidney function, Encourage and Monitor PO intake, and lab values, FU in 3-5 days Expected Outcomes/Goals: Improved lab values Date of Service: Mar 08, 2024 Billing Provider: JULIETA VILLALOBOS MD Cardiology Common Codes: [id number] CARE 30-74 MIN TONO GARCIA [facility] Mar 08, 2024 08:51
[2024-03-08] MEDS: AMIODARONE BOLUS KIT 100 ML IV ONE (09:38)
[2024-03-08] MEDS: POTASSIUM CHLORIDE 40 MEQ, LIDOCAINE 1% (LOCAL ANESTH.) 4 ML in SODIUM CHL 0.9% 250 ML IV ONE (10:18)
[2024-03-08] MEDS: AMIODARONE 450mg/250ml AE 250 ML IV SCH ×2 (10:19→15:00)
[2024-03-08 10:37] LABS: INR 1.09 (0.9-1.15); Partial Thromboplastin Time 32.5 SEC (24.5-34.5); Prothrombin Time 11.5 sec (9.3-11.8)
--- NOTE | 2024-03-08 15:02 | DVHPN2 ---
Assessment/Plan Assessment/Plan ICU progress note Subjective 78-year-old male admitted with altered mental status, intubated, sedated, hip fracture status post hemiarthroplasty. Patient was seen by me today during rounds follows command however lethargic, CPAP trial parameters met. will continue, discussed with pulm possible extubatino Objective Physical exam Intubated and mechanically ventilated PERRLA follows command S1 S2 RRR Mechanical breath sounds Abdomen soft nontender No LE edema POCUS done cardiac: dilated chambers, no pericardial effusion, IVC plethoric lungs: positive sliding, some b lines Assessment and plan Metabolic encephalopathy secondary to sepsis Septic shock Acute on chronic hypoxic respiratory failure Pneumonia Gram-negative versus Gram-positive Decubitus ulcer COPD exacerbation Hypertension Hyperlipidemia Right hip fracture status post arthroplasty GERA be [place] Hypernatremia michael Continue with vanc and Merrem and micafungin follow culture Wound care Ipratropium and albuterol nebulizer Maintain map above 75, Levophed if needed Continue with tube feeding lasix for net -500 to 1L Daily SAT SBT decub ulcer precaution VAP bundle pain management on amio drip Lines TLC esqueda ETT Maintain potassium of 4, phosphate of 3 and magnesium of 2 Diet TF GI prophylaxis protonix DVT prophylaxis SCD Condition critical Prognosis poor 76 minutes critical care time spent on this patient including evaluation, chart review, formulating plan and communication with team, excluding any procedures or point of care imaging Plan discussed with: Patient Date of Service: Mar 08, 2024 Billing Provider: FINESSE STALLWORTH MD Common Visit Codes: [id number] CARE 30-74 MIN FINESSE STALLWORTH MD Mar 08, 2024 15:02
--- NOTE | 2024-03-08 19:09 | DVHPN2 ---
Progress Note - Dictate Date Seen: Mar 08, 2024 Medical Necessity Reason Pt with a Central, PICC or Fol: Yes The following are medically ne: Esqueda Catheter Reason for esqueda catheter: Strict I&O Subjective Patient seen and examined at bedside. Sedated, intubated on mechanical ventilator. Overnight events reviewed. vital signs Vital Sign Date Time Temp Pulse Resp B/P (MAP) Pulse Ox O2 Delivery O2 Flow Rate FiO2 03/08/24 18:45 96 21 122/73 (89) 100 03/08/24 18:11 30 03/08/24 18:00 Mechanical Ventilator+ 03/08/24 16:00 98.1 98.1 Total Intake and Output 03/07/24 03/07/24 03/08/24 15:00 23:00 07:00 Intake Total 710.0 ml 947.75 ml 1086.5 ml Output Total 1350 ml 550 ml Balance 710.0 ml -402.25 ml 536.5 ml medications Current Medications Medications Dose Ordered Sig/Jordon Route Start Time Stop Time Status Last Admin Dose Admin Pantoprazole Sodium 40 mg DAILY IV 03/01/24 06:00 03/08/24 09:40 40 MG Albuterol 2.5 mg Q4HR NEB 03/01/24 10:00 03/08/24 18:11 2.5 MG Ipratropium [place] 0.5 mg Q4HR NEB 03/01/24 10:00 03/08/24 18:11 0.5 MG Vancomycin HCl 0 ml @ 0 mls/hr UD IV 03/01/24 02:15 UNV Enteral Nutritional Formula 1,000 ml 30ML/HR GT 03/02/24 15:45 03/06/24 13:49 1,000 ML Meropenem 50 ml @ 17 mls/hr Q8HR IV 03/03/24 14:00 03/08/24 17:04 17 MLS/HR Micafungin Sodium 100 mg/Sodium Chloride 100 ml @ 100 mls/hr DAILY IV 03/04/24 10:00 03/08/24 09:50 100 MLS/HR Dexmedetomidine HCl 400 mcg/ Dextrose 100 ml @ 3.785 mls/ hr Q24H IV 03/05/24 20:00 03/06/24 15:29 3.785 MLS/HR Acetaminophen 1,000 mg Q8HR IV 03/06/24 14:00 03/08/24 17:05 1,000 MG Acetylcysteine 200 mg Q4HR NEB 03/06/24 14:00 03/08/24 18:11 200 MG Furosemide 40 mg DAILY IV 03/07/24 10:00 03/08/24 09:40 40 MG Ketorolac Tromethamine 15 mg Q6HR IV 03/07/24 12:00 03/10/24 11:59 03/08/24 18:40 15 MG Hydromorphone HCl 2 mg Q4HPRN PRN IV 03/07/24 09:00 Purified Water 200 ml Q4HR GT 03/07/24 10:00 03/08/24 17:05 200 ML Fentanyl Citrate 250 ml @ 2.5 mls/hr Q24H IV 03/07/24 11:45 03/08/24 09:04 2.5 MLS/HR Amiodarone HCl 250 ml @ 16.667 mls/ hr Q15H IV 03/08/24 15:00 03/08/24 17:53 16.667 MLS/HR Linezolid 300 ml @ 150 mls/hr Q12HR IV 03/08/24 22:00 objective Gen.: Patient lying in bed in medical ICU. Sedated, intubated on mechanical ventilator. Head: Normocephalic, atraumatic. Eyes: PERRLA. Ears: Normal external anatomy. Throat: Endotracheal tube and orogastric tube in place. Neck: Supple, trachea midline. Chest: Transmitted breath sounds bilaterally. Decreased air entry bilaterally. No wheezing. Bibasilar crackles. Cardiovascular: Positive S1, positive S2. Regular rate and rhythm. Abdomen: Positive bowel sounds in all 4 quadrants. Soft, nontender, nondistended. : Esqueda in place. Normal external genitalia. Rectal: Deferred. Skin: Warm, dry. Intact. Extremities: 2+ radial pulses bilaterally. No lower extremity edema. Neuro: Sedated. laboratory and microbiology Laboratory Tests 03/08/24 03:13 Test 03/08/24 03:13 Range/Units Serum Glucose 90 74-106 mg/dL Assessment/Plan Impression: Acute hypoxic respiratory failure On mechanical ventilator Respiratory distress. CHF exacerbation/Pulmonary edema Nicotine dependence Acute metabolic encephalopathy Septic shock Deep tissue injury to sacrum and bilateral heels COPD, stable Recent history of right hip fracture with right hip arthroplasty Acute kidney injury, vasomotor nephropathy Events: Remains on vent support On AC mode; RR 14, VT 500, PEEP 5, FiO2 30% ABG reviewed, alkalemia. CXR on 03/[address] Likely small left pleural effusion. Moderate pulmonary vascular congestion, increased. On amiodarone drip for AFib with RVR. Sedated on Fentanyl Off Levophed, hemodynamically stable. Monitor WBC - 27.2 K. Tube feeds for nutritional support Continue bronchodilators for COPD. Mucomyst Continue antibiotics - meropenem Continue antifungal Monitor hemoglobin - 7.7 g/dL. Transfuse if less than 7.0 g/dL. Potassium supplementation Monitor renal function. GI prophylaxis Wound care. Patient failed CPAP trial. Awaiting for mentation to improve. Labs and imaging reviewed. Rest of plan as noted below. Plan: s/p intubation on mechanical ventilator. On AC mode; RR 14, VT 500, PEEP 5, FiO2 30% Titrate FIO2 to keep O2 saturation above 90%. VAP bundle. Daily ABG and CXR while intubated Sedate for ventilator synchrony Continue bronchodilators/Mucomyst. Continue antibiotics. F/u cultures. IV fluids at 100 ml/hr. Pressors if necessary for hemodynamic support Titrate to keep mean arterial pressure greater than 65 mmHg. Monitor renal function Monitor electrolytes. Supplement as necessary. Monitor ins and outs. Maintain euvolemia. GI prophylaxis - Protonix. DVT prophylaxis. Prognosis: Poor given patient's multiple co-morbidities. Condition: Critical Rest of plan per hospitalist and other consultants. A total of 35 minutes of critical care time was spent reviewing the patient record, examining the patient, making a diagnostic and therapeutic plan, discussing this plan with the medical personnel, following up on diagnostic studies and following the patient for clinical stability excluding any and all procedures. At least 50% of this time was spent in direct, [id number] contact. Thank you Ned Sapp NP, for allowing me to participate in this patient's care. Further recommendations will depend on the patient's clinical course. Please do not hesitate to contact me if you have any questions or concerns. This medical document was created using an electronic medical record system with [employer] dictation system. Although these documentations are being carefully reviewed, there may still be some phonetic and typographical changes. The errors are purely typographical, due to imperfection on the software program, and do not reflect any compromise in the patient's medical care. Dietary Evaluation Review Comments: No supplement for wounds d/t GERA and kidney function, Encourage and Monitor PO intake, and lab values, FU in 3-5 days Expected Outcomes/Goals: Improved lab values Plan discussed with: Other (KAREN Aguirre) Critical Care Time(min): 35 YARI BILL MD Mar 08, 2024 19:09
--- NOTE | 2024-03-08 19:34 | DVHNC2 ---
Procedure - Bronchoscopy procedure note: Indications:Increase ET tube secretions, Possible mucous plugging. Medicines: See CLINICAL ENGINEERING MANAGER notes. Complications: None Procedure: Patient medications and allergies reviewed. The risks and benefits of the procedure and the sedation options and risk were discussed with the patient's healthcare proxy. All questions were answered and informed consent was obtai brett. Patient identification and proposed procedure were verified prior to the procedure by the physician, and a nurse, and the respiratory therapist in ICU room. The heart rate, respiratory rate, oxygen saturations, blood pressure, adequacy of pulmonary ventilation, and response to care were monitored throughout the procedure. The physical status of the patient was reassessed af ter the procedure. After obtaining informed consent, the bronchoscope was introduced through the endotracheal tube and advanced into the trachea bronchial tree of both lungs. The procedure was accomplished without difficulty. The patient tolerated the p rocedure well. Findings: The trachea is in normal caliber. The trino is sharp. The tracheobronchial kieran e of the right lung was examined to at least the first subsegmental level. The bronchial mucosa and anatomy in the right lung are normal. There are no endobronchial lesions. There was copious whitish secretions from right main stem bronchus onward throughout R4-R10. Mucous plugging removed from R6-R10. Right middle lobe (RML) Bronchoalveolar lavage (BAL) obtained. RML BAL sent for gram stain and culture. The left upper lobe, lingula, and left lower lobe were examined to at least the first subsegmental level. Bronchial mucosa and anatomy in the left upper lobe and lingula are normal. There were no endobronchial lesions. There was copious whitish secretions from left main stem bronchus onward throughout L4-L10. There was no active bleeding at the completion of the procedure. Estimated blood loss: Less than 5 mL. Impression: Right and LEFT lower lobe atelectasis due to mucous plugging Mucous plugging from R6-R10 RML BAL performed Recommendation: Follow-up RML BAL results. Procedure codes: 72083, bronchoscopy, rigid and flexible, including fluoroscopic guidance, one performed; with bronchial endobronchial broncho-alveolar lavage, single or multiple site YARI BILL MD Mar 08, 2024 19:34
[2024-03-08] MEDS: NOREPINEPHRINE 8 MG/250ML KIT 250 ML IV SCH (20:30)
--- NOTE | 2024-03-08 20:54 | DVH ---
EXAM: XY CHEST XRAY 1 VIEW TECHNIQUE: Single frontal chest radiograph CLINICAL HISTORY: s/p bronchoscopy with BAL, r/o PTX COMPARISON: XY CHEST PORTABLE on DOS: 03/07/24, XY CHEST PORTABLE on DOS: 03/06/24, XY CHEST PORTABLE on DOS: 03/05/24 Findings/Impression: Frontal chest radiograph demonstrates no acute osseous or superficial soft tissue abnormalities. Endotracheal tube measures 7.8 cm from the trino. Recommend advancing 3 cm for more optimal position ing. Left sided IJ catheter terminates near the superior cavoatrial junction. Enteric tube is overlying th e plane of the stomach. The trachea is midline. The cardiac silhouette and mediastinum are within normal limits. No pneumothorax, pleural effusions, or consolidations. Critical Result: Malpositioned line Findings discussed with the attending nurse at 03/08/2024 08:51 PM, and acknowledged receipt and unde rstanding of the findings.
[2024-03-08] MEDS: LINEZOLID 600MG/300ML 300 ML IV SCH (21:45)
[2024-03-09] VITALS (111 sets, daily range): BP systolic 82–138; BP diastolic 44–77; PULSE 75–103; RESP 9–32; TEMP 97.8–98.5; O2SAT 96–100
[2024-03-09] MEDS: MEROPENEM 1GM IVPB 50 ML IV SCH (00:58)
--- NOTE | 2024-03-09 04:02 | DVH ---
CHEST RADIOGRAPH Indication: INTUBATED Technique: Single frontal chest radiograph Comparison: XY CHEST XRAY 1 VIEW on DOS: 03/08/24, XY CHEST PORTABLE on DOS: 03/07/24, XY CHEST REINALDO BLE on DOS: 03/06/24, XY CHEST PORTABLE on DOS: 03/05/24, XY CHEST PORTABLE on DOS: 03/04/24, XY CHES T XRAY 1 VIEW on DOS: 03/08/24 FINDINGS: Lines and Tubes: Endotracheal tube 4 cm from the trino. Nasogastric tube tip in the stomach. Left c entral venous catheter tip in the SVC. Lungs: Unchanged bibasilar airspace opacities. Pleura: No effusion. No pneumothorax. Cardiomediastinal contours: Unremarkable Bones: No acute osseous abnormality. IMPRESSION: No interval improvement. Lines and tubes in adequate positioning.
[2024-03-09 04:26] LABS: Hemoglobin 7.6 g/dL (13.5-17.5)
[2024-03-09 04:28] LABS: Hematocrit 23.8 % (41.0-53.0); Mean Corpuscular Hemoglobin 26.7 pg (28.0-32.0); Mean Corpuscular Hgb Conc. 32.1 g/dL (32.0-36.0); Mean Corpuscular Volume 83.3 fL (80.0-100.0); Platelet Count (auto) 400 10^3/uL (140-450); Red Blood Cells 2.86 10^6/uL (4.5-5.90); Red Cell Distribution Width 15.8 % (11.8-14.3); White Blood Cell 29.1 10^3/uL (4.4-10.8)
[2024-03-09 04:33] LABS: Potassium 4.2 mmol/L (3.5-5.1); Sodium 141 mmol/L (136-145)
[2024-03-09 04:34] LABS: Anion Gap 5 (5-15); Band Neutrophils % (manual) 0; Basophils % (manual) 0 (0.0-2.0); Blast Cells 0; Carbon Dioxide 28 mmol/L (20-31); Metamyelocytes % 0; Myelocytes % 0; Promyelocytes % 0; Reactive Lymphocytes 0
[2024-03-09 04:39] LABS: Glucose 87 mg/dL (74-106)
[2024-03-09 04:40] LABS: BUN/Creatinine Ratio 31.3 (10.0-20.0); Blood Urea Nitrogen 21 mg/dL (9-23)
[2024-03-09 04:44] LABS: Calcium 8.5 mg/dL (8.7-10.4); Chloride 108 mmol/L (98-107)
[2024-03-09 07:36] LABS: Base Excess 2.1 mmol/L (-2.0-3.0)
[2024-03-09 09:48] LABS: Eosinophils % (manual) 2 (0-7); Lymphocytes % (manual) 5 (10.0-50.0); Monocytes % (manual) 8 (0-12); Platelet Estimate Decreased
--- NOTE | 2024-03-09 10:35 | DVHPN2 ---
Subjective Patient continues to have altered mental status. Sedation has been weaned off. Reviewed: Care Plan, H&P, Labs, Medications, Previous Orders Changes from previous H/P or p: No Changes General: Per HPI Eyes: No Pain, No Vision change, No Conjunctivae inflammation, No Eyelid inflammation, No Other, No Redness ENT: No Ear pain, No Ear discharge, No Nose pain, No Nose discharge, No Nose congestion, No Mouth pain, No Mouth swelling, No Throat pain, No Throat swelling, No Other Cardiovascular: No Chest Pain, No Palpitations, No Orthopnea, No Paroxysmal Noc. Dyspnea, No Edema, No Lt Headedness, No Other Respiratory: Cough, Shortness of breath, Sputum Gastrointestinal: No Nausea, No Vomiting, No Abdominal Pain, No Diarrhea, No Constipation, No Melena, No Hematochezia, No Other Genitourinary: No Dysuria, No Frequency, No Incontinence, No Hematuria, No Retention, No Other Musculoskeletal: No other, No neck pain, No shoulder pain, No arm pain, No back pain, No hand pain, No leg pain, No foot pain Skin: Lesions Objective Vitals Vital Signs Date Time Temp Pulse Resp B/P (MAP) Pulse Ox O2 Delivery O2 Flow Rate FiO2 03/09/24 10:01 108/60 03/09/24 09:45 86 17 100 30 03/09/24 06:00 Mechanical Ventilator+ 03/09/24 04:00 97.9 97.9 Intake/Output Intake and Output 03/09/24 07:00 Intake Total 2787.307 ml Output Total 1875 ml Balance 912.307 ml Intake Oral 800 ml IV Total 1987.307 ml Tube Feeding 0 ml Output Urine Total 1875 ml General Appearance: moderate distress, Other (Intubated and sedated) HEENT: Atraumatic, PERRLA Lungs: Clear to auscultation, Normal air movement Cardiovascular: Normal S1, Normal S2, Other (Run of nonsustained VT) Abdomen: Normal bowel sounds Musculoskeletal: Normal sensory function, Normal motor function, Other (Deformity of hip) Extremities: No clubbing, No cyanosis, Normal pulses, Other (Tissue injury to heal) Neuro: Cranial nerves 3-12 NL Skin: Wounds (See nurse notes and pictures), Other (Sacral decubitus ulcer) Psych/Mental Status: Mental status NL, Mood NL Medications Current Medications Medications Dose Ordered Sig/Jordon Route Start Time Stop Time Status Last Admin Dose Admin Pantoprazole Sodium 40 mg DAILY IV 03/01/24 06:00 03/09/24 10:03 40 MG Albuterol 2.5 mg Q4HR NEB 03/01/24 10:00 03/09/24 09:45 2.5 MG Ipratropium Dolph 0.5 mg Q4HR NEB 03/01/24 10:00 03/09/24 09:45 0.5 MG Vancomycin HCl 0 ml @ 0 mls/hr UD IV 03/01/24 02:15 UNV Enteral Nutritional Formula 1,000 ml 30ML/HR GT 03/02/24 15:45 03/06/24 13:49 1,000 ML Micafungin Sodium 100 mg/Sodium Chloride 100 ml @ 100 mls/hr DAILY IV 03/04/24 10:00 03/09/24 10:05 100 MLS/HR Dexmedetomidine HCl 400 mcg/ Dextrose 100 ml @ 3.785 mls/ hr Q24H IV 03/05/24 20:00 03/09/24 04:23 3.785 MLS/HR Acetaminophen 1,000 mg Q8HR IV 03/06/24 14:00 03/09/24 05:43 1,000 MG Acetylcysteine 200 mg Q4HR NEB 03/06/24 14:00 03/09/24 09:45 200 MG Furosemide 40 mg DAILY IV 03/07/24 10:00 03/09/24 10:01 40 MG Ketorolac Tromethamine 15 mg Q6HR IV 03/07/24 12:00 03/10/24 11:59 03/09/24 05:44 15 MG Hydromorphone HCl 2 mg Q4HPRN PRN IV 03/07/24 09:00 Purified Water 200 ml Q4HR GT 03/07/24 10:00 03/09/24 05:59 200 ML Fentanyl Citrate 250 ml @ 2.5 mls/hr Q24H IV 03/07/24 11:45 03/09/24 03:59 20 MLS/HR Amiodarone HCl 250 ml @ 16.667 mls/ hr Q15H IV 03/08/24 15:00 03/09/24 10:21 16.667 MLS/HR Linezolid 300 ml @ 150 mls/hr Q12HR IV 03/08/24 22:00 03/09/24 10:06 150 MLS/HR Meropenem 50 ml @ 17 mls/hr Q8H IV 03/09/24 00:00 03/09/24 10:01 17 MLS/HR Norepinephrine Bitartrate 250 ml @ 3.75 mls/hr Q24H IV 03/08/24 20:30 03/09/24 06:53 3.75 MLS/HR Laboratory Results Laboratory Tests 03/09/24 03:52 Chemistry Test 03/09/24 03:52 Calcium Level 8.5 mg/dL (8.7-10.4) L Urinalysis Test 03/01/24 03:00 03/02/24 11:20 Urine Color Yellow (Yellow) Urine Clarity Clear (Clear) Urine pH 5.0 (5.0-9.0) Urine Specific [place] 1.021 (1.001-1.035) Urine Protein Trace (Negative) H Urine Ketones Negative (Negative) Urine Blood 1+ /uL (Negative) H Urine Nitrite Negative (Negative) Urine Bilirubin Negative (Negative) Urine Urobilinogen Normal mg/dL (Negative) Urine Leukocyte Esterase Negative /uL (Negative) Urine RBC 15 /hpf (0 - 3) Urine WBC 4 /hpf (0 - 3) Urine Squamous Epithelial Cells None seen /hpf (<5) Urine Bacteria Few /hpf (None Seen) H Urine Hyaline Casts Mod /lpf (0 - 2) Urine Sperm Present /hpf (None Seen) Urine Glucose Normal mg/dL (Normal) Urine Creatinine 109.75 mg/dL (30.0-125.0) Urine Protein/Creatinine Ratio 0.74 Urine Sodium 10 mmol/L (40-220) L Urine Total Protein 80.8 mg/dL (1-14) H Blood Gas Results Test 03/09/24 07:32 Arterial Blood pH 7.452 (7.350-7.450) FiO2 % 30.0 Microbiology Microbiology Date/Time Source Procedure Growth Status 03/04/24 08:42 Sacrum Gram Stain - Final Resulted 03/04/24 08:42 Wound Culture - Preliminary Enterococcus faecium VRE Staphylococcus haemolyticus Yeast, not Monserrat albicans Resulted 03/03/24 07:11 Sputum Gram Stain - Final Complete 03/03/24 07:11 Respiratory Culture - Final Yeast, not Monserrat albicans Complete 03/01/24 05:55 Stool Clostridium difficile Toxin Assay - Final Complete 03/01/24 03:00 Voided Urine Urine Culture - Final Complete 03/01/24 00:59 Blood Blood Culture - Final NO GROWTH AFTER 5 DAYS OF INCUBATION. Complete Labs and/or images reviewed: Labs reviewed by me, Image(s) reviewed by me Assessment/Plan Assessment/Plan Patient: -metabolic encephalopathy secondary to sepsis -sepsis with shock , VRE and yeast to wound -acute hypoxic respiratory failure, rule out community-acquired pneumonia, Gram-positive/Gram-negative etiology -deep tissue injury to sacrum and bilateral heels -history of COPD -primary hypertension -dyslipidemia -recent history of right hip fracture with right hip arthroplasty -acute kidney injury, vasomotor nephropathy -hypernatremia -displaced right hip arthroplasty Plan: Events: Patient weaned off of vasopressor therapy. Patient had run of atrial fibrillation with rapid ventricular rate, now controlled with amiodarone drip. Orthopedic surgery consultation-recommendations reviewed with plans for addressing displaced right hip arthroplasty post extubation. Patient was persistent white blood cell count elevation. -continue amiodarone at 0.5 milligrams/minute -surgical consultation for assessment of sacral wound for possible I and D -maki cultures -wound care consultation -bronchodilators -norepinephrine drip to keep map greater than 65 mmHg -CPAP trial for today -Nephrology consultation -PUD, DVT prophylaxis -repeat labs in a.m. Critical care time spent with patient discussing and formulating plan of care: 40 minutes. This does not include time spent performing procedures. This medical document was created using an electronic medical record system with [employer] dictation system. Although this document has been carefully reviewed, there may still be some phonetic and typographical errors. These areas are purely typographical due to imperfections of the software programs, and do not reflect any compromise in the patient's medical care. Plan discussed with: Patient, Other (RN) My Orders Orders - WAYNE TURNER NP Procedure Category Date Status Time Meropenem 1gm Ivpb PHA 03/09/24 In Process (Merrem 1gm/ Ns) 00:00 * Surgical Consult CONS 03/09/24 Verified Comprehensive LAB 03/10/24 Verified Metabolic Panel 04:00 Complete Blood Count LAB 03/10/24 Verified 04:00 Chest Portable XY 03/10/24 Verified 04:00 Date of Service: Mar 09, 2024 Billing Provider: WAYNE TURNER NP Common Visit Codes: [id number] CARE 30-74 MIN WAYNE TURNER NP Mar 09, 2024 10:35
--- NOTE | 2024-03-09 12:21 | DVHINCON2 ---
Date of service: Mar 09, 2024 History of Present Illness The patient is an 78-year-old male with a recently displaced acute traumatic fracture of the right femoral neck admitted secondary to respiratory failure r equiring ICU intubation. It was noted that patient had a pressure ulcer and surgical consultation was requested for evaluation. Past Medical History COPD. Hypertension. History of anemia. Rheumatoid arthritis. Hyperlipidemia. Past Surgical History Cholecystectomy Family History: Hypertension G8 MOTHER Malignant neoplasm of breast G8 MOTHER (UNKNOWN) Family History Noncontributory. Social History 60 pack-year smoking history. No alcohol IV drug use. Allergies: Coded Allergies: AMALIA Inhibitors (Verified Allergy, Unknown, 01/05/19) Azithromycin (Verified Allergy, Unknown, 01/05/19) Home Meds Active Scripts Sucralfate (Carafate) 1 Gm/10 Ml Sallie, 1 GM PO QID for 30 Days, #120 ML Prov:LISSY TORRES MD 08/16/21 Pantoprazole Sodium Sesquihydr (Protonix) 40 Mg Tab, 40 MG PO DAILY for 30 Days, #30 TAB 1 Refill Prov:LISSY TORRES MD 08/16/21 Reported Medications Patients Own Medication (PATIENTS OWN MEDICATION) ., 12.5 MG PO BID PTS OWN MED-OBTAIN FROM PT AND SEND TO RX DRUG: FREQ: RX# EXP: DATE DISP: TECH: [facility]: 01/03/19 Patients Own Medication (PATIENTS OWN MEDICATION) ., 500 MG PO ONCE PTS OWN MED-OBTAIN FROM PT AND SEND TO RX DRUG: FREQ: RX# EXP: DATE DISP: TECH: RP: 01/03/19 Prednisone (PREDNISONE) 5 Mg Tb, 5 MG GT DAILY for ARTHRITIS, TAB 01/03/19 Cholecalciferol (VITAMIN D3) 2,000 Unit Tab, 2000 UNIT OR DAILY, TAB 01/03/19 Amlodipine Besylate (Amlodipine Besylate) 5 Mg Tab, 10 MG PO DAILY for 30 Days, MG 01/03/19 Atorvastatin Calcium (Lipitor) 20 Mg Tab, 1 TAB PO HS, #90 TAB 1 Refill 01/03/19 Tamsulosin Hcl (Tamsulosin Hcl) 0.4 Mg Cap, 0.4 MG PO QPM for BPH for 30 Days, MG 01/03/19 Zolpidem Tartrate (ZOLPIDEM TARTRATE ER) 12.5 Mg Tab, 1 TAB PO QPM for SLEEP, #30 TAB 1 Refill 01/03/19 Current Medications Current Medications Medications (Trade) Dose Ordered Sig/Jorodn Route PRN Reason Start Time Stop Time Status Last Admin Amiodarone HCl 250 ml @ 16.667 mls/ hr Q15H IV 03/08/24 15:00 03/09/24 10:21 Linezolid 300 ml @ 150 mls/hr Q12HR IV 03/08/24 22:00 03/09/24 10:06 Meropenem 50 ml @ 17 mls/hr Q8H IV 03/09/24 00:00 03/09/24 10:39 DC 03/09/24 10:01 Norepinephrine Bitartrate 250 ml @ 3.75 mls/hr Q24H IV 03/08/24 20:30 03/09/24 06:53 Vital Signs Vital Signs Date Time Temp Pulse Resp B/P (MAP) Pulse Ox O2 Delivery O2 Flow Rate FiO2 03/09/24 11:32 85 17 110/58 (75) 99 30 03/09/24 10:00 Mechanical Ventilator+ 03/09/24 08:00 97.9 97.9 Physical Exam GEN: Age-appropriate male intubated and awake but not verbally responsive. HEENT: Normocephalic atraumatic. Moist mucous membranes. Anicteric sclerae. Endotracheal tube intact. CV: RRR Skin: There is a 6 x 6 cm necrotic eschar involving the sacral region with minimal fluctuance without purulent drainage. Labs/Diagnostic Data Labs Test 03/09/24 07:32 03/09/24 03:52 03/08/24 09:20 03/08/24 03:13 Range/Units Blood Gas Specimen Type Arterial Blood Gas Sample Site Right radial Blood Gas Patient Temperature 37.0 Arterial Blood Date Drawn [id number] Arterial Blood pH 7.452 H 7.350-7.450 Arterial Blood Partial Pressure CO2 38.2 35.0-48.0 mmHg Arterial Blood Partial Pressure O2 95.5 83.0-108.0 mmHg Arterial Blood HCO3 26.1 21.0-28.0 mmol/L Arterial Blood Oxygen Saturation 97.0 94.0-98.0 % Arterial Blood Base Excess 2.1 -2.0-3.0 mmol/L Arterial Blood Oxyhemoglobin 96.6 94.0-98.0 % Arterial Blood Carboxyhemoglobin 0.3 L 0.5-1.5 % Arterial Blood Methemoglobin 0.1 0.0-1.5 % Yao Test Modified Blood Gas Total Hemoglobin 9.20 L 13.5-17.5 g/dL Blood Gas Set Respiration Rate 14.0 Blood Gas Modality Vent - ac FiO2 % 30.0 Blood Gas Tidal Volume 500.0 Blood Gas PEEP or CPAP 5.0 White Blood Count 29.1 H 4.4-10.8 10^3/uL Red Blood Count 2.86 L 4.5-5.90 10^6/uL Hemoglobin 7.6 L 13.5-17.5 g/dL Hematocrit 23.8 L 41.0-53.0 % Mean Corpuscular Volume 83.3 80.0-100.0 fL Mean Corpuscular Hemoglobin 26.7 L 28.0-32.0 pg Mean Corpuscular Hemoglobin Concent 32.1 32.0-36.0 g/dL Red Cell Distribution Width 15.8 H 11.8-14.3 % Platelet Count 400 140-450 10^3/uL Mean Platelet Volume 8.8 6.9-10.8 fL Neutrophils (%) (Auto) 37.0-80.0 % Lymphocytes (%) (Auto) 10.0-50.0 % Monocytes (%) (Auto) 0.0-12.0 % Basophils (%) (Auto) 0.0-2.0 % Neutrophils # (Auto) 1.6-8.6 10 ^3/uL Lymphocytes # (Auto) 0.4-5.4 10 ^3/uL Monocytes # (Auto) 0-1.3 10 ^3/uL Differential Total Cells Counted 100.0 100 Neutrophils % (Manual) 85 H 37.0-80.0 Band Neutrophils % (Manual) 0 Lymphocytes % (Manual) 5 L 10.0-50.0 Monocytes % (Manual) 8 0-12 Eosinophils % (Manual) 2 0-7 Basophils % (Manual) 0 0.0-2.0 Metamyelocytes % (manual) 0 Myelocytes % (Manual) 0 Promyelocytes % (Manual) 0 Blast Cells % (Manual) 0 Reactive Lymphocytes 0 Platelet Estimate Decreased Sodium Level 141 136-145 mmol/L Potassium Level 4.2 3.5-5.1 mmol/L Chloride Level 108 H 98-107 mmol/L Carbon Dioxide Level 28 20-31 mmol/L Anion Gap 5 5-15 Blood Urea Nitrogen 21 9-23 mg/dL Creatinine 0.67 L 0.700-1.30 mg/dL Glomerular Filtration Rate Calc 94 >90 mL/min BUN/Creatinine Ratio 31.3 H 10.0-20.0 Serum Glucose 87 74-106 mg/dL Calcium Level 8.5 L 8.7-10.4 mg/dL Prothrombin Time 11.5 9.3-11.8 sec Prothrombin Time INR 1.09 0.9-1.15 Activated Partial Thromboplast Time 32.5 24.5-34.5 SEC Total Bilirubin 0.4 0.2-1.0 mg/dL Aspartate Amino Transferase (AST) 29 13-40 U/L Alanine Aminotransferase (ALT) 18 7-40 U/L Alkaline Phosphatase 93 46-116 U/L Total Protein 5.5 L 5.7-8.2 g/dL Albumin 2.5 L 3.2-4.8 g/dL Test 03/07/24 03:08 03/06/24 15:16 03/06/24 07:03 03/05/24 03:00 Range/Units Phosphorus Level 2.4 2.4-5.1 mg/dL Magnesium Level 2.2 1.6-2.6 mg/dL Vancomycin Level Trough 16.1 H 5-10 ug/mL Blood Gas Critical Value Read Back Yes Blood Gas Notified Whom Dr. steph salazar Blood Gas Notified Time [id number] Blood Gas Notified By Delicatessen Clerk gail colvin Eosinophils (%) (Auto) 0.0 0.0-7.0 % Eosinophils # (Auto) 0 0-0.8 10 ^3/uL Basophils # (Auto) 0 0-0.2 10 ^3/uL Nucleated Red Blood Cells 0.0 % Test 03/04/24 08:03 03/04/24 03:22 03/02/24 17:26 03/02/24 11:20 Range/Units Blood Gas Spontaneous Rate 14 Random Vancomycin Level 18.5 H 5-10 ug/mL POC Glucose 252 H 70-106 mg/dl Urine Creatinine 109.75 30.0-125.0 mg/dL Urine Protein/Creatinine Ratio 0.74 Urine Sodium 10 L 40-220 mmol/L Urine Total Protein 80.8 H 1-14 mg/dL Test 03/02/24 03:07 03/01/24 21:49 03/01/24 16:10 03/01/24 13:14 Range/Units Blood Gas Spontaneous Tidal Volume 572 Bl Gas Inspiratory/Expiratory Ratio 1:1.8 Specimen Drawn By Aruna john rt Blood Gas EPAP 5 Blood Gas IPAP 12 Erythrocyte Sedimentation Rate 110 H 0-20 mm/hr C-Reactive Protein High Sensitivity > 20.00 H <1.0 mg/dL Test 03/01/24 03:30 03/01/24 03:00 03/01/24 00:59 02/29/24 21:48 Range/Units D-Dimer, Quantitative 5.17 H 0.0-0.49 mg/L FEU Ammonia 29 11-32 umol/L Vitamin B12 Level 396 211-911 pg/mL Thyroid Stimulating Hormone (TSH) 3.64 0.55-4.78 uIU/mL Plasma/Serum Blood Alcohol < 3.0 <10 mg/dL Urine Color Yellow Yellow Urine Clarity Clear Clear Urine pH 5.0 5.0-9.0 Urine Specific [place] 1.021 1.001-1.035 Urine Protein Trace H Negative Urine Ketones Negative Negative Urine Blood 1+ H Negative /uL Urine Nitrite Negative Negative Urine Bilirubin Negative Negative Urine Urobilinogen Normal Negative mg/dL Urine Leukocyte Esterase Negative Negative /uL Urine RBC 15 0 - 3 /hpf Urine WBC 4 0 - 3 /hpf Urine Squamous Epithelial Cells None seen <5 /hpf Urine Bacteria Few H None Seen /hpf Urine Hyaline Casts Mod 0 - 2 /lpf Urine Sperm Present None Seen /hpf Urine Glucose Normal Normal mg/dL Urine Opiates Screen Neg NEGATIVE Urine Fentanyl Screen Neg NEGATIVE Urine Barbiturates Screen Neg NEGATIVE Urine Phencyclidine Screen Neg NEGATIVE Urine Amphetamines Screen Neg NEGATIVE Urine Benzodiazepines Screen Neg NEGATIVE Urine Cocaine Screen Neg NEGATIVE Urine Cannabinoids Screen Neg NEGATIVE Lactic Acid Level 1.9 0.4-2.0 mmol/L Troponin I High Sensitivity 16 </=54 ng/L B-Type Natriuretic Peptide 28.05 0-100 pg/mL Microbiology Date/Time Source Procedure Growth Status 03/08/24 20:00 Bronchial Washings Gram Stain Pending Resulted 03/08/24 20:00 Bronchial Washings Respiratory Culture - Preliminary Resulted 03/04/24 08:42 Sacrum Gram Stain - Final Resulted 03/04/24 08:42 Wound Culture - Preliminary Enterococcus faecium VRE Staphylococcus haemolyticus Yeast, not Monserrat albicans Resulted 03/01/24 05:55 Stool Clostridium difficile Toxin Assay - Final Complete 03/01/24 03:00 Voided Urine Urine Culture - Final Complete 03/01/24 00:59 Blood Blood Culture - Final NO GROWTH AFTER 5 DAYS OF INCUBATION. Complete Assessment 1. Necrotic sacral pressure ulcer, unstageable 2. Respiratory failure on ventilatory support Plan/Recommendation 1. Surgical debridement of necrotic sacral ulcer. Informed consent: The surgery and its risks including but not limited to infection, bleeding requiring possible blood transfusion, possible perioperative [place] or stroke were explained to the patient's power of utilization manager. All questions were answered to his satisfaction. He expressed verbal understanding and wished to proceed with the surgery. Plan discussed with: Other (power of utilization manager) MADISYN ANAYA MD Mar 09, 2024 12:21
--- NOTE | 2024-03-09 12:39 | DVHPN2 ---
Consult Progress Note Date Seen: Mar 09, 2024 Subjective Other Systems: No overnight cardiac events reported Objective vital signs Vital Sign Date Time Temp Pulse Resp B/P (MAP) Pulse Ox O2 Delivery O2 Flow Rate FiO2 03/09/24 11:32 85 17 110/58 (75) 99 30 03/09/24 10:00 Mechanical Ventilator+ 03/09/24 08:00 97.9 97.9 Total Intake and Output 03/08/24 03/08/24 03/09/24 15:00 23:00 07:00 Intake Total 1227.042 ml 631.668 ml 972.150 ml Output Total 1400 ml 475 ml Balance 1227.042 ml -768.332 ml 497.150 ml medications Current Medications Medications Dose Ordered Sig/Jordon Route Start Time Stop Time Status Last Admin Dose Admin Pantoprazole Sodium 40 mg DAILY IV 03/01/24 06:00 03/09/24 10:03 40 MG Albuterol 2.5 mg Q4HR NEB 03/01/24 10:00 03/09/24 09:45 2.5 MG Ipratropium [place] 0.5 mg Q4HR NEB 03/01/24 10:00 03/09/24 09:45 0.5 MG Vancomycin HCl 0 ml @ 0 mls/hr UD IV 03/01/24 02:15 UNV Enteral Nutritional Formula 1,000 ml 30ML/HR GT 03/02/24 15:45 03/06/24 13:49 1,000 ML Micafungin Sodium 100 mg/Sodium Chloride 100 ml @ 100 mls/hr DAILY IV 03/04/24 10:00 03/09/24 10:05 100 MLS/HR Dexmedetomidine HCl 400 mcg/ Dextrose 100 ml @ 3.785 mls/ hr Q24H IV 03/05/24 20:00 03/09/24 04:23 3.785 MLS/HR Acetaminophen 1,000 mg Q8HR IV 03/06/24 14:00 03/09/24 05:43 1,000 MG Furosemide 40 mg DAILY IV 03/07/24 10:00 03/09/24 10:01 40 MG Ketorolac Tromethamine 15 mg Q6HR IV 03/07/24 12:00 03/10/24 11:59 03/09/24 05:44 15 MG Purified Water 200 ml Q4HR GT 03/07/24 10:00 03/09/24 05:59 200 ML Fentanyl Citrate 250 ml @ 2.5 mls/hr Q24H IV 03/07/24 11:45 03/09/24 03:59 20 MLS/HR Amiodarone HCl 250 ml @ 16.667 mls/ hr Q15H IV 03/08/24 15:00 03/09/24 10:21 16.667 MLS/HR Linezolid 300 ml @ 150 mls/hr Q12HR IV 03/08/24 22:00 03/09/24 10:06 150 MLS/HR Norepinephrine Bitartrate 250 ml @ 3.75 mls/hr Q24H IV 03/08/24 20:30 03/09/24 06:53 3.75 MLS/HR Examination: GENERAL:Abnormal, LUNGS:Abnormal (Mechanically ventilated 30% FiO2 PEEP 5.0), CVS:Normal (A-fib conbtrolled rate, off vasopressors), NEURO:Normal laboratory and microbiology Laboratory Tests 03/09/24 03:52 Test 03/09/24 03:52 Range/Units Serum Glucose 87 74-106 mg/dL Problem List/Assessment/Plan Problem List/Assessment/Plan Septic shock with PNA Atrial fibrillation with rapid ventricular rate, Stage III, newly diagnosed 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 Villalobos) Case discussed with Dr. Villalobos. Echocardiogram from 02/03/2024 revealed an EF of 55%. Repeat echo notes mildly reduced LVEF of 45% with associated inferior posterolateral wall hypokinesia. Continue antiarrhythmic, amiodarone drip per pharmacy protocol. Monitor QTc closely. [id number] Score 4, HAS-BLED Score 2. Hold AC therapy given downtrending H&H. FOBT, pending. Continue SCDs. Monitor and replace electrolytes, keeping K>4 and Mg>2. Continue telemetry monitoring. Initiate low-dose metoprolol when BP permits. Continue preload reduction. At this time we will continue with conservative medical management with no recommendations for invasive work-up given severe anemia. Thank you for allowing us to care for this patient. Please call with any questions or concerns. Critical care time: 35 min. This medical document was created using an electronic medical record system with voice recognition software and computerized dictation system. Although this document has been carefully reviewed, there might still be some phonetic and typographical errors. Occasional wrong-word or ``sound-alike substitutions may have occurred due to the inherent limitations of voice recognition software. These areas are purely typographical due to imperfections of the software programs and do not reflect any compromise in the patient's medical care. Please read the chart carefully and recognize, using context, where these substitutions have occurred. Plan discussed with: Other Dietary Evaluation Review Comments: No supplement for wounds d/t GERA and kidney function, Encourage and Monitor PO intake, and lab values, FU in 3-5 days Expected Outcomes/Goals: Improved lab values Date of Service: Mar 09, 2024 Billing Provider: JULIETA VILLALOBOS MD Cardiology Common Codes: [id number] CARE 30-74 MIN [facility] Mar 09, 2024 12:39
[2024-03-09] MEDS: FREE WATER GT SCH (17:25)
--- NOTE | 2024-03-09 21:13 | DVHPN2 ---
Progress Note - Dictate Date Seen: Mar 09, 2024 Medical Necessity Reason Pt with a Central, PICC or Fol: Yes The following are medically ne: Esqueda Catheter Reason for esqueda catheter: Strict I&O Subjective Patient seen and examined at bedside. Sedated, intubated on mechanical ventilator. Overnight events reviewed. vital signs Vital Sign Date Time Temp Pulse Resp B/P (MAP) Pulse Ox O2 Delivery O2 Flow Rate FiO2 03/09/24 20:04 76 19 117/62 (80) 100 30 03/09/24 18:00 Mechanical Ventilator+ 03/09/24 16:00 98.5 98.5 Total Intake and Output 03/08/24 03/08/24 03/09/24 15:00 23:00 07:00 Intake Total 1227.042 ml 631.668 ml 972.150 ml Output Total 1400 ml 475 ml Balance 1227.042 ml -768.332 ml 497.150 ml medications Current Medications Medications Dose Ordered Sig/Jordon Route Start Time Stop Time Status Last Admin Dose Admin Pantoprazole Sodium 40 mg DAILY IV 03/01/24 06:00 03/09/24 10:03 40 MG Albuterol 2.5 mg Q4HR NEB 03/01/24 10:00 03/09/24 18:22 2.5 MG Ipratropium [place] 0.5 mg Q4HR NEB 03/01/24 10:00 03/09/24 18:22 0.5 MG Vancomycin HCl 0 ml @ 0 mls/hr UD IV 03/01/24 02:15 UNV Enteral Nutritional Formula 1,000 ml 30ML/HR GT 03/02/24 15:45 03/06/24 13:49 1,000 ML Micafungin Sodium 100 mg/Sodium Chloride 100 ml @ 100 mls/hr DAILY IV 03/04/24 10:00 03/09/24 10:05 100 MLS/HR Dexmedetomidine HCl 400 mcg/ Dextrose 100 ml @ 3.785 mls/ hr Q24H IV 03/05/24 20:00 03/09/24 04:23 3.785 MLS/HR Acetaminophen 1,000 mg Q8HR IV 03/06/24 14:00 03/09/24 13:57 1,000 MG Furosemide 40 mg DAILY IV 03/07/24 10:00 03/09/24 10:01 40 MG Ketorolac Tromethamine 15 mg Q6HR IV 03/07/24 12:00 03/10/24 11:59 03/09/24 18:00 15 MG Fentanyl Citrate 250 ml @ 2.5 mls/hr Q24H IV 03/07/24 11:45 03/09/24 03:59 20 MLS/HR Amiodarone HCl 250 ml @ 16.667 mls/ hr Q15H IV 03/08/24 15:00 03/09/24 10:21 16.667 MLS/HR Linezolid 300 ml @ 150 mls/hr Q12HR IV 03/08/24 22:00 03/09/24 10:06 150 MLS/HR Norepinephrine Bitartrate 250 ml @ 3.75 mls/hr Q24H IV 03/08/24 20:30 03/09/24 06:53 3.75 MLS/HR Ertapenem 1 gm/ Sodium Chloride 50 ml @ 100 mls/hr DAILY IV 03/10/24 10:00 Purified Water 200 ml Q6HR GT 03/09/24 18:00 03/09/24 17:25 200 ML objective Gen.: Patient lying in bed in medical ICU. Sedated, intubated on mechanical ventilator. Head: Normocephalic, atraumatic. Eyes: PERRLA. Ears: Normal external anatomy. Throat: Endotracheal tube and orogastric tube in place. Neck: Supple, trachea midline. Chest: Transmitted breath sounds bilaterally. Decreased air entry bilaterally. No wheezing. Bibasilar crackles. Cardiovascular: Positive S1, positive S2. Regular rate and rhythm. Abdomen: Positive bowel sounds in all 4 quadrants. Soft, nontender, nondistended. : Esqueda in place. Normal external genitalia. Rectal: Deferred. Skin: Warm, dry. Intact. Extremities: 2+ radial pulses bilaterally. No lower extremity edema. Neuro: Sedated. laboratory and microbiology Laboratory Tests 03/09/24 03:52 Test 03/09/24 03:52 Range/Units Serum Glucose 87 74-106 mg/dL Assessment/Plan Impression: Acute hypoxic respiratory failure On mechanical ventilator Respiratory distress. CHF exacerbation/Pulmonary edema Nicotine dependence Acute metabolic encephalopathy Septic shock Deep tissue injury to sacrum and bilateral heels COPD, stable Recent history of right hip fracture with right hip arthroplasty Acute kidney injury, vasomotor nephropathy Events: Remains on vent support On AC mode; RR 14, VT 500, PEEP 5, FiO2 30% ABG reviewed, alkalemia. CXR demonstrates devices in place. Unchanged bibasilar airspace opacities. Continue amiodarone drip Sedated on Fentanyl On Precedex drip. Patient in sinus rhythm, converted from AFib. On pressors for hemodynamic support Levophed 2 mcg/min Titrate to keep mean arterial pressure greater than 65 mmHg. Monitor WBC - 29.1 K. Tube feeds for nutritional support Continue bronchodilators for COPD. Mucomyst Continue antibiotics - meropenem Continue antifungal Monitor hemoglobin - 7.6 g/dL. Transfuse if less than 7.0 g/dL. Potassium supplementation Monitor renal function. GI prophylaxis Wound care. Labs and imaging reviewed. Rest of plan as noted below. Plan: s/p intubation on mechanical ventilator. On AC mode; RR 14, VT 500, PEEP 5, FiO2 30% Titrate FIO2 to keep O2 saturation above 90%. VAP bundle. Daily ABG and CXR while intubated Sedate for ventilator synchrony Continue bronchodilators/Mucomyst. Continue antibiotics. F/u cultures. IV fluids at 100 ml/hr. Pressors for hemodynamic support Titrate to keep mean arterial pressure greater than 65 mmHg. Monitor renal function Monitor electrolytes. Supplement as necessary. Monitor ins and outs. Maintain euvolemia. GI prophylaxis - Protonix. DVT prophylaxis. Prognosis: Poor given patient's multiple co-morbidities. Condition: Critical Rest of plan per hospitalist and other consultants. A total of 35 minutes of critical care time was spent reviewing the patient record, examining the patient, making a diagnostic and therapeutic plan, discussing this plan with the medical personnel, following up on diagnostic studies and following the patient for clinical stability excluding any and all procedures. At least 50% of this time was spent in direct, [id number] contact. Thank you Ned Sapp NP, for allowing me to participate in this patient's care. Further recommendations will depend on the patient's clinical course. Please do not hesitate to contact me if you have any questions or concerns. This medical document was created using an electronic medical record system with [facility] system. Although these documentations are being carefully reviewed, there may still be some phonetic and typographical changes. The errors are purely typographical, due to imperfection on the software program, and do not reflect any compromise in the patient's medical care. Dietary Evaluation Review Comments: No supplement for wounds d/t GERA and kidney function, Encourage and Monitor PO intake, and lab values, FU in 3-5 days Expected Outcomes/Goals: Improved lab values Plan discussed with: Other (AKREN Aguirre) Critical Care Time(min): 35 YARI BILL MD Mar 09, 2024 21:13
[2024-03-10] VITALS (105 sets, daily range): BP systolic 89–139; BP diastolic 38–68; PULSE 60–97; RESP 7–28; TEMP 97.5–98.6; O2SAT 93–100
[2024-03-10 03:20] LABS: Basophils # (auto) 0.1 10 ^3/uL (0-0.2); Hemoglobin 7.1 g/dL (13.5-17.5); Lymphocytes % (auto) 10.4 % (10.0-50.0); Mean Corpuscular Hemoglobin 26.9 pg (28.0-32.0)
[2024-03-10 03:36] LABS: INR 1.21 (0.9-1.15); Partial Thromboplastin Time 36.6 SEC (24.5-34.5); Prothrombin Time 12.6 sec (9.3-11.8)
[2024-03-10 03:44] LABS: Alanine Aminotransferase 11 U/L (7-40); Alkaline Phosphatase 102 U/L (46-116); Anion Gap 5 (5-15); Aspartate Aminotransferase 28 U/L (13-40); BUN/Creatinine Ratio 23.7 (10.0-20.0); Basophils % (auto) 0.4 % (0.0-2.0); Bilirubin, Total 0.4 mg/dL (0.2-1.0); Blood Urea Nitrogen 18 mg/dL (9-23); Carbon Dioxide 27 mmol/L (20-31); Chloride 106 mmol/L (98-107); Eosinophils # (auto) 0.5 10 ^3/uL (0-0.8); Eosinophils % (auto) 2.4 % (0.0-7.0); Glucose 83 mg/dL (74-106); Hematocrit 22.4 % (41.0-53.0); Lymphocytes # (auto) 2.2 10 ^3/uL (0.4-5.4); Magnesium 1.7 mg/dL (1.6-2.6); Mean Corpuscular Hgb Conc. 31.9 g/dL (32.0-36.0); Mean Corpuscular Volume 84.2 fL (80.0-100.0); Monocytes # (auto) 2.6 10 ^3/uL (0-1.3); Monocytes % (auto) 11.8 % (0.0-12.0); Neutrophils # (auto) 16.2 10 ^3/uL (1.6-8.6); Platelet Count (auto) 298 10^3/uL (140-450); Potassium 4.5 mmol/L (3.5-5.1); Red Blood Cells 2.65 10^6/uL (4.5-5.90); Red Cell Distribution Width 15.7 % (11.8-14.3); Sodium 138 mmol/L (136-145); White Blood Cell 21.6 10^3/uL (4.4-10.8)
[2024-03-10 03:46] LABS: Albumin 2.2 g/dL (3.2-4.8); Calcium 8.3 mg/dL (8.7-10.4); Total Protein 4.9 g/dL (5.7-8.2)
--- NOTE | 2024-03-10 04:15 | DVH ---
CHEST RADIOGRAPH Indication: Line placement Technique: Single frontal chest radiograph Comparison: XY CHEST PORTABLE on DOS: 03/09/24, XY CHEST XRAY 1 VIEW on DOS: 03/08/24, XY CHEST REINALDO BLE on DOS: 03/07/24, XY CHEST PORTABLE on DOS: 03/06/24, XY CHEST PORTABLE on DOS: 03/05/24, XY CHES T PORTABLE on DOS: 03/09/24 FINDINGS: Lines and Tubes: Endotracheal tube 7 cm from the trino. Nasogastric tube tip in the stomach. Left c entral venous catheter tip in the SVC. Lungs: Unchanged bibasilar airspace opacities. Pleura: No effusion. No pneumothorax. Cardiomediastinal contours: Unremarkable Bones: No acute osseous abnormality. IMPRESSION: No interval improvement. Lines and tubes in adequate positioning.
[2024-03-10] MEDS: BUPIVACAINE 0.25% INJ 50ML VIAL ONE (06:48)
[2024-03-10 07:25] LABS: Base Excess 2.1 mmol/L (-2.0-3.0)
[2024-03-10] MEDS ORDERED: fentaNYL CITRATE 100 MCG/2 ML VL ONE (07:31)
[2024-03-10] MEDS ORDERED: HYDROmorphone HCL 2 MG/ML VL/or syr ONE (07:31)
[2024-03-10] MEDS ORDERED: MIDAZOLAM HCL 2MG/2ML 2ml VIAL (1mg/ml) ONE (07:31)
[2024-03-10] MEDS ORDERED: PROPOFOL 10 MG/ML 20 ML IV ONE (08:09)
[2024-03-10] MEDS: LIDOCAINE W/ EPINEPHRINE 1% 20ML VIAL ONE (08:35)
--- NOTE | 2024-03-10 08:58 | DVHPN2 ---
Subjective Patient chemically sedated Reviewed: Care Plan, H&P, Labs, Medications, Previous Orders Changes from previous H/P or p: No Changes General: Per HPI Eyes: No Pain, No Vision change, No Conjunctivae inflammation, No Eyelid inflammation, No Other, No Redness ENT: No Ear pain, No Ear discharge, No Nose pain, No Nose discharge, No Nose congestion, No Mouth pain, No Mouth swelling, No Throat pain, No Throat swelling, No Other Cardiovascular: No Chest Pain, No Palpitations, No Orthopnea, No Paroxysmal Noc. Dyspnea, No Edema, No Lt Headedness, No Other Respiratory: Cough, Shortness of breath, Sputum Gastrointestinal: No Nausea, No Vomiting, No Abdominal Pain, No Diarrhea, No Constipation, No Melena, No Hematochezia, No Other Genitourinary: No Dysuria, No Frequency, No Incontinence, No Hematuria, No Retention, No Other Musculoskeletal: No other, No neck pain, No shoulder pain, No arm pain, No back pain, No hand pain, No leg pain, No foot pain Skin: Lesions Objective Vitals Vital Signs Date Time Temp Pulse Resp B/P (MAP) Pulse Ox O2 Delivery O2 Flow Rate FiO2 03/10/24 07:00 82 14 128/58 (81) 100 03/10/24 06:00 30 03/10/24 06:00 Mechanical Ventilator+ 03/10/24 04:00 98.6 98.6 Intake/Output Intake and Output 03/10/24 07:00 Intake Total 1611.347 ml Output Total 1900 ml Balance -288.653 ml Intake Oral 250 ml IV Total 1301.347 ml Tube Feeding 60 ml Output Urine Total 1900 ml General Appearance: moderate distress, Other (Intubated and sedated) HEENT: Atraumatic, PERRLA Lungs: Clear to auscultation, Normal air movement Cardiovascular: Normal S1, Normal S2, Other (Run of nonsustained VT) Abdomen: Normal bowel sounds Musculoskeletal: Normal sensory function, Normal motor function, Other (Deformity of hip) Extremities: No clubbing, No cyanosis, Normal pulses, Other (Tissue injury to heal) Neuro: Cranial nerves 3-12 NL Skin: Wounds (See nurse notes and pictures), Other (Sacral decubitus ulcer) Psych/Mental Status: Mental status NL, Mood NL Medications Current Medications Medications Dose Ordered Sig/Jordon Route Start Time Stop Time Status Last Admin Dose Admin Pantoprazole Sodium 40 mg DAILY IV 03/01/24 06:00 03/09/24 10:03 40 MG Albuterol 2.5 mg Q4HR NEB 03/01/24 10:00 03/10/24 06:22 2.5 MG Ipratropium [place] 0.5 mg Q4HR NEB 03/01/24 10:00 03/10/24 06:22 0.5 MG Vancomycin HCl 0 ml @ 0 mls/hr UD IV 03/01/24 02:15 UNV Enteral Nutritional Formula 1,000 ml 30ML/HR GT 03/02/24 15:45 03/06/24 13:49 1,000 ML Micafungin Sodium 100 mg/Sodium Chloride 100 ml @ 100 mls/hr DAILY IV 03/04/24 10:00 03/09/24 10:05 100 MLS/HR Dexmedetomidine HCl 400 mcg/ Dextrose 100 ml @ 3.785 mls/ hr Q24H IV 03/05/24 20:00 03/09/24 04:23 3.785 MLS/HR Acetaminophen 1,000 mg Q8HR IV 03/06/24 14:00 03/09/24 21:27 1,000 MG Furosemide 40 mg DAILY IV 03/07/24 10:00 03/09/24 10:01 40 MG Ketorolac Tromethamine 15 mg Q6HR IV 03/07/24 12:00 03/10/24 11:59 03/09/24 18:00 15 MG Fentanyl Citrate 250 ml @ 2.5 mls/hr Q24H IV 03/07/24 11:45 03/10/24 02:26 17.5 MLS/HR Amiodarone HCl 250 ml @ 16.667 mls/ hr Q15H IV 03/08/24 15:00 03/10/24 02:24 16.667 MLS/HR Linezolid 300 ml @ 150 mls/hr Q12HR IV 03/08/24 22:00 03/09/24 21:31 150 MLS/HR Norepinephrine Bitartrate 250 ml @ 3.75 mls/hr Q24H IV 03/08/24 20:30 03/09/24 06:53 3.75 MLS/HR Ertapenem 1 gm/ Sodium Chloride 50 ml @ 100 mls/hr DAILY IV 03/10/24 10:00 Purified Water 200 ml Q6HR GT 03/09/24 18:00 03/10/24 06:11 200 ML Laboratory Results Laboratory Tests 03/10/24 03:00 Chemistry Test 03/10/24 03:00 Albumin 2.2 g/dL (3.2-4.8) L Calcium Level 8.3 mg/dL (8.7-10.4) L Magnesium Level 1.7 mg/dL (1.6-2.6) Total Protein 4.9 g/dL (5.7-8.2) L Coagulation Test 03/10/24 03:00 Prothrombin Time 12.6 sec (9.3-11.8) H Prothrombin Time INR 1.21 (0.9-1.15) H Activated Partial Thromboplast Time 36.6 SEC (24.5-34.5) H LFT Test 03/10/24 03:00 Alanine Aminotransferase (ALT) 11 U/L (7-40) Alkaline Phosphatase 102 U/L (46-116) Aspartate Amino Transferase (AST) 28 U/L (13-40) Total Bilirubin 0.4 mg/dL (0.2-1.0) Urinalysis Test 03/01/24 03:00 03/02/24 11:20 Urine Color Yellow (Yellow) Urine Clarity Clear (Clear) Urine pH 5.0 (5.0-9.0) Urine Specific [place] 1.021 (1.001-1.035) Urine Protein Trace (Negative) H Urine Ketones Negative (Negative) Urine Blood 1+ /uL (Negative) H Urine Nitrite Negative (Negative) Urine Bilirubin Negative (Negative) Urine Urobilinogen Normal mg/dL (Negative) Urine Leukocyte Esterase Negative /uL (Negative) Urine RBC 15 /hpf (0 - 3) Urine WBC 4 /hpf (0 - 3) Urine Squamous Epithelial Cells None seen /hpf (<5) Urine Bacteria Few /hpf (None Seen) H Urine Hyaline Casts Mod /lpf (0 - 2) Urine Sperm Present /hpf (None Seen) Urine Glucose Normal mg/dL (Normal) Urine Creatinine 109.75 mg/dL (30.0-125.0) Urine Protein/Creatinine Ratio 0.74 Urine Sodium 10 mmol/L (40-220) L Urine Total Protein 80.8 mg/dL (1-14) H Blood Gas Results Test 03/10/24 07:15 Arterial Blood pH 7.463 (7.350-7.450) FiO2 % 30.0 Microbiology Microbiology Date/Time Source Procedure Growth Status 03/08/24 20:00 Bronchial Washings Gram Stain - Final Resulted 03/08/24 20:00 Bronchial Washings Respiratory Culture - Preliminary Resulted 03/04/24 08:42 Sacrum Gram Stain - Final Complete 03/04/24 08:42 Wound Culture - Final Escherichia coli - ESBL Enterococcus faecium - VRE Staphylococcus haemolyticus Yeast, not Monserrat albicans Enterococcus faecium VRE Complete 03/01/24 05:55 Stool Clostridium difficile Toxin Assay - Final Complete 03/01/24 03:00 Voided Urine Urine Culture - Final Complete 03/01/24 00:59 Blood Blood Culture - Final NO GROWTH AFTER 5 DAYS OF INCUBATION. Complete Labs and/or images reviewed: Labs reviewed by me, Image(s) reviewed by me Assessment/Plan Assessment/Plan Patient: -metabolic encephalopathy secondary to sepsis -sepsis with shock , VRE and yeast to wound -acute hypoxic respiratory failure, rule out community-acquired pneumonia, Gram-positive/Gram-negative etiology -deep tissue injury to sacrum and bilateral heels -history of COPD -primary hypertension -dyslipidemia -recent history of right hip fracture with right hip arthroplasty -acute kidney injury, vasomotor nephropathy -hypernatremia -displaced right hip arthroplasty Plan: Events: Wound culture positive for ESBL, yeast, VRE. Appropriate antibiotics has been started yesterday. Patient to OR today for sacral wound debridement. -continue amiodarone at 0.5 milligrams/minute. If the patient's heart rate remains controlled, patient will be switched to p.o. amiodarone -surgical consultation for assessment of sacral wound for possible I and Ds -wound care consultation -bronchodilators -norepinephrine drip to keep map greater than 65 mmHg -Nephrology consultation -PUD, DVT prophylaxis -repeat labs in a.m. Critical care time spent with patient discussing and formulating plan of care: 40 minutes. This does not include time spent performing procedures. This medical document was created using an electronic medical record system with [employer] system. Although this document has been carefully reviewed, there may still be some phonetic and typographical errors. These areas are purely typographical due to imperfections of the software programs, and do not reflect any compromise in the patient's medical care. Plan discussed with: Patient, Other (RN) My Orders Orders - WAYNE TURNER NP Procedure Category Date Status Time * Surgical Consult CONS 03/09/24 Transmitted Chest Portable XY 03/10/24 Resulted 04:00 Ertapenem Sod Inj PHA 03/10/24 In Process (Invanz) 10:00 Free Water PHA 03/09/24 In Process 18:00 Date of Service: Mar 10, 2024 Billing Provider: WAYNE TURNER NP Common Visit Codes: [id number] CARE 30-74 MIN WAYNE TURNER NP Mar 10, 2024 08:58
--- NOTE | 2024-03-10 08:58 | DVHOP2 ---
Operative Report - 2 Report Details Date: 03/10/24 Preop Diagnosis: 1. Necrotic sacral pressure ulcer Postop Diagnosis: 1. Necrotic sacral pressure ulcer, stage 4 Surgeon: Madisyn Wellington MD Concrete Block Maker: None Anesthesiologist: Dr Sharp Anesthesia: General, Local Consent: In the procedure and its risks including but not limited to infection, bleeding requiring possible blood transfusion, possible perioperative HI or stroke were explained to the patient's power of attorney law clerk. All questions were answered to his satisfaction. He expressed verbal understanding and wished to proceed with the surgery. Complications: None Estimated Blood Loss: 30 mL Fluids: 400 mL Findings: Stage IV necrotic sacral pressure ulcer with necrotic muscle and purulent fluid Name of Procedure Performed Surgical debridement of stage IV necrotic infected sacral pressure ulcer Procedure Details Procedure Details: After induction of general anesthesia, patient was placed in a left lateral decubitus position taking caution to be gentle with his right hip region. His sacral region was prepped and draped in standard surgical fashion. Approximately 20 mL of 1% lidocaine with epinephrine was used as local a nesthesia. Sharp debridement was performed to excise all grossly visible necrotic tissue. Debridement extended down to the muscles were there was some nonviable muscle which was also sharply debrided until healthier tissue and bleeding were encountered. There was no gross bony exposure. The area was then well irrigated with diluted Betadine irrigation and checked for hemostasis. The surgical site was then packed with gauze soaked in diluted Betadine. Surgical site was cleaned and dried and dressings were applied. Sponge, needle, instrument count at the end of the case were reported to be correct by the nursing staff. Patient tolerated procedure well and at the time of dictation he is being transferred back to ICU in stable condition. Specimen: Gram stain and culture of the ulcer base. Necrotic tissue. Condition Stable Disposition Still a Patient MADISYN WELLINGTON MD Mar 10, 2024 08:58
[2024-03-10] MEDS: ERTAPENEM SOD INJ 1 GM in SODIUM CHL 0.9% 50 ML IV SCH (09:49)
--- NOTE | 2024-03-10 10:05 | DVHPN2 ---
SHARLENE GALINDO REWIND OPERATOR 03/10/24 1005: Consult Progress Note Subjective Other Systems: Patient remains chemically sedated and mechanically ventilated. Patient now off of vasopressors. Objective vital signs Vital Sign Date Time Temp Pulse Resp B/P (MAP) Pulse Ox O2 Delivery O2 Flow Rate FiO2 03/10/24 09:48 127/60 03/10/24 07:00 82 14 100 03/10/24 06:00 30 03/10/24 06:00 Mechanical Ventilator+ 03/10/24 04:00 98.6 98.6 Total Intake and Output 03/09/24 03/09/24 03/10/24 15:00 23:00 07:00 Intake Total 594.28 ml 683.898 ml 333.169 ml Output Total 1300 ml 600 ml Balance 594.28 ml -616.102 ml -266.831 ml medications Current Medications Medications Dose Ordered Sig/Jordon Route Start Time Stop Time Status Last Admin Dose Admin Pantoprazole Sodium 40 mg DAILY IV 03/01/24 06:00 03/10/24 09:49 40 MG Albuterol 2.5 mg Q4HR NEB 03/01/24 10:00 03/10/24 06:22 2.5 MG Ipratropium [place] 0.5 mg Q4HR NEB 03/01/24 10:00 03/10/24 06:22 0.5 MG Vancomycin HCl 0 ml @ 0 mls/hr UD IV 03/01/24 02:15 UNV Enteral Nutritional Formula 1,000 ml 30ML/HR GT 03/02/24 15:45 03/06/24 13:49 1,000 ML Micafungin Sodium 100 mg/Sodium Chloride 100 ml @ 100 mls/hr DAILY IV 03/04/24 10:00 03/09/24 10:05 100 MLS/HR Dexmedetomidine HCl 400 mcg/ Dextrose 100 ml @ 3.785 mls/ hr Q24H IV 03/05/24 20:00 03/09/24 04:23 3.785 MLS/HR Furosemide 40 mg DAILY IV 03/07/24 10:00 03/10/24 09:48 40 MG Ketorolac Tromethamine 15 mg Q6HR IV 03/07/24 12:00 03/10/24 11:59 03/09/24 18:00 15 MG Fentanyl Citrate 250 ml @ 2.5 mls/hr Q24H IV 03/07/24 11:45 03/10/24 02:26 17.5 MLS/HR Amiodarone HCl 250 ml @ 16.667 mls/ hr Q15H IV 03/08/24 15:00 03/10/24 02:24 16.667 MLS/HR Linezolid 300 ml @ 150 mls/hr Q12HR IV 03/08/24 22:00 03/09/24 21:31 150 MLS/HR Norepinephrine Bitartrate 250 ml @ 3.75 mls/hr Q24H IV 03/08/24 20:30 03/09/24 06:53 3.75 MLS/HR Ertapenem 1 gm/ Sodium Chloride 50 ml @ 100 mls/hr DAILY IV 03/10/24 10:00 03/10/24 09:49 100 MLS/HR Purified Water 200 ml Q6HR GT 03/09/24 18:00 03/10/24 06:11 200 ML Examination: GENERAL:Abnormal, LUNGS:Abnormal (Mechanically ventilated, Fio2 30%, PEEP 5), CVS:Normal, NEURO:Abnormal (Chemically sedated) laboratory and microbiology Laboratory Tests 03/10/24 03:00 Test 03/10/24 03:00 Range/Units Serum Glucose 83 74-106 mg/dL Problem List/Assessment/Plan Problem List/Assessment/Plan Septic shock with PNA Atrial fibrillation with rapid ventricular rate, Stage III, newly diagnosed 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 Craig) Patient seen and examined at bedside with Dr. Craig. Echocardiogram from 02/03/2024 revealed an EF of 55%. Repeat echo notes mildly reduced LVEF of 45% with associated inferior posterolateral wall hypokinesia. Continue antiarrhythmic, amiodarone drip per pharmacy protocol and transition to oral when appropriate. Monitor QTc closely. [id number] Score 4, HAS-BLED Score 2. Hold anticoagulation therapy given downtrending H&H. FOBT, pending. Continue SCDs. Consider NOAC with improved and stable H&H. Monitor and replace electrolytes, keeping K>4 and Mg>2. Continue telemetry monitoring. Initiate low-dose metoprolol when BP permits and off of vasopressors. At this time we will continue with conservative medical management with no recommendations for invasive work-up given severe anemia. No further inpatient cardiac workup indicated at this time. Please reconsult if needed. Thank you for allowing us to care for this patient. Please call with any questions or concerns. Critical care time: 35 min. This medical document was created using an electronic medical record system with voice recognition software and computerized dictation system. Although this document has been carefully reviewed, there might still be some phonetic and typographical errors. Occasional wrong-word or ``sound-alike substitutions may have occurred due to the inherent limitations of voice recognition software. These areas are purely typographical due to imperfections of the software programs and do not reflect any compromise in the patient's medical care. Please read the chart carefully and recognize, using context, where these substitutions have occurred. Plan discussed with: Other (Bedside RN) Dietary Evaluation Review Comments: No supplement for wounds d/t GERA and kidney function, Encourage and Monitor PO intake, and lab values, FU in 3-5 days Expected Outcomes/Goals: Improved lab values Date of Service: Mar 10, 2024 Billing Provider: JULIETA CRAIG MD Common Visit Codes: [id number] CARE 30-74 MIN JULIETA CRAIG MD 03/10/24 1440: Addendum Addendum Addendum Case was reviewed, patient was examined at the bedside. I have reviewed the clinical note written by the nurse practitioner and I agree with the findings and the clinical assessment. At this point in time patient is still intubated and mechanically ventilated. Apparently he has been having intermittent nonsustained VT with a prolonged QT interval. He also flipped into AFib from time to time. For which he is takes amiodarone. For the time being we will continue medical therapy. Given that the patient is still thickened septic, we will follow only as needed. SHARLENE GALINDO Mar 10, 2024 10:05 JULIETA CRAIG MD Mar 10, 2024 14:40
[2024-03-10 13:10] LABS: Hematocrit 23.2 % (41.0-53.0); Hemoglobin 7.6 g/dL (13.5-17.5)
[2024-03-10] MEDS: LACTULOSE 20Gm/30ML SOLN NG ONE (16:48)
[2024-03-10] MEDS: DOCUSATE ORAL LIQUID 100 MG/10 ML UD GT SCH (22:00)
--- NOTE | 2024-03-10 22:50 | DVHPN2 ---
Progress Note - Dictate Date Seen: Mar 10, 2024 Medical Necessity Reason Pt with a Central, PICC or Fol: Yes The following are medically ne: Esqueda Catheter Reason for esqueda catheter: Strict I&O Subjective Patient seen and examined at bedside. Sedated, intubated on mechanical ventilator. Overnight events reviewed. vital signs Vital Sign Date Time Temp Pulse Resp B/P (MAP) Pulse Ox O2 Delivery O2 Flow Rate FiO2 03/10/24 22:10 89 23 115/50 (71) 100 30 03/10/24 18:00 Mechanical Ventilator+ 03/10/24 12:00 97.9 97.9 Total Intake and Output 03/09/24 03/09/24 03/10/24 15:00 23:00 07:00 Intake Total 594.28 ml 683.898 ml 333.169 ml Output Total 1300 ml 600 ml Balance 594.28 ml -616.102 ml -266.831 ml medications Current Medications Medications Dose Ordered Sig/Jordon Route Start Time Stop Time Status Last Admin Dose Admin Pantoprazole Sodium 40 mg DAILY IV 03/01/24 06:00 03/10/24 09:49 40 MG Albuterol 2.5 mg Q4HR NEB 03/01/24 10:00 03/10/24 22:10 2.5 MG Ipratropium [place] 0.5 mg Q4HR NEB 03/01/24 10:00 03/10/24 22:10 0.5 MG Vancomycin HCl 0 ml @ 0 mls/hr UD IV 03/01/24 02:15 UNV Enteral Nutritional Formula 1,000 ml 30ML/HR GT 03/02/24 15:45 03/06/24 13:49 1,000 ML Micafungin Sodium 100 mg/Sodium Chloride 100 ml @ 100 mls/hr DAILY IV 03/04/24 10:00 03/10/24 10:00 100 MLS/HR Dexmedetomidine HCl 400 mcg/ Dextrose 100 ml @ 3.785 mls/ hr Q24H IV 03/05/24 20:00 03/09/24 04:23 3.785 MLS/HR Furosemide 40 mg DAILY IV 03/07/24 10:00 03/10/24 09:48 40 MG Fentanyl Citrate 250 ml @ 2.5 mls/hr Q24H IV 03/07/24 11:45 03/10/24 22:08 12.5 MLS/HR Amiodarone HCl 250 ml @ 16.667 mls/ hr Q15H IV 03/08/24 15:00 03/10/24 16:44 16.667 MLS/HR Linezolid 300 ml @ 150 mls/hr Q12HR IV 03/08/24 22:00 03/10/24 22:05 150 MLS/HR Norepinephrine Bitartrate 250 ml @ 3.75 mls/hr Q24H IV 03/08/24 20:30 03/09/24 06:53 3.75 MLS/HR Ertapenem 1 gm/ Sodium Chloride 50 ml @ 100 mls/hr DAILY IV 03/10/24 10:00 03/10/24 09:49 100 MLS/HR Purified Water 200 ml Q6HR GT 03/09/24 18:00 03/10/24 06:11 200 ML Docusate Sodium 100 mg BID GT 03/10/24 22:00 objective Gen.: Patient lying in bed in medical ICU. Sedated, intubated on mechanical ventilator. Head: Normocephalic, atraumatic. Eyes: PERRLA. Ears: Normal external anatomy. Throat: Endotracheal tube and orogastric tube in place. Neck: Supple, trachea midline. Chest: Transmitted breath sounds bilaterally. Decreased air entry bilaterally. No wheezing. Bibasilar crackles. Cardiovascular: Positive S1, positive S2. Regular rate and rhythm. Abdomen: Positive bowel sounds in all 4 quadrants. Soft, nontender, nondistended. : Esqueda in place. Normal external genitalia. Rectal: Deferred. Skin: Warm, dry. Intact. Extremities: 2+ radial pulses bilaterally. No lower extremity edema. Neuro: Sedated. laboratory and microbiology Laboratory Tests 03/10/24 12:41 03/10/24 03:00 Test 03/10/24 03:00 Range/Units Serum Glucose 83 74-106 mg/dL Assessment/Plan Impression: Acute hypoxic respiratory failure On mechanical ventilator Respiratory distress. CHF exacerbation/Pulmonary edema Nicotine dependence Acute metabolic encephalopathy Septic shock Deep tissue injury to sacrum and bilateral heels COPD, stable Recent history of right hip fracture with right hip arthroplasty Acute kidney injury, vasomotor nephropathy Events: Remains on vent support On AC mode; RR 14, VT 500, PEEP 5, FiO2 30% ABG reviewed, alkalemia. CXR demonstrates devices in place. Unchanged bibasilar airspace opacities. Continue amiodarone drip for AFib. Off pressors, hemodynamically stable. Sedated on Fentanyl drip. Taper down as tolerated Awaiting for mentation to improve for CPAP. S/p wound debridement. Continue antibiotics WBC trending down - 29.1 K --> 21.6 K. Tube feeds for nutritional support Continue bronchodilators for COPD. Continue antifungal Monitor hemoglobin - 7.1, 7.6 g/dL. Transfuse if less than 7.0 g/dL. GI prophylaxis Wound care. Labs and imaging reviewed. Rest of plan as noted below. Plan: s/p intubation on mechanical ventilator. On AC mode; RR 14, VT 500, PEEP 5, FiO2 30% Titrate FIO2 to keep O2 saturation above 90%. VAP bundle. Daily ABG and CXR while intubated Sedate for ventilator synchrony Continue bronchodilators Continue antibiotics. F/u cultures. Pressors if necessary for hemodynamic support Titrate to keep mean arterial pressure greater than 65 mmHg. Monitor renal function Monitor electrolytes. Supplement as necessary. Monitor ins and outs. Maintain euvolemia. GI prophylaxis - Protonix. DVT prophylaxis. Prognosis: Poor given patient's multiple co-morbidities. Condition: Critical Rest of plan per hospitalist and other consultants. A total of 35 minutes of critical care time was spent reviewing the patient record, examining the patient, making a diagnostic and therapeutic plan, discussing this plan with the medical personnel, following up on diagnostic studies and following the patient for clinical stability excluding any and all procedures. At least 50% of this time was spent in direct, [id number] contact. Thank you Ned Sapp NP, for allowing me to participate in this patient's care. Further recommendations will depend on the patient's clinical course. Please do not hesitate to contact me if you have any questions or concerns. This medical document was created using an electronic medical record system with [employer] system. Although these documentations are being carefully reviewed, there may still be some phonetic and typographical changes. The errors are purely typographical, due to imperfection on the software program, and do not reflect any compromise in the patient's medical care. Dietary Evaluation Review Comments: No supplement for wounds d/t GERA and kidney function, Encourage and Monitor PO intake, and lab values, FU in 3-5 days Expected Outcomes/Goals: Improved lab values Plan discussed with: Spouse, Other (KAREN Aguirre) Critical Care Time(min): 35 YARI BILL MD Mar 10, 2024 22:50
[2024-03-11] VITALS (89 sets, daily range): BP systolic 90–135; BP diastolic 25–62; PULSE 62–94; RESP 7–31; TEMP 97.8–98.8; O2SAT 84–100
[2024-03-11 04:23] LABS: Hematocrit 21.3 % (41.0-53.0); Mean Corpuscular Hemoglobin 26.9 pg (28.0-32.0); Mean Corpuscular Hgb Conc. 32.4 g/dL (32.0-36.0); Platelet Count (auto) 400 10^3/uL (140-450); Red Blood Cells 2.56 10^6/uL (4.5-5.90); Red Cell Distribution Width 16.1 % (11.8-14.3); White Blood Cell 18.1 10^3/uL (4.4-10.8)
[2024-03-11 04:34] LABS: Anion Gap 5 (5-15); Carbon Dioxide 27 mmol/L (20-31); Chloride 107 mmol/L (98-107); Potassium 4.4 mmol/L (3.5-5.1); Sodium 139 mmol/L (136-145)
[2024-03-11 04:40] LABS: BUN/Creatinine Ratio 28.6 (10.0-20.0); Blood Urea Nitrogen 22 mg/dL (9-23)
[2024-03-11 04:42] LABS: Calcium 8.6 mg/dL (8.7-10.4); Glucose 111 mg/dL (74-106)
[2024-03-11 04:47] LABS: Hemoglobin 6.9 g/dL (13.5-17.5)
[2024-03-11 04:48] LABS: Basophils % (manual) 0 (0.0-2.0); Blast Cells 0; Eosinophils % (manual) 0 (0-7); Metamyelocytes % 0; Myelocytes % 0; Promyelocytes % 0; Reactive Lymphocytes 0
[2024-03-11 05:37] LABS: Band Neutrophils % (manual) 1; Lymphocytes % (manual) 9 (10.0-50.0); Monocytes % (manual) 4 (0-12)
[2024-03-11 05:38] LABS: Hypochromia Slight; Platelet Estimate Adequate
[2024-03-11] MEDS ORDERED: Jevity 1.2 Cal/Fiber 1 Liter GT SCH (09:15)
--- NOTE | 2024-03-11 09:33 | DVHPN2 ---
Subjective Patient chemically sedated Reviewed: Care Plan, H&P, Labs, Medications, Previous Orders Changes from previous H/P or p: No Changes General: Per HPI Eyes: No Pain, No Vision change, No Conjunctivae inflammation, No Eyelid inflammation, No Other, No Redness ENT: No Ear pain, No Ear discharge, No Nose pain, No Nose discharge, No Nose congestion, No Mouth pain, No Mouth swelling, No Throat pain, No Throat swelling, No Other Cardiovascular: No Chest Pain, No Palpitations, No Orthopnea, No Paroxysmal Noc. Dyspnea, No Edema, No Lt Headedness, No Other Respiratory: Cough, Shortness of breath, Sputum Gastrointestinal: No Nausea, No Vomiting, No Abdominal Pain, No Diarrhea, No Constipation, No Melena, No Hematochezia, No Other Genitourinary: No Dysuria, No Frequency, No Incontinence, No Hematuria, No Retention, No Other Musculoskeletal: No other, No neck pain, No shoulder pain, No arm pain, No back pain, No hand pain, No leg pain, No foot pain Skin: Lesions Objective Vitals Vital Signs Date Time Temp Pulse Resp B/P (MAP) Pulse Ox O2 Delivery O2 Flow Rate FiO2 03/11/24 09:15 98.8 63 14 101/42 98.8 03/11/24 08:05 100 30 03/11/24 05:31 Mechanical Ventilator+ Intake/Output Intake and Output 03/11/24 06:59 Intake Total 1898.966 ml Output Total 1350 ml Balance 548.966 ml Intake Oral 250 ml IV Total 1137.966 ml Tube Feeding 211 ml Other 300 ml Output Urine Total 1350 ml # Bowel Movements 2 General Appearance: moderate distress, Other (Intubated and sedated) HEENT: Atraumatic, PERRLA Lungs: Clear to auscultation, Normal air movement Cardiovascular: Normal S1, Normal S2, Other (Run of nonsustained VT) Abdomen: Normal bowel sounds Musculoskeletal: Normal sensory function, Normal motor function, Other (Deformity of hip) Extremities: No clubbing, No cyanosis, Normal pulses, Other (Tissue injury to heal) Neuro: Other (Unable to assess) Skin: Wounds (See nurse notes and pictures), Other (Sacral decubitus ulcer) Psych/Mental Status: Mental status NL, Mood NL Medications Current Medications Medications Dose Ordered Sig/Jordon Route Start Time Stop Time Status Last Admin Dose Admin Pantoprazole Sodium 40 mg DAILY IV 03/01/24 06:00 03/10/24 09:49 40 MG Albuterol 2.5 mg Q4HR NEB 03/01/24 10:00 03/11/24 06:24 2.5 MG Ipratropium [place] 0.5 mg Q4HR NEB 03/01/24 10:00 03/11/24 06:24 0.5 MG Vancomycin HCl 0 ml @ 0 mls/hr UD IV 03/01/24 02:15 UNV Micafungin Sodium 100 mg/Sodium Chloride 100 ml @ 100 mls/hr DAILY IV 03/04/24 10:00 03/10/24 10:00 100 MLS/HR Dexmedetomidine HCl 400 mcg/ Dextrose 100 ml @ 3.785 mls/ hr Q24H IV 03/05/24 20:00 03/11/24 03:30 3.785 MLS/HR Furosemide 40 mg DAILY IV 03/07/24 10:00 03/10/24 09:48 40 MG Fentanyl Citrate 250 ml @ 2.5 mls/hr Q24H IV 03/07/24 11:45 03/10/24 22:08 12.5 MLS/HR Linezolid 300 ml @ 150 mls/hr Q12HR IV 03/08/24 22:00 03/10/24 22:05 150 MLS/HR Norepinephrine Bitartrate 250 ml @ 3.75 mls/hr Q24H IV 03/08/24 20:30 03/09/24 06:53 3.75 MLS/HR Ertapenem 1 gm/ Sodium Chloride 50 ml @ 100 mls/hr DAILY IV 03/10/24 10:00 03/10/24 09:49 100 MLS/HR Purified Water 200 ml Q6HR GT 03/09/24 18:00 03/10/24 06:11 200 ML Enteral Nutritional Formula 1,000 ml 40ML/HR GT 03/11/24 09:15 Laboratory Results Laboratory Tests 03/11/24 04:01 Chemistry Test 03/11/24 04:01 Calcium Level 8.6 mg/dL (8.7-10.4) L Urinalysis Test 03/01/24 03:00 03/02/24 11:20 Urine Color Yellow (Yellow) Urine Clarity Clear (Clear) Urine pH 5.0 (5.0-9.0) Urine Specific [place] 1.021 (1.001-1.035) Urine Protein Trace (Negative) H Urine Ketones Negative (Negative) Urine Blood 1+ /uL (Negative) H Urine Nitrite Negative (Negative) Urine Bilirubin Negative (Negative) Urine Urobilinogen Normal mg/dL (Negative) Urine Leukocyte Esterase Negative /uL (Negative) Urine RBC 15 /hpf (0 - 3) Urine WBC 4 /hpf (0 - 3) Urine Squamous Epithelial Cells None seen /hpf (<5) Urine Bacteria Few /hpf (None Seen) H Urine Hyaline Casts Mod /lpf (0 - 2) Urine Sperm Present /hpf (None Seen) Urine Glucose Normal mg/dL (Normal) Urine Creatinine 109.75 mg/dL (30.0-125.0) Urine Protein/Creatinine Ratio 0.74 Urine Sodium 10 mmol/L (40-220) L Urine Total Protein 80.8 mg/dL (1-14) H Microbiology Microbiology Date/Time Source Procedure Growth Status 03/10/24 08:29 Buttock Gram Stain - Final Resulted 03/10/24 08:29 Buttock Anaerobic Culture - Preliminary Resulted 03/10/24 08:29 Buttock Aerobic Culture Pending Resulted 03/08/24 20:00 Bronchial Washings Gram Stain - Final Resulted 03/08/24 20:00 Bronchial Washings Respiratory Culture - Preliminary Resulted 03/01/24 05:55 Stool Clostridium difficile Toxin Assay - Final Complete 03/01/24 03:00 Voided Urine Urine Culture - Final Complete 03/01/24 00:59 Blood Blood Culture - Final NO GROWTH AFTER 5 DAYS OF INCUBATION. Complete Labs and/or images reviewed: Labs reviewed by me, Image(s) reviewed by me Assessment/Plan Assessment/Plan Patient: -metabolic encephalopathy secondary to sepsis -sepsis with shock , VRE and yeast to wound -acute hypoxic respiratory failure, rule out community-acquired pneumonia, Gram-positive/Gram-negative etiology -deep tissue injury to sacrum and bilateral heels -history of COPD -primary hypertension -dyslipidemia -recent history of right hip fracture with right hip arthroplasty -acute kidney injury, vasomotor nephropathy -hypernatremia -displaced right hip arthroplasty Plan: Events: Postop day one for sacral debridement. Hemoglobin 6.9. Patient was receiving1 unit PRBC. Noted improved heart rate with patient on both Precedex infusion for noted anxiety and amiodarone drip. -stop amiodarone drip -spontaneous breathing trial per pulmonology -surgical consultation for assessment of sacral wound for possible I and Ds -wound care consultation -bronchodilators -norepinephrine drip to keep map greater than 65 mmHg -Nephrology consultation -PUD, DVT prophylaxis -repeat labs in a.m. Critical care time spent with patient discussing and formulating plan of care: 40 minutes. This does not include time spent performing procedures. This medical document was created using an electronic medical record system with [employer] dictation system. Although this document has been carefully reviewed, there may still be some phonetic and typographical errors. These areas are purely typographical due to imperfections of the software programs, and do not reflect any compromise in the patient's medical care. Plan discussed with: Patient, Other (RN) My Orders Orders - WAYNE TURNER NP Procedure Category Date Status Time Nutritional PHA 03/11/24 In Process Supplements (Jevity 09:15 Basic Metabolic Panel LAB 03/12/24 Verified 04:00 Complete Blood Count LAB 03/12/24 Verified 04:00 Chest Portable XY 03/12/24 Logged 04:00 Abg W/ Co-Ox RT 03/12/24 Logged 04:00 Date of Service: Mar 11, 2024 Billing Provider: WAYNE TURNER NP Common Visit Codes: [id number] CARE 30-74 MIN WAYNE TURNER NP Mar 11, 2024 09:33
[2024-03-11 11:43] LABS: Hematocrit 23.2 % (41.0-53.0); Hemoglobin 7.5 g/dL (13.5-17.5)
[2024-03-11 12:15] LABS: Base Excess 2.4 mmol/L (-2.0-3.0)
[2024-03-11 15:06] LABS: Base Excess 0.6 mmol/L (-2.0-3.0)
[2024-03-11 22:51] LABS: Hematocrit 20.6 % (41.0-53.0)
[2024-03-11 23:01] LABS: Hemoglobin 6.8 g/dL (13.5-17.5)
--- NOTE | 2024-03-11 23:19 | DVHPN2 ---
Progress Note - Dictate Date Seen: Mar 11, 2024 Medical Necessity Reason Pt with a Central, PICC or Fol: Yes The following are medically ne: Esqueda Catheter Reason for esqueda catheter: Strict I&O Subjective Patient seen and examined at bedside. intubated on mechanical ventilator. Overnight events reviewed. vital signs Vital Sign Date Time Temp Pulse Resp B/P (MAP) Pulse Ox O2 Delivery O2 Flow Rate FiO2 03/11/24 23:00 85 22 133/42 (72) 100 03/11/24 22:00 Nasal Cannula* 2 28 03/11/24 20:00 98.6 98.6 Total Intake and Output 03/10/24 03/10/24 03/11/24 15:00 23:00 07:00 Intake Total 653.28 ml 476.308 ml 760.663 ml Output Total 100 ml 850 ml 400 ml Balance 553.28 ml -373.692 ml 360.663 ml medications Current Medications Medications Dose Ordered Sig/Jordon Route Start Time Stop Time Status Last Admin Dose Admin Pantoprazole Sodium 40 mg DAILY IV 03/01/24 06:00 03/11/24 09:34 40 MG Albuterol 2.5 mg Q4HR NEB 03/01/24 10:00 03/11/24 22:09 2.5 MG Ipratropium [place] 0.5 mg Q4HR NEB 03/01/24 10:00 03/11/24 22:10 0.5 MG Vancomycin HCl 0 ml @ 0 mls/hr UD IV 03/01/24 02:15 UNV Micafungin Sodium 100 mg/Sodium Chloride 100 ml @ 100 mls/hr DAILY IV 03/04/24 10:00 03/11/24 09:24 100 MLS/HR Dexmedetomidine HCl 400 mcg/ Dextrose 100 ml @ 3.785 mls/ hr Q24H IV 03/05/24 20:00 03/11/24 03:30 3.785 MLS/HR Furosemide 40 mg DAILY IV 03/07/24 10:00 03/11/24 09:35 40 MG Fentanyl Citrate 250 ml @ 2.5 mls/hr Q24H IV 03/07/24 11:45 03/10/24 22:08 12.5 MLS/HR Linezolid 300 ml @ 150 mls/hr Q12HR IV 03/08/24 22:00 03/11/24 22:30 150 MLS/HR Norepinephrine Bitartrate 250 ml @ 3.75 mls/hr Q24H IV 03/08/24 20:30 03/09/24 06:53 3.75 MLS/HR Ertapenem 1 gm/ Sodium Chloride 50 ml @ 100 mls/hr DAILY IV 03/10/24 10:00 03/11/24 10:51 100 MLS/HR Purified Water 200 ml Q6HR GT 03/09/24 18:00 03/11/24 15:01 200 ML Enteral Nutritional Formula 1,000 ml 40ML/HR GT 03/11/24 09:15 objective Gen.: Patient lying in bed in medical ICU. Intubated on mechanical ventilator. Head: Normocephalic, atraumatic. Eyes: PERRLA. Ears: Normal external anatomy. Throat: Endotracheal tube and orogastric tube in place. Neck: Supple, trachea midline. Chest: Transmitted breath sounds bilaterally. Decreased air entry bilaterally. No wheezing. Bibasilar crackles. Cardiovascular: Positive S1, positive S2. Regular rate and rhythm. Abdomen: Positive bowel sounds in all 4 quadrants. Soft, nontender, nondistended. : Esqueda in place. Normal external genitalia. Rectal: Deferred. Skin: Warm, dry. Intact. Extremities: 2+ radial pulses bilaterally. No lower extremity edema. Neuro: Off sedation laboratory and microbiology Laboratory Tests 03/11/24 22:44 03/11/24 04:01 Test 03/11/24 04:01 Range/Units Serum Glucose 111 H 74-106 mg/dL Assessment/Plan Impression: Acute hypoxic respiratory failure On mechanical ventilator Respiratory distress. CHF exacerbation/Pulmonary edema Nicotine dependence Acute metabolic encephalopathy Septic shock Deep tissue injury to sacrum and bilateral heels COPD, stable Recent history of right hip fracture with right hip arthroplasty Acute kidney injury, vasomotor nephropathy Events: Remains on vent support On AC mode; RR 14, VT 500, PEEP 5, FiO2 30% ABG reviewed, alkalemia. CXR on 03/10/[address] Unchanged bibasilar airspace opacities. Continue amiodarone drip for AFib. Off pressors, hemodynamically stable. Off sedation. On Precedex for agitation. IV fluid hydration Continue antibiotics Monitor WBC Tube feeds for nutritional support Continue bronchodilators for COPD. Continue antifungal Monitor hemoglobin Transfuse if less than 7.0 g/dL. CPAP if hemoglobin stable or redraw is above 7.0 g/dL. GI prophylaxis Wound care. Labs and imaging reviewed. Rest of plan as noted below. Plan: s/p intubation on mechanical ventilator. On AC mode; RR 14, VT 500, PEEP 5, FiO2 30% Titrate FIO2 to keep O2 saturation above 90%. VAP bundle. Daily ABG and CXR while intubated Off sedation Continue bronchodilators Continue antibiotics. F/u cultures. Pressors if necessary for hemodynamic support Titrate to keep mean arterial pressure greater than 65 mmHg. Monitor renal function Monitor electrolytes. Supplement as necessary. Monitor ins and outs. Maintain euvolemia. GI prophylaxis - Protonix. DVT prophylaxis. Prognosis: Poor given patient's multiple co-morbidities. Condition: Critical Rest of plan per hospitalist and other consultants. A total of 35 minutes of critical care time was spent reviewing the patient record, examining the patient, making a diagnostic and therapeutic plan, discussing this plan with the medical personnel, following up on diagnostic studies and following the patient for clinical stability excluding any and all procedures. At least 50% of this time was spent in direct, [id number] contact. Thank you Ned Sapp NP, for allowing me to participate in this patient's care. Further recommendations will depend on the patient's clinical course. Please do not hesitate to contact me if you have any questions or concerns. This medical document was created using an electronic medical record system with [employer] dictation system. Although these documentations are being carefully reviewed, there may still be some phonetic and typographical changes. The errors are purely typographical, due to imperfection on the software program, and do not reflect any compromise in the patient's medical care. Dietary Evaluation Review Comments: No supplement for wounds d/t GERA and kidney function, Encourage and Monitor PO intake, and lab values, FU in 3-5 days Expected Outcomes/Goals: Improved lab values Plan discussed with: Other (KAREN Francis) Critical Care Time(min): 35 YARI BILL MD Mar 11, 2024 23:19
[2024-03-12] VITALS (85 sets, daily range): BP systolic 89–144; BP diastolic 39–69; PULSE 71–112; RESP 8–39; TEMP 97.4–99.1; O2SAT 95–100
[2024-03-12] MEDS: MORPHINE SULFATE INJ 2 MG/ml SYRG IV PRN ×2 (04:20→09:48)
--- NOTE | 2024-03-12 05:21 | DVH ---
CHEST RADIOGRAPH Indication: pna Technique: Single frontal view of the chest was obtained COMPARISON: XY CHEST PORTABLE on DOS: 03/10/24, XY CHEST PORTABLE on DOS: 03/09/24, XY CHEST XRAY 1 V IEW on DOS: 03/08/24, XY CHEST PORTABLE on DOS: 03/07/24, XY CHEST PORTABLE on DOS: 03/06/24 FINDINGS: Lines and Tubes: Left central venous catheter in satisfactory position. Lungs: Mild congestion Pleura: No effusion. No pneumothorax. Cardiomediastinal contours: Unremarkable Bones: Unremarkable IMPRESSION: Mild congestion
--- NOTE | 2024-03-12 08:24 | DVHPN2 ---
Subjective Patient now awake and following commands. Reports having generalized weakness Reviewed: Care Plan, H&P, Labs, Medications, Previous Orders Changes from previous H/P or p: No Changes General: Per HPI Eyes: No Pain, No Vision change, No Conjunctivae inflammation, No Eyelid inflammation, No Other, No Redness ENT: No Ear pain, No Ear discharge, No Nose pain, No Nose discharge, No Nose congestion, No Mouth pain, No Mouth swelling, No Throat pain, No Throat swelling, No Other Cardiovascular: No Chest Pain, No Palpitations, No Orthopnea, No Paroxysmal Noc. Dyspnea, No Edema, No Lt Headedness, No Other Respiratory: Cough, Shortness of breath, Sputum Gastrointestinal: No Nausea, No Vomiting, No Abdominal Pain, No Diarrhea, No Constipation, No Melena, No Hematochezia, No Other Genitourinary: No Dysuria, No Frequency, No Incontinence, No Hematuria, No Retention, No Other Musculoskeletal: No other, No neck pain, No shoulder pain, No arm pain, No back pain, No hand pain, No leg pain, No foot pain Skin: Lesions Objective Vitals Vital Signs Date Time Temp Pulse Resp B/P (MAP) Pulse Ox O2 Delivery O2 Flow Rate FiO2 03/12/24 08:02 23 100 Nasal Cannula* 2 28 03/12/24 07:34 122/54 03/12/24 07:05 85 03/12/24 05:50 98.6 98.6 Intake/Output Intake and Output 03/12/24 07:00 Intake Total 2180.280 ml Output Total 1400 ml Balance 780.280 ml Intake Oral 200 ml IV Total 780.280 ml Blood Product 600 ml Other 600 ml Output Urine Total 1400 ml General Appearance: Alert, mild distress HEENT: Atraumatic, PERRLA Lungs: Clear to auscultation, Normal air movement Cardiovascular: Normal S1, Normal S2, Other (Run of nonsustained VT) Abdomen: Normal bowel sounds Musculoskeletal: Normal sensory function, Normal motor function, Other (Deformity of hip) Extremities: No clubbing, No cyanosis, Normal pulses, Other (Tissue injury to heal) Neuro: Other (Unable to assess) Skin: Wounds (See nurse notes and pictures), Other (Sacral decubitus ulcer) Psych/Mental Status: Mental status NL, Mood NL Medications Current Medications Medications Dose Ordered Sig/Jordon Route Start Time Stop Time Status Last Admin Dose Admin Pantoprazole Sodium 40 mg DAILY IV 03/01/24 06:00 03/12/24 07:33 40 MG Albuterol 2.5 mg Q4HR NEB 03/01/24 10:00 03/12/24 06:56 2.5 MG Ipratropium [place] 0.5 mg Q4HR NEB 03/01/24 10:00 03/12/24 06:56 0.5 MG Vancomycin HCl 0 ml @ 0 mls/hr UD IV 03/01/24 02:15 UNV Micafungin Sodium 100 mg/Sodium Chloride 100 ml @ 100 mls/hr DAILY IV 03/04/24 10:00 03/12/24 07:40 100 MLS/HR Dexmedetomidine HCl 400 mcg/ Dextrose 100 ml @ 3.785 mls/ hr Q24H IV 03/05/24 20:00 03/11/24 03:30 3.785 MLS/HR Furosemide 40 mg DAILY IV 03/07/24 10:00 03/12/24 07:34 40 MG Fentanyl Citrate 250 ml @ 2.5 mls/hr Q24H IV 03/07/24 11:45 03/10/24 22:08 12.5 MLS/HR Linezolid 300 ml @ 150 mls/hr Q12HR IV 03/08/24 22:00 03/12/24 07:39 150 MLS/HR Norepinephrine Bitartrate 250 ml @ 3.75 mls/hr Q24H IV 03/08/24 20:30 03/09/24 06:53 3.75 MLS/HR Ertapenem 1 gm/ Sodium Chloride 50 ml @ 100 mls/hr DAILY IV 03/10/24 10:00 03/12/24 07:34 100 MLS/HR Purified Water 200 ml Q6HR GT 03/09/24 18:00 03/11/24 15:01 200 ML Enteral Nutritional Formula 1,000 ml 40ML/HR GT 03/11/24 09:15 Morphine Sulfate 2 mg Q6HPRN PRN IV 03/12/24 04:15 03/12/24 04:20 2 MG Laboratory Results Laboratory Tests 03/11/24 04:01 03/11/24 22:44 Urinalysis Test 03/01/24 03:00 03/02/24 11:20 Urine Color Yellow (Yellow) Urine Clarity Clear (Clear) Urine pH 5.0 (5.0-9.0) Urine Specific [place] 1.021 (1.001-1.035) Urine Protein Trace (Negative) H Urine Ketones Negative (Negative) Urine Blood 1+ /uL (Negative) H Urine Nitrite Negative (Negative) Urine Bilirubin Negative (Negative) Urine Urobilinogen Normal mg/dL (Negative) Urine Leukocyte Esterase Negative /uL (Negative) Urine RBC 15 /hpf (0 - 3) Urine WBC 4 /hpf (0 - 3) Urine Squamous Epithelial Cells None seen /hpf (<5) Urine Bacteria Few /hpf (None Seen) H Urine Hyaline Casts Mod /lpf (0 - 2) Urine Sperm Present /hpf (None Seen) Urine Glucose Normal mg/dL (Normal) Urine Creatinine 109.75 mg/dL (30.0-125.0) Urine Protein/Creatinine Ratio 0.74 Urine Sodium 10 mmol/L (40-220) L Urine Total Protein 80.8 mg/dL (1-14) H Blood Gas Results Test 03/11/24 12:05 03/11/24 14:55 Arterial Blood pH 7.464 (7.350-7.450) 7.495 (7.350-7.450) FiO2 % 30.0 30.0 Microbiology Microbiology Date/Time Source Procedure Growth Status 03/10/24 08:29 Buttock Gram Stain - Final Resulted 03/10/24 08:29 Buttock Anaerobic Culture - Preliminary Resulted 03/10/24 08:29 Buttock Aerobic Culture - Preliminary Resulted 03/08/24 20:00 Bronchial Washings Gram Stain - Final Resulted 03/08/24 20:00 Bronchial Washings Respiratory Culture - Preliminary Resulted 03/01/24 05:55 Stool Clostridium difficile Toxin Assay - Final Complete 03/01/24 03:00 Voided Urine Urine Culture - Final Complete 03/01/24 00:59 Blood Blood Culture - Final NO GROWTH AFTER 5 DAYS OF INCUBATION. Complete Labs and/or images reviewed: Labs reviewed by me, Image(s) reviewed by me Assessment/Plan Assessment/Plan Patient: -metabolic encephalopathy secondary to sepsis -sepsis with shock , VRE and yeast to wound -acute hypoxic respiratory failure, rule out community-acquired pneumonia, Gram-positive/Gram-negative etiology -deep tissue injury to sacrum and bilateral heels -history of COPD -primary hypertension -dyslipidemia -recent history of right hip fracture with right hip arthroplasty -acute kidney injury, vasomotor nephropathy -hypernatremia -displaced right hip arthroplasty Plan: Events: analysis engineer nurse reported patient having significant amount of bleeding on count as well as clots noted around sacral wound dressing. Dressing change was performed yesterday evening. Hemoglobin decreased to 6.9 after patient recently received 1 unit PRBC. Patient will receive an additional 2 units of PRBC, as well as 1 unit of FFP. Discussed case with general surgeon. We will continue to monitor patient's hemodynamic stability as well as wound site for bleeding. At this time there is no plan for re-explored and sacral wound. -continue O2 supplementation. Patient was respiratory status stable after being extubated yesterday. -surgical consultation: Communicated sacral wound bleeding -wound care consultation -bronchodilators -norepinephrine drip to keep map greater than 65 mmHg : Currently titrated off -Nephrology consultation -PUD, DVT prophylaxis: Hold anticoagulation, antiplatelet therapy. -repeat labs in a.m. Critical care time spent with patient discussing and formulating plan of care: 40 minutes. This does not include time spent performing procedures. This medical document was created using an electronic medical record system with [employer] dictation system. Although this document has been carefully reviewed, there may still be some phonetic and typographical errors. These areas are purely typographical due to imperfections of the software programs, and do not reflect any compromise in the patient's medical care. Plan discussed with: Patient, Other (RN, surgeon, Dr. Wellington) My Orders Orders - WAYNE TURNER NP Procedure Category Date Status Time Nutritional PHA 03/11/24 In Process Supplements (Jevity 09:15 Basic Metabolic Panel LAB 03/12/24 Logged 04:00 Complete Blood Count LAB 03/12/24 Logged 04:00 Chest Portable XY 03/12/24 Resulted 04:00 Abg W/ Co-Ox RT 03/12/24 Logged 04:00 * Swallow Request ST 03/11/24 Transmitted 15:46 Packedcells -Active BBK 03/12/24 Logged Bleeding 07:58 Type And Screen BBK 03/12/24 Logged 07:58 Frozen Plasma BBK 03/12/24 Verified 08:06 Date of Service: Mar 12, 2024 Billing Provider: WAYNE TURNER NP Common Visit Codes: [id number] CARE 30-74 MIN WAYNE TURNER NP Mar 12, 2024 08:23
[2024-03-12] MEDS: LORazepam 2MG/ML-1ML VIAL ONE (10:08)
[2024-03-12] MEDS: LORazepam 2MG/ML-1ML VIAL IV ONE (10:15)
[2024-03-12 10:42] LABS: Alanine Aminotransferase 15 U/L (7-40); Alkaline Phosphatase 95 U/L (46-116); Anion Gap 7 (5-15); Aspartate Aminotransferase 27 U/L (13-40); BUN/Creatinine Ratio 23.1 (10.0-20.0); Bilirubin, Total 0.8 mg/dL (0.2-1.0); Blood Urea Nitrogen 21 mg/dL (9-23); Carbon Dioxide 27 mmol/L (20-31); Chloride 107 mmol/L (98-107); Glucose 95 mg/dL (74-106); Potassium 3.9 mmol/L (3.5-5.1); Sodium 141 mmol/L (136-145)
--- NOTE | 2024-03-12 11:06 | DVHINCON2 ---
Date of service: Mar 12, 2024 Referring Physician Piter Reason for Consultation ? Acute stroke History of Present Illness Mr. Ann-Marie Salcido is an 78 years old gentleman with a history of hypertension, arthritis, COPD, pressure sore the patient was admitted on 02/29/2024 with a chief company of altered mental status, respiratory distress. In the morning on 03/12/2024, the patient was awake, oriented to person, place, and she stopped talking to his nurse suddenly, eyes were spacing out, with jerking movement in the left upper extremity, after given Ativan, the left upper jerking was less intense, since then, the patient was has not able to talk I have talked to Reji, he was relates the patient used to live alone, but he had fall recently, and was found to have hip fracture and was treated in the [facility], from there he was discharged to a rehab in the [facility] (confirmed with discharge note on 02/08/2024), and the patient was developed bedsores. During this hospital stay, the patient was found to have acute hypoxic respiratory failure, Sepsis, Septic shock Buttock pressure sore culture, 03/10/2024: Enterococcus faecium Sacral pressure sore culture, 03/04/24: E coli, Enterococcus feacium, Staphylococcus hemolyticus,, Bronchial washing culture, : Yeast, not candidate albicans Stool occult blood, 03/10/2024: Negative UDS, 03/01/2024: Negative Urinalysis, 03/01/2024: WBC: 4, urine leukocyte esterase: Negative WBC/HB/PLT/MCV, 03/11/2024: 18.1/6.9/400/83 PT/INR/PTT, 03/10/2024: 12.6/1.21/36.6 BUN/CR, 02/29/2024: 43/1.82 CMP, 03/10/2024: Unremarkable Vitamin B12, 03/01/2024:396 TSH, 03/01/2024: 3.64 CT head, 03/01/2024: 1. No evidence of acute large vessel territorial ischemic infarction or intraparenchymal hematoma in current study. 2. Chronic periventricular ischemic changes. 3. 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 4. Chronic and / or ancillary findings as described above. 5. Advised further evaluation with MRI brain without contrast if clinically indicated. Past Medical History Hypertension, COPD, arthritis, pressure sores Past Surgical History Cholecystectomy, right hip fracture repair, personal debridement Family History: Hypertension G8 MOTHER Malignant neoplasm of breast G8 MOTHER (UNKNOWN) Family History Hypertension, Cancer Social History Smoker: Cigarettes Alcohol: Occasionally Drugs: Denies Drug Use Lives In: Home Allergies: Coded Allergies: AMALIA Inhibitors (Verified Allergy, Unknown, 01/05/19) Azithromycin (Verified Allergy, Unknown, 01/05/19) Home Meds Active Scripts Sucralfate (Carafate) 1 Gm/10 Ml Sallie, 1 GM PO QID for 30 Days, #120 ML Prov:LISSY TORRES MD 08/16/21 Pantoprazole Sodium Sesquihydr (Protonix) 40 Mg Tab, 40 MG PO DAILY for 30 Days, #30 TAB 1 Refill Prov:LISSY TORRES MD 08/16/21 Reported Medications Patients Own Medication (PATIENTS OWN MEDICATION) ., 12.5 MG PO BID PTS OWN MED-OBTAIN FROM PT AND SEND TO RX DRUG: FREQ: RX# EXP: DATE DISP: TECH: [facility]: 01/03/19 Patients Own Medication (PATIENTS OWN MEDICATION) ., 500 MG PO ONCE PTS OWN MED-OBTAIN FROM PT AND SEND TO RX DRUG: FREQ: RX# EXP: DATE DISP: TECH: [facility]: 01/03/19 Prednisone (PREDNISONE) 5 Mg Tb, 5 MG GT DAILY for ARTHRITIS, TAB 01/03/19 Cholecalciferol (VITAMIN D3) 2,000 Unit Tab, 2000 UNIT OR DAILY, TAB 01/03/19 Amlodipine Besylate (Amlodipine Besylate) 5 Mg Tab, 10 MG PO DAILY for 30 Days, MG 01/03/19 Atorvastatin Calcium (Lipitor) 20 Mg Tab, 1 TAB PO HS, #90 TAB 1 Refill 01/03/19 Tamsulosin Hcl (Tamsulosin Hcl) 0.4 Mg Cap, 0.4 MG PO QPM for BPH for 30 Days, MG 01/03/19 Zolpidem Tartrate (ZOLPIDEM TARTRATE ER) 12.5 Mg Tab, 1 TAB PO QPM for SLEEP, #30 TAB 1 Refill 01/03/19 Current Medications Current Medications Medications (Trade) Dose Ordered Sig/Jordon Route PRN Reason Start Time Stop Time Status Last Admin Morphine Sulfate 2 mg Q6HPRN PRN IV SEVERE PAIN (7-10 PAIN SCALE) 03/12/24 04:15 03/12/24 09:29 DC 03/12/24 04:20 Morphine Sulfate 2 mg Q4HPRN PRN IV SEVERE PAIN (7-10 PAIN SCALE) 03/12/24 09:30 03/12/24 09:48 Review of Systems As above, the other systems are negative Vital Signs Vital Signs Date Time Temp Pulse Resp B/P (MAP) Pulse Ox O2 Delivery O2 Flow Rate FiO2 03/12/24 10:35 99.1 95 22 104/69 99.1 03/12/24 09:33 97 Nasal Cannula* 2 28 Physical Exam GENERAL EXAM: General: the patient is well developed and nourished. No acute distress. HEENT: Normocephalic, neck is supple, no carotid bruits. No mass. RESPIRATORY: Normal respiratory effort with symmetrical lung expansion. Lungs clear to auscultation. CARDIOVASCULAR: Regular rate and rhythm with no murmurs. S1, S2. ABDOMEN: Soft, nontender, normal bowel sound NEUROLOGICAL: MENTAL STATUS: Awake, he was responsive to verbal stimuli, not sure if he follows SPEECH, LANGUAGE, HIGHER CORTICAL FUNCTION: He does not vocalize CRANIAL NERVES: #2: View field few fine to confrontation #3,4,6: Pupils are equal, round and reactive. EOMs full and conjugate. #5: Facial sensation intact in all three divisions bilaterally. Mandibular strength intact. #7: Facial muscles symmetrical and strength intact. #8: Hearing grossly normal to voice. #9,10: Deferred #11: Deferred #12: Deferred SENSATION: Okay to pinprick MOTOR: Normal tone in the upper and lower extremity. Normal muscle bulk. No fasciculations. No abnormal movements or posturing. He only moves the left upper extremity. REFLEXES: Deep tendon reflexes are symmetrical. No pathological reflexes. CEREBELLAR/COORDINATION: Deferred GAIT/STATION: deferred. Labs/Diagnostic Data Labs Test 03/12/24 10:02 03/11/24 22:44 03/11/24 14:55 03/11/24 12:05 Range/Units Hemoglobin 6.8 *L 13.5-17.5 g/dL Hematocrit 20.6 #L 41.0-53.0 % Blood Gas Specimen Type Arterial Blood Gas Sample Site Right radial Blood Gas Patient Temperature 37.0 Arterial Blood Date Drawn [id number] Arterial Blood pH 7.495 H 7.350-7.450 Arterial Blood Partial Pressure CO2 31.2 L 35.0-48.0 mmHg Arterial Blood Partial Pressure O2 121.7 H 83.0-108.0 mmHg Arterial Blood HCO3 23.5 21.0-28.0 mmol/L Arterial Blood Oxygen Saturation 98.2 H 94.0-98.0 % Arterial Blood Base Excess 0.6 -2.0-3.0 mmol/L Arterial Blood Oxyhemoglobin 97.6 94.0-98.0 % Arterial Blood Carboxyhemoglobin 0.4 L 0.5-1.5 % Arterial Blood Methemoglobin 0.2 0.0-1.5 % Yao Test Modified Blood Gas Total Hemoglobin 9.10 L 13.5-17.5 g/dL Blood Gas Modality Vent - cpap FiO2 % 30.0 Blood Gas Pressure Support 8 Blood Gas PEEP or CPAP 5.0 Blood Gas Comments Blood Gas Set Respiration Rate 14.0 Blood Gas Tidal Volume 500.0 Test 03/11/24 04:01 03/10/24 23:15 03/10/24 03:00 03/07/24 03:08 Range/Units White Blood Count 18.1 H 4.4-10.8 10^3/uL Red Blood Count 2.56 L 4.5-5.90 10^6/uL Mean Corpuscular Volume 83.0 80.0-100.0 fL Mean Corpuscular Hemoglobin 26.9 L 28.0-32.0 pg Mean Corpuscular Hemoglobin Concent 32.4 32.0-36.0 g/dL Red Cell Distribution Width 16.1 H 11.8-14.3 % Platelet Count 400 140-450 10^3/uL Mean Platelet Volume 8.7 6.9-10.8 fL Neutrophils (%) (Auto) 37.0-80.0 % Lymphocytes (%) (Auto) 10.0-50.0 % Monocytes (%) (Auto) 0.0-12.0 % Basophils (%) (Auto) 0.0-2.0 % Neutrophils # (Auto) 1.6-8.6 10 ^3/uL Lymphocytes # (Auto) 0.4-5.4 10 ^3/uL Monocytes # (Auto) 0-1.3 10 ^3/uL Differential Total Cells Counted 100.0 100 Neutrophils % (Manual) 86 H 37.0-80.0 Band Neutrophils % (Manual) 1 Lymphocytes % (Manual) 9 L 10.0-50.0 Monocytes % (Manual) 4 0-12 Eosinophils % (Manual) 0 0-7 Basophils % (Manual) 0 0.0-2.0 Metamyelocytes % (manual) 0 Myelocytes % (Manual) 0 Promyelocytes % (Manual) 0 Blast Cells % (Manual) 0 Reactive Lymphocytes 0 Platelet Estimate Adequate Hypochromasia (manual) Slight Stool Occult Blood Negative Negative Stool Occult Blood Sample #3 Negative Eosinophils (%) (Auto) 2.4 0.0-7.0 % Eosinophils # (Auto) 0.5 0-0.8 10 ^3/uL Basophils # (Auto) 0.1 0-0.2 10 ^3/uL Nucleated Red Blood Cells 0.0 % Prothrombin Time 12.6 H 9.3-11.8 sec Prothrombin Time INR 1.21 H 0.9-1.15 Activated Partial Thromboplast Time 36.6 H 24.5-34.5 SEC Phosphorus Level 2.4 2.4-5.1 mg/dL Test 03/06/24 15:16 03/06/24 07:03 03/04/24 08:03 03/04/24 03:22 Range/Units Vancomycin Level Trough 16.1 H 5-10 ug/mL Blood Gas Critical Value Read Back Yes Blood Gas Notified Whom Dr. steph salazar Blood Gas Notified Time [id number] Blood Gas Notified By Meteorologist Liaison gail colvin Blood Gas Spontaneous Rate 14 Random Vancomycin Level 18.5 H 5-10 ug/mL Test 03/02/24 17:26 03/02/24 11:20 03/02/24 03:07 03/01/24 21:49 Range/Units POC Glucose 252 H 70-106 mg/dl Urine Creatinine 109.75 30.0-125.0 mg/dL Urine Protein/Creatinine Ratio 0.74 Urine Sodium 10 L 40-220 mmol/L Urine Total Protein 80.8 H 1-14 mg/dL Blood Gas Spontaneous Tidal Volume 572 Bl Gas Inspiratory/Expiratory Ratio 1:1.8 Specimen Drawn By Aruna john rt Blood Gas EPAP 5 Blood Gas IPAP 12 Test 12/9/24 16:10 03/01/24 13:14 03/01/24 03:30 03/01/24 03:00 Range/Units Erythrocyte Sedimentation Rate 110 H 0-20 mm/hr C-Reactive Protein High Sensitivity > 20.00 H <1.0 mg/dL D-Dimer, Quantitative 5.17 H 0.0-0.49 mg/L FEU Ammonia 29 11-32 umol/L Vitamin B12 Level 396 211-911 pg/mL Thyroid Stimulating Hormone (TSH) 3.64 0.55-4.78 uIU/mL Plasma/Serum Blood Alcohol < 3.0 <10 mg/dL Urine Color Yellow Yellow Urine Clarity Clear Clear Urine pH 5.0 5.0-9.0 Urine Specific [place] 1.021 1.001-1.035 Urine Protein Trace H Negative Urine Ketones Negative Negative Urine Blood 1+ H Negative /uL Urine Nitrite Negative Negative Urine Bilirubin Negative Negative Urine Urobilinogen Normal Negative mg/dL Urine Leukocyte Esterase Negative Negative /uL Urine RBC 15 0 - 3 /hpf Urine WBC 4 0 - 3 /hpf Urine Squamous Epithelial Cells None seen <5 /hpf Urine Bacteria Few H None Seen /hpf Urine Hyaline Casts Mod 0 - 2 /lpf Urine Sperm Present None Seen /hpf Urine Glucose Normal Normal mg/dL Urine Opiates Screen Neg NEGATIVE Urine Fentanyl Screen Neg NEGATIVE Urine Barbiturates Screen Neg NEGATIVE Urine Phencyclidine Screen Neg NEGATIVE Urine Amphetamines Screen Neg NEGATIVE Urine Benzodiazepines Screen Neg NEGATIVE Urine Cocaine Screen Neg NEGATIVE Urine Cannabinoids Screen Neg NEGATIVE Test 03/01/24 00:59 02/29/24 21:48 Range/Units Lactic Acid Level 1.9 0.4-2.0 mmol/L Troponin I High Sensitivity 16 </=54 ng/L B-Type Natriuretic Peptide 28.05 0-100 pg/mL Microbiology Date/Time Source Procedure Growth Status 03/10/24 08:29 Buttock Gram Stain - Final Resulted 03/10/24 08:29 Buttock Anaerobic Culture - Preliminary Resulted 03/10/24 08:29 Aerobic Culture - Preliminary Enterococcus faecium - VRE Resulted 03/08/24 20:00 Bronchial Washings Gram Stain - Final Resulted 03/08/24 20:00 Bronchial Washings Respiratory Culture - Preliminary Resulted 03/01/24 05:55 Stool Clostridium difficile Toxin Assay - Final Complete 03/01/24 03:00 Voided Urine Urine Culture - Final Complete 03/01/24 00:59 Blood Blood Culture - Final NO GROWTH AFTER 5 DAYS OF INCUBATION. Complete Assessment Abnormal left upper extremity movement with mental status changes Partial complex seizure Status epileptics ? Stroke Metabolic encephalopathy Respiratory failure Sepsis Pressure sore Plan/Recommendation Monitoring Supportive treatment ICU care Dilantin level in the morning EEG MRI head later Dilantin 1000 mg IV Dilantin 100 mg IV t.i.d. Ativan for seizure breakthrough IV antibiotics Oxygen More recommendation per clinical course The case was discussed with Piter Prognosis: Poor This medical document was created using an electronic medical record system with [employer] dictation system. Although this document has been carefully reviewed, there may still be some phonetic and typographical errors. These areas are purely typographical due to imperfections of the software programs, and do not reflect any compromise in the patient's medical care. Plan discussed with: Other ANGELA ESCOBEDO MD Mar 12, 2024 11:06
--- NOTE | 2024-03-12 11:07 | DVH ---
EXAM: CT HEAD WITHOUT CONTRAST HISTORY: rule out acute CVA/ Bleed COMPARISON: CT HEAD WITHOUT CONTRAST on DOS: 03/01/24, CT PELVIS WO CONTRAST on DOS: 02/02/24 TECHNIQUE: Axial images of the head were obtained and reformatted in coronal and sagittal planes. All CT scans at this medical facility are performed using dose modulation techniques as appropriate t o a performed exam including the following: Automated exposure control was utilized; adjustment of th e MA and/or KV according to patient size; and use of iterative reconstruction technique. CT Dose: CTDI volume is 67 mGy. Dose-length product is 1335 mGy*cm FINDINGS: There is age concordant generalized parenchymal volume loss. There are chronic small-vessel ischemic changes in the supratentorial white matter. There is a small hypodense focus in the right caudate hea d which may represent a small chronic lacunar infarct. There is no evidence of acute intracranial hem orrhage, mass, mass effect midline shift. There is no hydrocephalus or extra-axial fluid collection. Wright-white matter differentiation otherwise appears maintained. The visualized paranasal sinuses and mastoid air cells are clear. The calvarium is intact. IMPRESSION: 1. No acute intracranial process. HS:Y
[2024-03-12 11:08] LABS: Albumin 2.4 g/dL (3.2-4.8); Calcium 8.6 mg/dL (8.7-10.4); Magnesium 1.6 mg/dL (1.6-2.6); Total Protein 5.2 g/dL (5.7-8.2)
[2024-03-12] MEDS: MAGNESIUM SULFATE 1GM/100ML 100 ML IV ONE (13:13)
[2024-03-12] MEDS ORDERED: CLINIMIX PER PHARMACY 0 ML IV SCH (15:45)
[2024-03-12 16:12] LABS: Hematocrit 23.6 % (41.0-53.0)
[2024-03-12] MEDS ORDERED: MAGNESIUM SULFATE 1GM/100ML 100 ML IV ONE (16:30)
[2024-03-12] MEDS: PHENYTOIN IV DILANTIN 1,000 MG in SODIUM CHL 0.9% 250 ML IV ONE (17:30)
[2024-03-12] MEDS: POTASSIUM PHOSPHATE 22 MEQ in SODIUM CHL 0.9% 100 ML IV ONE (18:50)
[2024-03-12] MEDS: AMINO ACID INFUSION IN D10W 1,000 ML IV SCH (20:54)
[2024-03-12] MEDS: PHENYTOIN SODIUM 50 MG/ML 2ML VIAL IV SCH (20:55)
[2024-03-12 21:01] LABS: Base Excess 4.3 mmol/L (-2.0-3.0)
--- NOTE | 2024-03-12 23:21 | DVHPN2 ---
Progress Note - Dictate Date Seen: Mar 12, 2024 Medical Necessity Reason Pt with a Central, PICC or Fol: Yes The following are medically ne: Esqueda Catheter Reason for esqueda catheter: Strict I&O Subjective Patient seen and examined at bedside. S/p extubation, on supplemental oxygen Overnight events reviewed. vital signs Vital Sign Date Time Temp Pulse Resp B/P (MAP) Pulse Ox O2 Delivery O2 Flow Rate FiO2 03/12/24 22:18 75 14 100 03/12/24 22:08 Nasal Cannula 1.0 03/12/24 22:08 24 03/12/24 18:30 114/41 (65) 03/12/24 15:30 97.6 97.6 Total Intake and Output 03/11/24 03/11/24 03/12/24 15:00 23:00 07:00 Intake Total 780.280 ml 650 ml 750 ml Output Total 1100 ml 300 ml Balance 780.280 ml -450 ml 450 ml medications Current Medications Medications Dose Ordered Sig/Jordon Route Start Time Stop Time Status Last Admin Dose Admin Pantoprazole Sodium 40 mg DAILY IV 03/01/24 06:00 03/12/24 07:33 40 MG Albuterol 2.5 mg Q4HR NEB 03/01/24 10:00 03/12/24 22:08 2.5 MG Ipratropium Bailey 0.5 mg Q4HR NEB 03/01/24 10:00 03/12/24 22:08 0.5 MG Vancomycin HCl 0 ml @ 0 mls/hr UD IV 03/01/24 02:15 UNV Micafungin Sodium 100 mg/Sodium Chloride 100 ml @ 100 mls/hr DAILY IV 03/04/24 10:00 03/12/24 07:40 100 MLS/HR Furosemide 40 mg DAILY IV 03/07/24 10:00 03/12/24 07:34 40 MG Fentanyl Citrate 250 ml @ 2.5 mls/hr Q24H IV 03/07/24 11:45 03/10/24 22:08 12.5 MLS/HR Linezolid 300 ml @ 150 mls/hr Q12HR IV 03/08/24 22:00 03/12/24 20:55 150 MLS/HR Norepinephrine Bitartrate 250 ml @ 3.75 mls/hr Q24H IV 03/08/24 20:30 03/09/24 06:53 3.75 MLS/HR Ertapenem 1 gm/ Sodium Chloride 50 ml @ 100 mls/hr DAILY IV 03/10/24 10:00 03/12/24 07:34 100 MLS/HR Purified Water 200 ml Q6HR GT 03/09/24 18:00 03/11/24 15:01 200 ML Enteral Nutritional Formula 1,000 ml 40ML/HR GT 03/11/24 09:15 Morphine Sulfate 2 mg Q4HPRN PRN IV 03/12/24 09:30 03/12/24 09:48 2 MG Amino Acids 0 ml @ 0 mls/hr PER PHARMACY IV 03/12/24 15:45 Phenytoin Sodium 100 mg Q8HR IV 03/12/24 22:00 03/12/24 20:55 100 MG Lorazepam 1 mg Q5MINP PRN IV 03/12/24 16:30 Diagnostic Test (Pha) 1 strip Q6HR 03/13/24 00:00 Insulin Human Regular FOLLOW SLIDING SCALE Q6HR SC 03/13/24 00:00 Dextrose 50 ml UD IV 03/13/24 00:00 Amino Acids/ Electrolytes/ Dextrose 1,000 ml @ 41 mls/hr DAILY@2200 IV 03/12/24 22:00 03/12/24 20:54 41 MLS/HR objective Gen.: Patient lying in bed in no apparent distress. On supplemental oxygen. Head: Normocephalic, atraumatic. Eyes: EOMI/PERRLA. Ears: Normal hearing. Normal anatomy. Neck/trachea: Trachea midline, supple. Nose: Normal external anatomy. Mouth: Moist mucous membranes. Chest: Decreased air entry bilaterally. No wheezing or rhonchi. Cardiovascular: Positive S1, positive S2. Regular rate and rhythm. Abdomen: Positive bowel sounds in all 4 quadrants. Soft, non-tender, non- distended. : Deferred. Rectal: Deferred. Skin: Warm, dry. Intact. Extremities: 2+ radial pulses bilaterally. No lower extremity edema. Neuro: Awake, alert, oriented x3. No gross motor or sensory deficits. Cranial nerves II through XII intact. Gait not assessed. laboratory and microbiology Laboratory Tests 03/12/24 15:51 03/12/24 10:02 03/11/24 04:01 Test 03/12/24 10:02 Range/Units Serum Glucose 95 74-106 mg/dL Assessment/Plan Impression: Acute hypoxic respiratory failure Respiratory distress. CHF exacerbation/Pulmonary edema Nicotine dependence Acute metabolic encephalopathy Septic shock Deep tissue injury to sacrum and bilateral heels COPD, stable Recent history of right hip fracture with right hip arthroplasty Acute kidney injury, vasomotor nephropathy Events: Patient is s/p extubation on 03/11/24 On supplemental oxygen 2 LPM NC Taper O2 as tolerated ABG reviewed, alkalemia. CXR reviewed, demonstrates mild pulmonary congestion. S/p 1 unit FFP + 2 units PRBC for hgb 6.9 g/dL Continue to monitor hemoglobin closely Transfuse if less than 7.0 g/dL. Continue antibiotics Continue bronchodilators for COPD. Continue antifungal Magnesium supplementation Monitor renal function. Monitor electrolytes. Supplement as necessary. GI prophylaxis Wound care. Patient became altered STAT head CT obtained, demonstrated no e/o stroke or intracranial hemorrhage Monitor neurologic status. HOB elevation Aspiration precautions. Labs and imaging reviewed. Rest of plan as noted below. Plan: s/p extubation on 03/11/24 Supplemental oxygen 2 LPM NC Taper O2 as tolerated Off sedation Off pressors, hemodynamically stable. Continue bronchodilators Continue antibiotics. F/u cultures. Monitor WBC Tube feeds for nutritional support Monitor renal function Monitor electrolytes. Supplement as necessary. Monitor ins and outs. Maintain euvolemia. GI prophylaxis - Protonix. DVT prophylaxis. Prognosis: Poor given patient's multiple co-morbidities. Condition: Critical Rest of plan per hospitalist and other consultants. A total of 35 minutes of critical care time was spent reviewing the patient record, examining the patient, making a diagnostic and therapeutic plan, discussing this plan with the medical personnel, following up on diagnostic studies and following the patient for clinical stability excluding any and all procedures. At least 50% of this time was spent in direct, [id number] contact. Thank you Ned Sapp NP, for allowing me to participate in this patient's care. Further recommendations will depend on the patient's clinical course. Please do not hesitate to contact me if you have any questions or concerns. This medical document was created using an electronic medical record system with [employer] system. Although these documentations are being carefully reviewed, there may still be some phonetic and typographical changes. The errors are purely typographical, due to imperfection on the software program, and do not reflect any compromise in the patient's medical care. Dietary Evaluation Review Comments: No supplement for wounds d/t GERA and kidney function, Encourage and Monitor PO intake, and lab values, FU in 3-5 days Expected Outcomes/Goals: Improved lab values Plan discussed with: Other (KAREN Reynoso) Critical Care Time(min): 35 YARI BILL MD Mar 12, 2024 23:21
[2024-03-13] VITALS (95 sets, daily range): BP systolic 90–129; BP diastolic 37–58; PULSE 64–78; RESP 10–28; TEMP 97.7–98.8; O2SAT 95–100
[2024-03-13] MEDS: ACCU-CHEK COMFORT CURVE STRIP VI SCH
[2024-03-13] MEDS ORDERED: DEXTROSE (50%) 50ML SYRG IV SCH
[2024-03-13] MEDS: InsuLIN REG 1unit/0.01ml Soln (100units/ml) SC SCH
[2024-03-13 03:33] LABS: Basophils # (auto) 0.1 10 ^3/uL (0-0.2); Basophils % (auto) 0.5 % (0.0-2.0); Eosinophils # (auto) 0.2 10 ^3/uL (0-0.8); Hemoglobin 7.5 g/dL (13.5-17.5); Monocytes # (auto) 1.6 10 ^3/uL (0-1.3); Monocytes % (auto) 12.7 % (0.0-12.0)
[2024-03-13 03:35] LABS: Eosinophils % (auto) 1.5 % (0.0-7.0); Hematocrit 22.5 % (41.0-53.0); Lymphocytes # (auto) 2.7 10 ^3/uL (0.4-5.4); Lymphocytes % (auto) 21.9 % (10.0-50.0); Mean Corpuscular Hemoglobin 28.5 pg (28.0-32.0); Mean Corpuscular Hgb Conc. 33.5 g/dL (32.0-36.0); Mean Corpuscular Volume 85.1 fL (80.0-100.0); Neutrophils # (auto) 7.9 10 ^3/uL (1.6-8.6); Neutrophils % (auto) 63.4 % (37.0-80.0); Nucleated Red Blood Cells % 0.2 %; Platelet Count (auto) 308 10^3/uL (140-450); Red Blood Cells 2.64 10^6/uL (4.5-5.90); Red Cell Distribution Width 16.2 % (11.8-14.3); White Blood Cell 12.4 10^3/uL (4.4-10.8)
[2024-03-13 03:49] LABS: Alanine Aminotransferase 13 U/L (7-40); Alkaline Phosphatase 85 U/L (46-116); Anion Gap 9 (5-15); BUN/Creatinine Ratio 22.6 (10.0-20.0); Blood Urea Nitrogen 14 mg/dL (9-23); Carbon Dioxide 28 mmol/L (20-31); Chloride 105 mmol/L (98-107); Glucose 103 mg/dL (74-106); Sodium 142 mmol/L (136-145)
[2024-03-13 03:50] LABS: Aspartate Aminotransferase 23 U/L (13-40); Phosphorus 2.4 mg/dL (2.4-5.1)
[2024-03-13 04:02] LABS: Albumin 2.5 g/dL (3.2-4.8); Calcium 8.2 mg/dL (8.7-10.4); Magnesium 1.3 mg/dL (1.6-2.6); Potassium 3.4 mmol/L (3.5-5.1); Total Protein 5.1 g/dL (5.7-8.2)
[2024-03-13] MEDS: MAGNESIUM SULFATE 1GM/100ML 100 ML IV SCH ×2 (05:53→09:30)
[2024-03-13] MEDS: POTASSIUM CHL 20MEQ/100ML 100 ML IV ONE ×2 (05:54→09:31)
--- NOTE | 2024-03-13 09:07 | DVHPN2 ---
Progress Note - Dictate Date Seen: Mar 13, 2024 Medical Necessity Reason Pt with a Central, PICC or Fol: Yes The following are medically ne: Esqueda Catheter Reason for esqueda catheter: Strict I&O Subjective Mr. Ann-Marie Salcido is an 78 years old gentleman with a history of hypertension, arthritis, COPD, pressure sore the patient was admitted on 02/29/2024 with a chief company of altered mental status, respiratory distress. I have seen and examined the patient in the ICU, I have discussed with his nurse, he was awake, he tracks, but he does not talk to me or follow my commands. According to his nurse, he moves the left arm No symptoms suggestive seizure activity Dilantin, 03/13/2024: 12.8 Buttock pressure sore culture, 03/10/2024: Enterococcus faecium Sacral pressure sore culture, 03/04/24: E coli, Enterococcus feacium, Staphylococcus hemolyticus,, Bronchial washing culture, : Yeast, not candidate albicans Stool occult blood, 03/10/2024: Negative UDS, 03/01/2024: Negative Urinalysis, 03/01/2024: WBC: 4, urine leukocyte esterase: Negative WBC/HB/PLT/MCV, 03/11/2024: 18.1/6.9/400/83 PT/INR/PTT, 03/10/2024: 12.6/1.21/36.6 BUN/CR, 02/29/2024: 43/1.82 CMP, 03/10/2024: Unremarkable Vitamin B12, 03/01/2024:396 TSH, 03/01/2024: 3.64 CT head, 03/01/2024: 1. No evidence of acute large vessel territorial ischemic infarction or intraparenchymal hematoma in current study. 2. Chronic periventricular ischemic changes. 3. 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 4. Chronic and / or ancillary findings as described above. 5. Advised further evaluation with MRI brain without contrast if clinically indicated. vital signs Vital Sign Date Time Temp Pulse Resp B/P (MAP) Pulse Ox O2 Delivery O2 Flow Rate FiO2 03/13/24 09:01 66 17 97/37 (57) 99 03/13/24 08:12 Nasal Cannula* 2 28 03/13/24 08:01 98.7 98.7 Total Intake and Output 03/12/24 03/12/24 03/13/24 15:00 23:00 07:00 Intake Total 1200 ml 693 ml 328 ml Output Total 2650 ml 850 ml Balance 1200 ml -1957 ml -522 ml medications Current Medications Medications Dose Ordered Sig/Jordon Route Start Time Stop Time Status Last Admin Dose Admin Pantoprazole Sodium 40 mg DAILY IV 03/01/24 06:00 03/13/24 07:41 40 MG Albuterol 2.5 mg Q4HR NEB 03/01/24 10:00 03/13/24 06:40 2.5 MG Ipratropium Lovejoy 0.5 mg Q4HR NEB 03/01/24 10:00 03/13/24 06:40 0.5 MG Vancomycin HCl 0 ml @ 0 mls/hr UD IV 03/01/24 02:15 UNV Micafungin Sodium 100 mg/Sodium Chloride 100 ml @ 100 mls/hr DAILY IV 03/04/24 10:00 03/13/24 07:42 100 MLS/HR Furosemide 40 mg DAILY IV 03/07/24 10:00 03/13/24 07:42 40 MG Fentanyl Citrate 250 ml @ 2.5 mls/hr Q24H IV 03/07/24 11:45 03/10/24 22:08 12.5 MLS/HR Linezolid 300 ml @ 150 mls/hr Q12HR IV 03/08/24 22:00 03/13/24 07:42 150 MLS/HR Norepinephrine Bitartrate 250 ml @ 3.75 mls/hr Q24H IV 03/08/24 20:30 03/09/24 06:53 3.75 MLS/HR Ertapenem 1 gm/ Sodium Chloride 50 ml @ 100 mls/hr DAILY IV 03/10/24 10:00 03/13/24 07:42 100 MLS/HR Purified Water 200 ml Q6HR GT 03/09/24 18:00 03/11/24 15:01 200 ML Enteral Nutritional Formula 1,000 ml 40ML/HR GT 03/11/24 09:15 Morphine Sulfate 2 mg Q4HPRN PRN IV 03/12/24 09:30 03/12/24 09:48 2 MG Amino Acids 0 ml @ 0 mls/hr PER PHARMACY IV 03/12/24 15:45 Phenytoin Sodium 100 mg Q8HR IV 03/12/24 22:00 03/13/24 05:54 100 MG Lorazepam 1 mg Q5MINP PRN IV 03/12/24 16:30 Diagnostic Test (Pha) 1 strip Q6HR 03/13/24 00:00 03/13/24 05:54 1 STRIP Insulin Human Regular FOLLOW SLIDING SCALE Q6HR SC 03/13/24 00:00 Dextrose 50 ml UD IV 03/13/24 00:00 Amino Acids/ Electrolytes/ Dextrose 1,000 ml @ 41 mls/hr DAILY@2200 IV 03/12/24 22:00 03/12/24 20:54 41 MLS/HR Magnesium Sulfate/ Dextrose 100 ml @ 100 mls/hr Q1HR IV 03/13/24 09:00 03/13/24 10:59 UNV Lorazepam 1 mg Q2HP PRN IV 03/13/24 08:30 UNV objective General: the patient is well developed and nourished. No acute distress. MENTAL STATUS: Awake, he was responsive to verbal stimuli, not sure if he follows SPEECH, LANGUAGE, HIGHER CORTICAL FUNCTION: He does not vocalize CRANIAL NERVES: Pupils are equal, round and reactive. EOMs full and conjugate. Facial sensation intact in all three divisions bilaterally. Mandibular strength intact. Facial muscles symmetrical and strength intact. SENSATION: Okay to pinprick MOTOR: Normal tone in the upper and lower extremity. Normal muscle bulk. No fasciculations. No abnormal movements or posturing. He only moves the left upper extremity. REFLEXES: Deep tendon reflexes are symmetrical. No pathological reflexes. CEREBELLAR/COORDINATION: Deferred GAIT/STATION: deferred. laboratory and microbiology Laboratory Tests 03/13/24 03:03 Test 03/13/24 03:03 Range/Units Serum Glucose 103 74-106 mg/dL Problem List Abnormal left upper extremity movement with mental status changes Partial complex seizure Status epileptics ? Stroke Metabolic encephalopathy Respiratory failure Sepsis Pressure sore Assessment/Plan Monitoring Supportive treatment ICU care EEG MRI head later Dilantin 100 mg IV t.i.d. Ativan for seizure breakthrough IV antibiotics Oxygen More recommendation per clinical course This medical document was created using an electronic medical record system with [employer] dictation system. Although this document has been carefully reviewed, there may still be some phonetic and typographical errors. These areas are purely typographical due to imperfections of the software programs, and do not reflect any compromise in the patient's medical care Prognosis poor Dietary Evaluation Review Comments: No supplement for wounds d/t GERA and kidney function, Encourage and Monitor PO intake, and lab values, FU in 3-5 days Expected Outcomes/Goals: Improved lab values Plan discussed with: Other Critical Care Time(min): 35 ANGELA ESCOBEDO MD Mar 13, 2024 09:07
--- NOTE | 2024-03-13 09:56 | DVHPN2 ---
Reviewed: Care Plan, H&P, Labs, Medications, Previous Orders, Radiology Changes from previous H/P or p: No Changes General: Per HPI Eyes: No Pain, No Vision change, No Conjunctivae inflammation, No Eyelid inflammation, No Other, No Redness ENT: No Ear pain, No Ear discharge, No Nose pain, No Nose discharge, No Nose congestion, No Mouth pain, No Mouth swelling, No Throat pain, No Throat swelling, No Other Cardiovascular: No Chest Pain, No Palpitations, No Orthopnea, No Paroxysmal Noc. Dyspnea, No Edema, No Lt Headedness, No Other Respiratory: Cough, Shortness of breath, Sputum Gastrointestinal: No Nausea, No Vomiting, No Abdominal Pain, No Diarrhea, No Constipation, No Melena, No Hematochezia, No Other Genitourinary: No Dysuria, No Frequency, No Incontinence, No Hematuria, No Retention, No Other Musculoskeletal: No other, No neck pain, No shoulder pain, No arm pain, No back pain, No hand pain, No leg pain, No foot pain Skin: Lesions Objective Vitals Vital Signs Date Time Temp Pulse Resp B/P (MAP) Pulse Ox O2 Delivery O2 Flow Rate FiO2 03/13/24 09:55 66 21 100 03/13/24 09:01 97/37 (57) 03/13/24 08:12 Nasal Cannula* 2 28 03/13/24 08:01 98.7 98.7 Intake/Output Intake and Output 03/13/24 07:00 Intake Total 2221 ml Output Total 3500 ml Balance -1279 ml IV Total 1621 ml Blood Product 600 ml Output Urine Total 3500 ml General Appearance: Alert, mild distress HEENT: Atraumatic, PERRLA Lungs: Clear to auscultation, Normal air movement Cardiovascular: Normal S1, Normal S2, Other (Run of nonsustained VT) Abdomen: Normal bowel sounds Musculoskeletal: Normal sensory function, Normal motor function, Other (Deformity of hip) Extremities: No clubbing, No cyanosis, Normal pulses, Other (Tissue injury to heal) Neuro: Other (Unable to assess) Skin: Wounds (See nurse notes and pictures), Other (Sacral decubitus ulcer) Psych/Mental Status: Mental status NL, Mood NL Medications Current Medications Medications Dose Ordered Sig/Jordon Route Start Time Stop Time Status Last Admin Dose Admin Pantoprazole Sodium 40 mg DAILY IV 03/01/24 06:00 03/13/24 07:41 40 MG Albuterol 2.5 mg Q4HR NEB 03/01/24 10:00 03/13/24 06:40 2.5 MG Ipratropium Cedar 0.5 mg Q4HR NEB 03/01/24 10:00 03/13/24 06:40 0.5 MG Vancomycin HCl 0 ml @ 0 mls/hr UD IV 03/01/24 02:15 UNV Micafungin Sodium 100 mg/Sodium Chloride 100 ml @ 100 mls/hr DAILY IV 03/04/24 10:00 03/13/24 07:42 100 MLS/HR Furosemide 40 mg DAILY IV 03/07/24 10:00 03/13/24 07:42 40 MG Fentanyl Citrate 250 ml @ 2.5 mls/hr Q24H IV 03/07/24 11:45 03/10/24 22:08 12.5 MLS/HR Linezolid 300 ml @ 150 mls/hr Q12HR IV 03/08/24 22:00 03/13/24 07:42 150 MLS/HR Norepinephrine Bitartrate 250 ml @ 3.75 mls/hr Q24H IV 03/08/24 20:30 03/09/24 06:53 3.75 MLS/HR Ertapenem 1 gm/ Sodium Chloride 50 ml @ 100 mls/hr DAILY IV 03/10/24 10:00 03/13/24 07:42 100 MLS/HR Purified Water 200 ml Q6HR GT 03/09/24 18:00 03/11/24 15:01 200 ML Enteral Nutritional Formula 1,000 ml 40ML/HR GT 03/11/24 09:15 Morphine Sulfate 2 mg Q4HPRN PRN IV 03/12/24 09:30 03/12/24 09:48 2 MG Amino Acids 0 ml @ 0 mls/hr PER PHARMACY IV 03/12/24 15:45 Phenytoin Sodium 100 mg Q8HR IV 03/12/24 22:00 03/13/24 05:54 100 MG Lorazepam 1 mg Q5MINP PRN IV 03/12/24 16:30 Diagnostic Test (Pha) 1 strip Q6HR 03/13/24 00:00 03/13/24 05:54 1 STRIP Insulin Human Regular FOLLOW SLIDING SCALE Q6HR SC 03/13/24 00:00 Dextrose 50 ml UD IV 03/13/24 00:00 Amino Acids/ Electrolytes/ Dextrose 1,000 ml @ 41 mls/hr DAILY@2200 IV 03/12/24 22:00 03/12/24 20:54 41 MLS/HR Magnesium Sulfate/ Dextrose 100 ml @ 100 mls/hr Q1HR IV 03/13/24 09:00 03/13/24 10:59 03/13/24 09:30 100 MLS/HR Lorazepam 1 mg Q2HP PRN IV 03/13/24 08:30 Laboratory Results Laboratory Tests 03/13/24 03:03 Chemistry Test 03/12/24 10:02 03/13/24 03:03 Albumin 2.4 g/dL (3.2-4.8) L 2.5 g/dL (3.2-4.8) L Calcium Level 8.6 mg/dL (8.7-10.4) L 8.2 mg/dL (8.7-10.4) L Magnesium Level 1.6 mg/dL (1.6-2.6) 1.3 mg/dL (1.6-2.6) L Phosphorus Level 1.7 mg/dL (2.4-5.1) L 2.4 mg/dL (2.4-5.1) Total Protein 5.2 g/dL (5.7-8.2) L 5.1 g/dL (5.7-8.2) L LFT Test 03/12/24 10:02 03/13/24 03:03 Alanine Aminotransferase (ALT) 15 U/L (7-40) 13 U/L (7-40) Alkaline Phosphatase 95 U/L (46-116) 85 U/L (46-116) Aspartate Amino Transferase (AST) 27 U/L (13-40) 23 U/L (13-40) Total Bilirubin 0.8 mg/dL (0.2-1.0) 1.0 mg/dL (0.2-1.0) Urinalysis Test 03/01/24 03:00 03/02/24 11:20 Urine Color Yellow (Yellow) Urine Clarity Clear (Clear) Urine pH 5.0 (5.0-9.0) Urine Specific Marshall 1.021 (1.001-1.035) Urine Protein Trace (Negative) H Urine Ketones Negative (Negative) Urine Blood 1+ /uL (Negative) H Urine Nitrite Negative (Negative) Urine Bilirubin Negative (Negative) Urine Urobilinogen Normal mg/dL (Negative) Urine Leukocyte Esterase Negative /uL (Negative) Urine RBC 15 /hpf (0 - 3) Urine WBC 4 /hpf (0 - 3) Urine Squamous Epithelial Cells None seen /hpf (<5) Urine Bacteria Few /hpf (None Seen) H Urine Hyaline Casts Mod /lpf (0 - 2) Urine Sperm Present /hpf (None Seen) Urine Glucose Normal mg/dL (Normal) Urine Creatinine 109.75 mg/dL (30.0-125.0) Urine Protein/Creatinine Ratio 0.74 Urine Sodium 10 mmol/L (40-220) L Urine Total Protein 80.8 mg/dL (1-14) H Blood Gas Results Test 03/12/24 10:38 03/12/24 20:57 Arterial Blood pH 7.561 (7.350-7.450) 7.496 (7.350-7.450) FiO2 % 28.0 24.0 Microbiology Microbiology Date/Time Source Procedure Growth Status 03/10/24 08:29 Buttock Gram Stain - Final Resulted 03/10/24 08:29 Buttock Anaerobic Culture - Preliminary Resulted 03/10/24 08:29 Aerobic Culture - Preliminary Enterococcus faecium - VRE Resulted 03/08/24 20:00 Bronchial Washings Gram Stain - Final Complete 03/08/24 20:00 Respiratory Culture - Final Yeast, not Monserrat albicans Complete 03/01/24 05:55 Stool Clostridium difficile Toxin Assay - Final Complete 03/01/24 03:00 Voided Urine Urine Culture - Final Complete 03/01/24 00:59 Blood Blood Culture - Final NO GROWTH AFTER 5 DAYS OF INCUBATION. Complete Assessment/Plan Assessment/Plan -metabolic encephalopathy secondary to sepsis -sepsis with shock , VRE and yeast to wound -acute hypoxic respiratory failure, rule out community-acquired pneumonia, Gram-positive/Gram-negative etiology -deep tissue injury to sacrum and bilateral heels -history of COPD -primary hypertension -dyslipidemia -recent history of right hip fracture with right hip arthroplasty -acute kidney injury, vasomotor nephropathy -hypernatremia -displaced right hip arthroplasty Plan: Continuing current management. The sacral wound is not bleeding that much. Hemoglobin is stable. We will continuing to monitor. No plan re-explored the sacral wound. We will follow up with surgeon recommendation. Continuing wound care. Continuing with bronchodilator. Continuing with no epinephrine drip to keep MAP greater than 65. Continuing with IV antibiotic. Critical care time spent formulating plan of care: 35 minutes. This does not include time spent performing procedures. Plan discussed with: Patient Date of Service: Mar 13, 2024 Billing Provider: MERRILL GARCIA MD Common Visit Codes: [id number] INP/OBS CARE(HIGH) MERRILL GARCIA MD Mar 13, 2024 09:56
[2024-03-13] MEDS: POTASSIUM PHOSPHATE 22 MEQ in SODIUM CHL 0.9% 100 ML IV ONE (11:17)
--- NOTE | 2024-03-13 11:57 | DVHEEG2 ---
Neurology EEG Procedural Note Procedural Note EXAM DATE: 03/12/2024 REFERRING DOCTOR: Dr. Escobedo TECHNIQUE: Eighteen channels of EEG, 2 channels of EOG, and 1 channel of EKG were recorded using the [employer] 10/20 system. CLINICAL DATA: The patient was referred for an EEG evaluation for the evidence of seizure disorder. MEDICATIONS: See chart BACKGROUND ACTIVITY: The background activity appeared to be fairly regulated 6- 7 hertz rhythmic waveform over both posterior quadrants, that was reactive to external stimuli, intermixed with this was diffuse low amplitude theta activity ACTIVATION: Hyperventilation: Not done Photic Stimulation: Not done Sleep: Not seen IMPRESSION: This is a mildly abnormal EEG, this EEG seen in mild cerebral dysfunction due to metabolic/hypoxic encephalopathy or medication effects, please correlate clinically The EKG channel showed a regular heart rate of 78 per minute [place] [address] ANGELA ESCOBEDO MD Mar 13, 2024 11:57
--- NOTE | 2024-03-13 12:28 | DVH ---
EXAM: XR Chest, 1 View CLINICAL INDICATION: SOB TECHNIQUE: Frontal view of the chest. COMPARISON: XY CHEST PORTABLE on DOS: 03/12/24, XY CHEST PORTABLE on DOS: 03/10/24, XY CHEST PORTAB LE on DOS: 03/09/24 FINDINGS: LUNGS AND PLEURAL SPACES: Left basilar. No consolidation. No pneumothorax. HEART: Unremarkable. No cardiomegaly. MEDIASTINUM: Unremarkable. Normal mediastinal contour. BONES/JOINTS: Unremarkable. No acute fracture. TUBES, LINES AND DEVICES: Left internal jugular central venous catheter tip in the superior vena cav a. OTHER FINDINGS: . . IMPRESSION: No acute cardiopulmonary process.
--- NOTE | 2024-03-13 18:38 | DVHPN2 ---
Progress Note - Dictate Date Seen: Mar 13, 2024 Medical Necessity Reason Pt with a Central, PICC or Fol: Yes The following are medically ne: Esqueda Catheter Reason for esqueda catheter: Strict I&O Subjective Patient seen and examined at bedside. Remains on supplemental oxygen Overnight events reviewed. vital signs Vital Sign Date Time Temp Pulse Resp B/P (MAP) Pulse Ox O2 Delivery O2 Flow Rate FiO2 03/13/24 18:30 68 15 116/49 (71) 100 03/13/24 18:21 Nasal Cannula* 1 03/13/24 16:00 98.8 98.8 Total Intake and Output 03/12/24 03/12/24 03/13/24 15:00 23:00 07:00 Intake Total 1200 ml 693 ml 328 ml Output Total 2650 ml 850 ml Balance 1200 ml -1957 ml -522 ml medications Current Medications Medications Dose Ordered Sig/Jordon Route Start Time Stop Time Status Last Admin Dose Admin Pantoprazole Sodium 40 mg DAILY IV 03/01/24 06:00 03/13/24 07:41 40 MG Albuterol 2.5 mg Q4HR NEB 03/01/24 10:00 03/13/24 18:21 2.5 MG Ipratropium [place] 0.5 mg Q4HR NEB 03/01/24 10:00 03/13/24 18:21 0.5 MG Vancomycin HCl 0 ml @ 0 mls/hr UD IV 03/01/24 02:15 UNV Micafungin Sodium 100 mg/Sodium Chloride 100 ml @ 100 mls/hr DAILY IV 03/04/24 10:00 03/13/24 07:42 100 MLS/HR Furosemide 40 mg DAILY IV 03/07/24 10:00 03/13/24 07:42 40 MG Fentanyl Citrate 250 ml @ 2.5 mls/hr Q24H IV 03/07/24 11:45 03/10/24 22:08 12.5 MLS/HR Linezolid 300 ml @ 150 mls/hr Q12HR IV 03/08/24 22:00 03/13/24 07:42 150 MLS/HR Norepinephrine Bitartrate 250 ml @ 3.75 mls/hr Q24H IV 03/08/24 20:30 03/09/24 06:53 3.75 MLS/HR Ertapenem 1 gm/ Sodium Chloride 50 ml @ 100 mls/hr DAILY IV 03/10/24 10:00 03/13/24 07:42 100 MLS/HR Purified Water 200 ml Q6HR GT 03/09/24 18:00 03/11/24 15:01 200 ML Enteral Nutritional Formula 1,000 ml 40ML/HR GT 03/11/24 09:15 Morphine Sulfate 2 mg Q4HPRN PRN IV 03/12/24 09:30 03/13/24 11:53 2 MG Amino Acids 0 ml @ 0 mls/hr PER PHARMACY IV 03/12/24 15:45 Phenytoin Sodium 100 mg Q8HR IV 03/12/24 22:00 03/13/24 12:41 100 MG Lorazepam 1 mg Q5MINP PRN IV 03/12/24 16:30 Diagnostic Test (Pha) 1 strip Q6HR 03/13/24 00:00 03/13/24 18:10 1 STRIP Insulin Human Regular FOLLOW SLIDING SCALE Q6HR SC 03/13/24 00:00 Dextrose 50 ml UD IV 03/13/24 00:00 Amino Acids/ Electrolytes/ Dextrose 1,000 ml @ 41 mls/hr DAILY@2200 IV 03/12/24 22:00 03/12/24 20:54 41 MLS/HR Lorazepam 1 mg Q2HP PRN IV 03/13/24 08:30 objective Gen.: Patient lying in bed in no apparent distress. On supplemental oxygen. Head: Normocephalic, atraumatic. Eyes: EOMI/PERRLA. Ears: Normal hearing. Normal anatomy. Neck/trachea: Trachea midline, supple. Nose: Normal external anatomy. Mouth: Moist mucous membranes. Chest: Decreased air entry bilaterally. No wheezing or rhonchi. Cardiovascular: Positive S1, positive S2. Regular rate and rhythm. Abdomen: Positive bowel sounds in all 4 quadrants. Soft, non-tender, non- distended. : Deferred. Rectal: Deferred. Skin: Warm, dry. Intact. Extremities: 2+ radial pulses bilaterally. No lower extremity edema. Neuro: Awake, alert, oriented x3. No gross motor or sensory deficits. Cranial nerves II through XII intact. Gait not assessed. laboratory and microbiology Laboratory Tests 03/13/24 03:03 Test 03/13/24 03:03 Range/Units Serum Glucose 103 74-106 mg/dL Assessment/Plan Impression: Acute hypoxic respiratory failure Respiratory distress. CHF exacerbation/Pulmonary edema Nicotine dependence Acute metabolic encephalopathy Septic shock Deep tissue injury to sacrum and bilateral heels COPD, stable Recent history of right hip fracture with right hip arthroplasty Acute kidney injury, vasomotor nephropathy Events: Patient is s/p extubation on 03/11/24 Currently on supplemental oxygen 1 LPM NC Taper O2 as tolerated ABG reviewed, alkalemia. CXR reviewed, no acute cardiopulmonary process. Hgb of 7.5 Continue to monitor closely Transfuse if less than 7.0 g/dL. Follow up EEG results. F/u Neurology recommendations. On antiepileptics. Obtain CXR in the AM for interval changes. Continue antibiotics Continue bronchodilators for COPD. Continue antifungal K, mag, phos supplementation Monitor renal function. Monitor electrolytes. Supplement as necessary. GI prophylaxis Wound care - wound was previously oozing blood. Monitor neurologic status. HOB elevation Aspiration precautions. Labs and imaging reviewed. Rest of plan as noted below. Plan: s/p extubation on 03/11/24 Supplemental oxygen 1 LPM NC Taper O2 as tolerated Off sedation Off pressors, hemodynamically stable. Continue bronchodilators Continue antibiotics. F/u cultures. Monitor WBC Tube feeds for nutritional support Monitor renal function Monitor electrolytes. Supplement as necessary. Monitor ins and outs. Maintain euvolemia. GI prophylaxis - Protonix. DVT prophylaxis. Prognosis: Poor given patient's multiple co-morbidities. Condition: Critical Rest of plan per hospitalist and other consultants. A total of 35 minutes of critical care time was spent reviewing the patient record, examining the patient, making a diagnostic and therapeutic plan, discussing this plan with the medical personnel, following up on diagnostic studies and following the patient for clinical stability excluding any and all procedures. At least 50% of this time was spent in direct, [id number] contact. Thank you Ned Sapp NP, for allowing me to participate in this patient's care. Further recommendations will depend on the patient's clinical course. Please do not hesitate to contact me if you have any questions or concerns. This medical document was created using an electronic medical record system with [employer] dictation system. Although these documentations are being carefully reviewed, there may still be some phonetic and typographical changes. The errors are purely typographical, due to imperfection on the software program, and do not reflect any compromise in the patient's medical care. Dietary Evaluation Review Comments: No supplement for wounds d/t GERA and kidney function, Encourage and Monitor PO intake, and lab values, FU in 3-5 days Expected Outcomes/Goals: Improved lab values Plan discussed with: Other (KAREN Reynoso) Critical Care Time(min): 35 YARI BILL MD Mar 13, 2024 18:38
[2024-03-14] VITALS (41 sets, daily range): BP systolic 95–138; BP diastolic 40–68; PULSE 69–92; RESP 11–25; TEMP 98–99; O2SAT 97–100
[2024-03-14 04:02] LABS: Basophils # (auto) 0 10 ^3/uL (0-0.2); Basophils % (auto) 0.3 % (0.0-2.0); Eosinophils # (auto) 0.4 10 ^3/uL (0-0.8); Eosinophils % (auto) 2.6 % (0.0-7.0); Monocytes # (auto) 1.5 10 ^3/uL (0-1.3); Neutrophils # (auto) 10.5 10 ^3/uL (1.6-8.6); Nucleated Red Blood Cells % 0.1 %; Platelet Count (auto) 306 10^3/uL (140-450)
[2024-03-14 04:07] LABS: Hematocrit 22.1 % (41.0-53.0); Hemoglobin 7.5 g/dL (13.5-17.5); Lymphocytes # (auto) 2.4 10 ^3/uL (0.4-5.4); Lymphocytes % (auto) 15.9 % (10.0-50.0); Mean Corpuscular Hemoglobin 28.5 pg (28.0-32.0); Mean Corpuscular Hgb Conc. 33.8 g/dL (32.0-36.0); Mean Corpuscular Volume 84.4 fL (80.0-100.0); Monocytes % (auto) 10.4 % (0.0-12.0); Neutrophils % (auto) 70.8 % (37.0-80.0); Red Blood Cells 2.62 10^6/uL (4.5-5.90); Red Cell Distribution Width 16.2 % (11.8-14.3); White Blood Cell 14.9 10^3/uL (4.4-10.8)
[2024-03-14 04:27] LABS: Alanine Aminotransferase 11 U/L (7-40); Alkaline Phosphatase 85 U/L (46-116); Anion Gap 5 (5-15); Aspartate Aminotransferase 31 U/L (13-40); Bilirubin, Total 0.7 mg/dL (0.2-1.0); Blood Urea Nitrogen 11 mg/dL (9-23); Carbon Dioxide 28 mmol/L (20-31); Chloride 103 mmol/L (98-107); Glucose 101 mg/dL (74-106); Magnesium 1.8 mg/dL (1.6-2.6); Sodium 136 mmol/L (136-145); Triglycerides 140 mg/dL (< 150)
[2024-03-14 04:51] LABS: Albumin 2.3 g/dL (3.2-4.8); Calcium 8.3 mg/dL (8.7-10.4); Phosphorus 1.7 mg/dL (2.4-5.1); Potassium 3.4 mmol/L (3.5-5.1)
--- NOTE | 2024-03-14 07:33 | DVHPN2 ---
Subjective The patient is seen and examined at bedside. The patient is tired but not complain of pain. Reji, the DPOA at bedside. He had lots of question about the bleeding wound. Reviewed: Care Plan, H&P, Labs, Medications, Previous Orders, Radiology Changes from previous H/P or p: No Changes General: Per HPI Eyes: No Pain, No Vision change, No Conjunctivae inflammation, No Eyelid inflammation, No Other, No Redness ENT: No Ear pain, No Ear discharge, No Nose pain, No Nose discharge, No Nose congestion, No Mouth pain, No Mouth swelling, No Throat pain, No Throat swelling, No Other Cardiovascular: No Chest Pain, No Palpitations, No Orthopnea, No Paroxysmal Noc. Dyspnea, No Edema, No Lt Headedness, No Other Respiratory: Cough, Shortness of breath, Sputum Gastrointestinal: No Nausea, No Vomiting, No Abdominal Pain, No Diarrhea, No Constipation, No Melena, No Hematochezia, No Other Genitourinary: No Dysuria, No Frequency, No Incontinence, No Hematuria, No Retention, No Other Musculoskeletal: No other, No neck pain, No shoulder pain, No arm pain, No back pain, No hand pain, No leg pain, No foot pain Skin: Lesions Objective Vitals Vital Signs Date Time Temp Pulse Resp B/P (MAP) Pulse Ox O2 Delivery O2 Flow Rate FiO2 03/14/24 07:00 74 11 123/51 (75) 100 03/14/24 06:23 Room Air* 0 21 03/14/24 04:00 98.0 98.0 Intake/Output Intake and Output 03/14/24 07:00 Intake Total 2189 ml Output Total 2451 ml Balance -262 ml Intake Oral 0 ml IV Total 2189 ml Output Urine Total 2450 ml Urine/Stool Mix 1 ml General Appearance: Alert, mild distress HEENT: Atraumatic, PERRLA Lungs: Clear to auscultation, Normal air movement Cardiovascular: Normal S1, Normal S2, Other (Run of nonsustained VT) Abdomen: Normal bowel sounds Musculoskeletal: Normal sensory function, Normal motor function, Other (Deformity of hip) Extremities: No clubbing, No cyanosis, Normal pulses, Other (Tissue injury to heal) Neuro: Other (Unable to assess) Skin: Wounds (See nurse notes and pictures), Other (Sacral decubitus ulcer) Psych/Mental Status: Mental status NL, Mood NL Medications Current Medications Medications Dose Ordered Sig/Jordon Route Start Time Stop Time Status Last Admin Dose Admin Pantoprazole Sodium 40 mg DAILY IV 03/01/24 06:00 03/13/24 07:41 40 MG Albuterol 2.5 mg Q4HR NEB 03/01/24 10:00 03/14/24 06:19 2.5 MG Ipratropium [place] 0.5 mg Q4HR NEB 03/01/24 10:00 03/14/24 06:19 0.5 MG Vancomycin HCl 0 ml @ 0 mls/hr UD IV 03/01/24 02:15 UNV Micafungin Sodium 100 mg/Sodium Chloride 100 ml @ 100 mls/hr DAILY IV 03/04/24 10:00 03/13/24 07:42 100 MLS/HR Furosemide 40 mg DAILY IV 03/07/24 10:00 03/13/24 07:42 40 MG Fentanyl Citrate 250 ml @ 2.5 mls/hr Q24H IV 03/07/24 11:45 03/10/24 22:08 12.5 MLS/HR Linezolid 300 ml @ 150 mls/hr Q12HR IV 03/08/24 22:00 03/13/24 22:14 150 MLS/HR Norepinephrine Bitartrate 250 ml @ 3.75 mls/hr Q24H IV 03/08/24 20:30 03/09/24 06:53 3.75 MLS/HR Ertapenem 1 gm/ Sodium Chloride 50 ml @ 100 mls/hr DAILY IV 03/10/24 10:00 03/13/24 07:42 100 MLS/HR Purified Water 200 ml Q6HR GT 03/09/24 18:00 03/11/24 15:01 200 ML Enteral Nutritional Formula 1,000 ml 40ML/HR GT 03/11/24 09:15 Morphine Sulfate 2 mg Q4HPRN PRN IV 03/12/24 09:30 03/14/24 01:36 2 MG Amino Acids 0 ml @ 0 mls/hr PER PHARMACY IV 03/12/24 15:45 Phenytoin Sodium 100 mg Q8HR IV 03/12/24 22:00 03/14/24 05:43 100 MG Lorazepam 1 mg Q5MINP PRN IV 12/20/24 16:30 Diagnostic Test (Pha) 1 strip Q6HR 03/13/24 00:00 03/14/24 05:42 1 STRIP Insulin Human Regular FOLLOW SLIDING SCALE Q6HR SC 03/13/24 00:00 Dextrose 50 ml UD IV 03/13/24 00:00 Amino Acids/ Electrolytes/ Dextrose 1,000 ml @ 41 mls/hr DAILY@2200 IV 03/12/24 22:00 03/13/24 22:14 41 MLS/HR Lorazepam 1 mg Q2HP PRN IV 03/13/24 08:30 Laboratory Results Laboratory Tests 03/14/24 03:34 Chemistry Test 03/14/24 03:34 Albumin 2.3 g/dL (3.2-4.8) L Calcium Level 8.3 mg/dL (8.7-10.4) L Magnesium Level 1.8 mg/dL (1.6-2.6) Phosphorus Level 1.7 mg/dL (2.4-5.1) L Total Protein 5.0 g/dL (5.7-8.2) L Lipid panel Test 03/14/24 03:34 Triglycerides Level 140 mg/dL (< 150) LFT Test 03/14/24 03:34 Alanine Aminotransferase (ALT) 11 U/L (7-40) Alkaline Phosphatase 85 U/L (46-116) Aspartate Amino Transferase (AST) 31 U/L (13-40) Total Bilirubin 0.7 mg/dL (0.2-1.0) Urinalysis Test 03/01/24 03:00 03/02/24 11:20 Urine Color Yellow (Yellow) Urine Clarity Clear (Clear) Urine pH 5.0 (5.0-9.0) Urine Specific [place] 1.021 (1.001-1.035) Urine Protein Trace (Negative) H Urine Ketones Negative (Negative) Urine Blood 1+ /uL (Negative) H Urine Nitrite Negative (Negative) Urine Bilirubin Negative (Negative) Urine Urobilinogen Normal mg/dL (Negative) Urine Leukocyte Esterase Negative /uL (Negative) Urine RBC 15 /hpf (0 - 3) Urine WBC 4 /hpf (0 - 3) Urine Squamous Epithelial Cells None seen /hpf (<5) Urine Bacteria Few /hpf (None Seen) H Urine Hyaline Casts Mod /lpf (0 - 2) Urine Sperm Present /hpf (None Seen) Urine Glucose Normal mg/dL (Normal) Urine Creatinine 109.75 mg/dL (30.0-125.0) Urine Protein/Creatinine Ratio 0.74 Urine Sodium 10 mmol/L (40-220) L Urine Total Protein 80.8 mg/dL (1-14) H Microbiology Microbiology Date/Time Source Procedure Growth Status 03/10/24 08:29 Buttock Gram Stain - Final Resulted 03/10/24 08:29 Buttock Anaerobic Culture - Preliminary Resulted 03/10/24 08:29 Aerobic Culture - Preliminary Enterococcus faecium - VRE Resulted 03/08/24 20:00 Bronchial Washings Gram Stain - Final Complete 03/08/24 20:00 Respiratory Culture - Final Yeast, not Monserrat albicans Complete 03/01/24 05:55 Stool Clostridium difficile Toxin Assay - Final Complete 03/01/24 03:00 Voided Urine Urine Culture - Final Complete 03/01/24 00:59 Blood Blood Culture - Final NO GROWTH AFTER 5 DAYS OF INCUBATION. Complete Labs and/or images reviewed: Labs reviewed by me Assessment/Plan Assessment/Plan -metabolic encephalopathy secondary to sepsis -sepsis with shock , VRE and yeast to wound -acute hypoxic respiratory failure, rule out community-acquired pneumonia, Gram-positive/Gram-negative etiology -deep tissue injury to sacrum and bilateral heels -history of COPD -primary hypertension -dyslipidemia -recent history of right hip fracture with right hip arthroplasty -acute kidney injury, vasomotor nephropathy -hypernatremia -displaced right hip arthroplasty Plan: Continuing current management. The sacral wound is not bleeding today. Hemoglobin is stable. We will continuing to monitor. No plan re-explored the sacral wound. We will follow up with surgeon recommendation. Continuing wound care. I explained to the DPOA that the wound is stable and no need for surgery at this point. Continuing with bronchodilator. Continuing with no epinephrine drip to keep MAP greater than 65. Continuing with IV antibiotic. Addendum: RN called me after my visit with the patient, that the [facility] request to transfer the patient to [facility] for higher level of care. I explained to her there is no need for higher level of care. We will discuss with family member. I put in the request for social and political studies professor consulted regarding to transfer per family request. Critical care time spent formulating plan of care: 35 minutes. This does not include time spent performing procedures. Plan discussed with: Other (Reji FERNANDEZ, and RN) My Orders Orders - MERRILL GARCIA MD Procedure Category Date Status Time Cleanse Wound With KARYNA 03/13/24 In Process Wound Clean 16:00 Date of Service: Mar 14, 2024 Billing Provider: MERRILL GARCIA MD Common Visit Codes: [id number] INP/OBS CARE(HIGH) MERRILL GARCIA MD Mar 14, 2024 07:33
[2024-03-14] MEDS: POTASSIUM CHL 20MEQ/100ML 100 ML IV SCH (11:58)
[2024-03-14] MEDS: MAGNESIUM SULFATE 1GM/100ML 100 ML IV SCH (11:59)
[2024-03-14] MEDS: POTASSIUM PHOSPHATE 22 MEQ in SODIUM CHL 0.9% 100 ML IV ONE (17:02)
--- NOTE | 2024-03-14 21:18 | DVHPN2 ---
Progress Note - Dictate Date Seen: Mar 14, 2024 Medical Necessity Reason Pt with a Central, PICC or Fol: Yes The following are medically ne: Esqueda Catheter Reason for esqueda catheter: Strict I&O Subjective Patient seen and examined at bedside. Breathing comfortably on room air. Overnight events reviewed. vital signs Vital Sign Date Time Temp Pulse Resp B/P (MAP) Pulse Ox O2 Delivery O2 Flow Rate FiO2 03/14/24 19:00 72 22 112/46 (68) 100 03/14/24 18:04 Room Air 03/14/24 18:04 0 21 03/14/24 16:00 98.8 98.8 Total Intake and Output 03/13/24 03/13/24 03/14/24 15:00 23:00 07:00 Intake Total 1274 ml 478 ml 478 ml Output Total 1801 ml 650 ml Balance 1274 ml -1323 ml -172 ml medications Current Medications Medications Dose Ordered Sig/Jordon Route Start Time Stop Time Status Last Admin Dose Admin Pantoprazole Sodium 40 mg DAILY IV 03/01/24 06:00 03/14/24 09:54 40 MG Albuterol 2.5 mg Q4HR NEB 03/01/24 10:00 03/14/24 18:04 2.5 MG Ipratropium [place] 0.5 mg Q4HR NEB 03/01/24 10:00 03/14/24 18:04 0.5 MG Vancomycin HCl 0 ml @ 0 mls/hr UD IV 03/01/24 02:15 UNV Micafungin Sodium 100 mg/Sodium Chloride 100 ml @ 100 mls/hr DAILY IV 03/04/24 10:00 03/14/24 09:55 100 MLS/HR Furosemide 40 mg DAILY IV 03/07/24 10:00 03/14/24 11:08 40 MG Fentanyl Citrate 250 ml @ 2.5 mls/hr Q24H IV 03/07/24 11:45 03/10/24 22:08 12.5 MLS/HR Linezolid 300 ml @ 150 mls/hr Q12HR IV 03/08/24 22:00 03/14/24 09:54 150 MLS/HR Norepinephrine Bitartrate 250 ml @ 3.75 mls/hr Q24H IV 03/08/24 20:30 03/09/24 06:53 3.75 MLS/HR Ertapenem 1 gm/ Sodium Chloride 50 ml @ 100 mls/hr DAILY IV 03/10/24 10:00 03/14/24 09:27 100 MLS/HR Purified Water 200 ml Q6HR GT 03/09/24 18:00 03/11/24 15:01 200 ML Enteral Nutritional Formula 1,000 ml 40ML/HR GT 03/11/24 09:15 Morphine Sulfate 2 mg Q4HPRN PRN IV 03/12/24 09:30 03/14/24 01:36 2 MG Amino Acids 0 ml @ 0 mls/hr PER PHARMACY IV 03/12/24 15:45 Phenytoin Sodium 100 mg Q8HR IV 03/12/24 22:00 03/14/24 14:18 100 MG Lorazepam 1 mg Q5MINP PRN IV 03/12/24 16:30 Diagnostic Test (Pha) 1 strip Q6HR 03/13/24 00:00 03/14/24 18:11 1 STRIP Insulin Human Regular FOLLOW SLIDING SCALE Q6HR SC 03/13/24 00:00 Dextrose 50 ml UD IV 03/13/24 00:00 Amino Acids/ Electrolytes/ Dextrose 1,000 ml @ 41 mls/hr DAILY@2200 IV 03/12/24 22:00 03/13/24 22:14 41 MLS/HR Lorazepam 1 mg Q2HP PRN IV 03/13/24 08:30 objective Gen.: Patient lying in bed in no apparent distress. On room air Head: Normocephalic, atraumatic. Eyes: EOMI/PERRLA. Ears: Normal hearing. Normal anatomy. Neck/trachea: Trachea midline, supple. Nose: Normal external anatomy. Mouth: Moist mucous membranes. Chest: Decreased air entry bilaterally. No wheezing or rhonchi. Cardiovascular: Positive S1, positive S2. Regular rate and rhythm. Abdomen: Positive bowel sounds in all 4 quadrants. Soft, non-tender, non- distended. : Deferred. Rectal: Deferred. Skin: Warm, dry. Intact. Extremities: 2+ radial pulses bilaterally. No lower extremity edema. Neuro: Awake, alert, oriented x3. No gross motor or sensory deficits. Cranial nerves II through XII intact. Gait not assessed. laboratory and microbiology Laboratory Tests 03/14/24 03:34 Test 03/14/24 03:34 Range/Units Serum Glucose 101 74-106 mg/dL Assessment/Plan Impression: Acute hypoxic respiratory failure Respiratory distress. CHF exacerbation/Pulmonary edema Nicotine dependence Acute metabolic encephalopathy Septic shock Deep tissue injury to sacrum and bilateral heels COPD, stable Recent history of right hip fracture with right hip arthroplasty Acute kidney injury, vasomotor nephropathy Events: Patient is s/p extubation on 03/11/24 Currently tapered off supplemental oxygen, on room air No respiratory distress. Hgb stable at 7.5 Continue to monitor closely Transfuse if less than 7.0 g/dL. Follow up EEG results. Neurology recommendations appreciated On antiepileptics. Continue antibiotics Continue bronchodilators for COPD. Continue antifungal Pain control Avoid oversedation Monitor renal function. Monitor electrolytes. Supplement as necessary. Mag, K supplementation GI prophylaxis Wound care - wound was previously oozing blood. Monitor neurologic status. HOB elevation Aspiration precautions. Labs and imaging reviewed. Rest of plan as noted below. Plan: s/p extubation on 03/11/24 Supplemental oxygen PRN Titrate to keep sats above 92% Off sedation Off pressors, hemodynamically stable. Continue bronchodilators Continue antibiotics. F/u cultures. Monitor WBC Tube feeds for nutritional support Monitor renal function Monitor electrolytes. Supplement as necessary. Monitor ins and outs. Maintain euvolemia. GI prophylaxis - Protonix. DVT prophylaxis. Prognosis: Poor given patient's multiple co-morbidities. Condition: Critical Rest of plan per hospitalist and other consultants. A total of 35 minutes of critical care time was spent reviewing the patient record, examining the patient, making a diagnostic and therapeutic plan, discussing this plan with the medical personnel, following up on diagnostic studies and following the patient for clinical stability excluding any and all procedures. At least 50% of this time was spent in direct, [id number] contact. Thank you Ned Sapp NP, for allowing me to participate in this patient's care. Further recommendations will depend on the patient's clinical course. Please do not hesitate to contact me if you have any questions or concerns. This medical document was created using an electronic medical record system with [employer]. Although these documentations are being carefully reviewed, there may still be some phonetic and typographical changes. The errors are purely typographical, due to imperfection on the software program, and do not reflect any compromise in the patient's medical care. Dietary Evaluation Review Comments: No supplement for wounds d/t GERA and kidney function, Encourage and Monitor PO intake, and lab values, FU in 3-5 days Expected Outcomes/Goals: Improved lab values Plan discussed with: Other (KAREN Schroeder) Critical Care Time(min): 35 YARI BILL MD Mar 14, 2024 21:18
[2024-03-15] VITALS (75 sets, daily range): BP systolic 97–129; BP diastolic 39–54; PULSE 67–79; RESP 13–27; TEMP 97.9–99.2; O2SAT 97–100
[2024-03-15 03:58] LABS: Alanine Aminotransferase 13 U/L (7-40); Alkaline Phosphatase 95 U/L (46-116); Anion Gap 6 (5-15); Aspartate Aminotransferase 27 U/L (13-40); Bilirubin, Total 0.6 mg/dL (0.2-1.0); Blood Urea Nitrogen 12 mg/dL (9-23); Carbon Dioxide 26 mmol/L (20-31); Chloride 101 mmol/L (98-107); Glucose 96 mg/dL (74-106); Magnesium 1.9 mg/dL (1.6-2.6); Potassium 4.1 mmol/L (3.5-5.1)
[2024-03-15 04:03] LABS: Albumin 2.6 g/dL (3.2-4.8); Calcium 8.3 mg/dL (8.7-10.4); Sodium 133 mmol/L (136-145); Total Protein 5.4 g/dL (5.7-8.2)
--- NOTE | 2024-03-15 08:10 | DVHPN2 ---
Subjective Patient now awake and following commands. Reports having generalized weakness Reviewed: Care Plan, H&P, Labs, Medications, Previous Orders, Radiology Changes from previous H/P or p: No Changes General: Per HPI Eyes: No Pain, No Vision change, No Conjunctivae inflammation, No Eyelid inflammation, No Other, No Redness ENT: No Ear pain, No Ear discharge, No Nose pain, No Nose discharge, No Nose congestion, No Mouth pain, No Mouth swelling, No Throat pain, No Throat swelling, No Other Cardiovascular: No Chest Pain, No Palpitations, No Orthopnea, No Paroxysmal Noc. Dyspnea, No Edema, No Lt Headedness, No Other Respiratory: Cough, Shortness of breath, Sputum Gastrointestinal: No Nausea, No Vomiting, No Abdominal Pain, No Diarrhea, No Constipation, No Melena, No Hematochezia, No Other Genitourinary: No Dysuria, No Frequency, No Incontinence, No Hematuria, No Retention, No Other Musculoskeletal: No other, No neck pain, No shoulder pain, No arm pain, No back pain, No hand pain, No leg pain, No foot pain Skin: Lesions Objective Vitals Vital Signs Date Time Temp Pulse Resp B/P (MAP) Pulse Ox O2 Delivery O2 Flow Rate FiO2 03/15/24 06:39 74 14 98 03/15/24 06:27 Room Air* 0 21 03/15/24 06:00 115/49 (71) 03/15/24 04:00 99.2 99.2 Intake/Output Intake and Output 03/15/24 07:00 Intake Total 2119.25 ml Output Total 2325 ml Balance -205.75 ml Intake Oral 0 ml IV Total 2119.25 ml Output Urine Total 2325 ml General Appearance: Alert, Cooperative, mild distress HEENT: Atraumatic, PERRLA Lungs: Clear to auscultation, Normal air movement Cardiovascular: Regular rate, Normal S1, Normal S2, Other (Sinus rhythm) Abdomen: Normal bowel sounds Musculoskeletal: Normal sensory function, Normal motor function, Other (Deformity of hip) Extremities: No clubbing, No cyanosis, Normal pulses, Other (Tissue injury to heal) Neuro: Other (Unable to assess) Skin: Wounds (See nurse notes and pictures), Other (Sacral decubitus ulcer) Psych/Mental Status: Mental status NL, Mood NL Medications Current Medications Medications Dose Ordered Sig/Jordon Route Start Time Stop Time Status Last Admin Dose Admin Pantoprazole Sodium 40 mg DAILY IV 03/01/24 06:00 03/14/24 09:54 40 MG Albuterol 2.5 mg Q4HR NEB 03/01/24 10:00 03/15/24 02:16 2.5 MG Ipratropium [place] 0.5 mg Q4HR NEB 03/01/24 10:00 03/15/24 06:25 0.5 MG Vancomycin HCl 0 ml @ 0 mls/hr UD IV 03/01/24 02:15 UNV Micafungin Sodium 100 mg/Sodium Chloride 100 ml @ 100 mls/hr DAILY IV 03/04/24 10:00 03/14/24 09:55 100 MLS/HR Furosemide 40 mg DAILY IV 03/07/24 10:00 03/14/24 11:08 40 MG Fentanyl Citrate 250 ml @ 2.5 mls/hr Q24H IV 03/07/24 11:45 03/10/24 22:08 12.5 MLS/HR Linezolid 300 ml @ 150 mls/hr Q12HR IV 03/08/24 22:00 03/14/24 22:15 150 MLS/HR Norepinephrine Bitartrate 250 ml @ 3.75 mls/hr Q24H IV 03/08/24 20:30 03/09/24 06:53 3.75 MLS/HR Ertapenem 1 gm/ Sodium Chloride 50 ml @ 100 mls/hr DAILY IV 03/10/24 10:00 03/14/24 09:27 100 MLS/HR Purified Water 200 ml Q6HR GT 03/09/24 18:00 03/11/24 15:01 200 ML Enteral Nutritional Formula 1,000 ml 40ML/HR GT 03/11/24 09:15 Morphine Sulfate 2 mg Q4HPRN PRN IV 03/12/24 09:30 03/14/24 01:36 2 MG Amino Acids 0 ml @ 0 mls/hr PER PHARMACY IV 03/12/24 15:45 Phenytoin Sodium 100 mg Q8HR IV 03/12/24 22:00 03/15/24 05:23 100 MG Lorazepam 1 mg Q5MINP PRN IV 03/12/24 16:30 Diagnostic Test (Pha) 1 strip Q6HR 03/13/24 00:00 03/15/24 05:22 1 STRIP Insulin Human Regular FOLLOW SLIDING SCALE Q6HR SC 03/13/24 00:00 Dextrose 50 ml UD IV 03/13/24 00:00 Amino Acids/ Electrolytes/ Dextrose 1,000 ml @ 41 mls/hr DAILY@2200 IV 03/12/24 22:00 03/14/24 22:15 41 MLS/HR Lorazepam 1 mg Q2HP PRN IV 03/13/24 08:30 Laboratory Results Laboratory Tests 03/14/24 03:34 03/15/24 03:25 Chemistry Test 03/15/24 03:25 Albumin 2.6 g/dL (3.2-4.8) L Calcium Level 8.3 mg/dL (8.7-10.4) L Magnesium Level 1.9 mg/dL (1.6-2.6) Phosphorus Level 2.0 mg/dL (2.4-5.1) L Total Protein 5.4 g/dL (5.7-8.2) L LFT Test 03/15/24 03:25 Alanine Aminotransferase (ALT) 13 U/L (7-40) Alkaline Phosphatase 95 U/L (46-116) Aspartate Amino Transferase (AST) 27 U/L (13-40) Total Bilirubin 0.6 mg/dL (0.2-1.0) Urinalysis Test 03/01/24 03:00 03/02/24 11:20 Urine Color Yellow (Yellow) Urine Clarity Clear (Clear) Urine pH 5.0 (5.0-9.0) Urine Specific [place] 1.021 (1.001-1.035) Urine Protein Trace (Negative) H Urine Ketones Negative (Negative) Urine Blood 1+ /uL (Negative) H Urine Nitrite Negative (Negative) Urine Bilirubin Negative (Negative) Urine Urobilinogen Normal mg/dL (Negative) Urine Leukocyte Esterase Negative /uL (Negative) Urine RBC 15 /hpf (0 - 3) Urine WBC 4 /hpf (0 - 3) Urine Squamous Epithelial Cells None seen /hpf (<5) Urine Bacteria Few /hpf (None Seen) H Urine Hyaline Casts Mod /lpf (0 - 2) Urine Sperm Present /hpf (None Seen) Urine Glucose Normal mg/dL (Normal) Urine Creatinine 109.75 mg/dL (30.0-125.0) Urine Protein/Creatinine Ratio 0.74 Urine Sodium 10 mmol/L (40-220) L Urine Total Protein 80.8 mg/dL (1-14) H Microbiology Microbiology Date/Time Source Procedure Growth Status 03/10/24 08:29 Buttock Gram Stain - Final Resulted 03/10/24 08:29 Buttock Anaerobic Culture - Preliminary Resulted 03/10/24 08:29 Aerobic Culture - Final Enterococcus faecium - VRE Resulted 03/08/24 20:00 Bronchial Washings Gram Stain - Final Complete 03/08/24 20:00 Respiratory Culture - Final Yeast, not Monserrat albicans Complete 03/01/24 05:55 Stool Clostridium difficile Toxin Assay - Final Complete 03/01/24 03:00 Voided Urine Urine Culture - Final Complete 03/01/24 00:59 Blood Blood Culture - Final NO GROWTH AFTER 5 DAYS OF INCUBATION. Complete Labs and/or images reviewed: Labs reviewed by me, Image(s) reviewed by me Assessment/Plan Assessment/Plan Patient: -metabolic encephalopathy secondary to sepsis -sepsis with shock , VRE and yeast to wound -acute hypoxic respiratory failure, rule out community-acquired pneumonia, Gram-positive/Gram-negative etiology -deep tissue injury to sacrum and bilateral heels -history of COPD -primary hypertension -dyslipidemia -recent history of right hip fracture with right hip arthroplasty -acute kidney injury, vasomotor nephropathy -hypernatremia -displaced right hip arthroplasty Plan: Events: Sacral bleeding resolved. No further signs questionable seizure activity. Neurology consultation reviewed. CT scan of the head negative for acute CVA. Unable to perform MRI secondary to patient's kyphosis. -repeat right hip x-ray for reassessment of previously noted dislocation. -reconsult Orthopedic surgery for possible closed reduction -swallow evaluation -continue nutritional supplementation with Clinimix -continue O2 supplementation. Patient was respiratory status stable after being extubated yesterday. -wound care consultation -bronchodilators -Nephrology consultation -PUD, DVT prophylaxis: Hold anticoagulation, antiplatelet therapy. -repeat labs in a.m. Critical care time spent with patient discussing and formulating plan of care: 40 minutes. This does not include time spent performing procedures. This medical document was created using an electronic medical record system with [employer] system. Although this document has been carefully reviewed, there may still be some phonetic and typographical errors. These areas are purely typographical due to imperfections of the software programs, and do not reflect any compromise in the patient's medical care. Plan discussed with: Patient, Other (RN) My Orders Orders - WAYNE TURNER NP Procedure Category Date Status Time Clinimix Per Pharmacy KARYNA 03/14/24 In Process 22:00 * Swallow Request ST 03/15/24 Verified 08:05 R Hip Complete Xray XY 03/15/24 Verified 08:05 Date of Service: Mar 15, 2024 Billing Provider: WAYNE TURNER NP Common Visit Codes: 10009-[id number] CARE 30-74 MIN WAYNE TURNER NP Mar 15, 2024 08:10
[2024-03-15] MEDS: SODIUM PHOSPHATES 20 MEQ in SODIUM CHL 0.9% 100 ML IV ONE (08:45)
--- NOTE | 2024-03-15 10:11 | DVH ---
CLINICAL INDICATION: Hip displacement TECHNIQUE: XY R HIP COMPLETE XRAY Comparison: XY R HIP 1V XRAY on DOS: 02/02/24 FINDINGS/IMPRESSION: : Dislocated femoral component of right hip arthroplasty. Advanced degenerative changes of the left hip. Reyez catheter in-situ.
--- NOTE | 2024-03-15 10:11 | DVH ---
CHEST RADIOGRAPH Indication: icu Technique: Single frontal view of the chest was obtained COMPARISON: XY CHEST PORTABLE on DOS: 03/13/24, XY CHEST PORTABLE on DOS: 03/12/24, XY CHEST PORTABLE on DOS: 03/10/24, XY CHEST PORTABLE on DOS: 03/09/24, XY CHEST XRAY 1 VIEW on DOS: 03/08/24 FINDINGS: Lines and Tubes: Left central venous catheter in satisfactory position. Lungs: Clear Pleura: No effusion. No pneumothorax. Cardiomediastinal contours: Unremarkable Bones: Unremarkable IMPRESSION: No acute disease.
--- NOTE | 2024-03-15 11:29 | DVHPN2 ---
Progress Note - Dictate Date Seen: Mar 15, 2024 Medical Necessity Reason Pt with a Central, PICC or Fol: Yes The following are medically ne: Esqueda Catheter Reason for esqueda catheter: Strict I&O Subjective Mr. Ann-Marie Salcido is an 78 years old gentleman with a history of hypertension, arthritis, COPD, pressure sore the patient was admitted on 02/29/2024 with a chief company of altered mental status, respiratory distress. I have seen and examined the patient in the ICU, I have discussed with his nurse, he is easily arousable, he talks with very slurred voice, he may only oriented to himself, but nurse reports he was oriented 2-3 earlier today. Mouth mucosa is very dry He moves the arms and legs No symptoms suggestive seizure activity I see mild tremors in both upper extremities. Dilantin, 03/13/2024: 12.8 Buttock pressure sore culture, 03/10/2024: Enterococcus faecium Sacral pressure sore culture, 03/04/24: E coli, Enterococcus feacium, Staphylococcus hemolyticus,, Bronchial washing culture, : Yeast, not candidate albicans Stool occult blood, 03/10/2024: Negative UDS, 03/01/2024: Negative Urinalysis, 03/01/2024: WBC: 4, urine leukocyte esterase: Negative WBC/HB/PLT/MCV, 03/11/2024: 18.1/6.9/400/83 PT/INR/PTT, 03/10/2024: 12.6/1.21/36.6 BUN/CR, 02/29/2024: 43/1.82 CMP, 03/10/2024: Unremarkable Vitamin B12, 03/01/2024:396 TSH, 03/01/2024: 3.64 EEG, 03/12/2024: Mildly abnormal CT head, 03/01/2024: 1. No evidence of acute large vessel territorial ischemic infarction or intraparenchymal hematoma in current study. 2. Chronic periventricular ischemic changes. 3. 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 4. Chronic and / or ancillary findings as described above. 5. Advised further evaluation with MRI brain without contrast if clinically indicated. vital signs Vital Sign Date Time Temp Pulse Resp B/P (MAP) Pulse Ox O2 Delivery O2 Flow Rate FiO2 03/15/24 11:00 97.9 69 13 110/43 (65) 100 97.9 03/15/24 09:35 Room Air* 0 21 Total Intake and Output 03/14/24 03/14/24 03/15/24 15:00 23:00 07:00 Intake Total 1078 ml 454.25 ml 628 ml Output Total 1850 ml 475 ml Balance 1078 ml -1395.75 ml 153 ml medications Current Medications Medications Dose Ordered Sig/Jordon Route Start Time Stop Time Status Last Admin Dose Admin Pantoprazole Sodium 40 mg DAILY IV 03/01/24 06:00 03/15/24 08:51 40 MG Albuterol 2.5 mg Q4HR NEB 03/01/24 10:00 03/15/24 10:39 2.5 MG Ipratropium [place] 0.5 mg Q4HR NEB 03/01/24 10:00 03/15/24 10:39 0.5 MG Vancomycin HCl 0 ml @ 0 mls/hr UD IV 03/01/24 02:15 UNV Micafungin Sodium 100 mg/Sodium Chloride 100 ml @ 100 mls/hr DAILY IV 03/04/24 10:00 03/15/24 10:05 100 MLS/HR Furosemide 40 mg DAILY IV 03/07/24 10:00 03/15/24 08:51 40 MG Fentanyl Citrate 250 ml @ 2.5 mls/hr Q24H IV 03/07/24 11:45 03/10/24 22:08 12.5 MLS/HR Linezolid 300 ml @ 150 mls/hr Q12HR IV 03/08/24 22:00 03/15/24 08:51 150 MLS/HR Norepinephrine Bitartrate 250 ml @ 3.75 mls/hr Q24H IV 03/08/24 20:30 03/09/24 06:53 3.75 MLS/HR Ertapenem 1 gm/ Sodium Chloride 50 ml @ 100 mls/hr DAILY IV 03/10/24 10:00 03/15/24 11:01 100 MLS/HR Purified Water 200 ml Q6HR GT 03/09/24 18:00 03/11/24 15:01 200 ML Enteral Nutritional Formula 1,000 ml 40ML/HR GT 03/11/24 09:15 Morphine Sulfate 2 mg Q4HPRN PRN IV 03/12/24 09:30 03/14/24 01:36 2 MG Amino Acids 0 ml @ 0 mls/hr PER PHARMACY IV 03/12/24 15:45 Phenytoin Sodium 100 mg Q8HR IV 03/12/24 22:00 03/15/24 05:23 100 MG Lorazepam 1 mg Q5MINP PRN IV 03/12/24 16:30 Diagnostic Test (Pha) 1 strip Q6HR 03/13/24 00:00 03/15/24 05:22 1 STRIP Insulin Human Regular FOLLOW SLIDING SCALE Q6HR SC 03/13/24 00:00 Dextrose 50 ml UD IV 03/13/24 00:00 Amino Acids/ Electrolytes/ Dextrose 1,000 ml @ 41 mls/hr DAILY@2200 IV 03/12/24 22:00 03/14/24 22:15 41 MLS/HR Lorazepam 1 mg Q2HP PRN IV 03/13/24 08:30 objective General: the patient is well developed and nourished. No acute distress. MENTAL STATUS: Subjective SPEECH, LANGUAGE, HIGHER CORTICAL FUNCTION: He does not vocalize CRANIAL NERVES: Pupils are equal, round and reactive. EOMs full and conjugate. Facial sensation intact in all three divisions bilaterally. Mandibular strength intact. Facial muscles symmetrical and strength intact. SENSATION: Okay to pinprick MOTOR: Normal tone in the upper and lower extremity. Normal muscle bulk. No fasciculations. He moves the arms a little bit, muscle power feels no less than 3/5 REFLEXES: Deep tendon reflexes are symmetrical. No pathological reflexes. CEREBELLAR/COORDINATION: Deferred GAIT/STATION: deferred. laboratory and microbiology Laboratory Tests 03/15/24 03:25 03/14/24 03:34 Test 03/15/24 03:25 Range/Units Serum Glucose 96 74-106 mg/dL Problem List Abnormal left upper extremity movement with mental status changes Partial complex seizure Status epileptics ? Stroke Metabolic encephalopathy Respiratory failure Sepsis Pressure sore Anemia status post RBC transfusion Assessment/Plan Monitoring Supportive treatment ICU care MRI head later Dilantin 100 mg IV t.i.d. Ativan for seizure breakthrough IV antibiotics Oxygen More recommendation per clinical course This medical document was created using an electronic medical record system with [employer] dictation system. Although this document has been carefully reviewed, there may still be some phonetic and typographical errors. These areas are purely typographical due to imperfections of the software programs, and do not reflect any compromise in the patient's medical care Prognosis poor Dietary Evaluation Review Comments: No supplement for wounds d/t GERA and kidney function, Encourage and Monitor PO intake, and lab values, FU in 3-5 days Expected Outcomes/Goals: Improved lab values Plan discussed with: Other ANGELA ESCOBEDO MD Mar 15, 2024 11:29
--- NOTE | 2024-03-15 23:24 | DVHPN2 ---
Progress Note - Dictate Date Seen: Mar 15, 2024 Medical Necessity Reason Pt with a Central, PICC or Fol: Yes The following are medically ne: Esqueda Catheter Reason for esqueda catheter: Strict I&O Subjective Patient seen and examined at bedside. Breathing comfortably on room air. Overnight events reviewed. vital signs Vital Sign Date Time Temp Pulse Resp B/P (MAP) Pulse Ox O2 Delivery O2 Flow Rate FiO2 03/15/24 22:00 16 99 Room Air* 0 21 03/15/24 22:00 67 03/15/24 22:00 129/39 (69) 03/15/24 20:00 98.7 98.7 Total Intake and Output 03/14/24 03/14/24 03/15/24 15:00 23:00 07:00 Intake Total 1078 ml 454.25 ml 628 ml Output Total 1850 ml 475 ml Balance 1078 ml -1395.75 ml 153 ml medications Current Medications Medications Dose Ordered Sig/Jordno Route Start Time Stop Time Status Last Admin Dose Admin Pantoprazole Sodium 40 mg DAILY IV 03/01/24 06:00 03/15/24 08:51 40 MG Albuterol 2.5 mg Q4HR NEB 03/01/24 10:00 03/15/24 22:04 2.5 MG Ipratropium [place] 0.5 mg Q4HR NEB 03/01/24 10:00 03/15/24 22:04 0.5 MG Vancomycin HCl 0 ml @ 0 mls/hr UD IV 03/01/24 02:15 UNV Furosemide 40 mg DAILY IV 03/07/24 10:00 03/15/24 08:51 40 MG Fentanyl Citrate 250 ml @ 2.5 mls/hr Q24H IV 03/07/24 11:45 03/10/24 22:08 12.5 MLS/HR Linezolid 300 ml @ 150 mls/hr Q12HR IV 03/08/24 22:00 03/15/24 21:12 150 MLS/HR Norepinephrine Bitartrate 250 ml @ 3.75 mls/hr Q24H IV 03/08/24 20:30 03/09/24 06:53 3.75 MLS/HR Ertapenem 1 gm/ Sodium Chloride 50 ml @ 100 mls/hr DAILY IV 03/10/24 10:00 03/15/24 11:01 100 MLS/HR Purified Water 200 ml Q6HR GT 03/09/24 18:00 03/11/24 15:01 200 ML Enteral Nutritional Formula 1,000 ml 40ML/HR GT 03/11/24 09:15 Morphine Sulfate 2 mg Q4HPRN PRN IV 03/12/24 09:30 03/15/24 14:59 2 MG Amino Acids 0 ml @ 0 mls/hr PER PHARMACY IV 03/12/24 15:45 Phenytoin Sodium 100 mg Q8HR IV 03/12/24 22:00 03/15/24 21:13 100 MG Lorazepam 1 mg Q5MINP PRN IV 03/12/24 16:30 Diagnostic Test (Pha) 1 strip Q6HR 03/13/24 00:00 03/15/24 18:23 1 STRIP Insulin Human Regular FOLLOW SLIDING SCALE Q6HR SC 03/13/24 00:00 Dextrose 50 ml UD IV 03/13/24 00:00 Amino Acids/ Electrolytes/ Dextrose 1,000 ml @ 41 mls/hr DAILY@2200 IV 03/12/24 22:00 03/15/24 21:13 41 MLS/HR Lorazepam 1 mg Q2HP PRN IV 03/13/24 08:30 objective Gen.: Patient lying in bed in no apparent distress. On room air Head: Normocephalic, atraumatic. Eyes: EOMI/PERRLA. Ears: Normal hearing. Normal anatomy. Neck/trachea: Trachea midline, supple. Nose: Normal external anatomy. Mouth: Moist mucous membranes. Chest: Decreased air entry bilaterally. No wheezing or rhonchi. Cardiovascular: Positive S1, positive S2. Regular rate and rhythm. Abdomen: Positive bowel sounds in all 4 quadrants. Soft, non-tender, non- distended. : Deferred. Rectal: Deferred. Skin: Warm, dry. Intact. Extremities: 2+ radial pulses bilaterally. No lower extremity edema. Neuro: Awake, alert, oriented x3. No gross motor or sensory deficits. Cranial nerves II through XII intact. Gait not assessed. laboratory and microbiology Laboratory Tests 03/15/24 03:25 03/14/24 03:34 Test 03/15/24 03:25 Range/Units Serum Glucose 96 74-106 mg/dL Assessment/Plan Impression: Acute hypoxic respiratory failure Respiratory distress. CHF exacerbation/Pulmonary edema Nicotine dependence Acute metabolic encephalopathy Septic shock Deep tissue injury to sacrum and bilateral heels COPD, stable Recent history of right hip fracture with right hip arthroplasty Acute kidney injury, vasomotor nephropathy Events: Remains on room air No respiratory distress. Continue to monitor hemoglobin closely Transfuse if less than 7.0 g/dL. Obtain STAT chest x-ray Continue antiepileptics. Continue antibiotics - Zyvox Continue bronchodilators for COPD. Continue antifungal Pain control Avoid oversedation Monitor renal function. Monitor electrolytes. Supplement as necessary. Supplement mag, phos, sodium GI prophylaxis Wound care. Clinimix for nutritional support Monitor neurologic status. HOB elevation Aspiration precautions. Labs and imaging reviewed. Rest of plan as noted below. Plan: s/p extubation on 03/11/24 Supplemental oxygen PRN Titrate to keep sats above 92% Off sedation Off pressors, hemodynamically stable. Continue bronchodilators Continue antibiotics. F/u cultures. Monitor WBC Tube feeds for nutritional support Monitor renal function Monitor electrolytes. Supplement as necessary. Monitor ins and outs. Maintain euvolemia. GI prophylaxis - Protonix. DVT prophylaxis. Prognosis: Poor given patient's multiple co-morbidities. Condition: Critical Rest of plan per hospitalist and other consultants. A total of 35 minutes of critical care time was spent reviewing the patient record, examining the patient, making a diagnostic and therapeutic plan, discussing this plan with the medical personnel, following up on diagnostic studies and following the patient for clinical stability excluding any and all procedures. At least 50% of this time was spent in direct, [id number] contact. Thank you Ned Sapp NP, for allowing me to participate in this patient's care. Further recommendations will depend on the patient's clinical course. Please do not hesitate to contact me if you have any questions or concerns. This medical document was created using an electronic medical record system with [employer] dictation system. Although these documentations are being carefully reviewed, there may still be some phonetic and typographical changes. The errors are purely typographical, due to imperfection on the software program, and do not reflect any compromise in the patient's medical care. Dietary Evaluation Review Comments: No supplement for wounds d/t GERA and kidney function, Encourage and Monitor PO intake, and lab values, FU in 3-5 days Expected Outcomes/Goals: Improved lab values Plan discussed with: Patient, Other (KAREN Hicks) YARI BILL MD Mar 15, 2024 23:24
[2024-03-16] VITALS (36 sets, daily range): BP systolic 105–138; BP diastolic 38–81; PULSE 69–83; RESP 13–31; TEMP 98.2–99.2; O2SAT 94–100
[2024-03-16 07:53] LABS: Alanine Aminotransferase 11 U/L (7-40); Alkaline Phosphatase 96 U/L (46-116); Anion Gap 5 (5-15); BUN/Creatinine Ratio 17.5 (10.0-20.0); Blood Urea Nitrogen 10 mg/dL (9-23); Carbon Dioxide 25 mmol/L (20-31); Chloride 102 mmol/L (98-107); Glucose 86 mg/dL (74-106); Potassium 3.7 mmol/L (3.5-5.1)
[2024-03-16 07:54] LABS: Aspartate Aminotransferase 27 U/L (13-40); Bilirubin, Total 0.5 mg/dL (0.2-1.0)
[2024-03-16 07:58] LABS: Albumin 2.4 g/dL (3.2-4.8); Calcium 8.6 mg/dL (8.7-10.4); Magnesium 1.5 mg/dL (1.6-2.6); Sodium 132 mmol/L (136-145); Total Protein 5.1 g/dL (5.7-8.2)
[2024-03-16] MEDS: SODIUM PHOSPHATES 20 MEQ in SODIUM CHL 0.9% 100 ML IV ONE (08:15)
[2024-03-16] MEDS ORDERED: TPN PER PHARMACY 0 ML IV SCH (08:15)
--- NOTE | 2024-03-16 08:17 | DVHPN2 ---
Subjective Patient now awake and following commands. Reports having generalized weakness Reviewed: Care Plan, H&P, Labs, Medications, Previous Orders, Radiology Changes from previous H/P or p: No Changes General: Per HPI Eyes: No Pain, No Vision change, No Conjunctivae inflammation, No Eyelid inflammation, No Other, No Redness ENT: No Ear pain, No Ear discharge, No Nose pain, No Nose discharge, No Nose congestion, No Mouth pain, No Mouth swelling, No Throat pain, No Throat swelling, No Other Cardiovascular: No Chest Pain, No Palpitations, No Orthopnea, No Paroxysmal Noc. Dyspnea, No Edema, No Lt Headedness, No Other Respiratory: Cough, Shortness of breath, Sputum Gastrointestinal: No Nausea, No Vomiting, No Abdominal Pain, No Diarrhea, No Constipation, No Melena, No Hematochezia, No Other Genitourinary: No Dysuria, No Frequency, No Incontinence, No Hematuria, No Retention, No Other Musculoskeletal: No other, No neck pain, No shoulder pain, No arm pain, No back pain, No hand pain, No leg pain, No foot pain Skin: Lesions Objective Vitals Vital Signs Date Time Temp Pulse Resp B/P (MAP) Pulse Ox O2 Delivery O2 Flow Rate FiO2 03/16/24 07:36 72 20 100 Room Air* 0 21 03/16/24 06:00 128/55 (79) 03/16/24 05:00 99.2 99.2 Intake/Output Intake and Output 03/16/24 07:00 Intake Total 1284 ml Output Total 2500 ml Balance -1216 ml Intake Oral 0 ml IV Total 1284 ml Output Urine Total 2450 ml Stool Total 50 ml General Appearance: Alert, Cooperative, mild distress HEENT: Atraumatic, PERRLA Lungs: Clear to auscultation, Normal air movement Cardiovascular: Regular rate, Normal S1, Normal S2, Other (Sinus rhythm) Abdomen: Normal bowel sounds Musculoskeletal: Normal sensory function, Normal motor function, Other (Deformity of hip) Extremities: No clubbing, No cyanosis, Normal pulses, Other (Tissue injury to heal) Neuro: Other (Unable to assess) Skin: Wounds (See nurse notes and pictures), Other (Sacral decubitus ulcer) Psych/Mental Status: Mental status NL, Mood NL Medications Current Medications Medications Dose Ordered Sig/Jordon Route Start Time Stop Time Status Last Admin Dose Admin Pantoprazole Sodium 40 mg DAILY IV 03/01/24 06:00 03/15/24 08:51 40 MG Albuterol 2.5 mg Q4HR NEB 03/01/24 10:00 03/16/24 07:04 2.5 MG Ipratropium [place] 0.5 mg Q4HR NEB 03/01/24 10:00 03/16/24 07:04 0.5 MG Vancomycin HCl 0 ml @ 0 mls/hr UD IV 03/01/24 02:15 UNV Furosemide 40 mg DAILY IV 03/07/24 10:00 03/15/24 08:51 40 MG Fentanyl Citrate 250 ml @ 2.5 mls/hr Q24H IV 03/07/24 11:45 03/10/24 22:08 12.5 MLS/HR Linezolid 300 ml @ 150 mls/hr Q12HR IV 03/08/24 22:00 03/15/24 21:12 150 MLS/HR Norepinephrine Bitartrate 250 ml @ 3.75 mls/hr Q24H IV 03/08/24 20:30 03/09/24 06:53 3.75 MLS/HR Ertapenem 1 gm/ Sodium Chloride 50 ml @ 100 mls/hr DAILY IV 03/10/24 10:00 03/15/24 11:01 100 MLS/HR Purified Water 200 ml Q6HR GT 03/09/24 18:00 03/11/24 15:01 200 ML Enteral Nutritional Formula 1,000 ml 40ML/HR GT 03/11/24 09:15 Morphine Sulfate 2 mg Q4HPRN PRN IV 03/12/24 09:30 03/15/24 14:59 2 MG Phenytoin Sodium 100 mg Q8HR IV 03/12/24 22:00 03/16/24 06:17 100 MG Lorazepam 1 mg Q5MINP PRN IV 03/12/24 16:30 Diagnostic Test (Pha) 1 strip Q6HR 03/13/24 00:00 03/16/24 00:00 1 STRIP Insulin Human Regular FOLLOW SLIDING SCALE Q6HR SC 03/13/24 00:00 Dextrose 50 ml UD IV 03/13/24 00:00 Lorazepam 1 mg Q2HP PRN IV 03/13/24 08:30 Amino Acids 0 ml @ 0 mls/hr PER PHARMACY IV 03/16/24 08:15 UNV Magnesium Sulfate/ Dextrose 100 ml @ 100 mls/hr Q1HR IV 03/16/24 09:00 03/16/24 10:59 UNV Laboratory Results Laboratory Tests 03/14/24 03:34 03/16/24 07:16 Chemistry Test 03/16/24 07:16 Albumin 2.4 g/dL (3.2-4.8) L Calcium Level 8.6 mg/dL (8.7-10.4) L Magnesium Level 1.5 mg/dL (1.6-2.6) L Phosphorus Level 2.0 mg/dL (2.4-5.1) L Total Protein 5.1 g/dL (5.7-8.2) L LFT Test 03/16/24 07:16 Alanine Aminotransferase (ALT) 11 U/L (7-40) Alkaline Phosphatase 96 U/L (46-116) Aspartate Amino Transferase (AST) 27 U/L (13-40) Total Bilirubin 0.5 mg/dL (0.2-1.0) Urinalysis Test 03/01/24 03:00 03/02/24 11:20 Urine Color Yellow (Yellow) Urine Clarity Clear (Clear) Urine pH 5.0 (5.0-9.0) Urine Specific [place] 1.021 (1.001-1.035) Urine Protein Trace (Negative) H Urine Ketones Negative (Negative) Urine Blood 1+ /uL (Negative) H Urine Nitrite Negative (Negative) Urine Bilirubin Negative (Negative) Urine Urobilinogen Normal mg/dL (Negative) Urine Leukocyte Esterase Negative /uL (Negative) Urine RBC 15 /hpf (0 - 3) Urine WBC 4 /hpf (0 - 3) Urine Squamous Epithelial Cells None seen /hpf (<5) Urine Bacteria Few /hpf (None Seen) H Urine Hyaline Casts Mod /lpf (0 - 2) Urine Sperm Present /hpf (None Seen) Urine Glucose Normal mg/dL (Normal) Urine Creatinine 109.75 mg/dL (30.0-125.0) Urine Protein/Creatinine Ratio 0.74 Urine Sodium 10 mmol/L (40-220) L Urine Total Protein 80.8 mg/dL (1-14) H Microbiology Microbiology Date/Time Source Procedure Growth Status 03/10/24 08:29 Buttock Gram Stain - Final Complete 03/10/24 08:29 Buttock Anaerobic Culture - Final Complete 03/10/24 08:29 Aerobic Culture - Final Enterococcus faecium - VRE Complete 03/08/24 20:00 Bronchial Washings Gram Stain - Final Complete 03/08/24 20:00 Respiratory Culture - Final Yeast, not Monserrat albicans Complete 03/01/24 05:55 Stool Clostridium difficile Toxin Assay - Final Complete 03/01/24 03:00 Voided Urine Urine Culture - Final Complete 03/01/24 00:59 Blood Blood Culture - Final NO GROWTH AFTER 5 DAYS OF INCUBATION. Complete Labs and/or images reviewed: Labs reviewed by me, Image(s) reviewed by me Assessment/Plan Assessment/Plan Patient: -metabolic encephalopathy secondary to sepsis -sepsis with shock , VRE and yeast to wound -acute hypoxic respiratory failure, rule out community-acquired pneumonia, Gram-positive/Gram-negative etiology -deep tissue injury to sacrum and bilateral heels -history of COPD -primary hypertension -dyslipidemia -recent history of right hip fracture with right hip arthroplasty -acute kidney injury, vasomotor nephropathy -hypernatremia -displaced right hip arthroplasty Plan: Events: Patient with persistent altered mental status. No signs of seizure activity. 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 Orthopedic surgery consultation placed. Repeat CT scan of the head to rule out acute CVA. -electrolyte replacement -reconsult Orthopedic surgery for possible closed reduction -swallow evaluation pending -stop Clinimix and advanced to TPN -continue O2 supplementation. Patient was respiratory status stable after being extubated yesterday. -wound care consultation -bronchodilators -Nephrology consultation -PUD, DVT prophylaxis: Hold anticoagulation, antiplatelet therapy. -repeat labs in a.m. Critical care time spent with patient discussing and formulating plan of care: 40 minutes. This does not include time spent performing procedures. This medical document was created using an electronic medical record system with [employer] dictation system. Although this document has been carefully reviewed, there may still be some phonetic and typographical errors. These areas are purely typographical due to imperfections of the software programs, and do not reflect any compromise in the patient's medical care. Plan discussed with: Patient, Other (RN) My Orders Orders - WAYNE TURNER NP Procedure Category Date Status Time Pureed DIET 03/15/24 Transmitted Dinner Clinimix Per Pharmacy KARYNA 03/15/24 In Process 22:00 *Consult Dr[address] Goodwin CONS 03/16/24 Transmitted Maximilian 07:[address] 03/16/24 Logged 08:10 Complete Blood Count LAB 03/17/24 Verified 05:00 Complete Blood Count LAB 03/18/24 Verified 05:00 Complete Blood Count LAB 03/19/24 Verified 05:00 Tpn Per Pharmacy PHA 03/16/24 Logged 08:15 Magnesium Sulfate PHA 03/16/24 Logged 1gm/100ml 09:00 Sodium Phosphates PHA 03/16/24 Verified 08:15 Date of Service: Mar 16, 2024 Billing Provider: WAYNE TURNER NP Common Visit Codes: [id number] CARE 30-74 MIN WAYNE TURNER NP Mar 16, 2024 08:17
[2024-03-16] MEDS: MAGNESIUM SULFATE 1GM/100ML 100 ML IV SCH (08:40)
[2024-03-16] MEDS: LORazepam 2MG/ML-1ML VIAL IV PRN ×2 (09:40→11:46)
--- NOTE | 2024-03-16 10:49 | DVH ---
EXAM: CT HEAD WITHOUT CONTRAST HISTORY: Altered mental status. Rule out CVA COMPARISON: CT HEAD WITHOUT CONTRAST on DOS: 03/12/24, CT HEAD WITHOUT CONTRAST on DOS: 03/01/24 TECHNIQUE: Axial images of the head were obtained and reformatted in coronal and sagittal planes. All CT scans at this medical facility are performed using dose modulation techniques as appropriate t o a performed exam including the following: Automated exposure control was utilized; adjustment of th e MA and/or KV according to patient size; and use of iterative reconstruction technique. CT Dose: CTDI volume is 67 mGy. Dose-length product is 1326 mGy*cm FINDINGS: There is no evidence of acute intracranial hemorrhage, mass, mass effect midline shift. There is no h ydrocephalus or extra-axial fluid collection. There is a small chronic lacunar infarct in the right c audate head. There are chronic small-vessel ischemic changes in the supratentorial white matter. Wright -white matter differentiation is otherwise maintained. The visualized paranasal sinuses and mastoid air cells are clear. The calvarium is intact. IMPRESSION: 1. No acute intracranial process. HS:Y
--- NOTE | 2024-03-16 11:31 | DVHPN2 ---
Progress Note - Dictate Date Seen: Mar 16, 2024 Medical Necessity Reason Pt with a Central, PICC or Fol: Yes The following are medically ne: Esqueda Catheter Reason for esqueda catheter: Strict I&O Subjective Mr. Ann-Marie Salcido is an 78 years old gentleman with a history of hypertension, arthritis, COPD, pressure sore the patient was admitted on 02/29/2024 with a chief company of altered mental status, respiratory distress. I have seen and examined the patient in the ICU, I have discussed with his nurse, he is more alert, eyes closed most of time, he talks but the voice is intelligible, he is oriented to person, not sure if he is oriented to the place. He follows verbal commands, reasonable social skills, He moves the arms, according to nurse, he moves the right arm more than the left No symptoms suggestive seizure activity Dilantin, 03/13/2024: 12.8 Buttock pressure sore culture, 03/10/2024: Enterococcus faecium Sacral pressure sore culture, 03/04/24: E coli, Enterococcus feacium, Staphylococcus hemolyticus,, Bronchial washing culture, : Yeast, not candidate albicans Stool occult blood, 03/10/2024: Negative UDS, 03/01/2024: Negative Urinalysis, 03/01/2024: WBC: 4, urine leukocyte esterase: Negative WBC/HB/PLT/MCV, 03/11/2024: 18.1/6.9/400/83 PT/INR/PTT, 03/10/2024: 12.6/1.21/36.6 BUN/CR, 02/29/2024: 43/1.82 CMP, 03/10/2024: Unremarkable Vitamin B12, 03/01/2024:396 TSH, 03/01/2024: 3.64 EEG, 03/12/2024: Mildly abnormal CT head, 03/01/2024: 1. No evidence of acute large vessel territorial ischemic infarction or intraparenchymal hematoma in current study. 2. Chronic periventricular ischemic changes. 3. 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 4. Chronic and / or ancillary findings as described above. 5. Advised further evaluation with MRI brain without contrast if clinically indicated. CT head, 03/16/2024: No acute intracranial process vital signs Vital Sign Date Time Temp Pulse Resp B/P (MAP) Pulse Ox O2 Delivery O2 Flow Rate FiO2 03/16/24 11:12 72 16 121/42 03/16/24 10:15 100 03/16/24 09:46 Room Air* 0 21 03/16/24 05:00 99.2 99.2 Total Intake and Output 03/15/24 03/15/24 03/16/24 15:00 23:00 07:00 Intake Total 328 ml 328 ml 628 ml Output Total 1700 ml 800 ml Balance 328 ml -1372 ml -172 ml medications Current Medications Medications Dose Ordered Sig/Jordon Route Start Time Stop Time Status Last Admin Dose Admin Pantoprazole Sodium 40 mg DAILY IV 03/01/24 06:00 03/16/24 08:40 40 MG Albuterol 2.5 mg Q4HR NEB 03/01/24 10:00 03/16/24 10:18 2.5 MG Ipratropium [place] 0.5 mg Q4HR NEB 03/01/24 10:00 03/16/24 10:18 0.5 MG Vancomycin HCl 0 ml @ 0 mls/hr UD IV 03/01/24 02:15 UNV Furosemide 40 mg DAILY IV 03/07/24 10:00 03/16/24 08:40 40 MG Fentanyl Citrate 250 ml @ 2.5 mls/hr Q24H IV 03/07/24 11:45 03/10/24 22:08 12.5 MLS/HR Linezolid 300 ml @ 150 mls/hr Q12HR IV 03/08/24 22:00 03/16/24 08:40 150 MLS/HR Norepinephrine Bitartrate 250 ml @ 3.75 mls/hr Q24H IV 03/08/24 20:30 03/09/24 06:53 3.75 MLS/HR Ertapenem 1 gm/ Sodium Chloride 50 ml @ 100 mls/hr DAILY IV 03/10/24 10:00 03/15/24 11:01 100 MLS/HR Morphine Sulfate 2 mg Q4HPRN PRN IV 03/12/24 09:30 03/16/24 09:33 2 MG Phenytoin Sodium 100 mg Q8HR IV 03/12/24 22:00 03/16/24 06:17 100 MG Lorazepam 1 mg Q5MINP PRN IV 03/12/24 16:30 Diagnostic Test (Pha) 1 strip Q6HR 03/13/24 00:00 03/16/24 11:16 1 STRIP Insulin Human Regular FOLLOW SLIDING SCALE Q6HR SC 03/13/24 00:00 Dextrose 50 ml UD IV 03/13/24 00:00 Lorazepam 1 mg Q2HP PRN IV 03/13/24 08:30 03/16/24 09:40 1 MG Amino Acids 0 ml @ 0 mls/hr PER PHARMACY IV 03/16/24 08:15 Fat Emulsion Intravenous 50 ml/ Sodium Chloride 40 meq/Sodium Phosphate 40 meq/ Potassium Chloride 20 meq/ Potassium Phosphate 22 meq/ Magnesium Sulfate 12 meq/ Multivitamins 10 ml/Chromium/ Copper/Manganese/ Zinc 1 ml/Amino Acids/Dextrose/ Purified Water 1,149 ml @ 48 mls/hr [id number] IV 03/16/24 22:00 03/17/24 21:59 objective General: the patient is well developed and nourished. No acute distress. MENTAL STATUS: Subjective SPEECH, LANGUAGE, HIGHER CORTICAL FUNCTION: Slurry voice CRANIAL NERVES: Pupils are equal, round and reactive. EOMs full and conjugate. Facial sensation intact in all three divisions bilaterally. Mandibular strength intact. Facial muscles symmetrical and strength intact. SENSATION: Okay to pinprick MOTOR: Normal tone in the upper and lower extremity. Normal muscle bulk. No fasciculations. He moves the arms a little bit, muscle power feels no less than 3/5 REFLEXES: Deep tendon reflexes are symmetrical. No pathological reflexes. CEREBELLAR/COORDINATION: Deferred GAIT/STATION: deferred. laboratory and microbiology Laboratory Tests 03/16/24 07:16 03/14/24 03:34 Test 03/16/24 07:16 Range/Units Serum Glucose 86 74-106 mg/dL Problem List Abnormal left upper extremity movement with mental status changes Partial complex seizure Status epileptics ? Stroke Metabolic encephalopathy Respiratory failure Sepsis Pressure sore Anemia status post RBC transfusion Improving Assessment/Plan Monitoring Supportive treatment ICU care MRI head later Dilantin 100 mg IV t.i.d. Ativan for seizure breakthrough IV antibiotics Oxygen More recommendation per clinical course This medical document was created using an electronic medical record system with [employer] dictation system. Although this document has been carefully reviewed, there may still be some phonetic and typographical errors. These areas are purely typographical due to imperfections of the software programs, and do not reflect any compromise in the patient's medical care Prognosis poor Dietary Evaluation Review Comments: No supplement for wounds d/t GERA and kidney function, Encourage and Monitor PO intake, and lab values, FU in 3-5 days Expected Outcomes/Goals: Improved lab values Plan discussed with: Other ANGELA ESCOBEDO MD Mar 16, 2024 11:30
--- NOTE | 2024-03-16 18:41 | DVHPN2 ---
Progress Note - Dictate Date Seen: Mar 16, 2024 Medical Necessity Reason Pt with a Central, PICC or Fol: Yes The following are medically ne: Esqueda Catheter Reason for esqueda catheter: Strict I&O Subjective Patient seen and examined at bedside. Breathing comfortably on room air. Overnight events reviewed. vital signs Vital Sign Date Time Temp Pulse Resp B/P (MAP) Pulse Ox O2 Delivery O2 Flow Rate FiO2 03/16/24 17:48 22 100 Room Air* 0 21 03/16/24 17:48 72 03/16/24 15:00 98.6 105/44 (64) 98.6 Total Intake and Output 03/15/24 03/15/24 03/16/24 15:00 23:00 07:00 Intake Total 328 ml 328 ml 628 ml Output Total 1700 ml 800 ml Balance 328 ml -1372 ml -172 ml medications Current Medications Medications Dose Ordered Sig/Jordon Route Start Time Stop Time Status Last Admin Dose Admin Pantoprazole Sodium 40 mg DAILY IV 03/01/24 06:00 03/16/24 08:40 40 MG Albuterol 2.5 mg Q4HR NEB 03/01/24 10:00 03/16/24 14:07 2.5 MG Ipratropium [place] 0.5 mg Q4HR NEB 03/01/24 10:00 03/16/24 14:07 0.5 MG Vancomycin HCl 0 ml @ 0 mls/hr UD IV 03/01/24 02:15 UNV Furosemide 40 mg DAILY IV 03/07/24 10:00 03/16/24 08:40 40 MG Fentanyl Citrate 250 ml @ 2.5 mls/hr Q24H IV 03/07/24 11:45 03/10/24 22:08 12.5 MLS/HR Linezolid 300 ml @ 150 mls/hr Q12HR IV 03/08/24 22:00 03/16/24 08:40 150 MLS/HR Norepinephrine Bitartrate 250 ml @ 3.75 mls/hr Q24H IV 03/08/24 20:30 03/09/24 06:53 3.75 MLS/HR Ertapenem 1 gm/ Sodium Chloride 50 ml @ 100 mls/hr DAILY IV 03/10/24 10:00 03/16/24 10:00 100 MLS/HR Morphine Sulfate 2 mg Q4HPRN PRN IV 03/12/24 09:30 03/16/24 09:33 2 MG Phenytoin Sodium 100 mg Q8HR IV 03/12/24 22:00 03/16/24 14:00 100 MG Lorazepam 1 mg Q5MINP PRN IV 03/12/24 16:30 03/16/24 11:46 1 MG Diagnostic Test (Pha) 1 strip Q6HR 03/13/24 00:00 03/16/24 11:16 1 STRIP Insulin Human Regular FOLLOW SLIDING SCALE Q6HR SC 03/13/24 00:00 Dextrose 50 ml UD IV 03/13/24 00:00 Lorazepam 1 mg Q2HP PRN IV 03/13/24 08:30 03/16/24 09:40 1 MG Amino Acids 0 ml @ 0 mls/hr PER PHARMACY IV 03/16/24 08:15 Fat Emulsion Intravenous 50 ml/ Sodium Chloride 40 meq/Sodium Phosphate 40 meq/ Potassium Chloride 20 meq/ Potassium Phosphate 22 meq/ Magnesium Sulfate 12 meq/ Multivitamins 10 ml/Chromium/ Copper/Manganese/ Zinc 1 ml/Amino Acids/Dextrose/ Purified Water 1,149 ml @ 48 mls/hr [id number] IV 03/16/24 22:00 03/17/24 21:59 objective Gen.: Patient lying in bed in no apparent distress. On room air Head: Normocephalic, atraumatic. Eyes: EOMI/PERRLA. Ears: Normal hearing. Normal anatomy. Neck/trachea: Trachea midline, supple. Nose: Normal external anatomy. Mouth: Moist mucous membranes. Chest: Decreased air entry bilaterally. No wheezing or rhonchi. Cardiovascular: Positive S1, positive S2. Regular rate and rhythm. Abdomen: Positive bowel sounds in all 4 quadrants. Soft, non-tender, non- distended. : Deferred. Rectal: Deferred. Skin: Warm, dry. Intact. Extremities: 2+ radial pulses bilaterally. No lower extremity edema. Neuro: Awake, alert, oriented x3. No gross motor or sensory deficits. Cranial nerves II through XII intact. Gait not assessed. laboratory and microbiology Laboratory Tests 03/16/24 07:16 03/14/24 03:34 Test 03/16/24 07:16 Range/Units Serum Glucose 86 74-106 mg/dL Assessment/Plan Impression: Acute hypoxic respiratory failure Respiratory distress. CHF exacerbation/Pulmonary edema Nicotine dependence Acute metabolic encephalopathy Septic shock Deep tissue injury to sacrum and bilateral heels COPD, stable Recent history of right hip fracture with right hip arthroplasty Acute kidney injury, vasomotor nephropathy Events: Remains on room air No respiratory distress. Continue to monitor hemoglobin closely Transfuse if less than 7.0 g/dL. CT head to rule out CVA showed no evidence of acute intracranial hemorrhage or stroke. There is a small chronic lacunar infarct in the right caudate head. There are chronic small-vessel ischemic changes in the supratentorial white matter. Continue antiepileptics. Continue antibiotics - Zyvox Continue bronchodilators for COPD. Monitor renal function. Monitor electrolytes. Supplement as necessary. Supplement mag, phos GI prophylaxis Wound care. Clinimix for nutritional support Monitor neurologic status. HOB elevation Aspiration precautions. Patient passed swallow eval. Labs and imaging reviewed. Rest of plan as noted below. Plan: s/p extubation on 03/11/24 Supplemental oxygen PRN Titrate to keep sats above 92% Off sedation Off pressors, hemodynamically stable. Continue bronchodilators Continue antibiotics. F/u cultures. Monitor WBC Tube feeds for nutritional support Monitor renal function Monitor electrolytes. Supplement as necessary. Monitor ins and outs. Maintain euvolemia. GI prophylaxis - Protonix. DVT prophylaxis. Prognosis: Poor given patient's multiple co-morbidities. Condition: Critical Rest of plan per hospitalist and other consultants. A total of 35 minutes of critical care time was spent reviewing the patient record, examining the patient, making a diagnostic and therapeutic plan, discussing this plan with the medical personnel, following up on diagnostic studies and following the patient for clinical stability excluding any and all procedures. At least 50% of this time was spent in direct, [id number] contact. Thank you Ned Sapp NP, for allowing me to participate in this patient's care. Further recommendations will depend on the patient's clinical course. Please do not hesitate to contact me if you have any questions or concerns. This medical document was created using an electronic medical record system with [employer] system. Although these documentations are being carefully reviewed, there may still be some phonetic and typographical changes. The errors are purely typographical, due to imperfection on the software program, and do not reflect any compromise in the patient's medical care. Dietary Evaluation Review Comments: No supplement for wounds d/t GERA and kidney function, Encourage and Monitor PO intake, and lab values, FU in 3-5 days Expected Outcomes/Goals: Improved lab values Plan discussed with: Other (KAREN Hicks) Critical Care Time(min): 35 YARI BILL MD Mar 16, 2024 18:41
[2024-03-16] MEDS: TPN PER PHARMACY IV NR (22:00)
[2024-03-17] VITALS (23 sets, daily range): BP systolic 114–130; BP diastolic 39–58; PULSE 72–82; RESP 12–24; TEMP 97.2–99; O2SAT 80–100
[2024-03-17 05:36] LABS: Basophils # (auto) 0.1 10 ^3/uL (0-0.2); Basophils % (auto) 0.6 % (0.0-2.0); Hemoglobin 7.4 g/dL (13.5-17.5); Lymphocytes # (auto) 1.9 10 ^3/uL (0.4-5.4); Mean Corpuscular Volume 86.8 fL (80.0-100.0); Neutrophils # (auto) 12.8 10 ^3/uL (1.6-8.6)
[2024-03-17 05:40] LABS: Eosinophils # (auto) 0.4 10 ^3/uL (0-0.8); Eosinophils % (auto) 2.5 % (0.0-7.0); Hematocrit 22.5 % (41.0-53.0); Lymphocytes % (auto) 11.4 % (10.0-50.0); Mean Corpuscular Hemoglobin 28.6 pg (28.0-32.0); Mean Corpuscular Hgb Conc. 32.9 g/dL (32.0-36.0); Monocytes # (auto) 1.5 10 ^3/uL (0-1.3); Monocytes % (auto) 8.7 % (0.0-12.0); Neutrophils % (auto) 76.8 % (37.0-80.0); Platelet Count (auto) 284 10^3/uL (140-450); Red Blood Cells 2.59 10^6/uL (4.5-5.90); Red Cell Distribution Width 17.3 % (11.8-14.3); White Blood Cell 16.6 10^3/uL (4.4-10.8)
[2024-03-17 06:14] LABS: Alanine Aminotransferase 14 U/L (7-40); Alkaline Phosphatase 101 U/L (46-116); Anion Gap 8 (5-15); Blood Urea Nitrogen 12 mg/dL (9-23); Carbon Dioxide 26 mmol/L (20-31); Chloride 101 mmol/L (98-107); Glucose 97 mg/dL (74-106); Potassium 3.8 mmol/L (3.5-5.1)
[2024-03-17 06:15] LABS: Aspartate Aminotransferase 25 U/L (13-40); Bilirubin, Total 0.4 mg/dL (0.2-1.0); Phosphorus 3.4 mg/dL (2.4-5.1)
[2024-03-17 07:02] LABS: Albumin 2.2 g/dL (3.2-4.8); Calcium 8.2 mg/dL (8.7-10.4); Magnesium 1.6 mg/dL (1.6-2.6); Sodium 135 mmol/L (136-145); Total Protein 4.7 g/dL (5.7-8.2)
[2024-03-17] MEDS ORDERED: MAGNESIUM SULFATE 1GM/100ML 100 ML IV SCH (12:00)
--- NOTE | 2024-03-17 19:07 | DVHPN2 ---
Subjective improving mental status, still req o2 supplement, did not pass swallow eval, c/w TPN, will discuss re NGT tomorrow Reviewed: Care Plan, H&P, Labs, Medications, Previous Orders, Radiology Changes from previous H/P or p: No Changes General: Per HPI Eyes: No Pain, No Vision change, No Conjunctivae inflammation, No Eyelid inflammation, No Other, No Redness ENT: No Ear pain, No Ear discharge, No Nose pain, No Nose discharge, No Nose congestion, No Mouth pain, No Mouth swelling, No Throat pain, No Throat swelling, No Other Cardiovascular: No Chest Pain, No Palpitations, No Orthopnea, No Paroxysmal Noc. Dyspnea, No Edema, No Lt Headedness, No Other Respiratory: Cough, Shortness of breath, Sputum Gastrointestinal: No Nausea, No Vomiting, No Abdominal Pain, No Diarrhea, No Constipation, No Melena, No Hematochezia, No Other Genitourinary: No Dysuria, No Frequency, No Incontinence, No Hematuria, No Retention, No Other Musculoskeletal: No other, No neck pain, No shoulder pain, No arm pain, No back pain, No hand pain, No leg pain, No foot pain Skin: Lesions Objective Vitals Vital Signs Date Time Temp Pulse Resp B/P (MAP) Pulse Ox O2 Delivery O2 Flow Rate FiO2 03/17/24 18:42 79 16 100 03/17/24 18:34 Nasal Cannula* 2 28 03/17/24 17:06 99.0 122/46 (71) 99.0 Intake/Output Intake and Output 03/17/24 04:00 Intake Total 464 ml Output Total 2800 ml Balance -2336 ml Intake Oral 0 ml IV Total 464 ml Output Urine Total 2750 ml Stool Total 50 ml General Appearance: Alert, Cooperative, mild distress HEENT: Atraumatic, PERRLA Lungs: Clear to auscultation, Normal air movement Cardiovascular: Regular rate, Normal S1, Normal S2, Other (Sinus rhythm) Abdomen: Normal bowel sounds Musculoskeletal: Normal sensory function, Normal motor function, Other (Deformity of hip) Extremities: No clubbing, No cyanosis, Normal pulses, Other (Tissue injury to heal) Neuro: Other (Unable to assess) Skin: Wounds (See nurse notes and pictures), Other (Sacral decubitus ulcer) Psych/Mental Status: Mental status NL, Mood NL Medications Current Medications Medications Dose Ordered Sig/Jordon Route Start Time Stop Time Status Last Admin Dose Admin Pantoprazole Sodium 40 mg DAILY IV 03/01/24 06:00 03/17/24 10:20 40 MG Albuterol 2.5 mg Q4HR NEB 03/01/24 10:00 03/17/24 18:34 2.5 MG Ipratropium [place] 0.5 mg Q4HR NEB 03/01/24 10:00 03/17/24 18:33 0.5 MG Vancomycin HCl 0 ml @ 0 mls/hr UD IV 03/01/24 02:15 UNV Furosemide 40 mg DAILY IV 03/07/24 10:00 03/17/24 10:20 40 MG Fentanyl Citrate 250 ml @ 2.5 mls/hr Q24H IV 03/07/24 11:45 Hold 03/10/24 22:08 12.5 MLS/HR Linezolid 300 ml @ 150 mls/hr Q12HR IV 03/08/24 22:00 03/17/24 10:20 150 MLS/HR Norepinephrine Bitartrate 250 ml @ 3.75 mls/hr Q24H IV 03/08/24 20:30 Hold 03/09/24 06:53 3.75 MLS/HR Ertapenem 1 gm/ Sodium Chloride 50 ml @ 100 mls/hr DAILY IV 03/10/24 10:00 03/17/24 09:31 100 MLS/HR Morphine Sulfate 2 mg Q4HPRN PRN IV 03/12/24 09:30 03/16/24 09:33 2 MG Phenytoin Sodium 100 mg Q8HR IV 03/12/24 22:00 03/17/24 14:36 100 MG Lorazepam 1 mg Q5MINP PRN IV 03/12/24 16:30 03/16/24 11:46 1 MG Diagnostic Test (Pha) 1 strip Q6HR 03/13/24 00:00 03/17/24 17:46 1 STRIP Insulin Human Regular FOLLOW SLIDING SCALE Q6HR SC 03/13/24 00:00 03/17/24 12:15 2 UNITS Dextrose 50 ml UD IV 03/13/24 00:00 Lorazepam 1 mg Q2HP PRN IV 03/13/24 08:30 03/16/24 09:40 1 MG Amino Acids 0 ml @ 0 mls/hr PER PHARMACY IV 03/16/24 08:15 Fat Emulsion Intravenous 50 ml/ Sodium Chloride 40 meq/Sodium Phosphate 40 meq/ Potassium Chloride 20 meq/ Potassium Phosphate 22 meq/ Magnesium Sulfate 12 meq/ Multivitamins 10 ml/Chromium/ Copper/Manganese/ Zinc 1 ml/Amino Acids/Dextrose/ Purified Water 1,149 ml @ 48 mls/hr [id number] IV 03/16/24 22:00 03/17/24 21:59 03/16/24 22:00 48 MLS/HR Magnesium Sulfate/ Dextrose 100 ml @ 100 mls/hr Q1HR IV 03/17/24 12:00 03/17/24 13:59 UNV Fat Emulsion Intravenous 50 ml/ Sodium Chloride 60 meq/Sodium Phosphate 40 meq/ Potassium Chloride 40 meq/ Calcium Gluconate 2.3 meq/Magnesium Sulfate 18 meq/ Multivitamins 10 ml/Chromium/ Copper/Manganese/ Zinc 1 ml/Amino Acids/Dextrose/ Purified Water 1,365.4462 ml @ 57 mls/hr [id number] IV 03/17/24 22:00 03/18/24 21:59 Laboratory Results Laboratory Tests 03/17/24 05:10 Chemistry Test 03/17/24 05:10 Albumin 2.2 g/dL (3.2-4.8) L Calcium Level 8.2 mg/dL (8.7-10.4) L Magnesium Level 1.6 mg/dL (1.6-2.6) Phosphorus Level 3.4 mg/dL (2.4-5.1) Total Protein 4.7 g/dL (5.7-8.2) L LFT Test 03/17/24 05:10 Alanine Aminotransferase (ALT) 14 U/L (7-40) Alkaline Phosphatase 101 U/L (46-116) Aspartate Amino Transferase (AST) 25 U/L (13-40) Total Bilirubin 0.4 mg/dL (0.2-1.0) Urinalysis Test 03/01/24 03:00 03/02/24 11:20 Urine Color Yellow (Yellow) Urine Clarity Clear (Clear) Urine pH 5.0 (5.0-9.0) Urine Specific [place] 1.021 (1.001-1.035) Urine Protein Trace (Negative) H Urine Ketones Negative (Negative) Urine Blood 1+ /uL (Negative) H Urine Nitrite Negative (Negative) Urine Bilirubin Negative (Negative) Urine Urobilinogen Normal mg/dL (Negative) Urine Leukocyte Esterase Negative /uL (Negative) Urine RBC 15 /hpf (0 - 3) Urine WBC 4 /hpf (0 - 3) Urine Squamous Epithelial Cells None seen /hpf (<5) Urine Bacteria Few /hpf (None Seen) H Urine Hyaline Casts Mod /lpf (0 - 2) Urine Sperm Present /hpf (None Seen) Urine Glucose Normal mg/dL (Normal) Urine Creatinine 109.75 mg/dL (30.0-125.0) Urine Protein/Creatinine Ratio 0.74 Urine Sodium 10 mmol/L (40-220) L Urine Total Protein 80.8 mg/dL (1-14) H Microbiology Microbiology Date/Time Source Procedure Growth Status 03/10/24 08:29 Buttock Gram Stain - Final Complete 03/10/24 08:29 Buttock Anaerobic Culture - Final Complete 03/10/24 08:29 Aerobic Culture - Final Enterococcus faecium - VRE Complete 03/08/24 20:00 Bronchial Washings Gram Stain - Final Complete 03/08/24 20:00 Respiratory Culture - Final Yeast, not Monserrat albicans Complete 03/01/24 05:55 Stool Clostridium difficile Toxin Assay - Final Complete 03/01/24 03:00 Voided Urine Urine Culture - Final Complete 03/01/24 00:59 Blood Blood Culture - Final NO GROWTH AFTER 5 DAYS OF INCUBATION. Complete Assessment/Plan Assessment/Plan Patient: -metabolic encephalopathy secondary to sepsis -sepsis with shock , VRE and yeast to wound -acute hypoxic respiratory failure, rule out community-acquired pneumonia, Gram-positive/Gram-negative etiology -deep tissue injury to sacrum and bilateral heels -history of COPD -primary hypertension -dyslipidemia -recent history of right hip fracture with right hip arthroplasty -acute kidney injury, vasomotor nephropathy -hypernatremia -displaced right hip arthroplasty deconditioning PICS Plan: Events: Patient with persistent altered mental status. No signs of seizure activity. 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 Orthopedic surgery consultation placed. Repeat CT scan of the head to rule out acute CVA. -electrolyte replacement -reconsult Orthopedic surgery for possible closed reduction -swallow evaluation pending -stop Clinimix and advanced to TPN -continue O2 supplementation. Patient was respiratory status stable after being extubated yesterday. -wound care consultation -bronchodilators -Nephrology consultation -PUD, DVT prophylaxis: Hold anticoagulation, antiplatelet therapy. -repeat labs in a.m. did not pass SUPPLY CATALOGUER, c/w TPN will benefit from NGT c/w PT Plan discussed with: Patient, Spouse My Orders Orders - FINESSE STALLWORTH MD Procedure Category Date Status Time Speech Evaluation ST 03/17/24 Logged 12:42 Npo (Nothing By DIET 03/17/24 Transmitted Mouth) Diet Dinner Date of Service: Mar 17, 2024 Billing Provider: FINESSE STALLWORTH MD Common Visit Codes: [id number] INP/OBS CARE(MOD) FINESSE STALLWORTH MD Mar 17, 2024 19:07
[2024-03-17] MEDS: TPN PER PHARMACY IV NR (21:41)
[2024-03-18] VITALS (16 sets, daily range): BP systolic 109–139; BP diastolic 34–63; PULSE 78–100; RESP 16–21; TEMP 98.1–99.3; O2SAT 92–100
--- NOTE | 2024-03-18 06:16 | DVHPN2 ---
Progress Note - Dictate Date Seen: Mar 17, 2024 Medical Necessity Reason Pt with a Central, PICC or Fol: Yes The following are medically ne: Esqueda Catheter Reason for esqueda catheter: Strict I&O Subjective Patient lying in bed - poor historian on questions vital signs Vital Sign Date Time Temp Pulse Resp B/P (MAP) Pulse Ox O2 Delivery O2 Flow Rate FiO2 03/18/24 05:00 98.1 83 21 132/61 (84) 92 98.1 03/18/24 02:20 Nasal Cannula 2.0 03/18/24 02:20 28 Total Intake and Output 03/17/24 03/17/24 03/18/24 15:00 23:00 07:00 Intake Total 350 ml 280 ml 0 ml Output Total 1000 ml 750 ml Balance 350 ml -720 ml -750 ml medications Current Medications Medications Dose Ordered Sig/Jordon Route Start Time Stop Time Status Last Admin Dose Admin Pantoprazole Sodium 40 mg DAILY IV 03/01/24 06:00 03/17/24 10:20 40 MG Albuterol 2.5 mg Q4HR NEB 03/01/24 10:00 03/18/24 02:20 2.5 MG Ipratropium [place] 0.5 mg Q4HR NEB 03/01/24 10:00 03/18/24 02:20 0.5 MG Vancomycin HCl 0 ml @ 0 mls/hr UD IV 03/01/24 02:15 UNV Furosemide 40 mg DAILY IV 03/07/24 10:00 03/17/24 10:20 40 MG Fentanyl Citrate 250 ml @ 2.5 mls/hr Q24H IV 03/07/24 11:45 Hold 03/10/24 22:08 12.5 MLS/HR Linezolid 300 ml @ 150 mls/hr Q12HR IV 03/08/24 22:00 03/17/24 23:10 150 MLS/HR Norepinephrine Bitartrate 250 ml @ 3.75 mls/hr Q24H IV 03/08/24 20:30 Hold 03/09/24 06:53 3.75 MLS/HR Ertapenem 1 gm/ Sodium Chloride 50 ml @ 100 mls/hr DAILY IV 03/10/24 10:00 03/17/24 09:31 100 MLS/HR Morphine Sulfate 2 mg Q4HPRN PRN IV 03/12/24 09:30 03/16/24 09:33 2 MG Phenytoin Sodium 100 mg Q8HR IV 03/12/24 22:00 03/17/24 23:10 100 MG Lorazepam 1 mg Q5MINP PRN IV 03/12/24 16:30 03/16/24 11:46 1 MG Diagnostic Test (Pha) 1 strip Q6HR 03/13/24 00:00 03/18/24 05:40 1 STRIP Insulin Human Regular FOLLOW SLIDING SCALE Q6HR SC 03/13/24 00:00 03/17/24 12:15 2 UNITS Dextrose 50 ml UD IV 03/13/24 00:00 Lorazepam 1 mg Q2HP PRN IV 03/13/24 08:30 03/16/24 09:40 1 MG Amino Acids 0 ml @ 0 mls/hr PER PHARMACY IV 03/16/24 08:15 Magnesium Sulfate/ Dextrose 100 ml @ 100 mls/hr Q1HR IV 03/17/24 12:00 03/17/24 13:59 UNV Fat Emulsion Intravenous 50 ml/ Sodium Chloride 60 meq/Sodium Phosphate 40 meq/ Potassium Chloride 40 meq/ Calcium Gluconate 2.3 meq/Magnesium Sulfate 18 meq/ Multivitamins 10 ml/Chromium/ Copper/Manganese/ Zinc 1 ml/Amino Acids/Dextrose/ Purified Water 1,365.4462 ml @ 57 mls/hr [id number] IV 03/17/24 22:00 03/18/24 21:59 03/17/24 21:41 57 MLS/HR laboratory and microbiology Laboratory Tests 03/17/24 05:10 Test 03/17/24 05:10 Range/Units Serum Glucose 97 74-106 mg/dL Assessment/Plan 78 yo M with hx of right hip lavell with Dr. Trivedi - dru 1. Plan for open reduction revision of right hip once medically stable 2. per family they are looking for a transfer closer to their home 3. nwb rle 4. okay to move leg as rosemarie Dietary Evaluation Review Comments: No supplement for wounds d/t GERA and kidney function, Encourage and Monitor PO intake, and lab values, FU in 3-5 days Expected Outcomes/Goals: Improved lab values Plan discussed with: Other KWAME DAVIDSON MD Mar 18, 2024 06:16
[2024-03-18 06:33] LABS: Basophils # (auto) 0.1 10 ^3/uL (0-0.2); Eosinophils # (auto) 0.4 10 ^3/uL (0-0.8); Lymphocytes # (auto) 2.3 10 ^3/uL (0.4-5.4); Lymphocytes % (auto) 18.8 % (10.0-50.0); Mean Corpuscular Hemoglobin 28.8 pg (28.0-32.0); Monocytes # (auto) 1.7 10 ^3/uL (0-1.3); Neutrophils % (auto) 63.4 % (37.0-80.0); Red Cell Distribution Width 17.2 % (11.8-14.3)
[2024-03-18 06:36] LABS: Basophils % (auto) 0.9 % (0.0-2.0); Eosinophils % (auto) 3.3 % (0.0-7.0); Hematocrit 21.4 % (41.0-53.0); Hemoglobin 7.2 g/dL (13.5-17.5); Mean Corpuscular Hgb Conc. 33.8 g/dL (32.0-36.0); Mean Corpuscular Volume 85.2 fL (80.0-100.0); Monocytes % (auto) 13.6 % (0.0-12.0); Neutrophils # (auto) 7.8 10 ^3/uL (1.6-8.6); Platelet Count (auto) 264 10^3/uL (140-450); Red Blood Cells 2.51 10^6/uL (4.5-5.90); White Blood Cell 12.3 10^3/uL (4.4-10.8)
[2024-03-18 06:42] LABS: Alanine Aminotransferase 13 U/L (7-40); Alkaline Phosphatase 99 U/L (46-116); Anion Gap 7 (5-15); BUN/Creatinine Ratio 25.4 (10.0-20.0); Blood Urea Nitrogen 15 mg/dL (9-23); Carbon Dioxide 26 mmol/L (20-31); Chloride 103 mmol/L (98-107); Glucose 96 mg/dL (74-106); Potassium 3.6 mmol/L (3.5-5.1)
[2024-03-18 06:43] LABS: Aspartate Aminotransferase 27 U/L (13-40); Magnesium 1.8 mg/dL (1.6-2.6)
[2024-03-18 06:44] LABS: Bilirubin, Total 0.4 mg/dL (0.2-1.0); Phosphorus 2.9 mg/dL (2.4-5.1)
[2024-03-18 06:46] LABS: Albumin 2.5 g/dL (3.2-4.8); Calcium 8.4 mg/dL (8.7-10.4); Sodium 136 mmol/L (136-145); Total Protein 5.2 g/dL (5.7-8.2)
[2024-03-18] MEDS ORDERED: Jevity 1.2 Cal/Fiber 1 Liter GT SCH (11:15)
--- NOTE | 2024-03-18 11:19 | DVHPN2 ---
Subjective Patient now awake and following commands. Reports having generalized weakness Reviewed: Care Plan, H&P, Labs, Medications, Previous Orders, Radiology Changes from previous H/P or p: No Changes General: Per HPI Eyes: No Pain, No Vision change, No Conjunctivae inflammation, No Eyelid inflammation, No Other, No Redness ENT: No Ear pain, No Ear discharge, No Nose pain, No Nose discharge, No Nose congestion, No Mouth pain, No Mouth swelling, No Throat pain, No Throat swelling, No Other Cardiovascular: No Chest Pain, No Palpitations, No Orthopnea, No Paroxysmal Noc. Dyspnea, No Edema, No Lt Headedness, No Other Respiratory: Cough, Shortness of breath, Sputum Gastrointestinal: No Nausea, No Vomiting, No Abdominal Pain, No Diarrhea, No Constipation, No Melena, No Hematochezia, No Other Genitourinary: No Dysuria, No Frequency, No Incontinence, No Hematuria, No Retention, No Other Musculoskeletal: No other, No neck pain, No shoulder pain, No arm pain, No back pain, No hand pain, No leg pain, No foot pain Skin: Lesions Objective Vitals Vital Signs Date Time Temp Pulse Resp B/P (MAP) Pulse Ox O2 Delivery O2 Flow Rate FiO2 03/18/24 09:00 98.3 81 16 139/63 (88) 98 98.3 03/18/24 02:20 Nasal Cannula 2.0 03/18/24 02:20 28 Intake/Output Intake and Output 03/18/24 07:00 Intake Total 630 ml Output Total 1750 ml Balance -1120 ml Intake Oral 280 ml IV Total 350 ml Output Urine Total 1600 ml Stool Total 150 ml # Bowel Movements 4 General Appearance: Alert, Cooperative, mild distress HEENT: Atraumatic, PERRLA Lungs: Clear to auscultation, Normal air movement Cardiovascular: Regular rate, Normal S1, Normal S2, Other (Sinus rhythm) Abdomen: Normal bowel sounds Musculoskeletal: Normal sensory function, Normal motor function, Other (Deformity of hip) Extremities: No clubbing, No cyanosis, Normal pulses, Other (Tissue injury to heal) Neuro: Other (Unable to assess) Skin: Wounds (See nurse notes and pictures), Other (Sacral decubitus ulcer) Psych/Mental Status: Mental status NL, Mood NL Medications Current Medications Medications Dose Ordered Sig/Jordon Route Start Time Stop Time Status Last Admin Dose Admin Pantoprazole Sodium 40 mg DAILY IV 12/9/24 06:00 03/17/24 10:20 40 MG Albuterol 2.5 mg Q4HR NEB 03/01/24 10:00 03/18/24 09:37 2.5 MG Ipratropium [place] 0.5 mg Q4HR NEB 03/01/24 10:00 03/18/24 09:37 0.5 MG Vancomycin HCl 0 ml @ 0 mls/hr UD IV 03/01/24 02:15 UNV Furosemide 40 mg DAILY IV 03/07/24 10:00 03/17/24 10:20 40 MG Fentanyl Citrate 250 ml @ 2.5 mls/hr Q24H IV 03/07/24 11:45 Hold 03/10/24 22:08 12.5 MLS/HR Linezolid 300 ml @ 150 mls/hr Q12HR IV 03/08/24 22:00 03/17/24 23:10 150 MLS/HR Norepinephrine Bitartrate 250 ml @ 3.75 mls/hr Q24H IV 03/08/24 20:30 Hold 03/09/24 06:53 3.75 MLS/HR Ertapenem 1 gm/ Sodium Chloride 50 ml @ 100 mls/hr DAILY IV 03/10/24 10:00 03/17/24 09:31 100 MLS/HR Morphine Sulfate 2 mg Q4HPRN PRN IV 03/12/24 09:30 03/16/24 09:33 2 MG Phenytoin Sodium 100 mg Q8HR IV 03/12/24 22:00 03/18/24 06:23 100 MG Lorazepam 1 mg Q5MINP PRN IV 03/12/24 16:30 03/16/24 11:46 1 MG Diagnostic Test (Pha) 1 strip Q6HR 03/13/24 00:00 03/18/24 05:40 1 STRIP Insulin Human Regular FOLLOW SLIDING SCALE Q6HR SC 03/13/24 00:00 03/17/24 12:15 2 UNITS Dextrose 50 ml UD IV 03/13/24 00:00 Lorazepam 1 mg Q2HP PRN IV 03/13/24 08:30 03/16/24 09:40 1 MG Amino Acids 0 ml @ 0 mls/hr PER PHARMACY IV 03/16/24 08:15 Magnesium Sulfate/ Dextrose 100 ml @ 100 mls/hr Q1HR IV 03/17/24 12:00 03/17/24 13:59 UNV Fat Emulsion Intravenous 50 ml/ Sodium Chloride 60 meq/Sodium Phosphate 40 meq/ Potassium Chloride 40 meq/ Calcium Gluconate 2.3 meq/Magnesium Sulfate 18 meq/ Multivitamins 10 ml/Chromium/ Copper/Manganese/ Zinc 1 ml/Amino Acids/Dextrose/ Purified Water 1,365.4462 ml @ 57 mls/hr [id number] IV 03/17/24 22:00 03/18/24 21:59 03/17/24 21:41 57 MLS/HR Laboratory Results Laboratory Tests 03/18/24 05:27 Chemistry Test 03/18/24 05:27 Albumin 2.5 g/dL (3.2-4.8) L Calcium Level 8.4 mg/dL (8.7-10.4) L Magnesium Level 1.8 mg/dL (1.6-2.6) Phosphorus Level 2.9 mg/dL (2.4-5.1) Total Protein 5.2 g/dL (5.7-8.2) L LFT Test 03/18/24 05:27 Alanine Aminotransferase (ALT) 13 U/L (7-40) Alkaline Phosphatase 99 U/L (46-116) Aspartate Amino Transferase (AST) 27 U/L (13-40) Total Bilirubin 0.4 mg/dL (0.2-1.0) Urinalysis Test 03/01/24 03:00 03/02/24 11:20 Urine Color Yellow (Yellow) Urine Clarity Clear (Clear) Urine pH 5.0 (5.0-9.0) Urine Specific [place] 1.021 (1.001-1.035) Urine Protein Trace (Negative) H Urine Ketones Negative (Negative) Urine Blood 1+ /uL (Negative) H Urine Nitrite Negative (Negative) Urine Bilirubin Negative (Negative) Urine Urobilinogen Normal mg/dL (Negative) Urine Leukocyte Esterase Negative /uL (Negative) Urine RBC 15 /hpf (0 - 3) Urine WBC 4 /hpf (0 - 3) Urine Squamous Epithelial Cells None seen /hpf (<5) Urine Bacteria Few /hpf (None Seen) H Urine Hyaline Casts Mod /lpf (0 - 2) Urine Sperm Present /hpf (None Seen) Urine Glucose Normal mg/dL (Normal) Urine Creatinine 109.75 mg/dL (30.0-125.0) Urine Protein/Creatinine Ratio 0.74 Urine Sodium 10 mmol/L (40-220) L Urine Total Protein 80.8 mg/dL (1-14) H Microbiology Microbiology Date/Time Source Procedure Growth Status 03/10/24 08:29 Buttock Gram Stain - Final Complete 03/10/24 08:29 Buttock Anaerobic Culture - Final Complete 03/10/24 08:29 Aerobic Culture - Final Enterococcus faecium - VRE Complete 03/08/24 20:00 Bronchial Washings Gram Stain - Final Complete 03/08/24 20:00 Respiratory Culture - Final Yeast, not Monserrat albicans Complete 03/01/24 05:55 Stool Clostridium difficile Toxin Assay - Final Complete 03/01/24 03:00 Voided Urine Urine Culture - Final Complete 03/01/24 00:59 Blood Blood Culture - Final NO GROWTH AFTER 5 DAYS OF INCUBATION. Complete Labs and/or images reviewed: Labs reviewed by me, Image(s) reviewed by me Assessment/Plan Assessment/Plan Patient: -metabolic encephalopathy secondary to sepsis -sepsis with shock , VRE and yeast to wound -acute hypoxic respiratory failure, rule out community-acquired pneumonia, Gram-positive/Gram-negative etiology -deep tissue injury to sacrum and bilateral heels -history of COPD -primary hypertension -dyslipidemia -recent history of right hip fracture with right hip arthroplasty -acute kidney injury, vasomotor nephropathy -hypernatremia -displaced right hip arthroplasty Plan: Events: Patient was failed swallow evaluation yesterday. Continues to be on TPN. Patient will have NG tube placed with enteral feeding started. Discussion made with director of casework department, Heather Humphries regarding plans for transfer. This time and does not look like Orthopedic surgery we will be performed. H and H holding. Leukocytosis improving. No signs of active bleeding from wound. -electrolyte replacement -continue O2 supplementation. Patient was respiratory status stable after being extubated yesterday. -wound care consultation -bronchodilators -Nephrology consultation -repeat labs in a.m. Critical care time spent with patient discussing and formulating plan of care: 40 minutes. This does not include time spent performing procedures. This medical document was created using an electronic medical record system with [employer] system. Although this document has been carefully reviewed, there may still be some phonetic and typographical errors. These areas are purely typographical due to imperfections of the software programs, and do not reflect any compromise in the patient's medical care. Plan discussed with: Patient, Other (RN) My Orders Orders - WAYNE TURNER NP Procedure Category Date Status Time Amino Acid PHA 03/17/24 In Process Infusion... W/Fat 22:00 Tpn Per Pharmacy KARYNA 03/17/24 In Process 22:00 Date of Service: Mar 18, 2024 Billing Provider: WAYNE TURNER NP Common Visit Codes: [id number] INP/OBS CARE(HIGH) WAYNE TURNER NP Mar 18, 2024 11:19
[2024-03-18] MEDS ORDERED: ALBUTEROL SULF 2.5 MG/0.5ML(0.5%) NEB SOLN ONE (14:20)
[2024-03-18] MEDS ORDERED: IPRATROPIUM BROM 0.5 MG/2.5ML INH SOL ONE (14:21)
[2024-03-18] MEDS: POTASSIUM CHL 20MEQ/100ML 100 ML IV ONE (14:43)
--- NOTE | 2024-03-18 17:45 | DVHPN2 ---
Progress Note - Dictate Date Seen: Mar 17, 2024 Medical Necessity Reason Pt with a Central, PICC or Fol: Yes The following are medically ne: Esqueda Catheter Reason for esqueda catheter: Strict I&O Subjective Patient seen and examined at bedside. Breathing comfortably on room air. Overnight events reviewed. vital signs Vital Sign Date Time Temp Pulse Resp B/P (MAP) Pulse Ox O2 Delivery O2 Flow Rate FiO2 03/18/24 16:59 98.7 82 16 124/51 (75) 100 98.7 03/18/24 14:24 Nasal Cannula* 2 28 Total Intake and Output 03/17/24 03/17/24 03/18/24 15:00 23:00 07:00 Intake Total 350 ml 280 ml 0 ml Output Total 1000 ml 750 ml Balance 350 ml -720 ml -750 ml medications Current Medications Medications Dose Ordered Sig/Jordon Route Start Time Stop Time Status Last Admin Dose Admin Pantoprazole Sodium 40 mg DAILY IV 03/01/24 06:00 03/18/24 11:20 40 MG Albuterol 2.5 mg Q4HR NEB 03/01/24 10:00 03/18/24 14:24 2.5 MG Ipratropium Bradford 0.5 mg Q4HR NEB 03/01/24 10:00 03/18/24 14:24 0.5 MG Vancomycin HCl 0 ml @ 0 mls/hr UD IV 03/01/24 02:15 UNV Furosemide 40 mg DAILY IV 03/07/24 10:00 03/18/24 11:20 40 MG Linezolid 300 ml @ 150 mls/hr Q12HR IV 03/08/24 22:00 03/18/24 12:12 150 MLS/HR Ertapenem 1 gm/ Sodium Chloride 50 ml @ 100 mls/hr DAILY IV 03/10/24 10:00 03/18/24 11:21 100 MLS/HR Morphine Sulfate 2 mg Q4HPRN PRN IV 03/12/24 09:30 03/16/24 09:33 2 MG Phenytoin Sodium 100 mg Q8HR IV 03/12/24 22:00 03/18/24 14:53 100 MG Lorazepam 1 mg Q5MINP PRN IV 03/12/24 16:30 03/16/24 11:46 1 MG Diagnostic Test (Pha) 1 strip Q6HR 03/13/24 00:00 03/18/24 16:57 1 STRIP Insulin Human Regular FOLLOW SLIDING SCALE Q6HR SC 03/13/24 00:00 03/17/24 12:15 2 UNITS Dextrose 50 ml UD IV 03/13/24 00:00 Lorazepam 1 mg Q2HP PRN IV 03/13/24 08:30 03/16/24 09:40 1 MG Amino Acids 0 ml @ 0 mls/hr PER PHARMACY IV 03/16/24 08:15 Magnesium Sulfate/ Dextrose 100 ml @ 100 mls/hr Q1HR IV 03/17/24 12:00 03/17/24 13:59 UNV Fat Emulsion Intravenous 50 ml/ Sodium Chloride 60 meq/Sodium Phosphate 40 meq/ Potassium Chloride 40 meq/ Calcium Gluconate 2.3 meq/Magnesium Sulfate 18 meq/ Multivitamins 10 ml/Chromium/ Copper/Manganese/ Zinc 1 ml/Amino Acids/Dextrose/ Purified Water 1,365.4462 ml @ 57 mls/hr [id number] IV 03/17/24 22:00 03/18/24 21:59 03/17/24 21:41 57 MLS/HR Enteral Nutritional Formula 1,000 ml 30ML/HR GT 03/18/24 11:15 Fat Emulsion Intravenous 100 ml/Sodium Chloride 50 meq/ Sodium Phosphate 50 meq/Potassium Chloride 40 meq/ Calcium Gluconate 2.3 meq/Magnesium Sulfate 22 meq/ Multivitamins 10 ml/Chromium/ Copper/Manganese/ Zinc 1 ml/Amino Acids/Dextrose/ Purified Water 1,566.4462 ml @ 65 mls/hr Q24H6M IV 03/18/24 22:00 03/19/24 21:59 objective Gen.: Patient lying in bed in no apparent distress. On room air Head: Normocephalic, atraumatic. Eyes: EOMI/PERRLA. Ears: Normal hearing. Normal anatomy. Neck/trachea: Trachea midline, supple. Nose: Normal external anatomy. Mouth: Moist mucous membranes. Chest: Decreased air entry bilaterally. No wheezing or rhonchi. Cardiovascular: Positive S1, positive S2. Regular rate and rhythm. Abdomen: Positive bowel sounds in all 4 quadrants. Soft, non-tender, non- distended. : Deferred. Rectal: Deferred. Skin: Warm, dry. Intact. Extremities: 2+ radial pulses bilaterally. No lower extremity edema. Neuro: Awake, alert, oriented x3. No gross motor or sensory deficits. Cranial nerves II through XII intact. Gait not assessed. laboratory and microbiology Laboratory Tests 03/18/24 05:27 Test 03/18/24 05:27 Range/Units Serum Glucose 96 74-106 mg/dL Assessment/Plan Impression: Acute hypoxic respiratory failure Respiratory distress. CHF exacerbation/Pulmonary edema Nicotine dependence Acute metabolic encephalopathy Septic shock Deep tissue injury to sacrum and bilateral heels COPD, stable Recent history of right hip fracture with right hip arthroplasty Acute kidney injury, vasomotor nephropathy Events: Remains on room air No respiratory distress. Supplemental oxygen PRN. Continue to monitor hemoglobin closely Transfuse if less than 7.0 g/dL. Continue antiepileptics. Continue antibiotics - Zyvox Continue bronchodilators for COPD. Monitor renal function. Monitor electrolytes. Supplement as necessary. Supplement mag, phos GI prophylaxis Wound care. Clinimix for nutritional support Monitor neurologic status. HOB elevation Aspiration precautions. Pain control Avoid oversedation. Patient passed swallow eval. Disposition per hospitalist. 03/16/24 - CT head showed no evidence of acute intracranial hemorrhage or stroke. Small chronic lacunar infarct in the right caudate head. Chronic small- vessel ischemic changes in the supratentorial white matter. Labs and imaging reviewed. Rest of plan as noted below. Plan: s/p extubation on 03/11/24 Supplemental oxygen PRN Titrate to keep sats above 92% Off sedation Off pressors, hemodynamically stable. Continue bronchodilators Continue antibiotics. F/u cultures. Monitor WBC Tube feeds for nutritional support Monitor renal function Monitor electrolytes. Supplement as necessary. Monitor ins and outs. Maintain euvolemia. GI prophylaxis - Protonix. DVT prophylaxis. Prognosis: Guarded given patient's multiple co-morbidities. Rest of plan per hospitalist and other consultants. Thank you Ned Sapp NP, for allowing me to participate in this patient's care. Further recommendations will depend on the patient's clinical course. Please do not hesitate to contact me if you have any questions or concerns. This medical document was created using an electronic medical record system with [employer] system. Although these documentations are being carefully reviewed, there may still be some phonetic and typographical changes. The errors are purely typographical, due to imperfection on the software program, and do not reflect any compromise in the patient's medical care. Dietary Evaluation Review Comments: No supplement for wounds d/t GERA and kidney function, Encourage and Monitor PO intake, and lab values, FU in 3-5 days Expected Outcomes/Goals: Improved lab values Plan discussed with: Patient, Other (RN) YARI BILL MD Mar 18, 2024 17:45
--- NOTE | 2024-03-18 18:01 | DVHPN2 ---
Progress Note - Dictate Date Seen: Mar 18, 2024 Medical Necessity Reason Pt with a Central, PICC or Fol: Yes The following are medically ne: Esqueda Catheter Reason for esqueda catheter: Strict I&O Subjective Patient seen and examined at bedside. On supplemental oxygen Overnight events reviewed. vital signs Vital Sign Date Time Temp Pulse Resp B/P (MAP) Pulse Ox O2 Delivery O2 Flow Rate FiO2 03/18/24 16:59 98.7 82 16 124/51 (75) 100 98.7 03/18/24 14:24 Nasal Cannula* 2 28 Total Intake and Output 03/17/24 03/17/24 03/18/24 15:00 23:00 07:00 Intake Total 350 ml 280 ml 0 ml Output Total 1000 ml 750 ml Balance 350 ml -720 ml -750 ml medications Current Medications Medications Dose Ordered Sig/Jordon Route Start Time Stop Time Status Last Admin Dose Admin Pantoprazole Sodium 40 mg DAILY IV 03/01/24 06:00 03/18/24 11:20 40 MG Albuterol 2.5 mg Q4HR NEB 03/01/24 10:00 03/18/24 14:24 2.5 MG Ipratropium Naylor 0.5 mg Q4HR NEB 03/01/24 10:00 03/18/24 14:24 0.5 MG Vancomycin HCl 0 ml @ 0 mls/hr UD IV 03/01/24 02:15 UNV Furosemide 40 mg DAILY IV 03/07/24 10:00 03/18/24 11:20 40 MG Linezolid 300 ml @ 150 mls/hr Q12HR IV 03/08/24 22:00 03/18/24 12:12 150 MLS/HR Ertapenem 1 gm/ Sodium Chloride 50 ml @ 100 mls/hr DAILY IV 03/10/24 10:00 03/18/24 11:21 100 MLS/HR Morphine Sulfate 2 mg Q4HPRN PRN IV 03/12/24 09:30 03/16/24 09:33 2 MG Phenytoin Sodium 100 mg Q8HR IV 03/12/24 22:00 03/18/24 14:53 100 MG Lorazepam 1 mg Q5MINP PRN IV 03/12/24 16:30 03/16/24 11:46 1 MG Diagnostic Test (Pha) 1 strip Q6HR 03/13/24 00:00 03/18/24 16:57 1 STRIP Insulin Human Regular FOLLOW SLIDING SCALE Q6HR SC 03/13/24 00:00 03/17/24 12:15 2 UNITS Dextrose 50 ml UD IV 03/13/24 00:00 Lorazepam 1 mg Q2HP PRN IV 03/13/24 08:30 03/16/24 09:40 1 MG Amino Acids 0 ml @ 0 mls/hr PER PHARMACY IV 03/16/24 08:15 Magnesium Sulfate/ Dextrose 100 ml @ 100 mls/hr Q1HR IV 03/17/24 12:00 03/17/24 13:59 UNV Fat Emulsion Intravenous 50 ml/ Sodium Chloride 60 meq/Sodium Phosphate 40 meq/ Potassium Chloride 40 meq/ Calcium Gluconate 2.3 meq/Magnesium Sulfate 18 meq/ Multivitamins 10 ml/Chromium/ Copper/Manganese/ Zinc 1 ml/Amino Acids/Dextrose/ Purified Water 1,365.4462 ml @ 57 mls/hr [id number] IV 03/17/24 22:00 03/18/24 21:59 03/17/24 21:41 57 MLS/HR Enteral Nutritional Formula 1,000 ml 30ML/HR GT 03/18/24 11:15 Fat Emulsion Intravenous 100 ml/Sodium Chloride 50 meq/ Sodium Phosphate 50 meq/Potassium Chloride 40 meq/ Calcium Gluconate 2.3 meq/Magnesium Sulfate 22 meq/ Multivitamins 10 ml/Chromium/ Copper/Manganese/ Zinc 1 ml/Amino Acids/Dextrose/ Purified Water 1,566.4462 ml @ 65 mls/hr Q24H6M IV 03/18/24 22:00 03/19/24 21:59 objective Gen.: Patient lying in bed in no apparent distress. On supplemental oxygen. Head: Normocephalic, atraumatic. Eyes: EOMI/PERRLA. Ears: Normal hearing. Normal anatomy. Neck/trachea: Trachea midline, supple. Nose: Normal external anatomy. Mouth: Moist mucous membranes. Chest: Decreased air entry bilaterally. No wheezing or rhonchi. Cardiovascular: Positive S1, positive S2. Regular rate and rhythm. Abdomen: Positive bowel sounds in all 4 quadrants. Soft, non-tender, non- distended. : Deferred. Rectal: Deferred. Skin: Warm, dry. Intact. Extremities: 2+ radial pulses bilaterally. No lower extremity edema. Neuro: Awake, alert, oriented x3. No gross motor or sensory deficits. Cranial nerves II through XII intact. Gait not assessed. laboratory and microbiology Laboratory Tests 03/18/24 05:27 Test 03/18/24 05:27 Range/Units Serum Glucose 96 74-106 mg/dL Assessment/Plan Impression: Acute hypoxic respiratory failure Respiratory distress. CHF exacerbation/Pulmonary edema Nicotine dependence Acute metabolic encephalopathy Septic shock Deep tissue injury to sacrum and bilateral heels COPD, stable Recent history of right hip fracture with right hip arthroplasty Acute kidney injury, vasomotor nephropathy Events: Currently on supplemental oxygen 2 LPM NC Taper O2 as tolerated Continue to monitor hemoglobin closely Transfuse if less than 7.0 g/dL. Continue antiepileptics. Continue antibiotics - Zyvox Continue bronchodilators for COPD. GI prophylaxis Wound care. Patient is NPO - TPN for nutritional support Diurese w/ IV Lasix 40 mg QD Monitor renal function. Monitor electrolytes. Supplement as necessary. Potassium supplementation Monitor neurologic status. HOB elevation Aspiration precautions. Pain control Avoid oversedation. Disposition per hospitalist. 03/16/24 - CT head showed no evidence of acute intracranial hemorrhage or stroke. Small chronic lacunar infarct in the right caudate head. Chronic small- vessel ischemic changes in the supratentorial white matter. Labs and imaging reviewed. Rest of plan as noted below. Plan: s/p extubation on 03/11/24 Supplemental oxygen Titrate to keep sats above 92% Off sedation Off pressors, hemodynamically stable. Continue bronchodilators Continue antibiotics. Monitor WBC Tube feeds for nutritional support Monitor renal function Monitor electrolytes. Supplement as necessary. Monitor ins and outs. Maintain euvolemia. GI prophylaxis - Protonix. DVT prophylaxis. Prognosis: Guarded given patient's multiple co-morbidities. Rest of plan per hospitalist and other consultants. A total of 51 minutes of clinical care time was spent reviewing the patient record, examining the patient, making a diagnostic and therapeutic plan, discussing this plan with the medical personnel, following up on diagnostic studies and following the patient for clinical stability excluding any and all procedures. At least 50% of this time was spent in direct, [id number] contact. Thank you Ned Sapp NP, for allowing me to participate in this patient's care. Further recommendations will depend on the patient's clinical course. Please do not hesitate to contact me if you have any questions or concerns. This medical document was created using an electronic medical record system with [employer] computerized dictation system. Although these documentations are being carefully reviewed, there may still be some phonetic and typographical changes. The errors are purely typographical, due to imperfection on the software program, and do not reflect any compromise in the patient's medical care. Dietary Evaluation Review Comments: No supplement for wounds d/t GERA and kidney function, Encourage and Monitor PO intake, and lab values, FU in 3-5 days Expected Outcomes/Goals: Improved lab values Plan discussed with: Patient, Other (KAREN Avila) YARI BILL MD Mar 18, 2024 18:01
[2024-03-18] MEDS: TPN PER PHARMACY IV NR (22:25)
[2024-03-19] VITALS (13 sets, daily range): BP systolic 106–134; BP diastolic 38–57; PULSE 72–89; RESP 16–28; TEMP 98–98.9; O2SAT 91–100
[2024-03-19 06:53] LABS: Basophils # (auto) 0.1 10 ^3/uL (0-0.2); Lymphocytes # (auto) 2.3 10 ^3/uL (0.4-5.4); Monocytes # (auto) 1.7 10 ^3/uL (0-1.3)
[2024-03-19 06:55] LABS: Eosinophils # (auto) 0.6 10 ^3/uL (0-0.8); Eosinophils % (auto) 4.7 % (0.0-7.0); Hematocrit 20.1 % (41.0-53.0); Lymphocytes % (auto) 19.4 % (10.0-50.0); Mean Corpuscular Hemoglobin 28.8 pg (28.0-32.0); Mean Corpuscular Volume 84.7 fL (80.0-100.0); Monocytes % (auto) 14.1 % (0.0-12.0); Neutrophils # (auto) 7.3 10 ^3/uL (1.6-8.6); Neutrophils % (auto) 60.8 % (37.0-80.0); Nucleated Red Blood Cells % 0.1 %; Platelet Count (auto) 231 10^3/uL (140-450); Red Blood Cells 2.38 10^6/uL (4.5-5.90); Red Cell Distribution Width 17.4 % (11.8-14.3)
[2024-03-19 07:02] LABS: Potassium 3.7 mmol/L (3.5-5.1)
[2024-03-19 07:03] LABS: Calcium 8.7 mg/dL (8.7-10.4)
[2024-03-19 07:08] LABS: Magnesium 1.9 mg/dL (1.6-2.6)
[2024-03-19 07:10] LABS: Phosphorus 3.1 mg/dL (2.4-5.1)
[2024-03-19 07:13] LABS: Albumin 2.5 g/dL (3.2-4.8)
[2024-03-19 07:30] LABS: BUN/Creatinine Ratio 29.4 (10.0-20.0)
[2024-03-19 07:36] LABS: Hemoglobin 6.9 g/dL (13.5-17.5)
[2024-03-19 12:43] LABS: Base Excess -1.3 mmol/L (-2.0-3.0)
--- NOTE | 2024-03-19 13:17 | DVHPN2 ---
Subjective Patient now awake and following commands. Reports having generalized weakness Reviewed: Care Plan, H&P, Labs, Medications, Previous Orders, Radiology Changes from previous H/P or p: No Changes General: Per HPI Eyes: No Pain, No Vision change, No Conjunctivae inflammation, No Eyelid inflammation, No Other, No Redness ENT: No Ear pain, No Ear discharge, No Nose pain, No Nose discharge, No Nose congestion, No Mouth pain, No Mouth swelling, No Throat pain, No Throat swelling, No Other Cardiovascular: No Chest Pain, No Palpitations, No Orthopnea, No Paroxysmal Noc. Dyspnea, No Edema, No Lt Headedness, No Other Respiratory: Cough, Shortness of breath, Sputum Gastrointestinal: No Nausea, No Vomiting, No Abdominal Pain, No Diarrhea, No Constipation, No Melena, No Hematochezia, No Other Genitourinary: No Dysuria, No Frequency, No Incontinence, No Hematuria, No Retention, No Other Musculoskeletal: No other, No neck pain, No shoulder pain, No arm pain, No back pain, No hand pain, No leg pain, No foot pain Skin: Lesions Objective Vitals Vital Signs Date Time Temp Pulse Resp B/P (MAP) Pulse Ox O2 Delivery O2 Flow Rate FiO2 03/19/24 10:08 115/53 03/19/24 09:32 92 Nasal Cannula* 2 28 03/19/24 09:32 89 26 03/19/24 09:00 98.5 98.5 Intake/Output Intake and Output 03/19/24 07:00 Intake Total 300 ml Output Total 2100 ml Balance -1800 ml Intake Oral 0 ml IV Total 300 ml Output Urine Total 2100 ml General Appearance: Alert, Cooperative, mild distress HEENT: Atraumatic, PERRLA Lungs: Clear to auscultation, Normal air movement Cardiovascular: Regular rate, Normal S1, Normal S2, Other (Sinus rhythm) Abdomen: Normal bowel sounds Musculoskeletal: Normal sensory function, Normal motor function, Other (Deformity of hip) Extremities: No clubbing, No cyanosis, Normal pulses, Other (Tissue injury to heal) Neuro: Other (Unable to assess) Skin: Wounds (See nurse notes and pictures), Other (Sacral decubitus ulcer) Psych/Mental Status: Mental status NL, Mood NL Medications Current Medications Medications Dose Ordered Sig/Jordon Route Start Time Stop Time Status Last Admin Dose Admin Pantoprazole Sodium 40 mg DAILY IV 03/01/24 06:00 03/19/24 10:07 40 MG Albuterol 2.5 mg Q4HR NEB 03/01/24 10:00 03/19/24 09:32 2.5 MG Ipratropium Sadler 0.5 mg Q4HR NEB 03/01/24 10:00 03/19/24 09:32 0.5 MG Vancomycin HCl 0 ml @ 0 mls/hr UD IV 03/01/24 02:15 UNV Furosemide 40 mg DAILY IV 03/07/24 10:00 03/19/24 10:08 40 MG Linezolid 300 ml @ 150 mls/hr Q12HR IV 03/08/24 22:00 03/19/24 10:11 150 MLS/HR Ertapenem 1 gm/ Sodium Chloride 50 ml @ 100 mls/hr DAILY IV 03/10/24 10:00 03/19/24 12:22 100 MLS/HR Morphine Sulfate 2 mg Q4HPRN PRN IV 03/12/24 09:30 03/16/24 09:33 2 MG Phenytoin Sodium 100 mg Q8HR IV 03/12/24 22:00 03/19/24 05:27 100 MG Lorazepam 1 mg Q5MINP PRN IV 03/12/24 16:30 03/16/24 11:46 1 MG Diagnostic Test (Pha) 1 strip Q6HR 03/13/24 00:00 03/19/24 11:34 1 STRIP Insulin Human Regular FOLLOW SLIDING SCALE Q6HR SC 03/13/24 00:00 03/17/24 12:15 2 UNITS Dextrose 50 ml UD IV 03/13/24 00:00 Lorazepam 1 mg Q2HP PRN IV 03/13/24 08:30 03/16/24 09:40 1 MG Amino Acids 0 ml @ 0 mls/hr PER PHARMACY IV 03/16/24 08:15 Magnesium Sulfate/ Dextrose 100 ml @ 100 mls/hr Q1HR IV 03/17/24 12:00 03/17/24 13:59 UNV Enteral Nutritional Formula 1,000 ml 30ML/HR GT 03/18/24 11:15 Fat Emulsion Intravenous 100 ml/Sodium Chloride 50 meq/ Sodium Phosphate 50 meq/Potassium Chloride 40 meq/ Calcium Gluconate 2.3 meq/Magnesium Sulfate 22 meq/ Multivitamins 10 ml/Chromium/ Copper/Manganese/ Zinc 1 ml/Amino Acids/Dextrose/ Purified Water 1,566.4462 ml @ 65 mls/hr Q24H6M IV 03/18/24 22:00 03/19/24 21:59 03/18/24 22:25 65 MLS/HR Fat Emulsion Intravenous 150 ml/Sodium Chloride 20 meq/ Sodium Acetate 30 meq/Sodium Phosphate 50 meq/ Potassium Chloride 50 meq/ Magnesium Sulfate 22 meq/ Multivitamins 10 ml/Chromium/ Copper/Manganese/ Zinc 1 ml/Amino Acids/Dextrose/ Purified Water 1,574 ml @ 65 mls/hr [id number] IV 03/19/24 22:00 03/20/24 21:59 Laboratory Results Laboratory Tests 03/19/24 05:58 Chemistry Test 03/19/24 05:58 Albumin 2.5 g/dL (3.2-4.8) L Calcium Level 8.7 mg/dL (8.7-10.4) Magnesium Level 1.9 mg/dL (1.6-2.6) Phosphorus Level 3.1 mg/dL (2.4-5.1) Urinalysis Test 03/01/24 03:00 03/02/24 11:20 Urine Color Yellow (Yellow) Urine Clarity Clear (Clear) Urine pH 5.0 (5.0-9.0) Urine Specific Mallard 1.021 (1.001-1.035) Urine Protein Trace (Negative) H Urine Ketones Negative (Negative) Urine Blood 1+ /uL (Negative) H Urine Nitrite Negative (Negative) Urine Bilirubin Negative (Negative) Urine Urobilinogen Normal mg/dL (Negative) Urine Leukocyte Esterase Negative /uL (Negative) Urine RBC 15 /hpf (0 - 3) Urine WBC 4 /hpf (0 - 3) Urine Squamous Epithelial Cells None seen /hpf (<5) Urine Bacteria Few /hpf (None Seen) H Urine Hyaline Casts Mod /lpf (0 - 2) Urine Sperm Present /hpf (None Seen) Urine Glucose Normal mg/dL (Normal) Urine Creatinine 109.75 mg/dL (30.0-125.0) Urine Protein/Creatinine Ratio 0.74 Urine Sodium 10 mmol/L (40-220) L Urine Total Protein 80.8 mg/dL (1-14) H Blood Gas Results Test 03/19/24 12:30 Arterial Blood pH 7.471 (7.350-7.450) FiO2 % 36.0 Microbiology Microbiology Date/Time Source Procedure Growth Status 03/10/24 08:29 Buttock Gram Stain - Final Complete 03/10/24 08:29 Buttock Anaerobic Culture - Final Complete 03/10/24 08:29 Aerobic Culture - Final Enterococcus faecium - VRE Complete 03/08/24 20:00 Bronchial Washings Gram Stain - Final Complete 03/08/24 20:00 Respiratory Culture - Final Yeast, not Monserrat albicans Complete 03/01/24 05:55 Stool Clostridium difficile Toxin Assay - Final Complete 03/01/24 03:00 Voided Urine Urine Culture - Final Complete 03/01/24 00:59 Blood Blood Culture - Final NO GROWTH AFTER 5 DAYS OF INCUBATION. Complete Labs and/or images reviewed: Labs reviewed by me, Image(s) reviewed by me Assessment/Plan Assessment/Plan Patient: -metabolic encephalopathy secondary to sepsis -sepsis with shock , VRE and yeast to wound -acute hypoxic respiratory failure, rule out community-acquired pneumonia, Gram-positive/Gram-negative etiology -deep tissue injury to sacrum and bilateral heels -history of COPD -primary hypertension -dyslipidemia -recent history of right hip fracture with right hip arthroplasty -acute kidney injury, vasomotor nephropathy -hypernatremia -displaced right hip arthroplasty Plan: Events: Patient was found to be somewhat lethargic, tachypneic. Audible rhonchi appreciated. ABG performed, reviewed. Please weaned off O2 as appropriate. Apparently, nurses attempted to place NG tube yesterday for enteral feeding, unsuccessful. Discussed case with oncology social worker, with patient to be transfer to LTAC. Repeat chest x-ray -electrolyte replacement -continue O2 supplementation. -wound care consultation -bronchodilators -repeat labs in a.m. Total time spent with patient discussing and formulating plan of care: 35 minutes. This medical document was created using an electronic medical record system with [employer] dictation system. Although this document has been carefully reviewed, there may still be some phonetic and typographical errors. These areas are purely typographical due to imperfections of the software programs, and do not reflect any compromise in the patient's medical care. Plan discussed with: Patient, Other (RN) My Orders Orders - WAYNE TURNER [employer] Procedure Category Date Status Time Cleanse Wound With KARYNA 03/18/24 In Process Wound Clean 12:00 Type And Screen BBK 03/19/24 In Process 09:27 * Mechanical Operator CONS 03/19/24 Transmitted Consult Amino Acid PHA 03/19/24 In Process Infusion... W/Fat 22:00 Comprehensive LAB 03/20/24 Verified Metabolic Panel 04:00 Phosphorus LAB 03/20/24 Verified 04:00 Magnesium LAB 03/20/24 Verified 04:00 Tpn Per Pharmacy KARYNA 03/19/24 In Process 22:00 Chest Xray 1 View XY 03/19/24 Logged 11:49 Abg W/ Co-Ox RT 03/19/24 Logged 11:49 Date of Service: Mar 19, 2024 Billing Provider: WAYNE TURNER NP Common Visit Codes: [id number] INP/OBS CARE(HIGH) WAYNE TURNER NP Mar 19, 2024 13:17
--- NOTE | 2024-03-19 14:49 | DVH ---
CHEST RADIOGRAPH Indication: aspiration Technique: Single frontal view of the chest was obtained COMPARISON: XY CHEST XRAY 1 VIEW on DOS: 03/15/24, XY CHEST PORTABLE on DOS: 03/13/24, XY CHEST REINALDO BLE on DOS: 03/12/24, XY CHEST PORTABLE on DOS: 03/10/24, XY CHEST PORTABLE on DOS: 03/09/24 FINDINGS: Lines and Tubes: Left central venous catheter in satisfactory position. Lungs: Left basilar subsegmental atelectasis. Pleura: No effusion. No pneumothorax. Cardiomediastinal contours: Unremarkable Bones: Unremarkable IMPRESSION: Left basilar subsegmental atelectasis.
--- NOTE | 2024-03-19 16:44 | DVHDS2 ---
Discharge Summary Date of Admission Mar 01, 2024 at 01:34 Date of Discharge: Mar 19, 2024 Admitting Diagnosis Sepsis with shock Labs/Diagnostic Data: Laboratory Results Test 03/19/24 12:30 03/19/24 11:31 03/19/24 05:58 03/18/24 05:27 Blood Gas Specimen Type Arterial Blood Gas Sample Site Right radial Blood Gas Patient Temperature 37.0 Arterial Blood Date Drawn [id number] Arterial Blood pH 7.471 (7.350-7.450) Arterial Blood Partial Pressure CO2 30.9 mmHg (35.0-48.0) Arterial Blood Partial Pressure O2 107.4 mmHg (83.0-108.0) Arterial Blood HCO3 22.0 mmol/L (21.0-28.0) Arterial Blood Oxygen Saturation 97.6 % (94.0-98.0) Arterial Blood Base Excess -1.3 mmol/L (-2.0-3.0) Arterial Blood Oxyhemoglobin 96.7 % (94.0-98.0) Arterial Blood Carboxyhemoglobin 0.6 % (0.5-1.5) Arterial Blood Methemoglobin 0.3 % (0.0-1.5) Yao Test Yes Blood Gas Total Hemoglobin 7.40 g/dL (13.5-17.5) Blood Gas Liter Flow 4.00 Blood Gas Modality Nasal cannula FiO2 % 36.0 POC Glucose 110 mg/dl (70-106) White Blood Count 12.0 10^3/uL (4.4-10.8) Red Blood Count 2.38 10^6/uL (4.5-5.90) Hemoglobin 6.9 g/dL (13.5-17.5) Hematocrit 20.1 % (41.0-53.0) Mean Corpuscular Volume 84.7 fL (80.0-100.0) Mean Corpuscular Hemoglobin 28.8 pg (28.0-32.0) Mean Corpuscular Hemoglobin Concent 34.0 g/dL (32.0-36.0) Red Cell Distribution Width 17.4 % (11.8-14.3) Platelet Count 231 10^3/uL (140-450) Mean Platelet Volume 8.0 fL (6.9-10.8) Neutrophils (%) (Auto) 60.8 % (37.0-80.0) Lymphocytes (%) (Auto) 19.4 % (10.0-50.0) Monocytes (%) (Auto) 14.1 % (0.0-12.0) Eosinophils (%) (Auto) 4.7 % (0.0-7.0) Basophils (%) (Auto) 1.0 % (0.0-2.0) Neutrophils # (Auto) 7.3 10 ^3/uL (1.6-8.6) Lymphocytes # (Auto) 2.3 10 ^3/uL (0.4-5.4) Monocytes # (Auto) 1.7 10 ^3/uL (0-1.3) Eosinophils # (Auto) 0.6 10 ^3/uL (0-0.8) Basophils # (Auto) 0.1 10 ^3/uL (0-0.2) Nucleated Red Blood Cells 0.1 % Sodium Level 137 mmol/L (136-145) Potassium Level 3.7 mmol/L (3.5-5.1) Chloride Level 106 mmol/L (98-107) Carbon Dioxide Level 25 mmol/L (20-31) Anion Gap 6 (5-15) Blood Urea Nitrogen 20 mg/dL (9-23) Creatinine 0.68 mg/dL (0.700-1.30) Estimated GFR () 144 mL/min Estimated GFR (Non- 119 mL/min BUN/Creatinine Ratio 29.4 (10.0-20.0) Serum Glucose 101 mg/dL (74-106) Calcium Level 8.7 mg/dL (8.7-10.4) Phosphorus Level 3.1 mg/dL (2.4-5.1) Magnesium Level 1.9 mg/dL (1.6-2.6) Albumin 2.5 g/dL (3.2-4.8) Glomerular Filtration Rate Calc 98 mL/min (>90) Total Bilirubin 0.4 mg/dL (0.2-1.0) Aspartate Amino Transferase (AST) 27 U/L (13-40) Alanine Aminotransferase (ALT) 13 U/L (7-40) Alkaline Phosphatase 99 U/L (46-116) Total Protein 5.2 g/dL (5.7-8.2) Test 03/14/24 03:34 03/13/24 03:03 03/12/24 10:38 03/11/24 14:55 Triglycerides Level 140 mg/dL (< 150) Ammonia 19 umol/L (11-32) Phenytoin (Dilantin) Level 12.8 ug/mL (10-20) Blood Gas Critical Value Read Back Yes Blood Gas Notified Whom steph Sapp np Blood Gas Notified Time [id number] Blood Gas Notified By Stereotype Finisher cadence lorrie Blood Gas Pressure Support 8 Blood Gas PEEP or CPAP 5.0 Blood Gas Comments Test 03/11/24 12:05 03/11/24 04:01 03/10/24 23:15 03/10/24 03:00 Blood Gas Set Respiration Rate 14.0 Blood Gas Tidal Volume 500.0 Differential Total Cells Counted 100.0 (100) Neutrophils % (Manual) 86 (37.0-80.0) Band Neutrophils % (Manual) 1 Lymphocytes % (Manual) 9 (10.0-50.0) Monocytes % (Manual) 4 (0-12) Eosinophils % (Manual) 0 (0-7) Basophils % (Manual) 0 (0.0-2.0) Metamyelocytes % (manual) 0 Myelocytes % (Manual) 0 Promyelocytes % (Manual) 0 Blast Cells % (Manual) 0 Reactive Lymphocytes 0 Platelet Estimate Adequate Hypochromasia (manual) Slight Stool Occult Blood Negative (Negative) Stool Occult Blood Sample #3 (Negative) Prothrombin Time 12.6 sec (9.3-11.8) Prothrombin Time INR 1.21 (0.9-1.15) Activated Partial Thromboplast Time 36.6 SEC (24.5-34.5) Test 03/06/24 15:16 03/04/24 08:03 03/04/24 03:22 03/02/24 11:20 Vancomycin Level Trough 16.1 ug/mL (5-10) Blood Gas Spontaneous Rate 14 Random Vancomycin Level 18.5 ug/mL (5-10) Urine Creatinine 109.75 mg/dL (30.0-125.0) Urine Protein/Creatinine Ratio 0.74 Urine Sodium 10 mmol/L (40-220) Urine Total Protein 80.8 mg/dL (1-14) Test 03/02/24 03:07 03/01/24 21:49 03/01/24 16:10 03/01/24 13:14 Blood Gas Spontaneous Tidal Volume 572 Bl Gas Inspiratory/Expiratory Ratio 1:1.8 Specimen Drawn By Aruna john rt Blood Gas EPAP 5 Blood Gas IPAP 12 Erythrocyte Sedimentation Rate 110 mm/hr (0-20) C-Reactive Protein High Sensitivity > 20.00 mg/dL (<1.0) Test 03/01/24 03:30 03/01/24 03:00 03/01/24 00:59 02/29/24 21:48 D-Dimer, Quantitative 5.17 mg/L FEU (0.0-0.49) Vitamin B12 Level 396 pg/mL (211-911) Thyroid Stimulating Hormone (TSH) 3.64 uIU/mL (0.55-4.78) Plasma/Serum Blood Alcohol < 3.0 mg/dL (<10) Urine Color Yellow (Yellow) Urine Clarity Clear (Clear) Urine pH 5.0 (5.0-9.0) Urine Specific [place] 1.021 (1.001-1.035) Urine Protein Trace (Negative) Urine Ketones Negative (Negative) Urine Blood 1+ /uL (Negative) Urine Nitrite Negative (Negative) Urine Bilirubin Negative (Negative) Urine Urobilinogen Normal mg/dL (Negative) Urine Leukocyte Esterase Negative /uL (Negative) Urine RBC 15 /hpf (0 - 3) Urine WBC 4 /hpf (0 - 3) Urine Squamous Epithelial Cells None seen /hpf (<5) Urine Bacteria Few /hpf (None Seen) Urine Hyaline Casts Mod /lpf (0 - 2) Urine Sperm Present /hpf (None Seen) Urine Glucose Normal mg/dL (Normal) Urine Opiates Screen Neg (NEGATIVE) Urine Fentanyl Screen Neg (NEGATIVE) Urine Barbiturates Screen Neg (NEGATIVE) Urine Phencyclidine Screen Neg (NEGATIVE) Urine Amphetamines Screen Neg (NEGATIVE) Urine Benzodiazepines Screen Neg (NEGATIVE) Urine Cocaine Screen Neg (NEGATIVE) Urine Cannabinoids Screen Neg (NEGATIVE) Lactic Acid Level 1.9 mmol/L (0.4-2.0) Troponin I High Sensitivity 16 ng/L (</=54) B-Type Natriuretic Peptide 28.05 pg/mL (0-100) Other Laboratory Tests 03/19/24 05:58 Brief Hx & Hospital Course: History of Present Illness Rafa Jacobsen Jr, an 78-year-old black male with a past medical history of continued smoking with a 60 pack-year history, COPD, hypertension, dyslipidemia, rheumatoid arthritis (previously treated with methotrexate, now on ibuprofen), cholecystectomy and recent displaced acute traumatic fracture of the right femoral neck treated in recent hospitalization came from [facility] With 2 days of respiratory symptoms cough, that progressed to altered mental status , also has bilateral lower heel pressure ulcer. Limited history at this time, but patient denies any active pain but continues to have rapid breathing. Patient is admitted in hospital initially in telemetry floor but patient's blood pressure dropped needing Levophed support demanding ICU level of care overnight. Course of hospitalization: Patient was subsequently intubated shortly after being admitted to the hospital. Patient was found to have severe deep tissue injury to bilateral heels, sacral wound that it was open with noted pustulant drainage. Patient was placed on vasopressor therapy empiric antibiotic therapy. Patient has CT scan of the chest, abdomen, pelvis which reveals that previously placed right ORIF arthroplasty is malpositioned/dislocated. Patient was wound culture also came back positive for VRE, ESBL. Patient has surgical consultation, undergoing debridement of his sacral wound on 03/11/2024. Postoperatively the patient was had problems with anemia, some bleeding noted to the sacral wound which has improved at this time. Patient did require PRBC transfusion. Today, patient's hemoglobin 6.9 with the patient receiving 1 unit of PRBC. Patient continues to be on antibiotic therapy with Zyvox and Invanz for sacral wound. Patient was successfully extubated, currently on telemetry floor. At this time given the patient's altered mental status, and persistent sepsis, orthopedic surgery wishes to with hold patient's reduction of his right hip. According to their notes, they are okay with weight-bearing to that extremity. Physical therapy consultation has been placed. Attempts were made for patient to start oral intake, the patient was feeling swallow evaluation. Patient continues to be receiving TPN. An attempt was made yesterday for NG tube for possible enteral feedings with difficulty found with placement of tube, board by nursing staff. Patient will be transferred to [facility] for continued treatment of his sacral wound, rehabilitation with respect to physical therapy, as well as we attempting further swallow evaluations with the patient. Accepting provider is Dr. Jack Ramsay. Patient was durable [id number] he was made aware of the patient's transitioned to long-term acute care facility. Physical examination General: Alert and Oriented x2. No acute distress. Well-nourished. Eyes: EOMI. Anicteric. HENT: Moist mucous membranes. Lungs: Clear to auscultation bilaterally. No accessory muscle use. Cardiovascular: Regular rate and rhythm. No murmur. No JVD. Abdomen: Soft, non-tender and non-distended. No palpable masses. Extremities: No edema. Non-tender. Skin: No rashes or lesions. Warm. Neurologic: No focal neurological deficits. CN II-XII grossly intact, but not individually tested. Psychiatric: Cooperative. Appropriate mood and affect. Total time spent with patient discussing and formulating plan of care: 35 minutes. This medical document was created using an electronic medical record system with [employer] system. Although this document has been carefully reviewed, there may still be some phonetic and typographical errors. These areas are purely typographical due to imperfections of the software programs, and do not reflect any compromise in the patient's medical care. Consults/Reason for consult General surgery: Sacral wound debridement Pulmonology: Ventilator management Cardiology: Cardiac clearance for surgery Orthopedic surgery: Assessment of dislocated right hip arthroplasty Condition at Discharge: Poor Final Diagnosis/Problems List Severe sepsis with shock Secondary Diagnosis: -metabolic encephalopathy secondary to sepsis -sepsis with shock , VRE and yeast to wound -acute hypoxic respiratory failure, rule out community-acquired pneumonia, Gram-positive/Gram-negative etiology -deep tissue injury to sacrum and bilateral heels -history of COPD -primary hypertension -dyslipidemia -recent history of right hip fracture with right hip arthroplasty -acute kidney injury, vasomotor nephropathy -hypernatremia -displaced right hip arthroplasty Discharge Disposition: Acute Care Facility Discharge Instruct/Medications Diet: See Comment Diet comment: TPN Medications: Refer to medication reconciliation form 36 Discharge Statement: "Patient was advised to return to the ER or call 911 if any headaches, dizziness, shortness of breath, chest pain, abdominal pain, bleeding, fevers, or worsening of medical condition. Patient was counseled about treatment plan, medications, possible side effects, patientverbalized understanding. All questions were answered to the best of my ability. This discharge took greater then 30 minutes in planning, reviewing documentation, counseling the patient, and discussing with other team members." ASSESSMENT ASSESSMENT Assessment 1. Necrotic sacral pressure ulcer, stage 4 Date of Service: Mar 19, 2024 Billing Provider: WAYNE SAPP NP Common Visit Codes: 04354-NKS/OBS DISCH DAY >30min WAYNE SAPP NP Mar 19, 2024 16:44
--- NOTE | 2024-03-19 20:42 | DVHPN2 ---
Progress Note - Dictate Date Seen: Mar 19, 2024 Medical Necessity Reason Pt with a Central, PICC or Fol: Yes The following are medically ne: Esqueda Catheter Reason for esqueda catheter: Strict I&O Subjective Patient seen and examined at bedside. On supplemental oxygen Overnight events reviewed. vital signs Vital Sign Date Time Temp Pulse Resp B/P (MAP) Pulse Ox O2 Delivery O2 Flow Rate FiO2 03/19/24 18:47 76 24 97 03/19/24 18:41 Nasal Cannula* 3 32 03/19/24 17:42 98.9 134/57 (82) 98.9 Total Intake and Output 03/18/24 03/18/24 03/19/24 15:00 23:00 07:00 Intake Total 300 ml 0 ml Output Total 1400 ml 700 ml Balance 300 ml -1400 ml -700 ml medications Current Medications Medications Dose Ordered Sig/Jordon Route Start Time Stop Time Status Last Admin Dose Admin Pantoprazole Sodium 40 mg DAILY IV 03/01/24 06:00 03/19/24 10:07 40 MG Albuterol 2.5 mg Q4HR NEB 03/01/24 10:00 03/19/24 18:50 2.5 MG Ipratropium [place] 0.5 mg Q4HR NEB 03/01/24 10:00 03/19/24 18:50 0.5 MG Vancomycin HCl 0 ml @ 0 mls/hr UD IV 03/01/24 02:15 UNV Furosemide 40 mg DAILY IV 03/07/24 10:00 03/19/24 10:08 40 MG Linezolid 300 ml @ 150 mls/hr Q12HR IV 03/08/24 22:00 03/19/24 10:11 150 MLS/HR Ertapenem 1 gm/ Sodium Chloride 50 ml @ 100 mls/hr DAILY IV 03/10/24 10:00 03/19/24 12:22 100 MLS/HR Morphine Sulfate 2 mg Q4HPRN PRN IV 03/12/24 09:30 03/16/24 09:33 2 MG Phenytoin Sodium 100 mg Q8HR IV 03/12/24 22:00 03/19/24 15:11 100 MG Lorazepam 1 mg Q5MINP PRN IV 03/12/24 16:30 03/16/24 11:46 1 MG Diagnostic Test (Pha) 1 strip Q6HR 03/13/24 00:00 03/19/24 18:11 1 STRIP Insulin Human Regular FOLLOW SLIDING SCALE Q6HR SC 03/13/24 00:00 03/17/24 12:15 2 UNITS Dextrose 50 ml UD IV 03/13/24 00:00 Lorazepam 1 mg Q2HP PRN IV 03/13/24 08:30 03/16/24 09:40 1 MG Amino Acids 0 ml @ 0 mls/hr PER PHARMACY IV 03/16/24 08:15 Magnesium Sulfate/ Dextrose 100 ml @ 100 mls/hr Q1HR IV 03/17/24 12:00 03/17/24 13:59 UNV Enteral Nutritional Formula 1,000 ml 30ML/HR GT 03/18/24 11:15 Fat Emulsion Intravenous 100 ml/Sodium Chloride 50 meq/ Sodium Phosphate 50 meq/Potassium Chloride 40 meq/ Calcium Gluconate 2.3 meq/Magnesium Sulfate 22 meq/ Multivitamins 10 ml/Chromium/ Copper/Manganese/ Zinc 1 ml/Amino Acids/Dextrose/ Purified Water 1,566.4462 ml @ 65 mls/hr Q24H6M IV 03/18/24 22:00 03/19/24 21:59 03/18/24 22:25 65 MLS/HR Fat Emulsion Intravenous 150 ml/Sodium Chloride 20 meq/ Sodium Acetate 30 meq/Sodium Phosphate 50 meq/ Potassium Chloride 50 meq/ Magnesium Sulfate 22 meq/ Multivitamins 10 ml/Chromium/ Copper/Manganese/ Zinc 1 ml/Amino Acids/Dextrose/ Purified Water 1,574 ml @ 65 mls/hr [id number] IV 03/19/24 22:00 03/20/24 21:59 objective Gen.: Patient lying in bed in no apparent distress. On supplemental oxygen. Head: Normocephalic, atraumatic. Eyes: EOMI/PERRLA. Ears: Normal hearing. Normal anatomy. Neck/trachea: Trachea midline, supple. Nose: Normal external anatomy. Mouth: Moist mucous membranes. Chest: Decreased air entry bilaterally. No wheezing or rhonchi. Cardiovascular: Positive S1, positive S2. Regular rate and rhythm. Abdomen: Positive bowel sounds in all 4 quadrants. Soft, non-tender, non- distended. : Deferred. Rectal: Deferred. Skin: Warm, dry. Intact. Extremities: 2+ radial pulses bilaterally. No lower extremity edema. Neuro: Awake, alert, oriented x3. No gross motor or sensory deficits. Cranial nerves II through XII intact. Gait not assessed. laboratory and microbiology Laboratory Tests 03/19/24 05:58 Test 03/19/24 05:58 Range/Units Serum Glucose 101 74-106 mg/dL Assessment/Plan Impression: Acute hypoxic respiratory failure Respiratory distress. CHF exacerbation/Pulmonary edema Nicotine dependence Acute metabolic encephalopathy Septic shock Deep tissue injury to sacrum and bilateral heels COPD, stable Recent history of right hip fracture with right hip arthroplasty Acute kidney injury, vasomotor nephropathy Events: Currently on supplemental oxygen 2 LPM NC Taper O2 as tolerated Continue antiepileptics. Continue antibiotics - Zyvox Continue bronchodilators for COPD. GI prophylaxis Wound care. TPN for nutritional support Diurese w/ IV Lasix 40 mg QD Monitor renal function. Monitor electrolytes. Supplement as necessary. Monitor neurologic status. HOB elevation Aspiration precautions. Pain control Avoid oversedation. TPN for nutritional support Monitor hemoglobin Plan for 1 unit PRBC transfusion. Disposition per hospitalist. 03/16/24 - CT head showed no evidence of acute intracranial hemorrhage or stroke. Small chronic lacunar infarct in the right caudate head. Chronic small- vessel ischemic changes in the supratentorial white matter. Labs and imaging reviewed. Rest of plan as noted below. Plan: s/p extubation on 03/11/24 Supplemental oxygen Titrate to keep sats above 92% Off sedation Off pressors, hemodynamically stable. Continue bronchodilators Continue antibiotics. Monitor WBC Tube feeds for nutritional support Monitor renal function Monitor electrolytes. Supplement as necessary. Monitor ins and outs. Maintain euvolemia. GI prophylaxis - Protonix. DVT prophylaxis. Prognosis: Guarded given patient's multiple co-morbidities. Rest of plan per hospitalist and other consultants. A total of 51 minutes of clinical care time was spent reviewing the patient record, examining the patient, making a diagnostic and therapeutic plan, discussing this plan with the medical personnel, following up on diagnostic studies and following the patient for clinical stability excluding any and all procedures. At least 50% of this time was spent in direct, [id number] contact. Thank you Ned Sapp NP, for allowing me to participate in this patient's care. Further recommendations will depend on the patient's clinical course. Please do not hesitate to contact me if you have any questions or concerns. This medical document was created using an electronic medical record system with [id number] dictation system. Although these documentations are being carefully reviewed, there may still be some phonetic and typographical changes. The errors are purely typographical, due to imperfection on the software program, and do not reflect any compromise in the patient's medical care. Dietary Evaluation Review Comments: No supplement for wounds d/t GERA and kidney function, Encourage and Monitor PO intake, and lab values, FU in 3-5 days Expected Outcomes/Goals: Improved lab values Plan discussed with: Patient, Other (KAREN Noriega) YARI BILL MD Mar 19, 2024 20:42
[2024-03-19] MEDS ORDERED: TPN PER PHARMACY IV NR (22:00)
== END 2024-03-19 20:51 | DRG 853 ==
LOC: ER 21:14 → EDBD 21:14 → TELE 03-01 01:34 → ER 03-01 01:37 → ICU WEST 03-03 17:51 → TELE-EAST 03-16 18:18
PROVIDERS: ADMIT Nurse Practitioner Acute Care; ATTEND Nurse Practitioner Acute Care
PROC: 5A09357 Assistance with Respiratory Ventilation, Less than 24 Consecutive Hours, Continuous Positive Airway Pressure (ICD-10-PCS; 2024-03-01)
PROC: 02HV33Z Insertion of Infusion Device into Superior Vena Cava, Percutaneous Approach (ICD-10-PCS; 2024-03-01)
PROC: 5A1955Z Respiratory Ventilation, Greater than 96 Consecutive Hours (ICD-10-PCS; principal; 2024-03-02)
PROC: 0BH17EZ Insertion of Endotracheal Airway into Trachea, Via Natural or Artificial Opening (ICD-10-PCS; 2024-03-02)
PROC: 0B9D8ZX Drainage of Right Middle Lung Lobe, Via Natural or Artificial Opening Endoscopic, Diagnostic (ICD-10-PCS; 2024-03-08)
PROC: 0KBN0ZZ Excision of Right Hip Muscle, Open Approach (ICD-10-PCS; 2024-03-10)
PROC: 0KBP0ZZ Excision of Left Hip Muscle, Open Approach (ICD-10-PCS; 2024-03-10)
PROC: 30233N1 Transfusion of Nonautologous Red Blood Cells into Peripheral Vein, Percutaneous Approach (ICD-10-PCS; 2024-03-11)
PROC: 30233K1 Transfusion of Nonautologous Frozen Plasma into Peripheral Vein, Percutaneous Approach (ICD-10-PCS; 2024-03-12)
DX: A41.50 Gram-negative sepsis, unspecified (principal); G93.41 Metabolic encephalopathy; I50.23 Acute on chronic systolic (congestive) heart failure; L89.154 Pressure ulcer of sacral region, stage 4; J15.69 Pneumonia due to other Gram-negative bacteria; J15.9 Unspecified bacterial pneumonia; R65.21 Severe sepsis with septic shock; N17.0 Acute kidney failure with tubular necrosis; J96.21 Acute and chronic respiratory failure with hypoxia; I47.20 Ventricular tachycardia, unspecified; J98.11 Atelectasis; E87.0 Hyperosmolality and hypernatremia; J44.0 Chronic obstructive pulmonary disease with (acute) lower respiratory infection; J44.1 Chronic obstructive pulmonary disease with (acute) exacerbation; E87.3 Alkalosis; G40.209 Localization-related (focal) (partial) symptomatic epilepsy and epileptic syndromes with complex partial seizures, not intractable, without status epilepticus; I11.0 Hypertensive heart disease with heart failure; E78.5 Hyperlipidemia, unspecified; M06.9 Rheumatoid arthritis, unspecified; F17.210 Nicotine dependence, cigarettes, uncomplicated; D64.9 Anemia, unspecified; N28.1 Cyst of kidney, acquired; Z96.641 Presence of right artificial hip joint; N20.0 Calculus of kidney; I48.91 Unspecified atrial fibrillation; L98.493 Non-pressure chronic ulcer of skin of other sites with necrosis of muscle; L89.626 Pressure-induced deep tissue damage of left heel; L89.616 Pressure-induced deep tissue damage of right heel; Z88.8 Allergy status to other drugs, medicaments and biological substances; Z90.49 Acquired absence of other specified parts of digestive tract; Z82.49 Family history of ischemic heart disease and other diseases of the circulatory system; Z82.3 Family history of stroke; Z80.3 Family history of malignant neoplasm of breast
CPT/HCPCS: 36415; 36600; 70450; 71045; 71260; 73502; 74177; 76775; 80048; 80053; 80069; 80185; 80202; 80307; 80320; 81001; 82140; 82270; 82565; 82570; 82607; 82805; 82962; 83605; 83735; 83880; 84100; 84132; 84156; 84300; 84443; 84478; 84484; 85007; 85014; 85018; 85025; 85027; 85379; 85610; 85652; 85730; 86141; 86850; 86900; 86901; 86920; 87040; 87070; 87075; 87077; 87081; 87086; 87186; 87205; 87493; 92507; 92610; 93005; 93306; 93970; 94002; 94003; 94640; 94660; 95819; 96361; 96365; 97110; 97163; 97530; 99291; G0378; J0131; J0330; J0692; J1335; J1815; J1885; J2003; J2185; J2248; J2250; J2470; J2543; J2704; J3480; J3490; J7060; J7131